=== PATIENT | male | born 1960 | race Caucasian/White ===

== ENCOUNTER → 2019-11-17 | Outpatient (CLI) | payer MEDICARE, OTHER ==
--- NOTE | 2019-11-17 13:32 | US ---
EXAMINATION TYPE: US venous doppler duplex UE RT DATE OF EXAM: 11/17/2019 COMPARISON: NONE CLINICAL HISTORY: R22.31 swelling of R upper limb. SIDE PERFORMED: Right Arm: Negative for DVT IMPRESSION: No evidence for DVT.
== END | disposition home or self-care (01) ==
LOC: RADUSMAIN 12:42
PROVIDERS: ATTEND Internal Medicine Hematology & Oncology
DX: R22.31 Localized swelling, mass and lump, right upper limb (principal)

== ENCOUNTER 2019-11-22 10:08 | Day surgery (SDC) | payer MEDICARE, OTHER ==
[2019-11-22 10:47] VITALS: BP 115/69; PULSE 121; RESP 18; TEMP 97.8
[2019-11-22] MEDS ORDERED: LIDOCAINE 1% INJ 10MG/ML (20 ML MDV) SQ ONE (13:20)
[2019-11-22] MEDS ORDERED: IOPAMIDOL-370 50ML BTL INJ ONE (13:27)
--- NOTE | 2019-11-22 14:11 | IR ---
EXAMINATION TYPE: IR cvc insert >=5 years and right upper extremity venogram DATE OF EXAM: 11/22/2019 COMPARISON: Right upper extremity Doppler duplex CLINICAL HISTORY: Needs long-term intravenous access for chemotherapy. PROCEDURE: Hand hygiene obtained alcohol-based hand rub. After informed consent, the skin overlying the right basilic vein was localized with ultrasound and n oted to be compressible and patent. An ultrasound image was obtained and submitted on the patient's chart. The overlying skin was prepped and draped and Lidocaine was used for local anesthesia. A ski n lori was made with a scalpel. Access was gained to the vein under ultrasound guidance with a 21 ga uge needle and a 0.018 inch wire was advanced. Access site was dilated with Peel-Away sheath and cat heter tailored to the appropriate length and advanced but could not be advanced centrally to the inno minate vein although the wire was advanced centrally. Gentle hand injection of contrast material was performed. Based on the findings, discussion was undertaken with Dr. Morales. It is elected to leave the tip of the catheter in the right axillary vein. Spot image was obtained verifying placement. Cathet er was fixed to the skin and a sterile dressing was placed following hemostasis. Catheter was aspira manisha and flushed with saline. Patient was discharged in stable condition without complication.Maximal barrier technique is utilized. Ultrasound image is documented on the chart. Ultrasound used with st erile technique. FINDINGS: Multiple collaterals are noted over the right axillary and subclavian region. 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 STATUS POST ULTRASOUND AND F LUOROSCOPIC GUIDED PICC LINE PLACEMENT, READY FOR USE. THIS PROCEDURE WAS PERFORMED BY THE [facility]. Catheter tip as described, referring clinician is aware.
== END 2019-11-22 14:06 | disposition home or self-care (01) ==
LOC: CATHCVL 10:08
PROVIDERS: ATTEND Radiology Diagnostic Radiology
DX: I87.1 Compression of vein (principal); I87.2 Venous insufficiency (chronic) (peripheral)
CPT/HCPCS: 36005; 75820; 36573; C1751; C1769; J2001; Q9967

== ENCOUNTER → 2020-01-05 | Outpatient (CLI) | payer MEDICARE, OTHER ==
--- NOTE | 2020-01-05 10:22 | MR ---
EXAMINATION TYPE: MR brain wo/w con DATE OF EXAM: 01/05/2020 COMPARISON: None HISTORY: Lung CA, Dizziness, Increased falls TECHNIQUE: Multiplanar, multisequence images of the brain and brainstem is performed without and with IV contras t, utilizing 7 mL intravenous Gadavist . FINDINGS: Diffusion weighted images demonstrate no evidence of a recent infarct or other diffusion ab normality. There is mild to moderate generalized degenerative change. There are multiple small foci of abnormal signal and mild confluent abnormal signal in the white matter which is nonspecific but most typical r emote microvascular ischemia. Midline structures demonstrate normal morphology. The craniocervical junction appears within normal limits. Post contrast images demonstrate no abnormal enhancement. The dural venous sinuses appear pa tent. Changes of chronic sinusitis noted. Globes are symmetric. Changes of chronic mastoiditis noted. IMPRESSION: 1. No evidence of intracranial metastases. 2. Degenerative and nonspecific white matter changes most typical remote microvascular ischemia. 3. Chronic mastoiditis and sinusitis.
== END | disposition home or self-care (01) ==
LOC: RADMRIMAIN 08:53
PROVIDERS: ATTEND Internal Medicine Hematology & Oncology
DX: I67.9 Cerebrovascular disease, unspecified (principal); H70.10 Chronic mastoiditis, unspecified ear; J32.9 Chronic sinusitis, unspecified; R90.82 White matter disease, unspecified; C34.11 Malignant neoplasm of upper lobe, right bronchus or lung
CPT/HCPCS: 70553; A9585

== ENCOUNTER 2020-01-19 06:24 | Inpatient (IN) | payer MEDICARE, OTHER ==
[2020-01-19] MEDS ORDERED: HYDROmorphone 1 MG/ML 1 ML SYRINGE IVP STA (06:38)
[2020-01-19] MEDS ORDERED: IPRATROPIUM-ALBUTEROL 3 ML NEB INHALATION STA (06:41)
--- NOTE | 2020-01-19 06:44 | ED ---
General Adult HPI - General Chief complaint: Extremity Problem,Nontraumatic Stated complaint: Hip Pain Time Seen by Provider: 01/19/20 06:31 Source: patient, EMS, RN notes reviewed Mode of arrival: EMS Limitations: no limitations - History of Present Illness Initial comments: This a 59-year-old male presents emergency Department chief complaint low back pain, hip pain. Patient states pain started yesterday. Patient states he had no trauma no change in activity. Patient states that he looks morning and the pain was unbearable. He does have a history of sciatica but states it does not feel similar. He states it feels it's more and it pelvis hip and back region. Patient denies any bowel, bladder incontinence or retention. Denies any saddle anesthesias or lower extremity paresthesias. He states he has no radiating pain down his leg. He has no decreased strength of his lower extremities. Patient states he did have a bone graft from his right hip to his neck. Patient does admit that he is on current treatment for lung cancer and he states that his tumor shrinking but it was pressing up against his aorta causing him to pass out occasionally. Patient is ashen dependent, is breathing treatments at home. He states she's been trying to wean himself off his sibley which cause increased shortness of breath and has had increased chest congestion. Denies fevers or chills. - Related Data Home Medications Medication Instructions Recorded Confirmed ARIPiprazole [Abilify] 20 mg PO DAILY 02/06/16 11/22/19 HYDROcodone/APAP 10-325MG [[place] 2 tab PO QID PRN 02/06/16 11/22/19 10-325] Multivitamins, Thera [Multivitamin] 1 tab PO DAILY 02/06/16 11/22/19 Sertraline HCl [Zoloft] 200 mg PO DAILY 02/06/16 11/22/19 Previous Rx's Medication Instructions Recorded Clarithromycin [Biaxin] 500 mg PO Q12HR #20 tablet 02/07/16 Potassium Chloride [Klor-Con 20] 20 meq PO DAILY #7 tab 02/07/16 Allergies Allergy/AdvReac Type Severity Reaction Status Date / Time amitriptyline [From Elavil] Allergy Rash/Hives Verified 01/19/20 06:33 niacin Allergy Rash/Hives Verified 01/19/20 06:34 diazepam [From Valium] AdvReac Unknown Verified 11/22/19 10:22 Review of Systems ROS Statement: Those systems with pertinent positive or pertinent negative responses have been documented in the HPI. ROS Other: All systems not noted in ROS Statement are negative. Past Medical History Past Medical History: Hyperlipidemia, Hypertension Additional Past Medical History / Comment(s): CHRONIC PAIN, Small cell lung CA History of Any Multi-Drug Resistant Organisms: None Reported Additional Past Surgical History / Comment(s): NECK, SPINAL FUSION Past Psychological History: Anxiety, Depression Smoking Status: Current every day smoker Past Alcohol Use History: None Reported Past Drug Use History: Marijuana General Exam Limitations: no limitations General appearance: alert, in no apparent distress Head exam: Present: atraumatic, normocephalic, normal inspection Eye exam: Present: normal appearance, PERRL, EOMI. Absent: scleral icterus, conjunctival injection, periorbital swelling Neck exam: Present: normal inspection, full ROM. Absent: tenderness, meningismus, lymphadenopathy Respiratory exam: Present: respiratory distress (Mild), wheezes, rhonchi. Absent: normal lung sounds bilaterally, rales, stridor Cardiovascular Exam: Present: normal rhythm, tachycardia, normal heart sounds. Absent: systolic murmur, diastolic murmur, rubs, gallop, clicks Back exam: Absent: CVA tenderness (R), CVA tenderness (L) Neurological exam: Present: alert Skin exam: Present: warm, dry, intact, normal color. Absent: rash Course Vital Signs 01/19/20 01/19/20 01/19/20 06:30 07:13 07:31 Temperature 98.2 F Pulse Rate 126 H 111 H 107 H Respiratory 22 Rate Blood Pressure 116/79 O2 Sat by Pulse 100 Oximetry EKG Findings - EKG Comments: EKG Findings:: EKG 0.6:35 sinus tachycardia rate of 117 OK 164 QRS 86 QTC is QTC 320/457 Medical Decision Making - Medical Decision Making Patient's had persistent low back pain on alleviated with pain medication. There is some degenerative changes no osseous lesion though this is concerning given patient has a history of lung cancer. Patient has had some increased shortness of breath which he believed was related to weaning oxygen though he does have some moderate rhonchi improved after DuoNeb treatment. Patient's x- ray shows concerning for infiltrate with mass. Patient has a known mass. Patient be admitted for IV antibiotics, pain management. - Lab Data Result diagrams: 01/19/20 06:44 01/19/20 06:44 Lab Results 01/19/20 01/19/20 01/19/20 Range/Units 06:44 06:44 06:44 WBC 8.2 (3.8-10.6) k/uL RBC 2.70 L (4.30-5.90) m/uL Hgb 9.4 L (13.0-17.5) gm/dL Hct 28.6 L (39.0-53.0) % MCV 105.8 H (80.0-100.0) fL MCH 34.9 (25.0-35.0) pg MCHC 33.0 (31.0-37.0) g/dL RDW 19.3 H (11.5-15.5) % Plt Count 283 (150-450) k/uL Neutrophils % 82 % Lymphocytes % 7 % Monocytes % 8 % Eosinophils % 1 % Basophils % 0 % Neutrophils # 6.7 (1.3-7.7) k/uL Lymphocytes # 0.6 L (1.0-4.8) k/uL Monocytes # 0.7 (0-1.0) k/uL Eosinophils # 0.1 (0-0.7) k/uL Basophils # 0.0 (0-0.2) k/uL Manual Slide Review Performed Hypochromasia Slight Anisocytosis Slight Macrocytosis Marked A Sodium 139 (137-145) mmol/L Potassium 3.8 (3.5-5.1) mmol/L Chloride 105 (98-107) mmol/L Carbon Dioxide 26 (22-30) mmol/L Anion Gap 8 mmol/L BUN 9 (9-20) mg/dL Creatinine 0.60 L (0.66-1.25) mg/dL Est GFR (CKD-EPI)AfAm >90 (>60 ml/min/1.73 sqM) Est GFR (CKD-EPI)NonAf >90 (>60 ml/min/1.73 sqM) Glucose 128 H (74-99) mg/dL Calcium 8.6 (8.4-10.2) mg/dL Total Bilirubin 0.6 (0.2-1.3) mg/dL AST 18 (17-59) U/L ALT 7 (4-49) U/L Alkaline Phosphatase 80 (38-126) U/L Troponin I <0.012 (0.000-0.034) ng/mL NT-Pro-B Natriuret Pep pg/mL Total Protein 7.1 (6.3-8.2) g/dL Albumin 3.7 (3.5-5.0) g/dL 01/19/20 Range/Units 06:44 WBC (3.8-10.6) k/uL RBC (4.30-5.90) m/uL Hgb (13.0-17.5) gm/dL Hct (39.0-53.0) % MCV (80.0-100.0) fL MCH (25.0-35.0) pg MCHC (31.0-37.0) g/dL RDW (11.5-15.5) % Plt Count (150-450) k/uL Neutrophils % % Lymphocytes % % Monocytes % % Eosinophils % % Basophils % % Neutrophils # (1.3-7.7) k/uL Lymphocytes # (1.0-4.8) k/uL Monocytes # (0-1.0) k/uL Eosinophils # (0-0.7) k/uL Basophils # (0-0.2) k/uL Manual Slide Review Hypochromasia Anisocytosis Macrocytosis Sodium (137-145) mmol/L Potassium (3.5-5.1) mmol/L Chloride (98-107) mmol/L Carbon Dioxide (22-30) mmol/L Anion Gap mmol/L BUN (9-20) mg/dL Creatinine (0.66-1.25) mg/dL Est GFR (CKD-EPI)AfAm (>60 ml/min/1.73 sqM) Est GFR (CKD-EPI)NonAf (>60 ml/min/1.73 sqM) Glucose (74-99) mg/dL Calcium (8.4-10.2) mg/dL Total Bilirubin (0.2-1.3) mg/dL AST (17-59) U/L ALT (4-49) U/L Alkaline Phosphatase (38-126) U/L Troponin I (0.000-0.034) ng/mL NT-Pro-B Natriuret Pep 99 pg/mL Total Protein (6.3-8.2) g/dL Albumin (3.5-5.0) g/dL Disposition Clinical Impression: Intractable low back pain, Pneumonia, Lung cancer Disposition: ADMITTED IP TO THIS HOSP Condition: Fair Referrals: [facility],Clinic [Primary Care Provider] - 1-2 days
[2020-01-19 07:02] LABS: Anisocytosis Slight; Basophils % (A) 0 %; Eosinophils # (A) 0.1 k/uL (0-0.7); Eosinophils % (A) 1 %; HCT 28.6 % (39.0-53.0); HGB 9.4 gm/dL (13.0-17.5); Hypochromasia Slight; Lymphocytes # (A) 0.6 k/uL (1.0-4.8); Lymphocytes % (A) 7 %; MCH 34.9 pg (25.0-35.0); MCV 105.8 fL (80.0-100.0); Macrocytosis Marked; Mean Platelet Volume 7.4; Monocytes # (A) 0.7 k/uL (0-1.0); Monocytes % (A) 8 %; Neutrophils # (A) 6.7 k/uL (1.3-7.7); Neutrophils % (A) 82 %; Platelet Count 283 k/uL (150-450); RDW 19.3 % (11.5-15.5); WBC 8.2 k/uL (3.8-10.6)
[2020-01-19 07:06] LABS: ALT 7 U/L (4-49); AST 18 U/L (17-59); African American GFR (CKD) >90 (>60 ml/min/1.73 sqM); Albumin 3.7 g/dL (3.5-5.0); Alkaline Phosphatase 80 U/L (38-126); Anion Gap 8 mmol/L; Blood Urea Nitrogen 9 mg/dL (9-20); Calcium 8.6 mg/dL (8.4-10.2); Carbon Dioxide 26 mmol/L (22-30); Chloride 105 mmol/L (98-107); Glucose 128 mg/dL (74-99); Non-African American GFR(CKD) >90 (>60 ml/min/1.73 sqM); Sodium 139 mmol/L (137-145); Total Bilirubin 0.6 mg/dL (0.2-1.3); Total Protein 7.1 g/dL (6.3-8.2)
[2020-01-19 07:31] LABS: Potassium 3.8 mmol/L (3.5-5.1)
--- NOTE | 2020-01-19 07:40 | XR ---
EXAMINATION TYPE: XR Hip RT and AP Pelvis DATE OF EXAM: 01/19/2020 COMPARISON: NONE HISTORY: Pelvic and right hip pain TECHNIQUE: A single AP view of the pelvis is obtained. Two views of the right hip are obtained. FINDINGS: There is no acute fracture/dislocation evident in the pelvis. The sacroiliac joints appea r symmetric and unremarkable. Mild axial joint space loss in both hips with mild acetabular spurring fairly symmetric in appearance. Artifact from overlying clothing material is present. Two views of right hip show no acute fracture or dislocation. Oval sclerotic focus intertrochanteric level is nonspecific, favor benign bone island. The overlying soft tissue is unremarkable. IMPRESSION: As above.
--- NOTE | 2020-01-19 07:42 | XR ---
EXAMINATION TYPE: XR chest 2V DATE OF EXAM: 01/19/2020 COMPARISON: Chest x-ray February 06, 2016 HISTORY: Shortness of breath. TECHNIQUE: Frontal and lateral views of the chest are obtained. FINDINGS: There is Elevated right hemidiaphragm with right apical triangular shaped opacity and more patchy right upper lung opacity. Left lung remains clear. The cardiac silhouette size remaining within normal limits. Pa rtial visualization of surgical change in the cervical spine redemonstrated. IMPRESSION: New elevated right hemidiaphragm with right apical pleural thickening and/or obstructiv e atelectasis with slightly more inferior right upper lung acute infiltrate and/or atelectasis. Progr ess study advised. Obstructing mass or lesion needs to be excluded.
--- NOTE | 2020-01-19 07:47 | XR ---
EXAMINATION TYPE: XR lumbosacral spine min 4V DATE OF EXAM: 01/19/2020 CLINICAL HISTORY: Back and right sacroiliac joint pain TECHNIQUE: Frontal, lateral, and oblique images of the lumbar spine are obtained. COMPARISON: None FINDINGS: There are 5 lumbar type vertebral bodies identified. The lumbar spine shows satisfactory alignment without evidence of acute fracture or dislocation. Vertebral body heights are within normal limits. Mild to moderate disc space narrowing L4-L5 level. Mild disc space narrowing L5-S1 level. T he oblique images appear within normal limits. Punctate densities likely from ingested food products overlie the abdomen. IMPRESSION: As above.
[2020-01-19] MEDS ORDERED: HYDROmorphone 0.5 MG/0.5 ML SYRINGE IVP STA (08:11)
[2020-01-19] MEDS ORDERED: cefTRIAXone IN SWFI 1,000 MG/10 ML SYRINGE IVP STA (08:40)
[2020-01-19] MEDS ORDERED: AZITHROMYCIN 500 MG in SODIUM CHLORIDE 0.9% 250 ML IVPB STA (08:40)
[2020-01-19] MEDS ORDERED: ONDANSETRON 4 MG/2 ML VIAL IVP PRN (08:44)
[2020-01-19] MEDS ORDERED: HYDROmorphone 0.5 MG/0.5 ML SYRINGE IVP PRN (08:44)
[2020-01-19] MEDS ORDERED: NALOXONE 0.4 MG/ML 1 ML VIAL IV PRN (08:44)
[2020-01-19] MEDS ORDERED: HYDROmorphone 1 MG/ML 1 ML SYRINGE IVP PRN (08:44)
[2020-01-19] MEDS: SODIUM CHLORIDE 0.9% 1,000 ML IV SCH ×2 (09:20→21:30)
[2020-01-19] MEDS ORDERED: METHOCARBAMOL 750 MG TAB PO PRN (10:58)
[2020-01-19] MEDS ORDERED: hydrOXYzine PAMOATE 25 MG CAP PO PRN (10:58)
[2020-01-19] MEDS: HYDROcodone/APAP 10-325MG 1 EACH TAB PO PRN ×2 (16:24→22:23)
[2020-01-19] MEDS: IPRATROPIUM-ALBUTEROL 3 ML NEB INHALATION PRN (19:46)
[2020-01-19] MEDS: BUDESONIDE 1 MG/2 ML NEBU INHALATION SCH (19:46)
--- NOTE | 2020-01-19 19:54 | P.CONS ---
History of Present Illness - Reason for Consult Consult date: 01/19/20 Lung Cancer Requesting physician: Rashi E Sheet - Chief Complaint Intractable Pain - History of Present Illness Mr. Beltran is a patient of our practice in which he is currently undergoing treatment for lung cancer with Carboplatin, Almta concurrent with radiation. Status Post cycle 3. He recently started to have increased right lower back pain, which was not relieved with the norco he utilizes at home. He did have CT scan for restaging Chest abdomen and pelvis on 01/11/20 which did show partial response to treatment, evidenced by decreased size of lung mass. Recent MRI of the brain was also completed and negative. denies any recent trauma. He had xrays of lumbar/sacrum/and Pelvis which essentially negative with the exception of arthritis and area (appears benign) in right hip region. He states the current pain regimen is only moderately helping. A bone scan has been ordered to further evaluate for metastatic disease Review of Systems A 14 point review of systems assessed and completed and all negative except HPI Past Medical History Past Medical History: Cancer, COPD, Fibromyalgia, Hyperlipidemia, Hypertension, Osteoarthritis (OA), Pneumonia, Prostate Disorder, Respiratory Disorder, Thyroid Disorder Additional Past Medical History / Comment(s): 10/2019 R side lung cancer with tumor compression SVC causing syncopal episodes/invasion of mediatinum/bilateral upper extremity lymphedema with numbness and tingling/R arm pain-pt has completed radiation treatments and still needs one more chemo treatment on 01/21/20-plan is then to receive immunotherapy, home oxygen at 3L/NC ATC, vertigo, chronic cervical and back pain, past lower extremity lymphedema, BPH, anemia, bronchitis, hypothyroid History of Any Multi-Drug Resistant Organisms: None Reported Past Surgical History: Orthopedic Surgery Additional Past Surgical History / Comment(s): 10/2019 bronchoscopy with biopsy, cervical surgery x2 with plate and bone graft from R hip, back injections, cystic acne lesions removed, colonoscopy, hemorrhoidectomy, picc lines. Past Anesthesia/Blood Transfusion Reactions: No Reported Reaction, Motion Sickness Smoking Status: Current every day smoker - Past Family History Father Family Medical History: Cancer Additional Family Medical History / Comment(s): Father is from renal cell carcinoma with mets. Mother Additional Family Medical History / Comment(s): Mother went into hospital for knee surgery/ended up from CDiff infection. Medications and Allergies Home Medications Medication Instructions Recorded Confirmed Type ARIPiprazole [Abilify] 20 mg PO DAILY 02/06/16 01/19/20 History HYDROcodone/APAP 10-325MG [[place] 2 tab PO Q4H PRN 02/06/16 01/19/20 History 10-325] Multivitamins, Thera [Multivitamin] 1 tab PO DAILY 02/06/16 01/19/20 History Sertraline HCl [Zoloft] 200 mg PO DAILY 02/06/16 01/19/20 History Atorvastatin [Lipitor] 10 mg PO HS 01/19/20 01/19/20 History Budesonide [Pulmicort] 1 mg INHALATION RT-BID 01/19/20 01/19/20 History Diltiazem HCl [Cardizem CD] 120 mg PO DAILY 01/19/20 01/19/20 History Folic Acid 1 mg PO DAILY 01/19/20 01/19/20 History Ipratropium-Albuterol Nebulize 3 ml INHALATION RT-Q6H PRN 01/19/20 01/19/20 History [Duoneb 0.5 mg-3 mg/3 ml Soln] Levothyroxine Sodium [Synthroid] 50 mcg PO DAILY 01/19/20 01/19/20 History Methocarbamol [Robaxin-750] 750 mg PO QID PRN 01/19/20 01/19/20 History Potassium Chloride [Klor-Con 20] 20 meq PO BID 01/19/20 01/19/20 History hydrOXYzine PAMOATE [Vistaril] 25 mg PO TID PRN 01/19/20 01/19/20 History Allergies Allergy/AdvReac Type Severity Reaction Status Date / Time amitriptyline [From Elavil] Allergy Rash/Hives Verified 01/19/20 09:25 diazepam [From Valium] Allergy Unknown Verified 01/19/20 09:25 niacin Allergy Rash/Hives Verified 01/19/20 09:25 Physical Exam Vitals: Vital Signs Temp Pulse Pulse Resp BP BP Pulse Ox 01/19/20 15:00 98.2 F 96 17 110/72 94 L 01/19/20 07:31 107 H 01/19/20 07:13 111 H 01/19/20 06:30 98.2 F 126 H 22 116/79 100 Intake and Output 01/19/20 01/19/20 01/19/20 06:59 14:59 22:59 Intake Total 600 Balance 600 Intake: Intake, IV Titration 600 Amount Sodium Chloride 0.9% 1, 600 000 ml @ 75 mls/hr IV . [id number] [facility] Rx#:[id number] Other: Weight 70.76 kg 70.76 kg - Constitutional General appearance: cooperative, mild distress, thin - EENT Eyes: EOMI, poor dentition ENT: NA/AT, normal oropharynx - Neck Neck: normal ROM - Respiratory Respiratory: bilateral: rales, wheezing - Cardiovascular Rhythm: regular Heart sounds: normal: S1, S2 - Gastrointestinal General gastrointestinal: normal bowel sounds, soft - Integumentary Integumentary: pale - Neurologic non focal - Musculoskeletal Musculoskeletal: generalized weakness, strength equal bilaterally - Psychiatric Psychiatric: A&O x's 3, appropriate affect, intact judgment & insight Results CBC & Chem 7: 01/19/20 06:44 01/19/20 06:44 Labs: Abnormal Lab Results - Last 24 Hours (Table) 01/19/20 01/19/20 Range/Units 06:44 06:44 RBC 2.70 L (4.30-5.90) m/uL Hgb 9.4 L (13.0-17.5) gm/dL Hct 28.6 L (39.0-53.0) % MCV 105.8 H (80.0-100.0) fL RDW 19.3 H (11.5-15.5) % Lymphocytes # 0.6 L (1.0-4.8) k/uL Macrocytosis Marked A Creatinine 0.60 L (0.66-1.25) mg/dL Glucose 128 H (74-99) mg/dL Comments: Xrays Reviewed Chest x-ray: report reviewed Assessment and Plan (1) Intractable low back pain Current Visit: Yes Status: Acute Code(s): M54.5 - LOW BACK PAIN SNOMED Code(s): 89650272474849791 (2) Lung cancer Current Visit: Yes Status: Acute Code(s): C34.90 - MALIGNANT NEOPLASM OF UNSP PART OF UNSP BRONCHUS OR LUNG SNOMED Code(s): 768407059 (3) Pneumonia Current Visit: Yes Status: Acute Code(s): J18.9 - PNEUMONIA, UNSPECIFIED ORGANISM SNOMED Code(s): 734120768 Plan: Assessment and Recommendations: Adenocarcinoma of the Lung: - Status post 3 cycles of Carboplatin and Almta concurrent with radiation - PLan for immunotherapy maintenance post chemo - COntinue Folic Acid Daily - Monitor CBC for paulino and decrease blood counts - Recent CT scans showed partial response with mild decrease in size of primary lung mass Right lower back pain: - Muscle relaxers and prn medications on board - Can consider long acting if still not controlled - Bowel regimen for narcotic induced constipation - Await NM bone scan Normocytic anemia likely secondary to chemotherapy - Check B12, Iron studies - Monitor CBC Thank you for allowing us to participate in the care of this patient we will follow along with you
[2020-01-19] MEDS: ATORVASTATIN 10 MG TAB PO SCH (20:38)
[2020-01-19] MEDS: HEPARIN SODIUM,PORCINE 5,000 UNIT/ML 1 ML VIAL SQ SCH (20:38)
[2020-01-19] MEDS: FAMOTIDINE 20 MG/2 ML VIAL IV SCH (20:38)
[2020-01-20] MEDS: LEVOTHYROXINE 50 MCG TAB PO SCH (06:07)
[2020-01-20 07:32] LABS: Anisocytosis Slight; Basophils % (A) 1 %; Eosinophils # (A) 0.1 k/uL (0-0.7); Eosinophils % (A) 1 %; HCT 27.3 % (39.0-53.0); HGB 8.6 gm/dL (13.0-17.5); Hypochromasia Marked; Lymphocytes # (A) 0.6 k/uL (1.0-4.8); Lymphocytes % (A) 10 %; MCH 34.9 pg (25.0-35.0); MCHC 31.4 g/dL (31.0-37.0); Macrocytosis Marked; Mean Platelet Volume 7.1; Monocytes # (A) 0.5 k/uL (0-1.0); Monocytes % (A) 9 %; Neutrophils # (A) 4.4 k/uL (1.3-7.7); Neutrophils % (A) 78 %; Platelet Count 223 k/uL (150-450); RBC 2.46 m/uL (4.30-5.90); RDW 18.4 % (11.5-15.5); WBC 5.7 k/uL (3.8-10.6)
[2020-01-20 07:53] LABS: ALT 6 U/L (4-49); AST 10 U/L (17-59); African American GFR (CKD) >90 (>60 ml/min/1.73 sqM); Albumin 3.4 g/dL (3.5-5.0); Alkaline Phosphatase 81 U/L (38-126); Anion Gap 8 mmol/L; Blood Urea Nitrogen 9 mg/dL (9-20); Calcium 8.6 mg/dL (8.4-10.2); Carbon Dioxide 25 mmol/L (22-30); Chloride 106 mmol/L (98-107); Glucose 104 mg/dL (74-99); MCV 111.1 fL (80.0-100.0); Non-African American GFR(CKD) >90 (>60 ml/min/1.73 sqM); Potassium 3.9 mmol/L (3.5-5.1); Sodium 139 mmol/L (137-145); Total Bilirubin 0.3 mg/dL (0.2-1.3); Total Protein 6.4 g/dL (6.3-8.2)
[2020-01-20] MEDS: BUDESONIDE 1 MG/2 ML NEBU INHALATION SCH ×2 (08:06→19:47)
[2020-01-20 08:45] LABS: Poikilocytosis (M) Present; Polychromasia Present
[2020-01-20] MEDS: HYDROcodone/APAP 10-325MG 1 EACH TAB PO PRN ×2 (09:22→22:17)
[2020-01-20] MEDS: SODIUM CHLORIDE 0.9% 1,000 ML IV SCH ×2 (09:23→22:55)
[2020-01-20] MEDS: HEPARIN SODIUM,PORCINE 5,000 UNIT/ML 1 ML VIAL SQ SCH ×2 (09:23→22:02)
[2020-01-20] MEDS: FAMOTIDINE 20 MG/2 ML VIAL IV SCH ×2 (09:23→22:02)
[2020-01-20] MEDS: FOLIC ACID 1 MG TAB PO SCH (09:23)
[2020-01-20] MEDS: DILTIAZEM CD 120 MG CAP.ER.24H PO SCH (09:23)
--- NOTE | 2020-01-20 09:37 | P.HPIM ---
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 Troponin is negative, proBNP is negative at 99.EKG showing sinus tachycardia at 117. No ST-T changes.chest x-ray: newly elevated right hemidiaphragm with right apical pleural thickening, atelectasis, with some more infiltrated, obstructing mass or lesion in to be excluded lumbar spine x-ray showing no fracture or dislocation [id number] facet better with hip x-ray showing no fracture or dislocation. emergency room physician financial services assistant Dilaudid and ceftriaxone and Zithromax. Also was started on normal saline at [address] Morales team has been consulted from ED Review of Systems CONSTITUTIONAL: No fever, no malaise, no fatigue. HEENT: No recent visual problems or hearing problems. Denied any sore throat. CARDIOVASCULAR: No orthopnea, PND, no palpitations, no syncope. PULMONARY: No shortness of breath, no cough, no hemoptysis. GASTROINTESTINAL: No diarrhea, no nausea, no vomiting, no abdominal pain. Normoactive bowel sounds. NEUROLOGICAL: No headaches, no weakness, no numbness. HEMATOLOGICAL: Denies any bleeding or petechiae. GENITOURINARY: Denies any burning micturition, frequency, or urgency. MUSCULOSKELETAL/RHEUMATOLOGICAL: Denies any joint pain, swelling, or any muscle pain. ENDOCRINE: Denies any polyuria or polydipsia. Past Medical History Past Medical History: Cancer, COPD, Fibromyalgia, Hyperlipidemia, Hypertension, Osteoarthritis (OA), Pneumonia, Prostate Disorder, Respiratory Disorder, Thyroid Disorder Additional Past Medical History / Comment(s): 10/2019 R side lung cancer with tumor compression SVC causing syncopal episodes/invasion of mediatinum/bilateral upper extremity lymphedema with numbness and tingling/R arm pain-pt has completed radiation treatments and still needs one more chemo treatment on 01/21/20-plan is then to receive immunotherapy, home oxygen at 3L/NC ATC, vertigo, chronic cervical and back pain, past lower extremity lymphedema, BPH, anemia, bronchitis, hypothyroid History of Any Multi-Drug Resistant Organisms: None Reported Past Surgical History: Orthopedic Surgery Additional Past Surgical History / Comment(s): 10/2019 bronchoscopy with biopsy, cervical surgery x2 with plate and bone graft from R hip, back injections, cystic acne lesions removed, colonoscopy, hemorrhoidectomy, picc lines. Past Anesthesia/Blood Transfusion Reactions: No Reported Reaction, Motion Sickness Smoking Status: Current every day smoker - Past Family History Father Family Medical History: Cancer Additional Family Medical History / Comment(s): Father is from renal cell carcinoma with mets. Mother Additional Family Medical History / Comment(s): Mother went into hospital for knee surgery/ended up from CDiff infection. Medications and Allergies Home Medications Medication Instructions Recorded Confirmed Type ARIPiprazole [Abilify] 20 mg PO DAILY 02/06/16 01/19/20 History HYDROcodone/APAP 10-325MG [[place] 2 tab PO Q4H PRN 02/06/16 01/19/20 History 10-325] Multivitamins, Thera [Multivitamin] 1 tab PO DAILY 02/06/16 01/19/20 History Sertraline HCl [Zoloft] 200 mg PO DAILY 02/06/16 01/19/20 History Atorvastatin [Lipitor] 10 mg PO HS 01/19/20 01/19/20 History Budesonide [Pulmicort] 1 mg INHALATION RT-BID 01/19/20 01/19/20 History Diltiazem HCl [Cardizem CD] 120 mg PO DAILY 01/19/20 01/19/20 History Folic Acid 1 mg PO DAILY 01/19/20 01/19/20 History Ipratropium-Albuterol Nebulize 3 ml INHALATION RT-Q6H PRN 01/19/20 01/19/20 History [Duoneb 0.5 mg-3 mg/3 ml Soln] Levothyroxine Sodium [Synthroid] 50 mcg PO DAILY 01/19/20 01/19/20 History Methocarbamol [Robaxin-750] 750 mg PO QID PRN 01/19/20 01/19/20 History Potassium Chloride [Klor-Con 20] 20 meq PO BID 01/19/20 01/19/20 History hydrOXYzine PAMOATE [Vistaril] 25 mg PO TID PRN 01/19/20 01/19/20 History Allergies Allergy/AdvReac Type Severity Reaction Status Date / Time amitriptyline [From Elavil] Allergy Rash/Hives Verified 01/19/20 09:25 diazepam [From Valium] Allergy Unknown Verified 01/19/20 09:25 niacin Allergy Rash/Hives Verified 01/19/20 09:25 Physical Exam Vitals: Vital Signs Temp Pulse Resp BP Pulse Ox 01/19/20 07:31 107 H 01/19/20 07:13 111 H 01/19/20 06:30 98.2 F 126 H 22 116/79 100 Intake and Output 01/18/20 01/19/20 01/19/20 22:59 06:59 14:59 Other: Weight 70.76 kg 70.76 kg GENERAL: The patient is alert and oriented x3, not in any acute distress. Well developed, well nourished. HEENT: Pupils are round and equally reacting to light. EOMI. No scleral icterus. No conjunctival pallor. Normocephalic, atraumatic. No pharyngeal erythema. No thyromegaly. CARDIOVASCULAR: S1 and S2 present. No murmurs, rubs, or gallops. PULMONARY: Chest is clear to auscultation, no wheezing or crackles. ABDOMEN: Soft, nontender, nondistended, normoactive bowel sounds. No palpable organomegaly. MUSCULOSKELETAL: No joint swelling or deformity. EXTREMITIES: No cyanosis, clubbing, or pedal edema. NEUROLOGICAL: Gross neurological examination did not reveal any focal deficits. SKIN: No rashes. No petechiae Results CBC & Chem 7: 01/20/20 06:48 01/20/20 06:48 Labs: Abnormal Lab Results - Last 24 Hours (Table) 01/19/20 01/19/20 Range/Units 06:44 06:44 RBC 2.70 L (4.30-5.90) m/uL Hgb 9.4 L (13.0-17.5) gm/dL Hct 28.6 L (39.0-53.0) % MCV 105.8 H (80.0-100.0) fL RDW 19.3 H (11.5-15.5) % Lymphocytes # 0.6 L (1.0-4.8) k/uL Macrocytosis Marked A Creatinine 0.60 L (0.66-1.25) mg/dL Glucose 128 H (74-99) mg/dL Thrombosis Risk Factor Assmnt - Choose All That Apply Any of the Below Risk Factors Present?: Yes Each Factor Represents 1 point: Abnormal pulmonary function (COPD), Age 41-60 years Other Risk Factors: Yes Each Risk Factor Represents 2 Points: Malignancy Other congenital or acquired thrombophilia - If yes, enter type in comment: No Thrombosis Risk Factor Assessment Total Risk Factor Score: 4 Thrombosis Risk Factor Assessment Level: Moderate Risk Assessment and Plan Assessment: 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 in the past as well as bilateral upper extremity lymphedema with numbness and tingling in the right arm status post radiotherapy and chemotherapy -elevated right hemidiaphragm with atelectasis, rule out obstructive masses, in view of his dyspnea and chest congestion -chronic hypoxic respiratory failure on 3 L/m oxygen via nasal cannula -hypertension -Hyperlipidemia -Primary osteoarthritis -COPD, not in acute exacerbation -Hypothyroidism -Benign prostatic hypertrophy -Chronic neck and back pain Plan: this is a pleasant 51 years old male who presents because of hip pain and low back pain associated with chest congestion. Continue with pain management. Consult orthopedic team. Follow-up with hematology/oncology service.pain m anagement Labs and medication were reviewed.. Continue same treatment. Continue with symptomatic treatment. Resume home medication. Monitor lytes and vitals. DVT and GI prophylaxis. Further recommendations of the clinical course of the patient DVT prophylaxis: Subcutaneous heparin GI Prophylaxis: Pepcid PT/OT: Pending Prognosis is guarded
--- NOTE | 2020-01-20 09:43 | P.PN ---
Subjective this is a pleasant 59 years old male with past medical history of COPD, hypertension, hyperlipidemia, osteoarthritis, hypothyroidism, 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 causing syncopal episodes in the past as well as bilateral upper extremity lymphedema with numbness and tingling in the right arm status post radiotherapy and chemotherapy., He has also history of chronic hypoxic respiratory failure arthritic oxygen via nasal cannula, chronic cervical and back pain, benign prostatic hypertrophy A presents because of low back pain and hip pain ration vitals are stable, he is tachycardic 107-111.unremarkable CBC and BMP and liver enzymes. Troponin is negative, proBNP is negative at 99.EKG showing sinus tachycardia at 117. No ST-T changes.chest x-ray: newly elevated right hemidiaphragm with right apical pleural thickening, atelectasis, with some more infiltrated, obstructing mass or lesion in to be excluded lumbar spine x-ray showing no fracture or dislocation [id number] facet better with hip x-ray showing no fracture or dislocation. emergency room physician assistant manager bilingual Dilaudid and ceftriaxone and Zithromax. Also was started on normal saline at [address] Morales team has been consulted from ED 01/20/2020 Patient is awake, alert, his nausea vomiting better, no chest pain or dyspnea. His pain in the right lower back/hip area still going on but feels better. Patient has some difficulty walking due to pain, he uses a walker with the help of the physical therapist. No weakness in the lower extremities. Oncology input is appreciated and the recommended bone scan and vitamin B12 no Vitals stable. CBC and BMP is unremarkable. Patient was given antibiotic in the emergency room for possible pneumonia however patient is not really dyspneic. No fever or leukocytosis, we'll keep monitoring for now. Review of Systems CONSTITUTIONAL: No fever, no malaise, no fatigue. HEENT: No recent visual problems or hearing problems. Denied any sore throat. CARDIOVASCULAR: No orthopnea, PND, no palpitations, no syncope. PULMONARY: No shortness of breath, no cough, no hemoptysis. GASTROINTESTINAL: No diarrhea, no nausea, no vomiting, no abdominal pain. Normoactive bowel sounds. NEUROLOGICAL: No headaches, no weakness, no numbness. HEMATOLOGICAL: Denies any bleeding or petechiae. GENITOURINARY: Denies any burning micturition, frequency, or urgency. MUSCULOSKELETAL/RHEUMATOLOGICAL: Denies any joint pain, swelling, or any muscle pain. ENDOCRINE: Denies any polyuria or polydipsia. Active Medications Generic Name Dose Route Start Last Admin Trade Name Freq PRN Reason Stop Dose Admin Hydrocodone Bitart/Acetaminophen 2 each 01/19/20 10:58 01/20/20 09:22 [place] 10 PO 2 each Q4H PRN Administration Pain Albuterol/Ipratropium 3 ml 01/19/20 10:58 01/19/20 19:46 Duoneb 0.5 Mg-3 Mg/3 Ml Soln INHALATION 3 ml RT-Q6H PRN Administration Shortness Of Breath Aripiprazole 20 mg 01/20/20 09:00 01/20/20 09:23 Abilify PO 20 mg DAILY OZZIE Administration Atorvastatin Calcium 10 mg 01/19/20 21:00 01/19/20 20:38 Lipitor PO 10 mg HS OZZIE Administration Budesonide 1 mg 01/19/20 20:00 01/20/20 08:06 Pulmicort INHALATION Not Given RT-BID OZZIE Diltiazem HCl 120 mg 01/20/20 09:00 01/20/20 09:23 Cardizem Cd PO 120 mg DAILY OZZIE Administration Famotidine 20 mg 01/19/20 21:00 01/20/20 09:23 Pepcid IV 20 mg Q12HR OZZIE Administration Folic Acid 1 mg 01/20/20 09:00 01/20/20 09:23 Folic Acid PO 1 mg DAILY OZZIE Administration Heparin Sodium (Porcine) 5,000 unit 01/19/20 21:00 01/20/20 09:23 Heparin SQ 5,000 unit Q12HR OZZIE Administration Hydromorphone HCl 0.5 mg 01/19/20 08:44 Dilaudid IVP Q3HR PRN Moderate Pain Hydromorphone HCl 1 mg 01/19/20 08:44 01/19/20 13:49 Dilaudid IVP 1 mg Q3HR PRN Administration Severe Pain Hydroxyzine Pamoate 25 mg 01/19/20 10:58 Vistaril PO TID PRN Anxiety Sodium Chloride 1,000 mls @ 75 mls/hr 01/19/20 08:45 01/20/20 09:23 Saline 0.9% IV 75 mls/hr .[id number] OZZIE Administration Levothyroxine Sodium 50 mcg 01/20/20 06:30 01/20/20 06:07 Synthroid PO 50 mcg 0630 OZZIE Administration Methocarbamol 750 mg 01/19/20 10:58 Robaxin PO QID PRN Muscle Spasm Naloxone HCl 0.2 mg 01/19/20 08:44 Narcan IV Q2M PRN Opioid Reversal Ondansetron HCl 4 mg 01/19/20 08:44 Zofran IVP Q8HR PRN Nausea And Vomiting Objective - Vital Signs Vital signs: Vital Signs Temp 98.2 F 01/20/20 05:27 Pulse 107 H 01/20/20 05:27 Resp 20 01/20/20 05:27 BP 112/74 01/20/20 05:27 Pulse Ox 97 01/20/20 05:27 Intake & Output 01/19/20 01/20/20 01/20/20 18:59 06:59 18:59 Intake Total 600 590 Balance 600 590 Weight 70.76 kg Intake: Intake, IV Titration 600 Amount Sodium Chloride 0.9% 1, 600 000 ml @ 75 mls/hr IV . [id number] OZZIE Rx#:[id number] Oral 590 Other: Voiding Method Toilet Toilet # Voids 1 - Exam GENERAL: The patient is alert and oriented x3, not in any acute distress. Well developed, well nourished. HEENT: Pupils are round and equally reacting to light. EOMI. No scleral icterus. No conjunctival pallor. Normocephalic, atraumatic. No pharyngeal erythema. No thyromegaly. CARDIOVASCULAR: S1 and S2 present. No murmurs, rubs, or gallops. PULMONARY: Chest is clear to auscultation, no wheezing or crackles. ABDOMEN: Soft, nontender, nondistended, normoactive bowel sounds. No palpable organomegaly. MUSCULOSKELETAL: No joint swelling or deformity. EXTREMITIES: No cyanosis, clubbing, or pedal edema. NEUROLOGICAL: Gross neurological examination did not reveal any focal deficits. SKIN: No rashes. no petechiae. - Labs CBC & Chem 7: 01/20/20 06:48 01/20/20 06:48 Labs: Abnormal Lab Results - Last 24 Hours (Table) 01/20/20 01/20/20 Range/Units 06:48 06:48 RBC 2.46 L (4.30-5.90) m/uL Hgb 8.6 L (13.0-17.5) gm/dL Hct 27.3 L (39.0-53.0) % MCV 111.1 H D (80.0-100.0) fL RDW 18.4 H (11.5-15.5) % Lymphocytes # 0.6 L (1.0-4.8) k/uL Macrocytosis Marked A Creatinine 0.58 L (0.66-1.25) mg/dL Glucose 104 H (74-99) mg/dL AST 10 L (17-59) U/L Albumin 3.4 L (3.5-5.0) g/dL Assessment and Plan Assessment: -Right lower back/hip area pain, rule out metastatic disease. 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 in the past as well as bilateral upper extremity lymphedema with numbness and tingling in the right arm status post radiotherapy and chemotherapy -elevated right hemidiaphragm with atelectasis, rule out obstructive masses, in view of his dyspnea and chest congestion -chronic hypoxic respiratory failure on 3 L/m oxygen via nasal cannula -hypertension -Hyperlipidemia -Primary osteoarthritis -COPD, not in acute exacerbation -Hypothyroidism -Benign prostatic hypertrophy -Chronic neck and back pain Plan: this is a pleasant 51 years old male who presents because of hip pain and low back pain . Continue with pain management. Consult orthopedic team. Follow-up with hematology/oncology service.pain management. Follow-up bone scan. Follow- up vitamin B12 level Labs and medication were reviewed.. Continue same treatment. Continue with symptomatic treatment. Resume home medication. Monitor lytes and vitals. DVT and GI prophylaxis. Further recommendations of the clinical course of the patient DVT prophylaxis: Subcutaneous heparin GI Prophylaxis: Pepcid PT/OT: Pending Prognosis is guarded
--- NOTE | 2020-01-20 11:25 | P.CNOR ---
History of Present Illness - [facility] Consult date: 01/20/20 Consult reason: low back pain History of present illness: Patient is a pleasant 59-year-old male seen at bedside this morning consultation for right low back pain. He states he developed severe right low back pain approximately 2 days ago after playing on the couch. He denies any trauma or injury. His pain has continued. He takes pain medication and Robaxin for chronic neck and back pain. He is seen at the [place] [facility]. He is currently denying any radicular symptoms down his lower extremities including numbness or tingling. He has no loss of bowel or bladder control. He denies calf pain. He states he has a history of lung cancer which is stage III. He has a bone scan scheduled to be performed. He has no other complaints today. Review of Systems All systems: negative Constitutional: Denies chills, Denies fever Eyes: denies blurred vision, denies pain Ears, nose, mouth and throat: Denies headache, Denies sore throat Cardiovascular: Denies chest pain, Denies shortness of breath Respiratory: Denies cough Gastrointestinal: Denies abdominal pain, Denies diarrhea, Denies nausea, Denies vomiting Musculoskeletal: Denies myalgias Integumentary: Denies pruritus, Denies rash Neurological: Denies numbness, Denies weakness Psychiatric: Denies anxiety, Denies depression Endocrine: Denies fatigue, Denies weight change Past Medical History Past Medical History: Cancer, COPD, Fibromyalgia, Hyperlipidemia, Hypertension, Osteoarthritis (OA), Pneumonia, Prostate Disorder, Respiratory Disorder, Thyroid Disorder Additional Past Medical History / Comment(s): 10/2019 R side lung cancer with tumor compression SVC causing syncopal episodes/invasion of mediatinum/bilateral upper extremity lymphedema with numbness and tingling/R arm pain-pt has completed radiation treatments and still needs one more chemo treatment on 01/20-plan is then to receive immunotherapy, home oxygen at 3L/[place] ATC, vertigo, chronic cervical and back pain, past lower extremity lymphedema, BPH, anemia, bronchitis, hypothyroid History of Any Multi-Drug Resistant Organisms: None Reported Past Surgical History: Orthopedic Surgery Additional Past Surgical History / Comment(s): 10/2019 bronchoscopy with biopsy, cervical surgery x2 with plate and bone graft from R hip, back injections, cystic acne lesions removed, colonoscopy, hemorrhoidectomy, picc lines. Past Anesthesia/Blood Transfusion Reactions: No Reported Reaction, Motion Sickness Smoking Status: Current every day smoker - Past Family History Father Family Medical History: Cancer Additional Family Medical History / Comment(s): Father is from renal cell carcinoma with mets. Mother Additional Family Medical History / Comment(s): Mother went into hospital for knee surgery/ended up from CDiff infection. Medications and Allergies Home Medications Medication Instructions Recorded Confirmed Type ARIPiprazole [Abilify] 20 mg PO DAILY 02/06/16 01/19/20 History HYDROcodone/APAP 10-325MG [[place] 2 tab PO Q4H PRN 02/06/16 01/19/20 History 10-325] Multivitamins, Thera [Multivitamin] 1 tab PO DAILY 02/06/16 01/19/20 History Sertraline HCl [Zoloft] 200 mg PO DAILY 02/06/16 01/19/20 History Atorvastatin [Lipitor] 10 mg PO HS 01/19/20 01/19/20 History Budesonide [Pulmicort] 1 mg INHALATION RT-BID 01/19/20 01/19/20 History Diltiazem HCl [Cardizem CD] 120 mg PO DAILY 01/19/20 01/19/20 History Folic Acid 1 mg PO DAILY 01/19/20 01/19/20 History Ipratropium-Albuterol Nebulize 3 ml INHALATION RT-Q6H PRN 01/19/20 01/19/20 History [Duoneb 0.5 mg-3 mg/3 ml Soln] Levothyroxine Sodium [Synthroid] 50 mcg PO DAILY 01/19/20 01/19/20 History Methocarbamol [Robaxin-750] 750 mg PO QID PRN 01/19/20 01/19/20 History Potassium Chloride [Klor-Con 20] 20 meq PO BID 01/19/20 01/19/20 History hydrOXYzine PAMOATE [Vistaril] 25 mg PO TID PRN 01/19/20 01/19/20 History Allergies Allergy/AdvReac Type Severity Reaction Status Date / Time amitriptyline [From Elavil] Allergy Rash/Hives Verified 01/19/20 09:25 diazepam [From Valium] Allergy Unknown Verified 01/19/20 09:25 niacin Allergy Rash/Hives Verified 01/19/20 09:25 Physical Examination Inspection of the spine and lower back are atraumatic. There are no ecchymoses, erythema or wounds. There is no step-off. There is paraspinal spasming but no point tenderness. He has right low back pain with straight leg raising. He has no pain in the right hip or groin with range of motion of the hip joint. Neuro status is intact with motor and sensation full throughout the right lower extremity L2 through S1. 2+ knee jerk and ankle jerk reflexes present. There is no hyperreflexia. Calf is soft nontender. 2+ dorsalis pedis pulse and less than 2 second cap refill present. Results Lumbar XRays show mild degenerative changes. There is no fractures or instability. There are no apparent lesions. - Labs Labs: Abnormal Lab Results - Last 24 Hours (Table) 01/20/20 01/20/20 Range/Units 06:48 06:48 RBC 2.46 L (4.30-5.90) m/uL Hgb 8.6 L (13.0-17.5) gm/dL Hct 27.3 L (39.0-53.0) % MCV 111.1 H D (80.0-100.0) fL RDW 18.4 H (11.5-15.5) % Lymphocytes # 0.6 L (1.0-4.8) k/uL Macrocytosis Marked A Creatinine 0.58 L (0.66-1.25) mg/dL Glucose 104 H (74-99) mg/dL AST 10 L (17-59) U/L Albumin 3.4 L (3.5-5.0) g/dL H & H 01/19/20 01/20/20 Range/Units 06:44 06:48 Hgb 9.4 L 8.6 L (13.0-17.5) gm/dL Hct 28.6 L 27.3 L (39.0-53.0) % Result Diagrams: 01/20/20 06:48 01/20/20 06:48 Assessment and Plan (1) Intractable low back pain Narrative/Plan: We will have him try a round of corticosteroids and extended release pain medication. We'll also order physical therapy for lumbar spine neutral spine stabilization, core strengthening and hamstring flexibility. We will await results of the bone scan. We'll continue to follow make further recommendations as appropriate. Current Visit: Yes Status: Acute Code(s): M54.5 - LOW BACK PAIN SNOMED Code(s): [id number] Time with Patient: Less than 30
[2020-01-20] MEDS: oxyCODONE ER 10 MG TAB.ER.12H PO SCH ×2 (11:39→22:53)
--- NOTE | 2020-01-20 13:56 | NM ---
EXAMINATION TYPE: NM bone scan whole body DATE OF EXAM: 01/20/2020 COMPARISON: Lumbar spine 01/19/2020 HISTORY: Right hip pain for 3 days, lung carcinoma Delayed whole-body scanning was performed following the injection of 21.9 mCi Tc 99m MDP. Images acq uired 4 hours post injection. FINDINGS: Uptake in the lower lumbar spine, lumbosacral junction likely is degenerative. Uptake within the feet , shoulders, sternoclavicular joints is likely degenerative. Soft tissue uptake is normal. No abnorma l uptake to suggest metastatic disease. In specific the hips show symmetric uptake. IMPRESSION: Metastatic disease is not evident.
[2020-01-20 15:46] VITALS: BMI 24.4
[2020-01-20] MEDS: methylPREDNISolone 4 MG TAB TAPER PO SCH (15:55)
--- NOTE | 2020-01-20 16:15 | P.PN ---
Subjective Progress Note Date: 01/20/20 Principal diagnosis: Hip and back pain Patient was evaluated by orthopedics agree with plan. Objective - Vital Signs Vital signs: Vital Signs Temp 97.5 F L 01/20/20 11:33 Pulse 101 H 01/20/20 11:33 Resp 18 01/20/20 11:33 BP 119/69 01/20/20 11:33 Pulse Ox 97 01/20/20 11:33 Intake & Output 01/19/20 01/20/20 01/20/20 18:59 06:59 18:59 Intake Total 600 590 Balance 600 590 Weight 70.76 kg Intake: Intake, IV Titration 600 Amount Sodium Chloride 0.9% 1, 600 000 ml @ 75 mls/hr IV . [id number] OZZIE Rx#:[id number] Oral 590 Other: Voiding Method Toilet Toilet # Voids 1 - Exam - Constitutional General appearance: cooperative, mild distress, thin - EENT Eyes: EOMI, poor dentition ENT: NA/AT, normal oropharynx - Neck Neck: normal ROM - Respiratory Respiratory: bilateral: rales, wheezing - Cardiovascular Rhythm: regular Heart sounds: normal: S1, S2 - Gastrointestinal General gastrointestinal: normal bowel sounds, soft - Integumentary Integumentary: pale - Neurologic non focal - Musculoskeletal Musculoskeletal: generalized weakness, strength equal bilaterally - Psychiatric Psychiatric: A&O x's 3, appropriate affect, intact judgment & insight - Labs CBC & Chem 7: 01/20/20 06:48 01/20/20 06:48 Labs: Abnormal Lab Results - Last 24 Hours (Table) 01/20/20 01/20/20 Range/Units 06:48 06:48 RBC 2.46 L (4.30-5.90) m/uL Hgb 8.6 L (13.0-17.5) gm/dL Hct 27.3 L (39.0-53.0) % MCV 111.1 H D (80.0-100.0) fL RDW 18.4 H (11.5-15.5) % Lymphocytes # 0.6 L (1.0-4.8) k/uL Macrocytosis Marked A Creatinine 0.58 L (0.66-1.25) mg/dL Glucose 104 H (74-99) mg/dL AST 10 L (17-59) U/L Albumin 3.4 L (3.5-5.0) g/dL Microbiology - Last 24 Hours (Table) 01/19/20 09:18 Blood Culture - Preliminary Blood No Growth after 24 hours Assessment and Plan (1) Intractable low back pain Current Visit: Yes Status: Acute Code(s): M54.5 - LOW BACK PAIN SNOMED Code(s): 01000332670088759 (2) Lung cancer Current Visit: Yes Status: Acute Code(s): C34.90 - MALIGNANT NEOPLASM OF UNSP PART OF UNSP BRONCHUS OR LUNG SNOMED Code(s): 931168115 (3) Pneumonia Current Visit: Yes Status: Acute Code(s): J18.9 - PNEUMONIA, UNSPECIFIED ORGANISM SNOMED Code(s): 577740097 Plan: Assessment and Recommendations: Adenocarcinoma of the Lung: - Status post 3 cycles of Carboplatin and [place] concurrent with radiation - PLan for immunotherapy maintenance post chemo - COntinue Folic Acid Daily - Monitor CBC for paulino and decrease blood counts - Recent CT scans showed partial response with mild decrease in size of primary lung mass Right lower back pain: - Muscle relaxers and prn medications on board - Can consider long acting if still not controlled - Bowel regimen for narcotic induced constipation - Await NM bone scan Normocytic anemia likely secondary to chemotherapy - Check B12, Iron studies - Monitor CBC Plan: - Agree with long acting pain management with prn for severe pain - Agree with PT/OT - Await Bone Scan - Will plan for follow-up in office within 2 weeks of discharge
[2020-01-20] MEDS: CYANOCOBALAMIN 500 MCG TAB PO SCH (22:02)
[2020-01-20] MEDS: ATORVASTATIN 10 MG TAB PO SCH (22:02)
[2020-01-21] MEDS: oxyCODONE ER 10 MG TAB.ER.12H PO SCH (07:49)
[2020-01-21] MEDS: LEVOTHYROXINE 50 MCG TAB PO SCH (07:50)
[2020-01-21] MEDS: FOLIC ACID 1 MG TAB PO SCH (07:50)
[2020-01-21] MEDS: CYANOCOBALAMIN 500 MCG TAB PO SCH (07:50)
[2020-01-21] MEDS: methylPREDNISolone 4 MG TAB TAPER PO SCH (07:51)
[2020-01-21] MEDS: DILTIAZEM CD 120 MG CAP.ER.24H PO SCH (07:51)
[2020-01-21] MEDS: HEPARIN SODIUM,PORCINE 5,000 UNIT/ML 1 ML VIAL SQ SCH (07:51)
[2020-01-21] MEDS: FAMOTIDINE 20 MG/2 ML VIAL IV SCH (07:52)
[2020-01-21] MEDS: BUDESONIDE 1 MG/2 ML NEBU INHALATION SCH (08:16)
[2020-01-21] MEDS: IPRATROPIUM-ALBUTEROL 3 ML NEB INHALATION PRN (11:18)
[2020-01-21 13:05] VITALS: BP 113/75; PULSE 93; RESP 17; TEMP 98.1
--- NOTE | 2020-01-21 14:00 | P.PN ---
Subjective Progress Note Date: 01/21/20 Principal diagnosis: Hip and back pain Doing better on long acting medication. Objective - Vital Signs Vital signs: Vital Signs Temp 98.1 F 01/21/20 13:04 Pulse 93 01/21/20 13:04 Resp 17 01/21/20 13:04 BP 113/75 01/21/20 13:04 Pulse Ox 98 01/21/20 13:04 Intake & Output 01/20/20 01/21/20 01/21/20 18:59 06:59 18:59 Intake Total 650 1315 Balance 650 1315 Weight 70.76 kg Intake: Intake, IV Titration 650 725 Amount Sodium Chloride 0.9% 1, 650 725 000 ml @ 75 mls/hr IV . [id number] OZZIE Rx#:[id number] Oral 590 Other: Voiding Method Toilet Toilet Toilet # Voids 3 - Exam - Constitutional General appearance: cooperative, mild distress, thin - EENT Eyes: EOMI, poor dentition ENT: NA/AT, normal oropharynx - Neck Neck: normal ROM - Respiratory Respiratory: bilateral: rales, wheezing - Cardiovascular Rhythm: regular Heart sounds: normal: S1, S2 - Gastrointestinal General gastrointestinal: normal bowel sounds, soft - Integumentary Integumentary: pale - Neurologic non focal - Musculoskeletal Musculoskeletal: generalized weakness, strength equal bilaterally - Psychiatric Psychiatric: A&O x's 3, appropriate affect, intact judgment & insight - Labs CBC & Chem 7: 01/20/20 06:48 01/20/20 06:48 Labs: Microbiology - Last 24 Hours (Table) 01/19/20 09:18 Blood Culture - Preliminary Blood No Growth after 48 hours Assessment and Plan (1) Intractable low back pain Current Visit: Yes Status: Acute Code(s): M54.5 - LOW BACK PAIN SNOMED Code(s): 20726494542450010 (2) Lung cancer Current Visit: Yes Status: Acute Code(s): C34.90 - MALIGNANT NEOPLASM OF UNSP PART OF UNSP BRONCHUS OR LUNG SNOMED Code(s): 599232898 (3) Pneumonia Current Visit: Yes Status: Acute Code(s): J18.9 - PNEUMONIA, UNSPECIFIED ORGANISM SNOMED Code(s): 896767240 Plan: Assessment and Recommendations: Adenocarcinoma of the Lung: - Status post 3 cycles of Carboplatin and [place] concurrent with radiation - PLan for immunotherapy maintenance post chemo - COntinue Folic Acid Daily - Monitor CBC for paulino and decrease blood counts - Recent CT scans showed partial response with mild decrease in size of primary lung mass Right lower back pain: - Muscle relaxers and prn medications on board - Can consider long acting if still not controlled - Bowel regimen for narcotic induced constipation - Bone scan did not reveal any metastatic disease to bone Normocytic anemia likely secondary to chemotherapy -B12 decreased, await MMA. PO B12 agree Plan: - Agree with long acting pain management with prn for severe pain - Agree with PT/OT - Will plan for follow-up in office within 1-2 weeks of discharge to continue treatment plan. He was suppose to have treatment today but will resume next week most likely.
[2020-01-21] MEDS ORDERED: FAMOTIDINE 20 MG TAB PO SCH (21:00)
--- NOTE | 2020-01-22 02:11 | P.DS ---
Providers Date of admission: 01/19/20 08:44 Attending physician: Pino Gonzalez Consults: 01/19/20 08:44 Consult Physician Urgent Consulting Provider: Alcon Morales Consult Reason/Comments: lung cancer on chemo Do you want consulting provider notified?: Yes 01/19/20 16:27 Consult Physician Routine Consulting Provider: Caleb Lamb Consult Reason/Comments: right hip pain Do you want consulting provider notified?: Yes Primary care physician: [facility] Hospital Course: Diagnoses: -Right lower back/hip area pain, rule out metastatic disease. 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 in the past as well as bilateral upper extremity lymphedema with numbness and tingling in the right arm status post radiotherapy and chemotherapy -elevated right hemidiaphragm with atelectasis -chronic hypoxic respiratory failure on 3 L/m oxygen via nasal cannula -hypertension -Hyperlipidemia -Primary osteoarthritis -COPD, not in acute exacerbation -Hypothyroidism -Benign prostatic hypertrophy -Chronic neck and back pain Hospital course: this is a pleasant 59 years old male with past medical history of COPD, hypertension, hyperlipidemia, osteoarthritis, hypothyroidism, 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 Patient has been evaluated by orthopedic and oncology services. Bone scan was ordered which no metastatic spots. Patient was started on Medrol pack and narcotics and he felt significant improvement B12 is low-normal and start replacement On the day of discharge No nausea vomiting, has no bowel movement yet and he is passing gases which says that's is normal for him as usually he has bowel movements every few days. His pain in the right lower back and hip area is significantly improved and pain controlled and patient is satisfied with the situation and to the right now. Patient states that he has not cause at home and he does not need more pain medication Patient also denies chest pain or dyspnea. No fever. He has an appointment today to get chemotherapy however this should be canceled as per oncology team as he is hospital within 24 hours chest x-ray: newly elevated right hemidiaphragm with right apical pleural thickening, atelectasis, with some more infiltrated, obstructing mass or lesion in to be excluded lumbar spine x-ray showing no fracture or dislocation [id number] facet better with hip x-ray showing no fracture or dislocation. Patient was cleared for discharge by orthopedic and oncology team Patient will be discharged on pain medicine and steroid taper Problems and management plan were discussed with the patient and he verbalized understanding and acceptance Patient was found stable and can be discharged home however he needs follow-up as an outpatient . Patient was instructed to follow up with PCP at the [facility] within one week and patient agrees. Also patient was instructed to follow up with his oncologist . Patient agrees with the appointments made for him, see discharge instructions Gen: patient is a AAOx3, no distress CVS: S1-S2, RRR, no murmur Lungs: B/L CTA, no wheezing Abdomen: soft, no distention, no tenderness, positive bowel sounds Extremity: no leg edema or induration Time spent more than 35 minutes Patient Condition at Discharge: Fair Plan - Discharge Summary Discharge Rx Participant: No New Discharge Prescriptions: New methylPREDNISolone Dose Pack [Medrol Dose Pack] 24 mg PO DAILY #1 pack Cyanocobalamin [Vitamin B-12] 500 mcg PO DAILY 30 Days #30 tab Continue Sertraline HCl [Zoloft] 200 mg PO DAILY HYDROcodone/APAP 10-325MG [Caspian 10-325] 2 tab PO Q4H PRN PRN Reason: Pain ARIPiprazole [Abilify] 20 mg PO DAILY Multivitamins, Thera [Multivitamin (formulary)] 1 tab PO DAILY Budesonide [Pulmicort] 1 mg INHALATION RT-BID Potassium Chloride [Klor-Con 20] 20 meq PO BID Levothyroxine Sodium [Synthroid] 50 mcg PO DAILY Folic Acid 1 mg PO DAILY hydrOXYzine PAMOATE [Vistaril] 25 mg PO TID PRN PRN Reason: Anxiety Methocarbamol [Robaxin-750] 750 mg PO QID PRN PRN Reason: Muscle Spasm Atorvastatin [Lipitor] 10 mg PO HS Ipratropium-Albuterol Nebulize [Duoneb 0.5 mg-3 mg/3 ml Soln] 3 ml INHALATION RT-Q6H PRN PRN Reason: Shortness Of Breath Diltiazem HCl [Cardizem CD] 120 mg PO DAILY Discharge Medication List ARIPiprazole [Abilify] 20 mg PO DAILY 02/06/16 [History] HYDROcodone/APAP 10-325MG [Caspian 10-325] 2 tab PO Q4H PRN 02/06/16 [History] Multivitamins, Thera [Multivitamin (formulary)] 1 tab PO DAILY 02/06/16 [History] Sertraline HCl [Zoloft] 200 mg PO DAILY 02/06/16 [History] Atorvastatin [Lipitor] 10 mg PO HS 01/19/20 [History] Budesonide [Pulmicort] 1 mg INHALATION RT-BID 01/19/20 [History] Diltiazem HCl [Cardizem CD] 120 mg PO DAILY 01/19/20 [History] Folic Acid 1 mg PO DAILY 01/19/20 [History] Ipratropium-Albuterol Nebulize [Duoneb 0.5 mg-3 mg/3 ml Soln] 3 ml INHALATION RT-Q6H PRN 01/19/20 [History] Levothyroxine Sodium [Synthroid] 50 mcg PO DAILY 01/19/20 [History] Methocarbamol [Robaxin-750] 750 mg PO QID PRN 01/19/20 [History] Potassium Chloride [Klor-Con 20] 20 meq PO BID 01/19/20 [History] hydrOXYzine PAMOATE [Vistaril] 25 mg PO TID PRN 01/19/20 [History] Cyanocobalamin [Vitamin B-12] 500 mcg PO DAILY 30 Days #30 tab 01/21/20 [Rx] methylPREDNISolone Dose Pack [Medrol Dose Pack] 24 mg PO DAILY #1 pack 01/21/20 [Rx] Follow up Appointment(s)/Referral(s): Yemi Cole PAC [PHYSICIAN VIRTUALIZATION ARCHITECT] - 02/07/20 10:00 am Alcon Morales MD [STAFF PHYSICIAN] - 01/25/20 1:30 pm ([facility] office) [facility], [NON-STAFF] - [facility],Clinic [Primary Care Provider] - 01/26/20 1:00 pm (this is a virtual appt. Please call office to set this up.) Patient Instructions/Handouts: Methylprednisolone (By mouth), Morphine, Slow Release (By mouth), Vitamin B-12 (By mouth) Activity/Diet/Wound Care/Special Instructions: Previous diet Activity is limited till you see your doctor Discharge Disposition: HOME SELF-CARE
[2020-01-22] MEDS ORDERED: CYANOCOBALAMIN 500 MCG TAB PO SCH (09:00)
--- NOTE | 2020-01-24 07:33 | CDI ---
Documentation Clarification Form Date: 01/24/2020 06:36:29 AM From: Veronika Aguilar Phone: To: Veronika Aguilar If you have a question about this query, please contact Callie Reece Headend Technician at [phone] between 8am and 5pm. Admit Date: 01/19/2020 08:44:00 AM Patient Name: Axel Beltran Visit Number: [id number] Discharge Date: 01/21/2020 05:10:00 PM ATTENTION: The Clinical Documentation Specialists (CDI) and [facility] Coding Staff appreciate your assistance in clarifying documentation. Please respond to the clarification below the line at the bottom and electronically sign. The CDI & [facility] Coding staff will review the response and follow-up if needed. Please note: Queries are made part of the Legal Health Record. If you have any questions, please contact the author of this message via ITS. Dr. Markham E Lakshmi Womack documents pneumonia in consult. PN 01/19 and PN 01/20. Please clarify if patient had Pneumonia or was this ruled out. History/Risk Factors: adenocarcinoma of right lung, Clinical Indicators: Vital signs: 98.2 F,126, 22, 116/79, 100 3L WBC/Left shift: 8.2 X-ray: RUL infiltrate or atelectasis Lung/Breathing assess O2 3L In order to capture the severity of condition, please clarify if patient had pneumonia or was this ruled out: Pneumonia Pneumonia ruled out Bacterial Pneumonia, specify causal organism (if known) Gram Negative Pneumonia Due to Strep ?Due to Staph ?Due to E. Coli ?Other bacteria (please specify) Viral Pneumonia, specify casual organism (if known) Healthcare Acquired Pneumonia/Pneumonia, unspecified Other, please specify Unable to determine no pna MTDD
--- NOTE | 2020-01-24 07:43 | CDI ---
Documentation Clarification Form Date: 01/24/2020 06:36:29 AM From: Veronika Aguilar Phone: To: Veronika Aguilar If you have a question about this query, please contact Callie Reece Customer Experience Strategist at [phone] between 8am and 5pm. Admit Date: 01/19/2020 08:44:00 AM Patient Name: Axel Beltran Visit Number: [id number] Discharge Date: 01/21/2020 05:10:00 PM ATTENTION: The Clinical Documentation Specialists (CDI) and [facility] Coding Staff appreciate your assistance in clarifying documentation. Please respond to the clarification below the line at the bottom and electronically sign. The CDI & [facility] Coding staff will review the response and follow-up if needed. Please note: Queries are made part of the Legal Health Record. If you have any questions, please contact the author of this message via ITS. Dr. Markham E Lakshmi Womack documents pneumonia in consult. PN 01/19 and PN 01/20. Please clarify if patient had Pneumonia or was this ruled out. History/Risk Factors: adenocarcinoma of right lung, Clinical Indicators: Vital signs: 98.2 F,126, 22, 116/79, 100 3L WBC/Left shift: 8.2 X-ray: RUL infiltrate or atelectasis Lung/Breathing assess O2 3L In order to capture the severity of condition, please clarify if patient had pneumonia or was this ruled out: Pneumonia Pneumonia ruled out Bacterial Pneumonia, specify causal organism (if known) Gram Negative Pneumonia Due to Strep ?Due to Staph ?Due to E. Coli ?Other bacteria (please specify) Viral Pneumonia, specify casual organism (if known) Healthcare Acquired Pneumonia/Pneumonia, unspecified Other, please specify Unable to determine no pna MTDD
== END 2020-01-21 17:10 | disposition home or self-care (01) | DRG 552 ==
LOC: EC 06:24 → 5NMEDONC 08:44
PROVIDERS: ADMIT Hospitalist; ATTEND Hospitalist
DX: M51.37 Other intervertebral disc degeneration, lumbosacral region (principal); C34.91 Malignant neoplasm of unspecified part of right bronchus or lung; I87.1 Compression of vein; J96.11 Chronic respiratory failure with hypoxia; J98.11 Atelectasis; E03.9 Hypothyroidism, unspecified; E78.5 Hyperlipidemia, unspecified; F17.210 Nicotine dependence, cigarettes, uncomplicated; G89.29 Other chronic pain; I10 Essential (primary) hypertension; I89.0 Lymphedema, not elsewhere classified; Z87.01 Personal history of pneumonia (recurrent); M79.7 Fibromyalgia; M19.91 Primary osteoarthritis, unspecified site; N40.0 Benign prostatic hyperplasia without lower urinary tract symptoms; Z79.890 Hormone replacement therapy; Z79.899 Other long term (current) drug therapy; Z80.51 Family history of malignant neoplasm of kidney; Z92.3 Personal history of irradiation; Z98.1 Arthrodesis status; J98.6 Disorders of diaphragm; D64.81 Anemia due to antineoplastic chemotherapy; T45.1X5A Adverse effect of antineoplastic and immunosuppressive drugs, initial encounter; Z11.59 Encounter for screening for other viral diseases
CPT/HCPCS: 36415; 71046; 72110; 73502; 78306; 80053; 82607; 83880; 84145; 84484; 85025; 87040; 93005; 94640; 94760; 96365; 96366; 96375; 96376; 99285

== ENCOUNTER 2020-08-17 22:30 | Emergency (ER) | payer MEDICARE, OTHER ==
[2020-08-17 22:39] VITALS: TEMP 97.8
[2020-08-17] MEDS ORDERED: DOXYCYCLINE 100 MG CAP PO STA (22:59)
[2020-08-17] MEDS ORDERED: IBUPROFEN 400 MG TAB PO STA (23:00)
--- NOTE | 2020-08-17 23:06 | ED ---
Male Urogenital HPI - General Chief complaint: Urogenital Stated complaint: STD Time Seen by Provider: 08/17/20 22:43 Source: patient Mode of arrival: ambulatory Limitations: no limitations - History of Present Illness Initial comments: This patient is a 51-year-old man who presents with concern that he may be developing sexually-transmitted infection. The patient states that he has developed bilateral testicular pain and swelling, right inguinal pain and swelling, dysuria, and discharge. Symptoms started with some discharge and are GETTING worse since . The patient states that 2 days prior to this he had oral sex with a new sexual contact. Patient not aware of fever or chills. No abdomen or back symptoms. MD Complaint: testicle pain, testicle swelling, penile discharge, dysuria, other Onset/Timin -: week(s) Location: right testicle, left testicle, right inguinal region Radiation: none Severity: severe Quality: aching Consistency: constant Improves with: none Worsens with: palpation, movement new sexual partner - Related Data Home Medications Medication Instructions Recorded Confirmed ARIPiprazole [Abilify] 20 mg PO DAILY 02/06/16 01/19/20 HYDROcodone/APAP 10-325MG [[place] 2 tab PO Q4H PRN 02/06/16 01/19/20 10-325] Multivitamins, Thera [Multivitamin 1 tab PO DAILY 02/06/16 01/19/20 (formulary)] Sertraline HCl [Zoloft] 200 mg PO DAILY 02/06/16 01/19/20 Atorvastatin [Lipitor] 10 mg PO HS 01/19/20 01/19/20 Budesonide [Pulmicort] 1 mg INHALATION RT-BID 01/19/20 01/19/20 Diltiazem HCl [Cardizem CD] 120 mg PO DAILY 01/19/20 01/19/20 Folic Acid 1 mg PO DAILY 01/19/20 01/19/20 Ipratropium-Albuterol Nebulize 3 ml INHALATION RT-Q6H PRN 01/19/20 01/19/20 [Duoneb 0.5 mg-3 mg/3 ml Soln] Levothyroxine Sodium [Synthroid] 50 mcg PO DAILY 01/19/20 01/19/20 Methocarbamol [Robaxin-750] 750 mg PO QID PRN 01/19/20 01/19/20 Potassium Chloride [Klor-Con 20] 20 meq PO BID 01/19/20 01/19/20 hydrOXYzine pamoate [Vistaril] 25 mg PO TID PRN 01/19/20 01/19/20 Previous Rx's Medication Instructions Recorded Cyanocobalamin [Vitamin B-12] 500 mcg PO DAILY 30 Days #30 tab 01/21/20 methylPREDNISolone Dose Pack 24 mg PO DAILY #1 pack 01/21/20 [Medrol Dose Pack] Doxycycline [Vibramycin] 100 mg PO BID 1 Days #28 capsule 08/18/20 Allergies Allergy/AdvReac Type Severity Reaction Status Date / Time amitriptyline [From Elavil] Allergy Rash/Hives Verified 01/19/20 09:25 diazepam [From Valium] Allergy Unknown Verified 01/19/20 09:25 niacin Allergy Rash/Hives Verified 01/19/20 09:25 Review of Systems ROS Statement: Those systems with pertinent positive or pertinent negative responses have been documented in the HPI. ROS Other: All systems not noted in ROS Statement are negative. Constitutional: Denies: fever, chills Respiratory: Denies: cough, dyspnea Cardiovascular: Denies: chest pain, palpitations, edema Gastrointestinal: Denies: abdominal pain, nausea, vomiting, diarrhea, constipation Genitourinary: Reports: dysuria, discharge, testicular pain, testicular mass. Denies: frequency, hematuria Musculoskeletal: Denies: back pain Skin: Denies: rash Neurological: Denies: headache, weakness, numbness Past Medical History Past Medical History: Cancer, COPD, Fibromyalgia, Hyperlipidemia, Hypertension, Osteoarthritis (OA), Pneumonia, Prostate Disorder, Respiratory Disorder, Thyroid Disorder Additional Past Medical History / Comment(s): 10/2019 R side lung cancer with tumor compression SVC causing syncopal episodes/invasion of mediatinum/bilateral upper extremity lymphedema with numbness and tingling/R arm pain-pt has completed radiation treatments and still needs one more chemo treatment on 01/21/20-plan is then to receive immunotherapy, home oxygen at 3L/[place] ATC, vertigo, chronic cervical and back pain, past lower extremity lymphedema, BPH, anemia, bronchitis, hypothyroid History of Any Multi-Drug Resistant Organisms: None Reported Past Surgical History: Orthopedic Surgery Additional Past Surgical History / Comment(s): 10/2019 bronchoscopy with biopsy, cervical surgery x2 with plate and bone graft from R hip, back injections, cystic acne lesions removed, colonoscopy, hemorrhoidectomy, picc lines. Past Anesthesia/Blood Transfusion Reactions: No Reported Reaction, Motion Sickness Past Psychological History: Anxiety, Depression Smoking Status: Current every day smoker Past Alcohol Use History: None Reported Past Drug Use History: Marijuana - Past Family History Father Family Medical History: Cancer Additional Family Medical History / Comment(s): Father is from renal cell carcinoma with mets. Mother Additional Family Medical History / Comment(s): Mother went into hospital for knee surgery/ended up from CDiff infection. General Exam Limitations: no limitations General appearance: alert, in no apparent distress Head exam: Present: atraumatic, normocephalic Eye exam: Present: normal appearance Respiratory exam: Present: wheezes. Absent: respiratory distress, rales, rhonchi, stridor Cardiovascular Exam: Present: normal rhythm, tachycardia, normal heart sounds. Absent: systolic murmur, diastolic murmur, rubs, gallop GI/Abdominal exam: Present: soft. Absent: distended, tenderness, guarding, rebound, rigid, pulsatile mass, hernia exam: Present: vertical testicular lie, circumcision, other (The patient has bilateral testicular tenderness and swelling. There are right inguinal groin swelling and tenderness. No ulcerations.) Extremities exam: Present: normal inspection, normal capillary refill. Absent: pedal edema Back exam: Present: normal inspection. Absent: CVA tenderness (R), CVA tenderness (L) Neurological exam: Present: alert Skin exam: Present: warm, dry, intact, normal color. Absent: rash Course Vital Signs 08/17/20 08/18/20 22:33 02:21 Temperature 97.8 F Pulse Rate 117 H 96 Respiratory 18 19 Rate Blood Pressure 118/80 129/81 O2 Sat by Pulse 97 99 Oximetry Medical Decision Making - Medical Decision Making Patient is a 59-year-old man presenting with bilateral testicular pain and right groin pain. On the exam there is a bilateral orchitis and the ultrasound has findings concerning for abscess. I discussed with patient and starting to process for admission. Case discussed with Dr. Hairston. At that point, the patient was informed that he had we considered pressing matter to take care of in the morning and he stated that he would be going and following in the clinic. I did discuss that this would be AGAINST MEDICAL ADVICE. My concern is that the infection will only worsen. The patient does understand and he will return immediately if not able to follow in the clinic. - Lab Data Result diagrams: 08/17/20 23:27 08/17/20 23:27 Lab Results 08/17/20 08/17/20 08/18/20 Range/Units 23:27 23:27 00:24 WBC 22.5 H (3.8-10.6) k/uL RBC 3.40 L (4.30-5.90) m/uL Hgb 11.0 L (13.0-17.5) gm/dL Hct 32.3 L (39.0-53.0) % MCV 94.9 (80.0-100.0) fL MCH 32.4 (25.0-35.0) pg MCHC 34.2 (31.0-37.0) g/dL RDW 13.0 (11.5-15.5) % Plt Count 394 (150-450) k/uL MPV 6.7 Neutrophils % 93 % Lymphocytes % 2 % Monocytes % 3 % Eosinophils % 1 % Basophils % 0 % Neutrophils # 20.8 H (1.3-7.7) k/uL Lymphocytes # 0.5 L (1.0-4.8) k/uL Monocytes # 0.8 (0-1.0) k/uL Eosinophils # 0.3 (0-0.7) k/uL Basophils # 0.1 (0-0.2) k/uL Sodium 129 L (137-145) mmol/L Potassium 3.4 L (3.5-5.1) mmol/L Chloride 94 L (98-107) mmol/L Carbon Dioxide 23 (22-30) mmol/L Anion Gap 12 mmol/L BUN 14 (9-20) mg/dL Creatinine 1.05 (0.66-1.25) mg/dL Est GFR (CKD-EPI)AfAm >90 (>60 ml/min/1.73 sqM) Est GFR (CKD-EPI)NonAf 78 (>60 ml/min/1.73 sqM) Glucose 125 H (74-99) mg/dL Calcium 8.5 (8.4-10.2) mg/dL Urine Color Yellow Urine Appearance Turbid (Clear) Urine pH 6.0 (5.0-8.0) Ur Specific [place] 1.020 (1.001-1.035) Urine Protein 2+ H (Negative) Urine Glucose (UA) Negative (Negative) Urine Ketones Negative (Negative) Urine Blood Large H (Negative) Urine Nitrite Negative (Negative) Urine Bilirubin Negative (Negative) Urine Urobilinogen 2.0 (<2.0) mg/dL Ur Leukocyte Esterase Large H (Negative) Urine RBC 118 H (0-5) /hpf Urine WBC >182 H (0-5) /hpf Urine WBC Clumps Many H (None) /hpf Hyaline Casts 23 H (0-2) /lpf Urine Yeast (Budding) Few H (None) /hpf Disposition Clinical Impression: Orchitis with abscess Disposition: Left Against Medical Advice Condition: Undetermined Instructions (If sedation given, give patient instructions): Orchitis (ED) Prescriptions: Doxycycline [Vibramycin] 100 mg PO BID 1 Days #28 capsule Is patient prescribed a controlled substance at d/c from ED?: No Referrals: None,Stated [Primary Care Provider] - 1-2 days Jay Jay Hairston MD [STAFF PHYSICIAN] - 1-2 days
[2020-08-17 23:35] LABS: Basophils # (A) 0.1 k/uL (0-0.2); Basophils % (A) 0 %; Eosinophils # (A) 0.3 k/uL (0-0.7); Eosinophils % (A) 1 %; HCT 32.3 % (39.0-53.0); Lymphocytes # (A) 0.5 k/uL (1.0-4.8); Lymphocytes % (A) 2 %; MCH 32.4 pg (25.0-35.0); MCHC 34.2 g/dL (31.0-37.0); MCV 94.9 fL (80.0-100.0); Mean Platelet Volume 6.7; Monocytes # (A) 0.8 k/uL (0-1.0); Monocytes % (A) 3 %; Neutrophils # (A) 20.8 k/uL (1.3-7.7); Neutrophils % (A) 93 %; Platelet Count 394 k/uL (150-450); WBC 22.5 k/uL (3.8-10.6)
[2020-08-17 23:44] LABS: African American GFR (CKD) >90 (>60 ml/min/1.73 sqM); Anion Gap 12 mmol/L; Blood Urea Nitrogen 14 mg/dL (9-20); Calcium 8.5 mg/dL (8.4-10.2); Carbon Dioxide 23 mmol/L (22-30); Chloride 94 mmol/L (98-107); Glucose 125 mg/dL (74-99); Non-African American GFR(CKD) 78 (>60 ml/min/1.73 sqM); Potassium 3.4 mmol/L (3.5-5.1); Sodium 129 mmol/L (137-145)
[2020-08-18 00:56] LABS: Appearance,Urine Turbid (Clear); Bilirubin,Urine Negative (Negative); Blood,Urine Large (Negative); Budding Yeast,Urine Few /hpf; Color,Urine Yellow; Glucose,Urine (UA) Negative (Negative); Hyaline Casts,Urine 23 /lpf (0-2); Ketones,Urine Negative (Negative); Leukocyte Esterase,Urine Large (Negative); Nitrite,Urine Negative (Negative); Protein,Urine 2+ (Negative); RBC,Urine 118 /hpf (0-5); WBC,Urine >182 /hpf (0-5)
--- NOTE | 2020-08-18 01:55 | US ---
EXAM: US Scrotum CLINICAL HISTORY: Bilateral testicular pain. TECHNIQUE: Real-time ultrasound of the scrotum with color Doppler and image documentation. COMPARISON: No relevant prior studies available. FINDINGS: Right testicle: 2.6 x 3.0 x 2.7 cm. Mildly heterogeneous. No mass. No torsion. Left testicle: 3.7 x 2.5 x 3.1 cm. Mildly heterogeneous No mass. No torsion. Epididymides: Unremarkable. Scrotum: Large bilateral hydroceles. The fluid on the right is complex with multiple septations. IMPRESSION: No evidence of torsion or focal testicular mass. Large bilateral hydroceles. The hydrocele on the right is complex with multiple septations.
[2020-08-18 02:23] VITALS: BP 129/81; PULSE 96; RESP 19
== END 2020-08-18 02:30 | disposition left against medical advice (07) ==
LOC: EC 22:30
DX: N45.2 Orchitis (principal); N45.4 Abscess of epididymis or testis; R00.0 Tachycardia, unspecified; F41.9 Anxiety disorder, unspecified; F32.9 Major depressive disorder, single episode, unspecified; F17.200 Nicotine dependence, unspecified, uncomplicated; J44.9 Chronic obstructive pulmonary disease, unspecified; E78.5 Hyperlipidemia, unspecified; I10 Essential (primary) hypertension; M19.90 Unspecified osteoarthritis, unspecified site; E03.9 Hypothyroidism, unspecified; Z85.118 Personal history of other malignant neoplasm of bronchus and lung; Z75.1 Person awaiting admission to adequate facility elsewhere; Z79.890 Hormone replacement therapy; Z79.899 Other long term (current) drug therapy; Z88.8 Allergy status to other drugs, medicaments and biological substances; Z80.51 Family history of malignant neoplasm of kidney; Z53.29 Procedure and treatment not carried out because of patient's decision for other reasons
CPT/HCPCS: 36415; 80048; 85025; 81001; 87491; 87591; 87086; 93975; 76870; 99284; 96365; 96366; J0696

== ENCOUNTER 2021-05-08 12:48 | Inpatient (IN) | payer MEDICARE, OTHER ==
[2021-05-08] MEDS ORDERED: ALBUTEROL NEBULIZED 2.5 MG/3 ML INHALATION STA (13:19)
[2021-05-08] MEDS ORDERED: IPRATROPIUM 0.5 MG/2.5 ML NEBU INHALATION STA (13:19)
[2021-05-08] MEDS ORDERED: SODIUM CHLORIDE 0.9% 500 ML 500 ML IV STA (13:19)
[2021-05-08] MEDS ORDERED: methylPREDNISolone SOD SUCCI 125 MG/2 ML VIAL IV STA (13:19)
--- NOTE | 2021-05-08 13:26 | ED ---
General Adult HPI - General Chief complaint: Shortness of Breath Stated complaint: RAHUL Time Seen by Provider: 05/08/21 12:50 Source: patient, EMS, RN notes reviewed, old records reviewed Mode of arrival: EMS Limitations: no limitations - History of Present Illness Initial comments: This is a 60-year-old male who presents emergency department with past medical history significant for COPD as well as lung cancer. Patient states she's had chemotherapy radiation immunotherapy at this point. Patient states he's been having difficulty breathing for a week and happened about an hour and half ago got conservative worse. According to EMS when they got there he isn't quite a bit of distress to give him a breathing treatment significantly improved his b reathing. Patient states she does feel much better at this time he still having hard time breathing. Patient denies any chest pain or palpitations. Patient denies any recent fever chills or cough. Patient states he did not get the COVID vaccine. Patient denies any abdominal pain patient denies nausea vomiting diarrhea. Patient denies any leg swelling or calf tenderness. Patient denies lightheadedness or dizziness. - Related Data Home Medications Medication Instructions Recorded Confirmed ARIPiprazole [Abilify] 20 mg PO DAILY 02/06/16 01/19/20 HYDROcodone/APAP 10-325MG [[place] 2 tab PO Q4H PRN 02/06/16 01/19/20 10-325] Multivitamins, Thera [Multivitamin 1 tab PO DAILY 02/06/16 01/19/20 (formulary)] Sertraline HCl [Zoloft] 200 mg PO DAILY 02/06/16 01/19/20 Atorvastatin [Lipitor] 10 mg PO HS 01/19/20 01/19/20 Budesonide [Pulmicort] 1 mg INHALATION RT-BID 01/19/20 01/19/20 Diltiazem HCl [Cardizem CD] 120 mg PO DAILY 01/19/20 01/19/20 Folic Acid 1 mg PO DAILY 01/19/20 01/19/20 Ipratropium-Albuterol Nebulize 3 ml INHALATION RT-Q6H PRN 01/19/20 01/19/20 [Duoneb 0.5 mg-3 mg/3 ml Soln] Levothyroxine Sodium [Synthroid] 50 mcg PO DAILY 01/19/20 01/19/20 Methocarbamol [Robaxin-750] 750 mg PO QID PRN 01/19/20 01/19/20 Potassium Chloride [Klor-Con 20] 20 meq PO BID 01/19/20 01/19/20 hydrOXYzine pamoate [Vistaril] 25 mg PO TID PRN 01/19/20 01/19/20 Previous Rx's Medication Instructions Recorded Cyanocobalamin [Vitamin B-12] 500 mcg PO DAILY 30 Days #30 tab 01/21/20 methylPREDNISolone Dose Pack 24 mg PO DAILY #1 pack 01/21/20 [Medrol Dose Pack] Doxycycline [Vibramycin] 100 mg PO BID 1 Days #28 capsule 08/18/20 Allergies Allergy/AdvReac Type Severity Reaction Status Date / Time amitriptyline [From Elavil] Allergy Rash/Hives Verified 01/19/20 09:25 diazepam [From Valium] Allergy Unknown Verified 01/19/20 09:25 niacin Allergy Rash/Hives Verified 01/19/20 09:25 Review of Systems ROS Statement: Those systems with pertinent positive or pertinent negative responses have been documented in the HPI. ROS Other: All systems not noted in ROS Statement are negative. Past Medical History Past Medical History: Cancer, COPD, Fibromyalgia, Hyperlipidemia, Hypertension, Osteoarthritis (OA), Pneumonia, Prostate Disorder, Respiratory Disorder, Thyroid Disorder Additional Past Medical History / Comment(s): 10/2019 R side lung cancer with tumor compression SVC causing syncopal episodes/invasion of mediatinum/bilateral upper extremity lymphedema with numbness and tingling/R arm pain-pt has complete d radiation treatments and still needs one more chemo treatment on 01/21/20-plan is then to receive immunotherapy, home oxygen at 3L/[place] ATC, vertigo, chronic cervical and back pain, past lower extremity lymphedema, BPH, anemia, bronchitis, hypothyroid History of Any Multi-Drug Resistant Organisms: None Reported Past Surgical History: Orthopedic Surgery Additional Past Surgical History / Comment(s): 10/2019 bronchoscopy with biopsy, cervical surgery x2 with plate and bone graft from R hip, back injections, cystic acne lesions removed, colonoscopy, hemorrhoidectomy, picc lines. Past Anesthesia/Blood Transfusion Reactions: No Reported Reaction, Motion Sickness Past Psychological History: Anxiety, Depression Smoking Status: Current every day smoker Past Alcohol Use History: None Reported Past Drug Use History: Marijuana - Past Family History Father Family Medical History: Cancer Additional Family Medical History / Comment(s): Father is from renal cell carcinoma with mets. Mother Additional Family Medical History / Comment(s): Mother went into hospital for knee surgery/ended up from CDiff infection. General Exam - General Exam Comments Initial Comments: GENERAL: Patient is well-developed and well-nourished. Patient is nontoxic and well- hydrated and is in mild distress. ENT: Neck is soft and supple. No significant lymphadenopathy is noted. Oropharynx is clear. Moist mucous membranes. Neck has full range of motion without eliciting any pain. EYES: The sclera were anicteric and conjunctiva were pink and moist. Extraocular movements were intact and pupils were equal round and reactive to light. Eyelids were unremarkable. PULMONARY: Patient has diffuse after wheezing. CARDIOVASCULAR: Patient is tachycardic at about 120 beats a minute. Pulse ox is 100% on arrival. ABDOMEN: Soft and nontender with normal bowel sounds. SKIN: Skin is clear with no lesions or rashes and otherwise unremarkable. NEUROLOGIC: Patient is alert and oriented x3. Cranial nerves II through XII are grossly intact. Motor and sensory are also intact. Normal speech, volume and content. Symmetrical smile. MUSCULOSKELETAL: Normal extremities with adequate strength and full range of motion. No lower extremity swelling or edema. No calf tenderness. LYMPHATICS: No significant lymphadenopathy is noted PSYCHIATRIC: Normal psychiatric evaluation. Limitations: no limitations Course Vital Signs 05/08/21 05/08/21 05/08/21 13:14 14:04 14:08 Temperature 98.6 F Pulse Rate 124 H 112 H Respiratory 24 24 Rate Blood Pressure 123/97 O2 Sat by Pulse 99 Oximetry 05/08/21 14:25 Temperature Pulse Rate 120 H Respiratory Rate Blood Pressure O2 Sat by Pulse Oximetry Medical Decision Making - Medical Decision Making EKG shows sinus tachycardia at 124 bpm IL interval 240 dresses 82 QT interval 04 QTC is 436 per patient's EKG shows no ST segment elevation or depression. X-ray shows worsening right apical pleural thickening worsening right suprahilar spiculated opacity in the right sided volume loss possible obstructing central mass causing postobstructive atelectasis. Spoke with Dr. Toribio he agreed to admit the patient admitted the patient I consult the pulmonary and consulted oncology. - Lab Data Result diagrams: 05/08/21 13:35 05/08/21 13:35 Lab Results 05/08/21 05/08/21 05/08/21 Range/Units 13:35 13:35 13:35 WBC 11.2 H (3.8-10.6) k/uL RBC 4.52 (4.30-5.90) m/uL Hgb 14.4 (13.0-17.5) gm/dL Hct 44.6 (39.0-53.0) % MCV 98.6 (80.0-100.0) fL MCH 31.9 (25.0-35.0) pg MCHC 32.4 (31.0-37.0) g/dL RDW 12.5 (11.5-15.5) % Plt Count 368 (150-450) k/uL MPV 7.0 Neutrophils % 85 % Lymphocytes % 10 % Monocytes % 4 % Eosinophils % 1 % Basophils % 0 % Neutrophils # 9.5 H (1.3-7.7) k/uL Lymphocytes # 1.1 (1.0-4.8) k/uL Monocytes # 0.5 (0-1.0) k/uL Eosinophils # 0.1 (0-0.7) k/uL Basophils # 0.0 (0-0.2) k/uL PT 11.6 (9.0-12.0) sec INR 1.1 (<1.2) APTT 25.6 (22.0-30.0) sec Sodium 139 (137-145) mmol/L Potassium 4.4 (3.5-5.1) mmol/L Chloride 103 (98-107) mmol/L Carbon Dioxide 24 (22-30) mmol/L Anion Gap 12 mmol/L BUN 11 (9-20) mg/dL Creatinine 0.93 (0.66-1.25) mg/dL Est GFR (CKD-EPI)AfAm >90 (>60 ml/min/1.73 sqM) Est GFR (CKD-EPI)NonAf 90 (>60 ml/min/1.73 sqM) Glucose 108 H (74-99) mg/dL Plasma Lactic Acid Jet (0.7-2.0) mmol/L Calcium 9.3 (8.4-10.2) mg/dL Magnesium 1.8 (1.6-2.3) mg/dL Total Bilirubin 0.6 (0.2-1.3) mg/dL AST 20 (17-59) U/L ALT 16 (4-49) U/L Alkaline Phosphatase 113 (38-126) U/L Troponin I (0.000-0.034) ng/mL Total Protein 7.8 (6.3-8.2) g/dL Albumin 4.1 (3.5-5.0) g/dL 05/08/21 05/08/21 Range/Units 13:35 13:35 WBC (3.8-10.6) k/uL RBC (4.30-5.90) m/uL Hgb (13.0-17.5) gm/dL Hct (39.0-53.0) % MCV (80.0-100.0) fL MCH (25.0-35.0) pg MCHC (31.0-37.0) g/dL RDW (11.5-15.5) % Plt Count (150-450) k/uL MPV Neutrophils % % Lymphocytes % % Monocytes % % Eosinophils % % Basophils % % Neutrophils # (1.3-7.7) k/uL Lymphocytes # (1.0-4.8) k/uL Monocytes # (0-1.0) k/uL Eosinophils # (0-0.7) k/uL Basophils # (0-0.2) k/uL PT (9.0-12.0) sec INR (<1.2) APTT (22.0-30.0) sec Sodium (137-145) mmol/L Potassium (3.5-5.1) mmol/L Chloride (98-107) mmol/L Carbon Dioxide (22-30) mmol/L Anion Gap mmol/L BUN (9-20) mg/dL Creatinine (0.66-1.25) mg/dL Est GFR (CKD-EPI)AfAm (>60 ml/min/1.73 sqM) Est GFR (CKD-EPI)NonAf (>60 ml/min/1.73 sqM) Glucose (74-99) mg/dL Plasma Lactic Acid Jet 1.2 (0.7-2.0) mmol/L Calcium (8.4-10.2) mg/dL Magnesium (1.6-2.3) mg/dL Total Bilirubin (0.2-1.3) mg/dL AST (17-59) U/L ALT (4-49) U/L Alkaline Phosphatase (38-126) U/L Troponin I <0.012 (0.000-0.034) ng/mL Total Protein (6.3-8.2) g/dL Albumin (3.5-5.0) g/dL Disposition Clinical Impression: Bronchial obstruction, COPD exacerbation Disposition: ADMITTED IP TO THIS HOSP Referrals: Angie Toribio MD [Primary Care Provider] - 1-2 days Time of Disposition: 14:43
[2021-05-08 13:46] LABS: Basophils % (A) 0 %; Eosinophils # (A) 0.1 k/uL (0-0.7); Eosinophils % (A) 1 %; HCT 44.6 % (39.0-53.0); HGB 14.4 gm/dL (13.0-17.5); Lymphocytes # (A) 1.1 k/uL (1.0-4.8); Lymphocytes % (A) 10 %; MCH 31.9 pg (25.0-35.0); MCHC 32.4 g/dL (31.0-37.0); MCV 98.6 fL (80.0-100.0); Monocytes # (A) 0.5 k/uL (0-1.0); Monocytes % (A) 4 %; Neutrophils # (A) 9.5 k/uL (1.3-7.7); Neutrophils % (A) 85 %; Platelet Count 368 k/uL (150-450); RBC 4.52 m/uL (4.30-5.90); RDW 12.5 % (11.5-15.5); WBC 11.2 k/uL (3.8-10.6)
[2021-05-08 14:00] LABS: ALT 16 U/L (4-49); AST 20 U/L (17-59); African American GFR (CKD) >90 (>60 ml/min/1.73 sqM); Albumin 4.1 g/dL (3.5-5.0); Alkaline Phosphatase 113 U/L (38-126); Anion Gap 12 mmol/L; Blood Urea Nitrogen 11 mg/dL (9-20); Calcium 9.3 mg/dL (8.4-10.2); Carbon Dioxide 24 mmol/L (22-30); Chloride 103 mmol/L (98-107); Glucose 108 mg/dL (74-99); Magnesium 1.8 mg/dL (1.6-2.3); Non-African American GFR(CKD) 90 (>60 ml/min/1.73 sqM); Potassium 4.4 mmol/L (3.5-5.1); Sodium 139 mmol/L (137-145); Total Bilirubin 0.6 mg/dL (0.2-1.3); Total Protein 7.8 g/dL (6.3-8.2)
--- NOTE | 2021-05-08 14:04 | XR ---
EXAMINATION TYPE: XR chest 2V DATE OF EXAM: 05/08/2021 COMPARISON: Chest x-ray January 19, 2020 HISTORY: History of lung cancer shortness of breath. TECHNIQUE: Frontal and lateral views of the chest are obtained. FINDINGS: Postsurgical changes of the cervical spine is partially imaged. Cardiac silhouette size is stable and within normal limits. Left lung remains clear. Elevated right hemidiaphragm redemonstrate d. Worsening right apical pleural thickening and suprahilar opacity with new mediastinal shift. IMPRESSION: Worsening right apical pleural thickening. Worsening right suprahilar spiculated opacity with new right-sided volume loss. Cannot exclude obstructing central mass or neoplasm progression ca using postobstructive atelectasis. Consider CT and/or PET/CT follow-up based on clinical correlation.
[2021-05-08 14:16] LABS: INR 1.1 (<1.2); Partial Thromboplastin Time 25.6 sec (22.0-30.0); Prothrombin Time 11.6 sec (9.0-12.0)
[2021-05-08] MEDS: IPRATROPIUM-ALBUTEROL 3 ML NEB INHALATION SCH ×2 (16:26→20:31)
[2021-05-08] MEDS ORDERED: RX INFO: IV CONTRAST WAS GIVEN 1 EACH MISC MISCELLANE PRN (17:02)
--- NOTE | 2021-05-08 17:08 | P.CNPUL ---
History of Present Illness Consult date: 05/08/21 Requesting physician: Kyle Bennett Reason for consult: dyspnea, cough, lung mass, abnormal CXR/CT Chief complaint: Shortness of breath, cough History of present illness: This is a 60-year-old male patient with past medical history of COPD on home oxygen, adenocarcinoma of the lung diagnosed in October 2019, and patient has received chemotherapy concurrent with palliative radiation. Patient was supposed to receive immunotherapy maintenance after initial chemotherapy with carboplatinum and Alimta, he completed his radiation treatments at [facility] with Dr. Bonilla. He states that when his lung cancer was diagnosed he was stage IIIB. In October 2019 she was hospitalized at the [facility]. He initially presented with a 6 month history of chest congestion, cough with phlegm expectoration, and shortness of breath which had been progressive. Patient was treated for pneumonia, and the relief was transient. Patient subsequently developed right-sided chest pain, imaging revealed evidence of a mass in the right upper lung with initial concern for SVC compression as he was having right upper extremity swelling. CT of the chest was negative for PE, but showed a large mass in the right upper lung greater than 9 cm, would likely invasion into the mediastinum and partial compression of the SVC. There was a near-total compression of the right upper lobe bronchus as well as compromise of the right mainstem. He underwent bronchoscopy with biopsy on 10/21/2019 revealing non-small cell carcinoma consistent with adenocarcinoma. MRI of the brain was negative for evidence of metastatic disease. He had a PET scan on 10/19/2019 showing uptake in the right upper lobe mass, there was also posterior nodule in the right lobe with additional workup recommended, there were some nonspecific findings in the left lower lobe with SUV of 3.7 and some groundglass opacity with no discrete nodule. Patient usually follows with Dr. Haris Mejia from pulmonology. He continues to smoke, he states that he was given about 6 months to 1 year life expectancy. Patient presented to the emergency department on 05/08/2021 for evaluation of worsening shortness of breath, cough, production of whitish colored phlegm. Denied any hemoptysis, denied any chest pain or palpitations, no recent fever chills or cough. Patient states that he did not get the COVID 19 vaccine. Patient states that he has had chemotherapy, palliative radiation, and immunotherapy at this point. His chest x-ray shows a worsening right apical pleural thickening, worsening of right suprahilar s piculated opacity with new right-sided volume loss, and obstructive central mass or neoplasm progression causing postobstructive atelectasis could not be excluded, computed tomography scan of the chest or a PET scan were recommended for follow-up. Patient has not had any fevers while in the emergency department, he is currently on 4 L of oxygen pulse ox is 99%, he is tachycardic with a rate of 124 in sinus mechanism. He is short of breath with conversation, he does have a congested cough. EKG showed sinus tachycardia with septal infarct of undetermined age. COVID-19 PCR was negative, white blood cell count is 11.2, hemoglobin of 14.4, INR is 1.1, electrolytes and renal profile are within normal limits, lactic acid 1.2 . Patient was given 500 mL fluid bolus, he was started on nebulized bronchodilators, Levaquin, and IV steroids. Review of Systems All systems: negative Constitutional: Denies chills, Denies fever Eyes: denies blurred vision, denies pain Ears, nose, mouth and throat: Denies headache, Denies sore throat Cardiovascular: Denies chest pain, Denies shortness of breath Respiratory: Reports congestion, Reports cough with sputum, Reports dyspnea, Reports home oxygen, Reports respiratory infections, Reports wheezing, Denies cough Gastrointestinal: Denies abdominal pain, Denies diarrhea, Denies nausea, Denies vomiting Musculoskeletal: Denies myalgias Integumentary: Denies pruritus, Denies rash Neurological: Denies numbness, Denies weakness Psychiatric: Denies anxiety, Denies depression Endocrine: Denies fatigue, Denies weight change Past Medical History Past Medical History: Cancer, COPD, Fibromyalgia, Hyperlipidemia, Hypertension, Osteoarthritis (OA), Pneumonia, Prostate Disorder, Respiratory Disorder, Thyroid Disorder Additional Past Medical History / Comment(s): 10/2019 R side lung cancer with tumor compression SVC causing syncopal episodes/invasion of mediatinum/bilateral upper extremity lymphedema with numbness and tingling/R arm pain-pt has completed radiation treatments and still needs one more chemo treatment on 01/21/20-plan is then to receive immunotherapy, home oxygen at 3L/[place] ATC, vertigo, chronic cervical and back pain, past lower extremity lymphedema, BPH, anemia, bronchitis, hypothyroid History of Any Multi-Drug Resistant Organisms: None Reported Past Surgical History: Orthopedic Surgery Additional Past Surgical History / Comment(s): 10/2019 bronchoscopy with biopsy, cervical surgery x2 with plate and bone graft from R hip, back injections, cystic acne lesions removed, colonoscopy, hemorrhoidectomy, picc lines. Past Anesthesia/Blood Transfusion Reactions: No Reported Reaction, Motion Sickness Past Psychological History: Anxiety, Depression Smoking Status: Current every day smoker Past Alcohol Use History: None Reported Past Drug Use History: Marijuana - Past Family History Father Family Medical History: Cancer Additional Family Medical History / Comment(s): Father is from renal cell carcinoma with mets. Mother Additional Family Medical History / Comment(s): Mother went into hospital for knee surgery/ended up from CDiff infection. Medications and Allergies Home Medications Medication Instructions Recorded Confirmed Type HYDROcodone/APAP 10-325MG [[place] 2 tab PO Q4H PRN 02/06/16 05/08/21 History 10-325] Multivitamins, Thera [Multivitamin 1 tab PO DAILY 02/06/16 05/08/21 History (formulary)] Budesonide [Pulmicort] 0.5 mg INHALATION RT-BID PRN 01/19/20 05/08/21 History Methocarbamol [Robaxin-750] 750 mg PO QID PRN 01/19/20 05/08/21 History Aspirin EC [Ecotrin Low Dose] 81 mg PO DAILY 05/08/21 05/08/21 History Naproxen 500 mg PO BID PRN 05/08/21 05/08/21 History Sildenafil Citrate [Viagra] 100 mg PO DAILY PRN 05/08/21 05/08/21 History Allergies Allergy/AdvReac Type Severity Reaction Status Date / Time amitriptyline [From Elavil] Allergy Rash/Hives Verified 05/08/21 15:51 diazepam [From Valium] Allergy Unknown Verified 05/08/21 15:51 niacin Allergy Rash/Hives Verified 05/08/21 15:51 Physical Exam Vitals: Vital Signs Temp Pulse Resp BP Pulse Ox 05/08/21 16:33 66 05/08/21 16:26 62 05/08/21 14:25 120 H 05/08/21 14:08 24 05/08/21 14:04 112 H 05/08/21 13:14 98.6 F 124 H 24 123/97 99 Intake and Output 05/08/21 05/08/21 05/08/21 06:59 14:59 22:59 Other: Weight 67.585 kg GENERAL EXAM: Alert, pleasant, 60-year-old white male, on 3 L of oxygen, pulse ox is 99%, resting on the gurney in the emergency department, mild short of breath with conversation, does have a congested cough but appears to be comfortable in no apparent distress. Patient appears to be thin built. HEAD: Normocephalic/atraumatic. EYES: Normal reaction of pupils, equal size. Conjunctiva pink, sclera white. NOSE: Clear with pink turbinates. THROAT: No erythema or exudates. NECK: No masses, no JVD, no thyroid enlargement, no adenopathy. CHEST: No chest wall deformity. Symmetrical expansion. LUNGS: Equal air entry with diffuse wheezes, and scattered rhonchi CVS: Regular rate and rhythm, normal S1 and S2, no gallops, no murmurs, no rubs ABDOMEN: Soft, nontender. No hepatosplenomegaly, normal bowel sounds, no guarding or rigidity. EXTREMITIES: No clubbing, no edema, no cyanosis, 2+ pulses and upper and lower extremities. MUSCULOSKELETAL: Muscle strength and tone normal. SPINE: No scoliosis or deformity SKIN: No rashes CENTRAL NERVOUS SYSTEM: Alert and oriented -3. No focal deficits, tone is normal in all 4 extremities. PSYCHIATRIC: Alert and oriented -3. Appropriate affect. Intact judgment and insight. Results - Laboratory Findings CBC and BMP: 05/08/21 13:35 05/08/21 13:35 PT/INR, D-dimer PT 11.6 sec (9.0-12.0) 05/08/21 13:35 INR 1.1 (<1.2) 05/08/21 13:35 Abnormal lab findings: Abnormal Labs 05/08/21 05/08/21 13:35 13:35 WBC 11.2 H Neutrophils # 9.5 H Glucose 108 H - Diagnostic Findings Chest x-ray: report reviewed, image reviewed Assessment and Plan Plan: Assessment: #1. Acute exacerbation of COPD #2. Adenocarcinoma of the lung, stage IIIB a diagnosis, diagnosed in October 2019 at [facility] via CT of the chest showing a large right upper lobe lung mass measuring greater than 9 cm, with likely inpatient into the mediastinum and partial compression of the SVC and bronchoscopy with biopsy was done on 10/21/2019 revealing non-small cell carcinoma consistent with ad enocarcinoma, status post chemotherapy, palliative radiation, and immunotherapy. Chest x-ray shows a worsening right suprahilar spiculated opacity with a new right-sided volume loss. Neoplasm progression causing postobstructive atelectasis is being considered, follow-up computed tomography scan with contrast is pending for tomorrow #4. Chronic and ongoing history of smoking #5. Advanced COPD, on home oxygen at 3 L #6. Chronic neck and back pain #7. BPH #8. Hypothyroidism #9. Hypertension #10. Hyperlipidemia #11. Primary osteoarthritis #12. Elevated right hemidiaphragm with atelectasis Plan: Continue IV steroids and bronchodilators Continue antibiotics The patient was tested for COVID-19 and was found to be negative Chest x-ray has been reviewed showing possible neoplasm progression in the right upper lobe, causing postobstructive atelectasis Computed tomography scan of the chest with contrast will be obtained We'll continue to follow Medical oncology consultation Prognosis is guarded 10/2019 R side lung cancer with tumor compression SVC causing syncopal episode s/invasion of mediatinum/bilateral upper extremity lymphedema with numbness and tingling/R arm pain-pt has completed radiation treatments and still needs one more chemo treatment on 01/21/20-plan is then to receive immunotherapy, home oxygen at 3L/[place] ATC, vertigo, chronic cervical and back pain, past lower extremity lymphedema, BPH, anemia, bronchitis, hypothyroid Time with Patient: Greater than 30
[2021-05-08] MEDS: methylPREDNISolone SOD SUCCI 125 MG/2 ML VIAL IV SCH (19:35)
[2021-05-08] MEDS: LORazepam 2 MG/ML INJ IV PRN (20:25)
[2021-05-08] MEDS: SYMBICORT 160-4.5 MCG INHALER INHALATION SCH (20:31)
[2021-05-09] MEDS: methylPREDNISolone SOD SUCCI 125 MG/2 ML VIAL IV SCH ×5 (00:22→23:49)
[2021-05-09] MEDS: SYMBICORT 160-4.5 MCG INHALER INHALATION SCH ×2 (08:32→20:35)
[2021-05-09] MEDS: IPRATROPIUM-ALBUTEROL 3 ML NEB INHALATION SCH ×4 (08:32→20:35)
[2021-05-09] MEDS ORDERED: methocarbamoL 750 MG TAB PO PRN (08:36)
[2021-05-09 09:21] LABS: Basophils % (A) 0 %; Eosinophils # (A) 0.1 k/uL (0-0.7); Eosinophils % (A) 1 %; HCT 42.1 % (39.0-53.0); HGB 13.6 gm/dL (13.0-17.5); Lymphocytes # (A) 0.6 k/uL (1.0-4.8); Lymphocytes % (A) 4 %; MCH 32.2 pg (25.0-35.0); MCHC 32.4 g/dL (31.0-37.0); MCV 99.6 fL (80.0-100.0); Mean Platelet Volume 7.3; Monocytes # (A) 0.1 k/uL (0-1.0); Monocytes % (A) 1 %; Neutrophils # (A) 14.9 k/uL (1.3-7.7); Neutrophils % (A) 95 %; Platelet Count 353 k/uL (150-450); RBC 4.23 m/uL (4.30-5.90); RDW 12.5 % (11.5-15.5); WBC 15.8 k/uL (3.8-10.6)
--- NOTE | 2021-05-09 09:35 | P.HPIM ---
History of Present Illness H&P Date: 05/08/21 Axel Beltran, he is a 60-year-old male who presented to [facility] emergency room with a chief complaint of worsening shortness of breath she has a known past medical history of adenocarcinoma of the lung diagnosed in October 2019 which patient has received chemotherapy concurrent with palliative radiation. Chest x-ray was completed showing worsening right apical pleural thickening worsening of the right subhilar spicular dual-pacing with new right- sided volume loss and obstructive central mass or neoplasm progression causing post obstructive atelectasis. COVID testing was negative. Patient was admitted to medical floor for further evaluation and treatment. Pulmonary and oncology service is consulted. Patient started on IV steroids, Levaquin and DuoNeb breathing treatments. Past medical history is significant for adenocarcinoma of the lung diagnosed in October of 2019 COPD, fibromyalgia, hyperlipidemia, hypertension, anxiety, depression and ongoing nicotine dependence On review of systems patient is currently resting comfortably bed does complain of ongoing cough does report some improvement shortness of breath. Patient denies chest pain. Patient denies nausea vomiting or diarrhea. Patient denies any urinary burning or frequency Review of Systems please refer to HPI otherwise unremarkable Past Medical History Past Medical History: Cancer, COPD, Fibromyalgia, Hyperlipidemia, Hypertension, Osteoarthritis (OA), Pneumonia, Prostate Disorder, Respiratory Disorder, Thyroid Disorder Additional Past Medical History / Comment(s): 10/2019 R side lung cancer with tumor compression SVC causing syncopal episodes/invasion of mediatinum/bilateral upper extremity lymphedema with numbness and tingling/R arm pain-pt has completed radiation treatments and still needs one more chemo treatment on 01/21/20-plan is then to receive immunotherapy, home oxygen at 3L/[place] ATC, verti go, chronic cervical and back pain, past lower extremity lymphedema, BPH, anemia, bronchitis, hypothyroid History of Any Multi-Drug Resistant Organisms: None Reported Past Surgical History: Orthopedic Surgery Additional Past Surgical History / Comment(s): 10/2019 bronchoscopy with biopsy, cervical surgery x2 with plate and bone graft from R hip, back injections, cystic acne lesions removed, colonoscopy, hemorrhoidectomy, picc lines. Past Anesthesia/Blood Transfusion Reactions: No Reported Reaction, Motion Sickness Past Psychological History: Anxiety, Depression Smoking Status: Current every day smoker Past Alcohol Use History: None Reported Past Drug Use History: Marijuana - Past Family History Father Family Medical History: Cancer Additional Family Medical History / Comment(s): Father is from renal cell carcinoma with mets. Mother Additional Family Medical History / Comment(s): Mother went into hospital for knee surgery/ended up from CDiff infection. Medications and Allergies Home Medications Medication Instructions Recorded Confirmed Type HYDROcodone/APAP 10-325MG [[place] 2 tab PO Q4H PRN 02/06/16 05/08/21 History 10-325] Multivitamins, Thera [Multivitamin 1 tab PO DAILY 02/06/16 05/08/21 History (formulary)] Budesonide [Pulmicort] 0.5 mg INHALATION RT-BID PRN 01/19/20 05/08/21 History Methocarbamol [Robaxin-750] 750 mg PO QID PRN 01/19/20 05/08/21 History Aspirin EC [Ecotrin Low Dose] 81 mg PO DAILY 05/08/21 05/08/21 History Naproxen 500 mg PO BID PRN 05/08/21 05/08/21 History Sildenafil Citrate [Viagra] 100 mg PO DAILY PRN 05/08/21 05/08/21 History Allergies Allergy/AdvReac Type Severity Reaction Status Date / Time amitriptyline [From Elavil] Allergy Rash/Hives Verified 05/08/21 15:51 diazepam [From Valium] Allergy Unknown Verified 05/08/21 15:51 niacin Allergy Rash/Hives Verified 05/08/21 15:51 Physical Exam Vitals: Vital Signs Temp Pulse Resp BP Pulse Ox 05/08/21 16:33 66 05/08/21 16:26 62 05/08/21 14:25 120 H 05/08/21 14:08 24 05/08/21 14:04 112 H 05/08/21 13:14 98.6 F 124 H 24 123/97 99 Intake and Output 05/08/21 05/08/21 05/08/21 06:59 14:59 22:59 Other: Weight 67.585 kg In general patient is alert and oriented x 3 in no distress HEENT head normocephalic and atraumatic Neck is supple no JVD no goiter no lymphadenopathy no carotid bruit Chest examination is clear to auscultation no crackles no wheezing Cardiac exam reveals regular heart sounds S1 and S2 no gallops no murmurs Abdomen is soft nontender no organomegaly with normal bowel sounds Extremity exam reveals no edema no cyanosis or clubbing Neurological examination reveals no gross focal deficits Results CBC & Chem 7: 05/09/21 08:59 05/08/21 13:35 Labs: Abnormal Lab Results - Last 24 Hours (Table) 05/08/21 05/08/21 Range/Units 13:35 13:35 WBC 11.2 H (3.8-10.6) k/uL Neutrophils # 9.5 H (1.3-7.7) k/uL Glucose 108 H (74-99) mg/dL Assessment and Plan Plan: Acute exacerbation of chronic obstructive pulmonary disease Underlying history of lung cancer. Adenocarcinoma diagnosed in October 2019 patient did receive chemotherapy and palliative radiation. Oncology service is consulted History of ongoing nicotine dependence History of essential hypertension History of hyperlipidemia History of anxiety and depression Patient is being admitted to medical floor He was started on IV Solu-Medrol and inhaled bronchodilators Pulmonary and oncology service is following Repeat computed tomography scan ordered per pulmonary Time with Patient: Greater than 30 (Greater than 60% of the total time spent in counseling and coordination of care)
--- NOTE | 2021-05-09 09:37 | P.PN ---
Subjective Progress Note Date: 05/09/21 Axel Beltran, he is a 60-year-old male who presented to [facility] emergency room with a chief complaint of worsening shortness of breath she has a known past medical history of adenocarcinoma of the lung diagnosed in October 2019 which patient has received chemotherapy concurrent with palliative radiation. Chest x-ray was completed showing worsening right apical pleural thickening worsening of the right subhilar spicular dual-pacing with new right- sided volume loss and obstructive central mass or neoplasm progression causing post obstructive atelectasis. COVID testing was negative. Patient was admitted to medical floor for further evaluation and treatment. Pulmonary and oncology service is consulted. Patient started on IV steroids, Levaquin and DuoNeb breathing treatments. Past medical history is significant for adenocarcinoma of the lung diagnosed in October of 2019 COPD, fibromyalgia, hyperlipidemia, hypertension, anxiety, depression and ongoing nicotine dependence On review of systems patient is currently resting comfortably bed does complain of ongoing cough does report some improvement shortness of breath. Patient denies chest pain. Patient denies nausea vomiting or diarrhea. Patient denies any urinary burning or frequency On 05/09/2021 patient alert and oriented 3. Patient is currently resting in bed. Computed tomography scan completed this a.m. for pulmonary. Patient maintained on IV steroids and breathing treatments. Patient reports some improv ement with shortness of breath and congestion. Patient denies chest pain. Patient denies nausea vomiting or diarrhea. Patient denies any urinary burning or frequency Objective - Vital Signs Vital signs: Vital Signs Temp 97.6 F 05/09/21 04:47 Pulse 90 05/09/21 08:43 Resp 22 05/09/21 08:43 BP 118/74 05/09/21 04:47 Pulse Ox 97 05/09/21 08:32 Intake & Output 05/08/21 05/09/21 05/09/21 18:59 06:59 18:59 Intake Total 240 Output Total 400 Balance -160 Weight 67.585 kg 67.585 kg Intake: Oral 240 Output: Urine 400 - Exam In general patient is alert and oriented x 3 in no distress HEENT head normocephalic and atraumatic Neck is supple no JVD no goiter no lymphadenopathy no carotid bruit Chest examination is clear to auscultation no crackles no wheezing Cardiac exam reveals regular heart sounds S1 and S2 no gallops no murmurs Abdomen is soft nontender no organomegaly with normal bowel sounds Extremity exam reveals no edema no cyanosis or clubbing Neurological examination reveals no gross focal deficits - Labs CBC & Chem 7: 05/09/21 08:59 05/08/21 13:35 Labs: Abnormal Lab Results - Last 24 Hours (Table) 05/08/21 05/08/21 05/09/21 Range/Units 13:35 13:35 08:59 WBC 11.2 H 15.8 H (3.8-10.6) k/uL RBC 4.23 L (4.30-5.90) m/uL Neutrophils # 9.5 H 14.9 H (1.3-7.7) k/uL Lymphocytes # 0.6 L (1.0-4.8) k/uL Glucose 108 H (74-99) mg/dL Assessment and Plan Plan: Acute exacerbation of chronic obstructive pulmonary disease Underlying history of lung cancer. Adenocarcinoma diagnosed in October 2019 patient did receive chemotherapy and palliative radiation. Oncology service is consulted History of ongoing nicotine dependence History of essential hypertension History of hyperlipidemia History of anxiety and depression Patient is being admitted to medical floor He was started on IV Solu-Medrol and inhaled bronchodilators Pulmonary and oncology service is following Repeat computed tomography scan ordered per pulmonary for 05/09/2021
[2021-05-09 09:40] LABS: ALT 16 U/L (4-49); AST 18 U/L (17-59); African American GFR (CKD) >90 (>60 ml/min/1.73 sqM); Albumin 3.7 g/dL (3.5-5.0); Alkaline Phosphatase 89 U/L (38-126); Anion Gap 14 mmol/L; Blood Urea Nitrogen 20 mg/dL (9-20); Calcium 9.6 mg/dL (8.4-10.2); Carbon Dioxide 21 mmol/L (22-30); Chloride 103 mmol/L (98-107); Glucose 248 mg/dL (74-99); Non-African American GFR(CKD) >90 (>60 ml/min/1.73 sqM); Potassium 4.2 mmol/L (3.5-5.1); Sodium 138 mmol/L (137-145); Total Bilirubin 0.5 mg/dL (0.2-1.3); Total Protein 7.1 g/dL (6.3-8.2)
[2021-05-09] MEDS: NICOTINE 14MG/24HR PATCH TRANSDERM SCH (10:39)
[2021-05-09] MEDS: HYDROcodone/APAP 10-325MG 1 EACH TAB PO PRN ×2 (10:39→17:36)
[2021-05-09] MEDS: ASPIRIN 81 MG PO SCH (10:39)
[2021-05-09] MEDS: LEVOFLOXACIN 500 MG TAB PO SCH (10:39)
--- NOTE | 2021-05-09 10:44 | CT ---
EXAMINATION TYPE: CT angio chest DATE OF EXAM: 05/09/2021 9:37 AM COMPARISON: Chest x-ray from yesterday HISTORY: History lung cancer, SOB, Check PE CT DLP: 324.4 mGycm Automated exposure control for dose reduction was used. CONTRAST: CTA scan of the thorax is performed with IV Contrast, patient injected with 100 mL of Isovue 300, pul monary embolism protocol. MIP images are created and reviewed. FINDINGS: LUNGS: Persistent elevated right hemidiaphragm. Severe right apical pleural thickening with pleural/p arenchymal scarring and soft tissue surrounding upper lung bronchi extending to the right hilum. Supe rior right hilar retraction is present consistent with apical volume loss. Seen better on CT versus x -ray there are some scattered groundglass opacities and organizing nodular consolidations in the righ t lower lobe. Left lung is slightly degraded by motion artifact compromises without suspicious focal consolidation. No concerning masses. No pleural effusion or pneumothorax is noted bilaterally. MEDIASTINUM: There is satisfactory enhancement of the pulmonary artery and its branches, there is no CT evidence for pulmonary embolism. Satisfactory enhancement of the thoracic aorta without aneurysm o r dissection. Mild/moderate noncalcified plaque along the descending thoracic aorta Prominent lymph n ode in the pericarinal region axial image 52 was noted. No cardiomegaly or pericardial effusion is seen. OTHER: Prominent draining veins in the subcutaneous tissue of the right upper extremity along with a long the right hemidiaphragm and intercostal region on the right likely related to prior right lung n eoplastic treatment. There is some generalized narrowing of the SVC right suprahilar level. Extensive surgical change of cervical spine is only partially imaged. IMPRESSION: 1. No CT evidence for acute pulmonary embolism. 2. Right-sided findings as detailed above. Findings favor posttreatment change of active neoplasm can not be entirely excluded without old outside CT and/or PET/CT correlation. Current PET CT would be be st to evaluate for possible recurrent active neoplasm. Collateral vessels related to SVC stenosis are noted, latter position product of treatment change. 3. Active infiltrates in the right mid to lower lung are present. Correlate for acute infectious proc ess.
--- NOTE | 2021-05-09 11:09 | P.PN ---
Subjective Progress Note Date: 05/09/21 Principal diagnosis: Shortness of breath This is a 60-year-old male patient with past medical history of COPD on home oxygen, adenocarcinoma of the lung diagnosed in October 2019, and patient has received chemotherapy concurrent with palliative radiation. Patient was supposed to receive immunotherapy maintenance after initial chemotherapy with carboplatinum and Alimta, he completed his radiation treatments at [facility] with Dr. Bonilla. He states that when his lung cancer was diagnosed he was stage IIIB. In October 2019 she was hospitalized at the [facility]. He initially presented with a 6 month history of chest congestion, cough with phlegm expectoration, and shortness of breath which had been progressive. Patient was treated for pneumonia, and the relief was transient. Patient subsequently developed right-sided chest pain, imaging re vealed evidence of a mass in the right upper lung with initial concern for SVC compression as he was having right upper extremity swelling. CT of the chest was negative for PE, but showed a large mass in the right upper lung greater than 9 cm, would likely invasion into the mediastinum and partial compression of the SVC. There was a near-total compression of the right upper lobe bronchus as well as compromise of the right mainstem. He underwent bronchoscopy with biopsy on 10/21/2019 revealing non-small cell carcinoma consistent with adenocarcinoma. MRI of the brain was negative for evidence of metastatic disease. He had a PET scan on 10/19/2019 showing uptake in the right upper lobe mass, there was also posterior nodule in the right lobe with additional workup recommended, there were some nonspecific findings in the left lower lobe with SUV of 3.7 and some groundglass opacity with no discrete nodule. Patient usually follows with Dr. Haris Mejia from pulmonology. He continues to smoke, he states that he was given about 6 months to 1 year life expectancy. Patient presented to the emergency department on 05/08/2021 for evaluation of worsening shortness of breath, cough, production of whitish colored phlegm. Denied any hemoptysis, denied any chest pain or palpitations, no recent fever chills or cough. Patient states that he did not get the COVID 19 vaccine. Patient states that he has had chemotherapy, palliative radiation, and immunotherapy at this point. His chest x-ray shows a worsening right apical pleural thickening, worsening of right suprahilar spiculated opacity with new right-sided volume loss, and obstructive central mass or neoplasm progression causing postobstructive atelectasis could not be excluded, computed tomography scan of the chest or a PET scan were recommended for follow-up. Patient has not had any fevers while in the emergency department, he is currently on 4 L of oxygen pulse ox is 99%, he is tachycardic with a rate of 124 in sinus mechanism. He is short of breath with conversation, he does have a congested cough. EKG showed sinus tachycardia with septal infarct of undetermined age. COVID-19 PCR was negative, white blood cell count is 11.2, hemoglobin of 14.4, INR is 1.1, electrolytes and renal profile are within normal limits, lactic acid 1.2 . Patient was given 500 mL fluid bolus, he was started on nebulized bronchodilators, Levaquin, and IV steroids. On 05/09/2021 patient seen in follow-up on observation unit. He is awoken much more comfortable today, breathing comfortably, less congested and wheezy, he is on 3 L of oxygen pulse ox is 97%, his been afebrile vital signs have been stable, still has a occasional congested cough, no hemoptysis, sodium is 138, potassium 4.2, chloride is 13, CO2 is 21, B1 is 20 creatinine 0.91. Patient tested negative for COVID-19 per PCR test, troponin was negative at less than 0 .012, and his LFTs were within normal limits, he remains on IV steroids, bronchodilators and Levaquin, CT chest with contrast has been completed showing no CT evidence for acute pulmonary embolism, right-sided lung findings favor posttreatment changes, and active neoplasm could not be entirely excluded without old CT or PET/CT correlation. There were acceptable infiltrates in the right mid to lower lung as well, with the possibility of acute infectious process Objective - Vital Signs Vital signs: Vital Signs Temp 97.6 F 05/09/21 04:47 Pulse 90 05/09/21 08:43 Resp 22 05/09/21 08:43 BP 118/74 05/09/21 04:47 Pulse Ox 97 05/09/21 08:32 Intake & Output 05/08/21 05/09/21 05/09/21 18:59 06:59 18:59 Intake Total 240 Output Total 400 Balance -160 Weight 67.585 kg 67.585 kg Intake: Oral 240 Output: Urine 400 - Exam GENERAL EXAM: Alert, pleasant, 60-year-old white male, on 3 L of oxygen, pulse ox is 99%, resting on the gurney in the emergency department, mild short of breath with conversation, does have a congested cough but appears to be comfortable in no apparent distress. Patient appears to be thin built. HEAD: Normocephalic/atraumatic. EYES: Normal reaction of pupils, equal size. Conjunctiva pink, sclera white. NOSE: Clear with pink turbinates. THROAT: No erythema or exudates. NECK: No masses, no JVD, no thyroid enlargement, no adenopathy. CHEST: No chest wall deformity. Symmetrical expansion. LUNGS: Equal air entry with diffuse wheezes, and scattered rhonchi CVS: Regular rate and rhythm, normal S1 and S2, no gallops, no murmurs, no rubs ABDOMEN: Soft, nontender. No hepatosplenomegaly, normal bowel sounds, no guarding or rigidity. EXTREMITIES: No clubbing, no edema, no cyanosis, 2+ pulses and upper and lower extremities. MUSCULOSKELETAL: Muscle strength and tone normal. SPINE: No scoliosis or deformity SKIN: No rashes CENTRAL NERVOUS SYSTEM: Alert and oriented -3. No focal deficits, tone is norm al in all 4 extremities. PSYCHIATRIC: Alert and oriented -3. Appropriate affect. Intact judgment and insight. - Labs CBC & Chem 7: 05/09/21 08:59 05/09/21 08:59 Labs: Abnormal Lab Results - Last 24 Hours (Table) 05/08/21 05/08/21 05/09/21 Range/Units 13:35 13:35 08:59 WBC 11.2 H 15.8 H (3.8-10.6) k/uL RBC 4.23 L (4.30-5.90) m/uL Neutrophils # 9.5 H 14.9 H (1.3-7.7) k/uL Lymphocytes # 0.6 L (1.0-4.8) k/uL Carbon Dioxide (22-30) mmol/L Glucose 108 H (74-99) mg/dL 05/09/21 Range/Units 08:59 WBC (3.8-10.6) k/uL RBC (4.30-5.90) m/uL Neutrophils # (1.3-7.7) k/uL Lymphocytes # (1.0-4.8) k/uL Carbon Dioxide 21 L (22-30) mmol/L Glucose 248 H (74-99) mg/dL Assessment and Plan Plan: Assessment: #1. Acute exacerbation of COPD #2. Possibly progressing right lung mass, with postobstructive atelectasis, pneumonia could not be completely excluded. CT chest with contrast showed right lung findings consistent with posttreatment changes, active neoplasm could not be entirely excluded without correlation with old computed tomography scan of the chest or previous PET/CT, collateral vessels related to SVC stenosis were noted, and there were active infiltrates in the right mid to lower lung, with the possibility of acute infectious process #3. Adenocarcinoma of the lung, stage IIIB a diagnosis, diagnosed in October 2019 at [facility] via CT of the chest showing a large right upper lobe lung mass measuring greater than 9 cm, with likely inpatient into the mediastinum and partial compression of the SVC and bronchoscopy with biopsy was done on 10/21/2019 revealing non-small cell carcinoma consistent with adenocarcinoma, status post chemotherapy, palliative radiation, and immunotherapy. Chest x-ray shows a worsening right suprahilar spiculated opacity with a new right-sided volume loss. Neoplasm progression causing postobstructive atelectasis is being considered, follow-up computed tomography scan with contrast is pending for tomorrow #4. Chronic and ongoing history of smoking #5. Advanced COPD, on home oxygen at 3 L #6. Chronic neck and back pain #7. BPH #8. Hypothyroidism #9. Hypertension #10. Hyperlipidemia #11. Primary osteoarthritis #12. Elevated right hemidiaphragm with atelectasis Plan: CT chest has been completed, and reviewed with Dr. Goyal Continue IV steroids and bronchodilators Continue antibiotics Medical oncology has been consulted, will await their further recommendations There is a possibility patient may need a bronchoscopy with bronchoalveolar lavage, and possible biopsies We'll await medical oncology's recommendations We'll continue to follow Prognosis is guarded Time with Patient: Less than 30
--- NOTE | 2021-05-09 12:43 | P.CONS ---
History of Present Illness - Reason for Consult Consult date: 05/09/21 Lung Cancer History Requesting physician: Kyle Bennett Review of Systems All systems: negative Constitutional: Reports as per HPI Past Medical History Past Medical History: Cancer, COPD, Fibromyalgia, Hyperlipidemia, Hypertension, Osteoarthritis (OA), Pneumonia, Prostate Disorder, Respiratory Disorder, Thyroid Disorder Additional Past Medical History / Comment(s): 10/2019 R side lung cancer with tumor compression SVC causing syncopal episodes/invasion of mediatinum/bilateral upper extremity lymphedema with numbness and tingling/R arm pain-pt has completed radiation treatments and still needs one more chemo treatment on 01/21/20-plan is then to receive immunotherapy, home oxygen at 3L/NC ATC, vertigo, chronic cervical and back pain, past lower extremity lymphedema, BPH, anemia, bronchitis, hypothyroid History of Any Multi-Drug Resistant Organisms: None Reported Past Surgical History: Orthopedic Surgery Additional Past Surgical History / Comment(s): 10/2019 bronchoscopy with biopsy, cervical surgery x2 with plate and bone graft from R hip, back injections, cystic acne lesions removed, colonoscopy, hemorrhoidectomy, picc lines. Past Anesthesia/Blood Transfusion Reactions: No Reported Reaction, Motion Sickness Past Psychological History: Anxiety, Depression Smoking Status: Current every day smoker Past Alcohol Use History: None Reported Past Drug Use History: Marijuana - Past Family History Father Family Medical History: Cancer Additional Family Medical History / Comment(s): Father is from renal cell carcinoma with mets. Mother Additional Family Medical History / Comment(s): Mother went into hospital for knee surgery/ended up from CDiff infection. Medications and Allergies Home Medications Medication Instructions Recorded Confirmed Type HYDROcodone/APAP 10-325MG [Chicken 2 tab PO Q4H PRN 02/06/16 05/08/21 History 10-325] Multivitamins, Thera [Multivitamin 1 tab PO DAILY 02/06/16 05/08/21 History (formulary)] Budesonide [Pulmicort] 0.5 mg INHALATION RT-BID PRN 01/19/20 05/08/21 History Methocarbamol [Robaxin-750] 750 mg PO QID PRN 01/19/20 05/08/21 History Aspirin EC [Ecotrin Low Dose] 81 mg PO DAILY 05/08/21 05/08/21 History Naproxen 500 mg PO BID PRN 05/08/21 05/08/21 History Sildenafil Citrate [Viagra] 100 mg PO DAILY PRN 05/08/21 05/08/21 History Allergies Allergy/AdvReac Type Severity Reaction Status Date / Time amitriptyline [From Elavil] Allergy Rash/Hives Verified 05/08/21 15:51 diazepam [From Valium] Allergy Unknown Verified 05/08/21 15:51 niacin Allergy Rash/Hives Verified 05/08/21 15:51 Physical Exam Vitals: Vital Signs Temp Pulse Pulse Resp BP BP Pulse Ox 05/09/21 11:37 90 20 05/09/21 11:27 88 18 05/09/21 08:43 90 22 05/09/21 08:32 88 22 97 05/09/21 04:47 97.6 F 115 H 18 118/74 97 05/08/21 20:49 115 H 05/08/21 20:33 115 H 98 05/08/21 20:00 98.3 F 118 H 18 127/98 99 05/08/21 18:44 98.6 F 115 H 22 136/91 99 05/08/21 18:00 115 H 22 136/91 99 05/08/21 17:00 110 H 22 99 05/08/21 16:33 66 05/08/21 16:26 62 05/08/21 16:22 117 H 22 134/93 99 05/08/21 15:22 111 H 22 99 05/08/21 14:25 120 H 05/08/21 14:22 109 H 22 99 05/08/21 14:08 24 05/08/21 14:04 112 H 05/08/21 13:22 116 H 22 99 05/08/21 13:14 98.6 F 124 H 24 123/97 99 Intake and Output 05/08/21 05/09/21 05/09/21 22:59 06:59 14:59 Intake Total 240 Output Total 400 Balance -160 Intake: Oral 240 Output: Urine 400 Other: Voiding Method Urinal Weight 67.585 kg Alert and Oriented Neck: Supple Heart: Tachy Lungs: Diminished, no increased respiratory effort Abdomen: Soft, non distended Extremities: No edema Calm and Cooperative Results CBC & Chem 7: 05/09/21 08:59 05/09/21 08:59 Labs: Abnormal Lab Results - Last 24 Hours (Table) 05/08/21 05/08/21 05/09/21 Range/Units 13:35 13:35 08:59 WBC 11.2 H 15.8 H (3.8-10.6) k/uL RBC 4.23 L (4.30-5.90) m/uL Neutrophils # 9.5 H 14.9 H (1.3-7.7) k/uL Lymphocytes # 0.6 L (1.0-4.8) k/uL Carbon Dioxide (22-30) mmol/L Glucose 108 H (74-99) mg/dL 05/09/21 Range/Units 08:59 WBC (3.8-10.6) k/uL RBC (4.30-5.90) m/uL Neutrophils # (1.3-7.7) k/uL Lymphocytes # (1.0-4.8) k/uL Carbon Dioxide 21 L (22-30) mmol/L Glucose 248 H (74-99) mg/dL Chest x-ray: report reviewed CT scan - chest: report reviewed Assessment and Plan (1) COPD exacerbation Current Visit: Yes Status: Acute Code(s): J44.1 - CHRONIC OBSTRUCTIVE PULMONARY DISEASE W (ACUTE) EXACERBATION SNOMED Code(s): 352016272 (2) Lung cancer Narrative/Plan: - Due for restaging scans in June, at last follow-up with Dr. Morales there was no signs of recurrence. CTA was reviewed and no definitive recurrence mentioned, will see if the first week of June if we can further evaluate for progression with PET rather than CT to differentiate between new/active cancer versus post treatment effects as CT is not definitive. Current Visit: No Status: Acute Code(s): C34.90 - MALIGNANT NEOPLASM OF UNSP PART OF UNSP BRONCHUS OR LUNG SNOMED Code(s): 181625252 Plan: Physician Attest: I have completed the full history and physical and agree with above dictation, dictated as a ascribe.
[2021-05-09 15:39] VITALS: BMI 22.6
[2021-05-09] MEDS: LORazepam 2 MG/ML INJ IV PRN (20:14)
[2021-05-09 20:46] LABS: Glucose,Whole Blood 161 mg/dL (75-99)
[2021-05-10] MEDS: methylPREDNISolone SOD SUCCI 125 MG/2 ML VIAL IV SCH ×3 (05:42→17:23)
[2021-05-10 06:30] LABS: Basophils % (A) 0 %; Eosinophils # (A) 0.2 k/uL (0-0.7); Eosinophils % (A) 1 %; HCT 42.4 % (39.0-53.0); HGB 13.4 gm/dL (13.0-17.5); Lymphocytes # (A) 0.4 k/uL (1.0-4.8); Lymphocytes % (A) 2 %; MCH 32.1 pg (25.0-35.0); MCHC 31.5 g/dL (31.0-37.0); MCV 101.9 fL (80.0-100.0); Macrocytosis Slight; Mean Platelet Volume 7.3; Monocytes # (A) 0.4 k/uL (0-1.0); Monocytes % (A) 2 %; Neutrophils # (A) 22.9 k/uL (1.3-7.7); Neutrophils % (A) 96 %; Platelet Count 314 k/uL (150-450); RBC 4.16 m/uL (4.30-5.90); RDW 12.6 % (11.5-15.5); WBC 23.9 k/uL (3.8-10.6)
[2021-05-10 06:54] LABS: ALT 16 U/L (4-49); AST 20 U/L (17-59); African American GFR (CKD) >90 (>60 ml/min/1.73 sqM); Albumin 3.8 g/dL (3.5-5.0); Alkaline Phosphatase 86 U/L (38-126); Anion Gap 11 mmol/L; Blood Urea Nitrogen 25 mg/dL (9-20); Calcium 9.5 mg/dL (8.4-10.2); Carbon Dioxide 22 mmol/L (22-30); Chloride 101 mmol/L (98-107); Glucose 151 mg/dL (74-99); Non-African American GFR(CKD) >90 (>60 ml/min/1.73 sqM); Potassium 4.9 mmol/L (3.5-5.1); Sodium 134 mmol/L (137-145); Total Bilirubin 0.5 mg/dL (0.2-1.3); Total Protein 7.1 g/dL (6.3-8.2)
[2021-05-10 07:02] LABS: Glucose,Whole Blood 156 mg/dL (75-99)
[2021-05-10] MEDS: LEVOFLOXACIN 500 MG TAB PO SCH (07:27)
[2021-05-10] MEDS: ASPIRIN 81 MG PO SCH (07:28)
[2021-05-10] MEDS: NICOTINE 14MG/24HR PATCH TRANSDERM SCH (07:28)
[2021-05-10] MEDS: SYMBICORT 160-4.5 MCG INHALER INHALATION SCH (07:44)
[2021-05-10] MEDS: IPRATROPIUM-ALBUTEROL 3 ML NEB INHALATION SCH ×3 (07:44→15:19)
[2021-05-10 11:16] LABS: Glucose,Whole Blood 127 mg/dL (75-99)
--- NOTE | 2021-05-10 11:36 | P.PN ---
Subjective Progress Note Date: 05/10/21 Principal diagnosis: Shortness of breath This is a 60-year-old male patient with past medical history of COPD on home oxygen, adenocarcinoma of the lung diagnosed in October 2019, and patient has received chemotherapy concurrent with palliative radiation. Patient was supposed to receive immunotherapy maintenance after initial chemotherapy with carboplatinum and Alimta, he completed his radiation treatments at [facility] with Dr. Bonilla. He states that when his lung cancer was diagnosed he was stage IIIB. In October 2019 she was hospitalized at the [facility]. He initially presented with a 6 month history of chest congestion, cough with phlegm expectoration, and shortness of breath which had been progressive. Patient was treated for pneumonia, and the relief was transient. Patient subsequently developed right-sided chest pain, imaging re vealed evidence of a mass in the right upper lung with initial concern for SVC compression as he was having right upper extremity swelling. CT of the chest was negative for PE, but showed a large mass in the right upper lung greater than 9 cm, would likely invasion into the mediastinum and partial compression of the SVC. There was a near-total compression of the right upper lobe bronchus as well as compromise of the right mainstem. He underwent bronchoscopy with biopsy on 10/21/2019 revealing non-small cell carcinoma consistent with adenocarcinoma. MRI of the brain was negative for evidence of metastatic disease. He had a PET scan on 10/19/2019 showing uptake in the right upper lobe mass, there was also posterior nodule in the right lobe with additional workup recommended, there were some nonspecific findings in the left lower lobe with SUV of 3.7 and some groundglass opacity with no discrete nodule. Patient usually follows with Dr. Haris Mejia from pulmonology. He continues to smoke, he states that he was given about 6 months to 1 year life expectancy. Patient presented to the emergency department on 05/08/2021 for evaluation of worsening shortness of breath, cough, production of whitish colored phlegm. Denied any hemoptysis, denied any chest pain or palpitations, no recent fever chills or cough. Patient states that he did not get the COVID 19 vaccine. Patient states that he has had chemotherapy, palliative radiation, and immunotherapy at this point. His chest x-ray shows a worsening right apical pleural thickening, worsening of right suprahilar spiculated opacity with new right-sided volume loss, and obstructive central mass or neoplasm progression causing postobstructive atelectasis could not be excluded, computed tomography scan of the chest or a PET scan were recommended for follow-up. Patient has not had any fevers while in the emergency department, he is currently on 4 L of oxygen pulse ox is 99%, he is tachycardic with a rate of 124 in sinus mechanism. He is short of breath with conversation, he does have a congested cough. EKG showed sinus tachycardia with septal infarct of undetermined age. COVID-19 PCR was negative, white blood cell count is 11.2, hemoglobin of 14.4, INR is 1.1, electrolytes and renal profile are within normal limits, lactic acid 1.2 . Patient was given 500 mL fluid bolus, he was started on nebulized bronchodilators, Levaquin, and IV steroids. On 05/09/2021 patient seen in follow-up on observation unit. He is awoken much more comfortable today, breathing comfortably, less congested and wheezy, he is on 3 L of oxygen pulse ox is 97%, his been afebrile vital signs have been stable, still has a occasional congested cough, no hemoptysis, sodium is 138, potassium 4.2, chloride is 13, CO2 is 21, B1 is 20 creatinine 0.91. Patient tested negative for COVID-19 per PCR test, troponin was negative at less than 0 .012, and his LFTs were within normal limits, he remains on IV steroids, bronchodilators and Levaquin, CT chest with contrast has been completed showing no CT evidence for acute pulmonary embolism, right-sided lung findings favor posttreatment changes, and active neoplasm could not be entirely excluded without old CT or PET/CT correlation. There were acceptable infiltrates in the right mid to lower lung as well, with the possibility of acute infectious process On 05/10/2021 patient is seen in follow-up on observation unit, he states he is improving, breathing much easier, much less pink with spastic and congested on today's exam. Afebrile, hemodynamically stable, breathing quite comfortably. His CTA chest showed posttreatment changes in the right sided lung findings, active neoplasm could not be entirely excluded without comparison to the old CT scans or PET scan for correlation. Patient was seen by medical oncology in consultation, and the recommendation was to follow-up With Dr. Morales in the early part of June for restaging PET scan. Pulse ox is 95% on 4 L, he is afebrile. Today's labs have been reviewed, his white blood cell count is 23.9, hemoglobin is 13.4, sodium is 134, and the rest of electrolytes are within normal limits, BUN is 25, creatinine 0.75 LFTs are within normal limits. Patient remains on nebulized bronchodilators, antibiotics and IV steroids. Denies any hemoptysis or chest pain. Objective - Vital Signs Vital signs: Vital Signs Temp 97.7 F 05/10/21 08:00 Pulse 116 H 05/10/21 11:19 Resp 20 05/10/21 08:00 BP 130/77 05/10/21 08:00 Pulse Ox 95 05/10/21 08:00 Intake & Output 05/09/21 05/10/21 05/10/21 18:59 06:59 18:59 Output Total 625 Balance -625 Weight 67.585 kg Output: Urine 625 Other: Voiding Method Urinal Urinal - Exam GENERAL EXAM: Alert, pleasant, 60-year-old white male, on 4 L of oxygen, pulse ox is 95%, does have a congested cough but appears to be comfortable in no ap parent distress. Patient appears to be thin built. HEAD: Normocephalic/atraumatic. EYES: Normal reaction of pupils, equal size. Conjunctiva pink, sclera white. NOSE: Clear with pink turbinates. THROAT: No erythema or exudates. NECK: No masses, no JVD, no thyroid enlargement, no adenopathy. CHEST: No chest wall deformity. Symmetrical expansion. LUNGS: Equal air entry with diffuse wheezes, and scattered rhonchi CVS: Regular rate and rhythm, normal S1 and S2, no gallops, no murmurs, no rubs ABDOMEN: Soft, nontender. No hepatosplenomegaly, normal bowel sounds, no guarding or rigidity. EXTREMITIES: No clubbing, no edema, no cyanosis, 2+ pulses and upper and lower extremities. MUSCULOSKELETAL: Muscle strength and tone normal. SPINE: No scoliosis or deformity SKIN: No rashes CENTRAL NERVOUS SYSTEM: Alert and oriented -3. No focal deficits, tone is normal in all 4 extremities. PSYCHIATRIC: Alert and oriented -3. Appropriate affect. Intact judgment and insight. - Labs CBC & Chem 7: 05/10/21 05:56 05/10/21 05:56 Labs: Abnormal Lab Results - Last 24 Hours (Table) 05/09/21 05/10/21 05/10/21 Range/Units 20:41 05:56 05:56 WBC 23.9 H (3.8-10.6) k/uL RBC 4.16 L (4.30-5.90) m/uL MCV 101.9 H (80.0-100.0) fL Neutrophils # 22.9 H (1.3-7.7) k/uL Lymphocytes # 0.4 L (1.0-4.8) k/uL Sodium 134 L (137-145) mmol/L BUN 25 H (9-20) mg/dL Glucose 151 H (74-99) mg/dL POC Glucose (mg/dL) 161 H (75-99) mg/dL 05/10/21 05/10/21 Range/Units 07:00 11:14 WBC (3.8-10.6) k/uL RBC (4.30-5.90) m/uL MCV (80.0-100.0) fL Neutrophils # (1.3-7.7) k/uL Lymphocytes # (1.0-4.8) k/uL Sodium (137-145) mmol/L BUN (9-20) mg/dL Glucose (74-99) mg/dL POC Glucose (mg/dL) 156 H 127 H (75-99) mg/dL Microbiology - Last 24 Hours (Table) 05/08/21 13:35 Blood Culture - Preliminary Blood No Growth after 24 hours 05/08/21 13:35 Blood Culture - Preliminary Blood No Growth after 24 hours Assessment and Plan Plan: Assessment: #1. Acute exacerbation of COPD #2. Possibly progressing right lung mass, with postobstructive atelectasis, pneumonia could not be completely excluded. CT chest with contrast showed right lung findings consistent with posttreatment changes, active neoplasm could not be entirely excluded without correlation with old computed tomography scan of the chest or previous PET/CT, collateral vessels related to SVC stenosis were noted, and there were active infiltrates in the right mid to lower lung, with the possibility of acute infectious process #3. Adenocarcinoma of the lung, stage IIIB a diagnosis, diagnosed in October 2019 at [facility] via CT of the chest showing a large right upper lobe lung mass measuring greater than 9 cm, with likely inpatient into the mediastinum and partial compression of the SVC and bronchoscopy with biopsy was done on 10/21/2019 revealing non-small cell carcinoma consistent with adenocarcinoma, status post chemotherapy, palliative radiation, and immunotherapy. Chest x-ray shows a worsening right suprahilar spiculated opacity with a new right-sided volume loss. Neoplasm progression causing postobstructive atelectasis is being considered, follow-up computed tomography scan with contrast is pending for tomorrow #4. Chronic and ongoing history of smoking #5. Advanced COPD, on home oxygen at 3 L #6. Chronic neck and back pain #7. BPH #8. Hypothyroidism #9. Hypertension #10. Hyperlipidemia #11. Primary osteoarthritis #12. Elevated right hemidiaphragm with atelectasis Plan: Clinically patient is improving Breathing easier, less wheezy and congested No fever or chills Medical oncology recommendations were noted, and the plan is for the patient to follow-up in early June for restaging scan From pulmonary perspective patient is stable for discharge home today Patient does not want to follow-up with Dr. Ingram/Jillian Mejia, wants to start following with Dr. Arellano I performed a history & physical examination of the patient and discussed their management with my nurse practitioner, Caron Caballero. I reviewed the nurse practitioner's note and agree with the documented findings and plan of care. Lung sounds are positive for few wheezes throughout the lung reeder. The findings and the impression was discussed with the patient. I attest to the documentation by the nurse practitioner. L Time with Patient: Less than 30
[2021-05-10] MEDS: HYDROcodone/APAP 10-325MG 1 EACH TAB PO PRN (11:45)
--- NOTE | 2021-05-10 14:01 | P.PN ---
Subjective Progress Note Date: 05/10/21 Principal diagnosis: dyspnea reviewed CT with patient today and no definitive recurrence noted. Plan is to repeat CT Cap after he has recovered from hospitalization next month. Objective - Vital Signs Vital signs: Vital Signs Temp 97.7 F 05/10/21 08:00 Pulse 116 H 05/10/21 11:19 Resp 20 05/10/21 08:00 BP 130/77 05/10/21 08:00 Pulse Ox 95 05/10/21 08:00 Intake & Output 05/09/21 05/10/21 05/10/21 18:59 06:59 18:59 Output Total 625 Balance -625 Weight 67.585 kg Output: Urine 625 Other: Voiding Method Urinal Urinal - Exam Alert and oriented NAD Anxious Neck: Supple Lungs: Exp Wheeze, Mild increased effort HR: Tachy Abdomen: Obese Ext: No edema - Labs CBC & Chem 7: 05/10/21 05:56 05/10/21 05:56 Labs: Abnormal Lab Results - Last 24 Hours (Table) 05/09/21 05/10/21 05/10/21 Range/Units 20:41 05:56 05:56 WBC 23.9 H (3.8-10.6) k/uL RBC 4.16 L (4.30-5.90) m/uL MCV 101.9 H (80.0-100.0) fL Neutrophils # 22.9 H (1.3-7.7) k/uL Lymphocytes # 0.4 L (1.0-4.8) k/uL Sodium 134 L (137-145) mmol/L BUN 25 H (9-20) mg/dL Glucose 151 H (74-99) mg/dL POC Glucose (mg/dL) 161 H (75-99) mg/dL 05/10/21 05/10/21 Range/Units 07:00 11:14 WBC (3.8-10.6) k/uL RBC (4.30-5.90) m/uL MCV (80.0-100.0) fL Neutrophils # (1.3-7.7) k/uL Lymphocytes # (1.0-4.8) k/uL Sodium (137-145) mmol/L BUN (9-20) mg/dL Glucose (74-99) mg/dL POC Glucose (mg/dL) 156 H 127 H (75-99) mg/dL Microbiology - Last 24 Hours (Table) 05/08/21 13:35 Blood Culture - Preliminary Blood No Growth after 24 hours 05/08/21 13:35 Blood Culture - Preliminary Blood No Growth after 24 hours Assessment and Plan (1) COPD exacerbation Current Visit: Yes Status: Acute Code(s): J44.1 - CHRONIC OBSTRUCTIVE PULM ONARY DISEASE W (ACUTE) EXACERBATION SNOMED Code(s): 543824828 (2) Lung cancer Current Visit: No Status: Acute Code(s): C34.90 - MALIGNANT NEOPLASM OF UNSP PART OF UNSP BRONCHUS OR LUNG SNOMED Code(s): 507759030 Plan: Continue care per pulm and primary team Repeat CT CAP restaging after resolution of acute hospital problems Discussed in detail with patient Physician Attest: I have completed the full history and physical and agree with above dictation, dictated as a ascribe.
[2021-05-10 14:32] VITALS: BP 127/74; RESP 21; TEMP 97.9
[2021-05-10] MEDS: LORazepam 2 MG/ML INJ IV PRN ×2 (15:28→17:57)
[2021-05-10 15:33] VITALS: PULSE 104
--- NOTE | 2021-05-10 18:04 | P.DS ---
Providers Date of admission: 05/08/21 14:44 Expected date of discharge: 05/10/21 Attending physician: Angie Toribio Consults: 05/08/21 14:43 Consult Physician Routine Consulting Provider: Indra Arellano Consult Reason/Comments: COPD exacerbation, bronchial obstruction, history of lung cancer Do you want consulting provider notified?: Yes Consult Physician Routine Consulting Provider: Sanjuanita Galdamez Consult Reason/Comments: Lung cancer Do you want consulting provider notified?: Yes Primary care physician: Angie Toribio [facility] Hospital Course: Diagnosis on discharge: Acute exacerbation of chronic obstructive pulmonary disease Underlying history of lung cancer. Adenocarcinoma diagnosed in October 2019 patient did receive chemotherapy and palliative radiation. Oncology service is consulted History of ongoing nicotine dependence History of essential hypertension History of hyperlipidemia History of anxiety and depression Hospital course: Axel Beltran, he is a 60-year-old male who presented to [facility] emergency room with a chief complaint of worsening shortness of breath she has a known past medical history of adenocarcinoma of the lung diagnosed in October 2019 which patient has received chemotherapy concurrent with palliative radiation. Chest x-ray was completed showing worsening right apical pleural thickening worsening of the right subhilar spicular dual-pacing with new right- sided volume loss and obstructive central mass or neoplasm progression causing post obstructive atelectasis. COVID testing was negative. Patient was admitted to medical floor for further evaluation and treatment. Pulmonary and oncology service is consulted. Patient started on IV steroids, Levaquin and DuoNeb breathing treatments. Past medical history is significant for adenocarcinoma of the lung diagnosed in October of 2019 COPD, fibromyalgia, hyperlipidemia, hypertension, anxiety, depression and ongoing nicotine dependenc On review of systems patient is currently resting comfortably bed does complain of ongoing cough does report some improvement shortness of breath. Patient denies chest pain. Patient denies nausea vomiting or diarrhea. Patient denies any urinary burning or frequency On 05/09/2021 patient alert and oriented 3. Patient is currently resting in bed. Computed tomography scan completed this a.m. for pulmonary. Patient maintained on IV steroids and breathing treatments. Patient reports some improvement with shortness of breath and congestion. Patient denies chest pain. Patient denies nausea vomiting or diarrhea. Patient denies any urinary burning or frequency On 05/10/2021atient was seen and examined on the medical floor, he is alert and oriented x 3 in no distress, shortness of breath improved significantly otherwise he denies any complaints there is no fever or chills no headache or dizziness no chest pain, no palpitation no cough no nausea or vomiting no abdominal pain no diarrhea no blood in the stools no burning with urination no frequency or urgency and no hematuria, there is no weakness or numbness in any of the extremities no change in vision speech or gait. He was cleared by pulmonary and oncology for discharge, he was discharged home today he will follow-up in our office also he will follow-up with pulmonary and oncology as outpatient Plan - Discharge Summary Discharge Rx Participant: No New Discharge Prescriptions: New Ipratropium-Albuterol Nebulize [Duoneb 0.5 mg-3 mg/3 ml Soln] 3 ml INHALATION RT-QID ml predniSONE 10 mg PO DIRECTED 12 Days #30 tab Nicotine 14Mg/24Hr Patch [Habitrol] 1 patch TRANSDERM DAILY patch Levofloxacin [Levaquin] 500 mg PO DAILY tab Continue HYDROcodone/APAP 10-325MG [[place] 10-325] 2 tab PO Q4H PRN PRN Reason: Pain Multivitamins, Thera [Multivitamin (formulary)] 1 tab PO DAILY Budesonide [Pulmicort] 0.5 mg INHALATION RT-BID PRN PRN Reason: Shortness Of Breath Methocarbamol [Robaxin-750] 750 mg PO QID PRN PRN Reason: Muscle Spasm Sildenafil Citrate [Viagra] 100 mg PO DAILY PRN PRN Reason: E.D. Aspirin EC [Ecotrin Low Dose] 81 mg PO DAILY Naproxen 500 mg PO BID PRN PRN Reason: Pain Discharge Medication List HYDROcodone/APAP 10-325MG [[place] 10-325] 2 tab PO Q4H PRN 02/06/16 [History] Multivitamins, Thera [Multivitamin (formulary)] 1 tab PO DAILY 02/06/16 [History] Budesonide [Pulmicort] 0.5 mg INHALATION RT-BID PRN 01/19/20 [History] Methocarbamol [Robaxin-750] 750 mg PO QID PRN 01/19/20 [History] Aspirin EC [Ecotrin Low Dose] 81 mg PO DAILY 05/08/21 [History] Naproxen 500 mg PO BID PRN 05/08/21 [History] Sildenafil Citrate [Viagra] 100 mg PO DAILY PRN 05/08/21 [History] Ipratropium-Albuterol Nebulize [Duoneb 0.5 mg-3 mg/3 ml Soln] 3 ml INHALATION RT-QID ml 05/10/21 [Rx] Levofloxacin [Levaquin] 500 mg PO DAILY tab 05/10/21 [Rx] Nicotine 14Mg/24Hr Patch [Habitrol] 1 patch TRANSDERM DAILY patch 05/10/21 [Rx] predniSONE 10 mg PO DIRECTED 12 Days #30 tab 05/10/21 [Rx] Follow up Appointment(s)/Referral(s): Indra Arellano MD [STAFF PHYSICIAN] - 1 Week [facility], [NON-STAFF] - 1-2 Days Angie Toribio MD [Primary Care Provider] - 1-2 days
--- NOTE | 2021-05-16 07:33 | CDI ---
Documentation Clarification Form Date: 05/16/2021 07:16:55 AM From: Keren NortonSaucedoCHARISSE stephen, CCDS Admit Date: 05/08/2021 02:44:00 PM Patient Name: Axel Beltran Visit Number: [id number] Discharge Date: 05/10/2021 06:27:00 PM ATTENTION: The Clinical Documentation Specialists (CDI) and [facility] Coding Staff appreciate your assistance in clarifying documentation. Please respond to the clarification below the line at the bottom and electronically sign. The CDI & [facility] Coding staff will review the response and follow-up if needed. Please note: Queries are made part of the Legal Health Record. If you have any questions, please contact the author of this message via ITS. Dr. Angie Toribio: Pneumonia is documented in the 05/10 Pulmonary Progress Note: Possibly progressing right lung mass with postobstructive atelectasis and pneumonia could not be completely excluded. Additional clarification regarding pneumonia is requested. History/Risk Factors per the 05/08 H/P: Adenocarcinoma of the lung diagnosed October 2019 status post chemotherapy, concurrent with palliative radiation, COPD, Pneumonia, Fibromyalgia, Hyperlipidemia, Hypertension, Anxiety, Depression and Ongoing Nicotine Dependence. Clinical Indicators: Presented to the ED on 05/08 via EMS with SOB. ED Clinical Impression: Bronchial obstruction, COPD Exacerbation 05/08 VS: T 98.6, P 124, R 24 )cough, SOB), BP 123/97, PO 99 4Lnc, BMI: 22.7 05/08 LAB: WBC 11.2 (10.6: 15.8, 05/10: 23.9); Neut 9.5, Gluc 108, COVID NEG 05/08 Blood Cultures negative x2 (final) 05/08 CXR: Worsening right apical pleural thickening. Worsening right suprahilar spiculated opacity with new right-sided volume loss. Cannot exclude obstructing central mass or neoplasm progression causing postobstructive atelectasis. 05/09 CT Chest: No PE. Findings favor posttreatment change of active neoplasm cannot be entirely excluded without old outside CT and/or PET/CT correlation. Active infiltrates in the right mid to lower lung are present. Correlate for acute infectious process. Treatment: O2 4Lnc, INH Ventolin, INH Atrovent, IV Solumedrol, IV Na Cl 500 mls @ 999 mls/hr q31M, INH Duoneb QID, INH Symbicort BID. PO Levaquin 500 mg daily. Please clarify the diagnosis of pneumonia: [ ] Pneumonia Ruled In [ ] Please specify the type if known: [ ] Pneumonia Ruled Out [ ] Other, please specify [ ] Unable to determine (Template Last Revised: October 2020) Pneumonia ruled in MTDD
== END 2021-05-10 18:27 | disposition home health service (06) | DRG 190 ==
LOC: EC 12:48 → 4SSUR 14:44 → 1SOBS 18:21 → 4SSUR 05-10 16:23
PROVIDERS: ADMIT Internal Medicine; ATTEND Internal Medicine
DX: J44.1 Chronic obstructive pulmonary disease with (acute) exacerbation (principal); J18.9 Pneumonia, unspecified organism; J98.11 Atelectasis; C34.11 Malignant neoplasm of upper lobe, right bronchus or lung; I87.1 Compression of vein; Z20.822 Contact with and (suspected) exposure to COVID-19; E03.9 Hypothyroidism, unspecified; E78.5 Hyperlipidemia, unspecified; F17.210 Nicotine dependence, cigarettes, uncomplicated; F32.9 Major depressive disorder, single episode, unspecified; F41.9 Anxiety disorder, unspecified; G89.29 Other chronic pain; M54.2 Cervicalgia; M54.9 Dorsalgia, unspecified; I10 Essential (primary) hypertension; J44.0 Chronic obstructive pulmonary disease with (acute) lower respiratory infection; J98.09 Other diseases of bronchus, not elsewhere classified; R00.0 Tachycardia, unspecified; D64.9 Anemia, unspecified; N40.0 Benign prostatic hyperplasia without lower urinary tract symptoms; R42 Dizziness and giddiness; M79.7 Fibromyalgia; R20.0 Anesthesia of skin; M19.91 Primary osteoarthritis, unspecified site; I25.2 Old myocardial infarction; Z99.81 Dependence on supplemental oxygen; Z88.5 Allergy status to narcotic agent; Z98.890 Other specified postprocedural states; Z88.6 Allergy status to analgesic agent; Z79.899 Other long term (current) drug therapy; Z79.890 Hormone replacement therapy; Z79.82 Long term (current) use of aspirin; Z85.118 Personal history of other malignant neoplasm of bronchus and lung; Z92.3 Personal history of irradiation; Z87.01 Personal history of pneumonia (recurrent); Z80.51 Family history of malignant neoplasm of kidney; Z92.21 Personal history of antineoplastic chemotherapy; Z87.19 Personal history of other diseases of the digestive system
CPT/HCPCS: 36415; 71046; 71275; 80053; 83605; 83735; 84484; 85025; 85610; 85730; 87040; 87635; 93005; 94640; 94760; 96361; 96374; 99285

== ENCOUNTER 2022-02-22 07:38 | Emergency (ER) | payer MEDICARE, OTHER ==
[2022-02-22 07:46] VITALS: TEMP 99.4
[2022-02-22] MEDS ORDERED: SODIUM CHLORIDE 0.9% 500 ML 500 ML IV STA (07:59)
[2022-02-22] MEDS ORDERED: IBUPROFEN 800 MG TAB PO STA (08:02)
[2022-02-22] MEDS ORDERED: ACETAMINOPHEN TAB 500 MG TAB PO STA (08:02)
--- NOTE | 2022-02-22 08:17 | ED ---
General Adult HPI - General Chief complaint: Shortness of Breath Stated complaint: SOB Time Seen by Provider: 02/22/22 07:50 Source: patient, RN notes reviewed, old records reviewed Mode of arrival: ambulatory Limitations: no limitations - History of Present Illness Initial comments: Patient is a 61-year-old male with past medical history remarkable for COPD, lung cancer currently in remission, chronically on 4 L nasal cannula presents emergency Department with multi week history of worsening shortness breath. Patient states that his heart is also "weak." Endorses fever, chronic cough productive of clear mucus which is not any worse than typical for him. Denies any wheezing. Denies any nausea, vomiting, abdominal pain. Denies any headache. He is uncertain what is causing his current symptoms. Denies any known sick contacts. Was not vaccinated for Covid or flu. Denies any lower extremity edema. His no recent long distance travel or history of blood clots. Is not on blood thinners.Endorses acute exertional dyspnea. Denies any known worsening orthopnea. Denies any PND. Does endorse intermittent leg swelling, however states that it is improvement today. States that his shortness of breath has been ongoing since approximately 02/09/22, and is been relatively consistent without worsening but not getting better. - Related Data Home Medications Medication Instructions Recorded Confirmed HYDROcodone/APAP 10-325MG [[place] 2 tab PO Q4H PRN 02/06/16 02/22/22 10-325] Multivitamins, Thera [Multivitamin 1 tab PO DAILY 02/06/16 02/22/22 (formulary)] Aspirin EC [Ecotrin Low Dose] 81 mg PO DAILY 05/08/21 02/22/22 Naproxen 500 mg PO BID PRN 05/08/21 02/22/22 Sildenafil Citrate [Viagra] 100 mg PO DAILY PRN 05/08/21 02/22/22 Atorvastatin [Lipitor] 10 mg PO DAILY 02/22/22 02/22/22 Metoprolol Succinate (ER) [Toprol 25 mg PO DAILY 02/22/22 02/22/22 Xl] lisinopriL [Zestril] 2.5 mg PO DAILY 02/22/22 02/22/22 Previous Rx's Medication Instructions Recorded Doxycycline [Vibramycin] 100 mg PO BID 7 Days #14 capsule 02/22/22 predniSONE [Deltasone] 40 mg PO DAILY 5 Days #10 tab 02/22/22 Allergies Allergy/AdvReac Type Severity Reaction Status Date / Time amitriptyline [From Elavil] Allergy Rash/Hives Verified 02/22/22 10:09 diazepam [From Valium] Allergy Unknown Verified 02/22/22 10:09 niacin Allergy Rash/Hives Verified 02/22/22 10:09 Review of Systems ROS Statement: Those systems with pertinent positive or pertinent negative responses have been documented in the HPI. Review of Systems: CONST: Denies fever EYES: Denies blurry vision ENT: Denies nasal congestion C/V: Denies Chest pain RESP: Endorses shortness of breath GI: Denies abdominal pain : Denies dysuria SKIN: Denies rash. MSK: Denies joint pain. NEURO: Denies headache ROS Other: All systems not noted in ROS Statement are negative. Past Medical History Past Medical History: Cancer, COPD, Fibromyalgia, Hyperlipidemia, Hypertension, Osteoarthritis (OA), Pneumonia, Prostate Disorder, Respiratory Disorder, Thyroid Disorder Additional Past Medical History / Comment(s): 10/2019 R side lung cancer with tumor compression SVC causing syncopal episodes/invasion of mediatinum/bilateral upper extremity lymphedema with numbness and tingling/R arm pain-pt has completed radiation treatments and still needs one more chemo treatment on 01/21/20-plan is then to receive immunotherapy, home oxygen at 3L/NC ATC, vertigo, chronic cervical and back pain, past lower extremity lymphedema, BPH, anemia, bronchitis, hypothyroid History of Any Multi-Drug Resistant Organisms: None Reported Past Surgical History: Orthopedic Surgery Additional Past Surgical History / Comment(s): 10/2019 bronchoscopy with biopsy, cervical surgery x2 with plate and bone graft from R hip, back injections, cystic acne lesions removed, colonoscopy, hemorrhoidectomy, picc lines. Past Anesthesia/Blood Transfusion Reactions: No Reported Reaction, Motion Sickness Past Psychological History: Anxiety, Depression Smoking Status: Current every day smoker Past Alcohol Use History: None Reported Past Drug Use History: Marijuana - Past Family History Father Family Medical History: Cancer Additional Family Medical History / Comment(s): Father is from renal cell carcinoma with mets. Mother Additional Family Medical History / Comment(s): Mother went into hospital for knee surgery/ended up from CDiff infection. General Exam - General Exam Comments Initial Comments: General: Appears in no acute distress. Mildly increased work of breathing. HEAD: Normal with no signs of head trauma. EYES: PERRLA, EOMI, conjunctiva normal, no discharge. ENT: Hearing grossly intact, normal oropharynx. RESPIRATORY: Clear breath sounds bilaterally. No wheezes, rales, or rhonchi. Increased work of breathing. Normoxic on normal nasal cannula. C/V: Regular rate and rhythm. S1 and S2 auscultated, minimal symmetrical pitting edema, peripheral pulses 2+ and intact throughout ABD: Abd is soft, nontender, nondistended EXT: Normal range of motion, no obvious deformity SKIN: No rashes or lesions observed on exposed skin. NEURO: Alert and oriented x 4. Cranial nerves II-XII intact. No focal sensory or strength deficits. Limitations: no limitations Course Vital Signs 02/22/22 02/22/22 02/22/22 07:43 09:26 11:00 Temperature 99.4 F Pulse Rate 85 99 88 Respiratory 26 H 20 20 Rate Blood Pressure 128/78 92/61 96/68 O2 Sat by Pulse 96 99 97 Oximetry Medical Decision Making - Medical Decision Making Based on the patient's presentation and physical exam, I'm concerned for possible cardiopulmonary etiology for his symptoms at this time. Patient sinus for PE concerning his cancer history, as well as presenting in the room tachycardic with increased work of breathing. We'll obtain a CT pulmonary embolism at this time. Also obtain EKG, cardiac labs. Patient was in agreement this plan. He will be given a small fluid bolus to evaluate for improvement in tachycardia. Also be given Tylenol and Motrin. EKG shows no signs of acute ischemia.Chest x-ray reveals progression of cancer. Laboratory studies are remarkable for a normocytic anemia which is chronic for the patient with a hemoglobin of 10.9. Troponin is undetectable. BNP is within normal limits for his age. Covid and flu negative. CT angiogram revealed chronic changes from his known lung cancer in the right upper lobe. No acute findings. No PE. Reevaluation come patient remains stable. Tachycardia is resolved. Is feeling improved. Vital signs within normal limits otherwise. I discussed admission for further evaluation versus discharge home, and he would like to be discharged home. Has a follow-up with his oncologist in the coming weeks, and we will be repeating new imaging to better evaluate the cancer. He does not want to be admitted at this time. Due to his somewhat increasing productive cough, we will treat him for bronchitis on antibiotics as well as steroids. Has breathing treatments at home. He was in agreement this plan. Strict return precautions were discussed. I will provide the patient with a prescription for prednisone, doxycycline. I instructed the patient to follow up with their PCP in the next 1-3 days. I explained that the patient should return to the emergency department if they experience any worsening symptoms. Strict return precautions were discussed with the patient. The patient expressed understanding of these instructions. I answered all questions that the patient had. The patient was discharged home in fair condition with their prescriptions and follow up information. - Lab Data Result diagrams: 02/22/22 08:04 02/22/22 08:04 Lab Results 02/22/22 02/22/22 02/22/22 Range/Units 08:04 08:04 08:04 WBC 8.6 (3.8-10.6) k/uL RBC 3.52 L (4.30-5.90) m/uL Hgb 10.9 L (13.0-17.5) gm/dL Hct 34.6 L (39.0-53.0) % MCV 98.2 (80.0-100.0) fL MCH 31.1 (25.0-35.0) pg MCHC 31.7 (31.0-37.0) g/dL RDW 13.3 (11.5-15.5) % Plt Count 333 (150-450) k/uL MPV 7.1 Neutrophils % 82 % Lymphocytes % 9 % Monocytes % 7 % Eosinophils % 0 % Basophils % 0 % Neutrophils # 7.1 (1.3-7.7) k/uL Lymphocytes # 0.8 L (1.0-4.8) k/uL Monocytes # 0.6 (0-1.0) k/uL Eosinophils # 0.0 (0-0.7) k/uL Basophils # 0.0 (0-0.2) k/uL PT 11.5 (9.0-12.0) sec INR 1.1 (<1.2) APTT 26.0 (22.0-30.0) sec Sodium 135 L (137-145) mmol/L Potassium 4.0 (3.5-5.1) mmol/L Chloride 98 (98-107) mmol/L Carbon Dioxide 26 (22-30) mmol/L Anion Gap 11 mmol/L BUN 11 (9-20) mg/dL Creatinine 0.92 (0.66-1.25) mg/dL Est GFR (CKD-EPI)AfAm >90 (>60 ml/min/1.73 sqM) Est GFR (CKD-EPI)NonAf >90 (>60 ml/min/1.73 sqM) Glucose 122 H (74-99) mg/dL Calcium 8.4 (8.4-10.2) mg/dL Magnesium 1.3 L (1.6-2.3) mg/dL Total Bilirubin 0.6 (0.2-1.3) mg/dL AST 39 (17-59) U/L ALT 35 (4-49) U/L Alkaline Phosphatase 121 (38-126) U/L Troponin I (0.000-0.034) ng/mL NT-Pro-B Natriuret Pep pg/mL Total Protein 7.5 (6.3-8.2) g/dL Albumin 3.7 (3.5-5.0) g/dL Coronavirus (PCR) (Not Detectd) Influenza Type A RNA (Not Detectd) Influenza Type B (PCR) (Not Detectd) 02/22/22 02/22/22 02/22/22 Range/Units 08:04 08:04 08:04 WBC (3.8-10.6) k/uL RBC (4.30-5.90) m/uL Hgb (13.0-17.5) gm/dL Hct (39.0-53.0) % MCV (80.0-100.0) fL MCH (25.0-35.0) pg MCHC (31.0-37.0) g/dL RDW (11.5-15.5) % Plt Count (150-450) k/uL MPV Neutrophils % % Lymphocytes % % Monocytes % % Eosinophils % % Basophils % % Neutrophils # (1.3-7.7) k/uL Lymphocytes # (1.0-4.8) k/uL Monocytes # (0-1.0) k/uL Eosinophils # (0-0.7) k/uL Basophils # (0-0.2) k/uL PT (9.0-12.0) sec INR (<1.2) APTT (22.0-30.0) sec Sodium (137-145) mmol/L Potassium (3.5-5.1) mmol/L Chloride (98-107) mmol/L Carbon Dioxide (22-30) mmol/L Anion Gap mmol/L BUN (9-20) mg/dL Creatinine (0.66-1.25) mg/dL Est GFR (CKD-EPI)AfAm (>60 ml/min/1.73 sqM) Est GFR (CKD-EPI)NonAf (>60 ml/min/1.73 sqM) Glucose (74-99) mg/dL Calcium (8.4-10.2) mg/dL Magnesium (1.6-2.3) mg/dL Total Bilirubin (0.2-1.3) mg/dL AST (17-59) U/L ALT (4-49) U/L Alkaline Phosphatase (38-126) U/L Troponin I <0.012 (0.000-0.034) ng/mL NT-Pro-B Natriuret Pep 375 pg/mL Total Protein (6.3-8.2) g/dL Albumin (3.5-5.0) g/dL Coronavirus (PCR) (Not Detectd) Influenza Type A RNA Not Detected (Not Detectd) Influenza Type B (PCR) Not Detected (Not Detectd) 02/22/22 Range/Units 08:04 WBC (3.8-10.6) k/uL RBC (4.30-5.90) m/uL Hgb (13.0-17.5) gm/dL Hct (39.0-53.0) % MCV (80.0-100.0) fL MCH (25.0-35.0) pg MCHC (31.0-37.0) g/dL RDW (11.5-15.5) % Plt Count (150-450) k/uL MPV Neutrophils % % Lymphocytes % % Monocytes % % Eosinophils % % Basophils % % Neutrophils # (1.3-7.7) k/uL Lymphocytes # (1.0-4.8) k/uL Monocytes # (0-1.0) k/uL Eosinophils # (0-0.7) k/uL Basophils # (0-0.2) k/uL PT (9.0-12.0) sec INR (<1.2) APTT (22.0-30.0) sec Sodium (137-145) mmol/L Potassium (3.5-5.1) mmol/L Chloride (98-107) mmol/L Carbon Dioxide (22-30) mmol/L Anion Gap mmol/L BUN (9-20) mg/dL Creatinine (0.66-1.25) mg/dL Est GFR (CKD-EPI)AfAm (>60 ml/min/1.73 sqM) Est GFR (CKD-EPI)NonAf (>60 ml/min/1.73 sqM) Glucose (74-99) mg/dL Calcium (8.4-10.2) mg/dL Magnesium (1.6-2.3) mg/dL Total Bilirubin (0.2-1.3) mg/dL AST (17-59) U/L ALT (4-49) U/L Alkaline Phosphatase (38-126) U/L Troponin I (0.000-0.034) ng/mL NT-Pro-B Natriuret Pep pg/mL Total Protein (6.3-8.2) g/dL Albumin (3.5-5.0) g/dL Coronavirus (PCR) Not Detected (Not Detectd) Influenza Type A RNA (Not Detectd) Influenza Type B (PCR) (Not Detectd) - EKG Data -: EKG Interpreted by Me EKG Comments: 12-lead Electrocardiogram Interpretation Note EKG was reviewed and interpreted by myself. 12-lead ECG performed at 0752 is interpreted by me as revealing sinus tachycardia at a rate of 118 beats per minute. [place] is normal. [place] interval is 163 ms, QRS durations conjunctival milliseconds, QTc is 412 ms. There were no ST or T wave abnormalities to suggest myocardial ischemia or injury. Appears to have incomplete right bundle- branch block. R wave progression across the precordium was satisfactory. By my interpretation this EKG is non-diagnostic for acute ischemia. Disposition Clinical Impression: Chronic dyspnea, Lung cancer, Bronchitis Disposition: HOME SELF-CARE Condition: Fair Instructions (If sedation given, give patient instructions): Acute Bronchitis (ED) Prescriptions: predniSONE [Deltasone] 40 mg PO DAILY 5 Days #10 tab Doxycycline [Vibramycin] 100 mg PO BID 7 Days #14 capsule Is patient prescribed a controlled substance at d/c from ED?: No Referrals: Angie Toribio MD [Primary Care Provider] - 1-2 days Time of Disposition: 10:35
[2022-02-22 08:25] LABS: Basophils % (A) 0 %; Eosinophils % (A) 0 %; HCT 34.6 % (39.0-53.0); HGB 10.9 gm/dL (13.0-17.5); Lymphocytes # (A) 0.8 k/uL (1.0-4.8); Lymphocytes % (A) 9 %; MCH 31.1 pg (25.0-35.0); MCHC 31.7 g/dL (31.0-37.0); MCV 98.2 fL (80.0-100.0); Mean Platelet Volume 7.1; Monocytes # (A) 0.6 k/uL (0-1.0); Monocytes % (A) 7 %; Neutrophils # (A) 7.1 k/uL (1.3-7.7); Neutrophils % (A) 82 %; Platelet Count 333 k/uL (150-450); RBC 3.52 m/uL (4.30-5.90); RDW 13.3 % (11.5-15.5); WBC 8.6 k/uL (3.8-10.6)
[2022-02-22 08:38] LABS: ALT 35 U/L (4-49); AST 39 U/L (17-59); African American GFR (CKD) >90 (>60 ml/min/1.73 sqM); Albumin 3.7 g/dL (3.5-5.0); Alkaline Phosphatase 121 U/L (38-126); Anion Gap 11 mmol/L; Blood Urea Nitrogen 11 mg/dL (9-20); Calcium 8.4 mg/dL (8.4-10.2); Carbon Dioxide 26 mmol/L (22-30); Chloride 98 mmol/L (98-107); Glucose 122 mg/dL (74-99); INR 1.1 (<1.2); Magnesium 1.3 mg/dL (1.6-2.3); Non-African American GFR(CKD) >90 (>60 ml/min/1.73 sqM); Prothrombin Time 11.5 sec (9.0-12.0); Sodium 135 mmol/L (137-145); Total Bilirubin 0.6 mg/dL (0.2-1.3); Total Protein 7.5 g/dL (6.3-8.2)
--- NOTE | 2022-02-22 08:42 | XR ---
EXAMINATION TYPE: XR chest 2V DATE OF EXAM: 02/22/2022 COMPARISON: Chest x-ray 05/08/2021, CT chest 05/09/2021 HISTORY: Difficulty breathing TECHNIQUE: Frontal and lateral views of the chest are obtained. FINDINGS: Volume loss is present in the right hemithorax with elevation right hemidiaphragm, there i s been progression of the abnormal density in the right hilar and upper hemithorax consistent with bev escoto's history of lung carcinoma. No evident pneumothorax. Patient is rotated. Postop changes are no manisha the cervical spine. Cardiac mediastinal silhouette felt to be stable accounting for differences i n technique. IMPRESSION: Progression of patient's known lung carcinoma
[2022-02-22 09:31] VITALS: RESP 20
--- NOTE | 2022-02-22 10:21 | CT ---
EXAMINATION TYPE: CT chest angio for PE CT DLP: 315.6 mGycm, Automated exposure control for dose reduction was used. DATE OF EXAM: 02/22/2022 9:34 AM COMPARISON: CTA chest 05/09/2021. CLINICAL INDICATION:Male, 61 years old with history of dyspnea, tachycardia, history of cancer. TECHNIQUE/CONTRAST: CTA scan of the thorax is performed with IV Contrast, patient injected with 80ml mL of Isovue 370, pu lmonary embolism protocol. MIP images are created and reviewed. FINDINGS: Pulmonary Artery: There is no evidence for a filling defect within the pulmonary vasculature to sugge st acute pulmonary embolism. The pulmonary artery is of normal size. Lungs/Pleura: Increased right apical consolidation/soft tissue surrounding the upper lung bronchi ext ending into the right hilum. No pleural effusions or pneumothorax. Decrease in right lower lobe retic ular nodular opacities from prior examination Centrilobular emphysematous changes identified. Persist ent elevated right hemidiaphragm. Airway: Large airways are patent. Heart: Heart is within normal limits for size. No pericardial effusion. Vasculature: No evidence of aortic aneurysm. Redemonstration of prominent draining veins in the subcu taneous tissue of the right upper extremity along with along the right hemidiaphragm intercostals reg ion of the right likely related to prior right lung neoplastic treatment. Generalized narrowing of th e SVC at the right suprahilar level. Atherosclerotic calcification of the aorta and its branches. Mediastinum: No gross evidence of adenopathy. Shifted to the right due to right lung volume loss. Musculoskeletal: No acute osseous abnormalities. No suspicious osseous lesions. Partial visualization of cervical fusion hardware. Soft Tissues: Unremarkable. Lower neck: No significant findings. Upper Abdomen: No significant findings. IMPRESSION: 1. No evidence of pulmonary embolism. 2. Increased right apical/upper lobe consolidation/soft tissue which may represent posttreatment tobin ge postobstructive atelectasis and/or worsening active neoplasm. Consider PET/CT for further evaluati on. 3. Decrease in infiltrates within the right mid to lower lung likely representing resolving infectiou s process. Attention on follow-up. 4. Redemonstration of collateral vessels related to SVC stenosis likely related to posttreatment tobin ge.
[2022-02-22] MEDS ORDERED: predniSONE 20 MG TAB PO STA (10:42)
[2022-02-22] MEDS ORDERED: DOXYCYCLINE 100 MG CAP PO STA (10:42)
[2022-02-22 11:01] VITALS: BP 96/68; PULSE 88
== END 2022-02-22 11:15 | disposition home or self-care (01) ==
LOC: EC 07:38
DX: C34.90 Malignant neoplasm of unspecified part of unspecified bronchus or lung (principal); R06.00 Dyspnea, unspecified; J44.9 Chronic obstructive pulmonary disease, unspecified; I10 Essential (primary) hypertension; E78.5 Hyperlipidemia, unspecified; F17.200 Nicotine dependence, unspecified, uncomplicated; Z88.3 Allergy status to other anti-infective agents; Z88.8 Allergy status to other drugs, medicaments and biological substances
CPT/HCPCS: 36415; 93005; 83880; 80053; 83735; 84484; 85025; 85610; 85730; 87502; 87635; 71046; 71275; 99285; 96360; J7512; Q9967

== ENCOUNTER → 2022-09-07 | Emergency (ER) | payer MEDICARE, OTHER ==
[~2022-09-07] MED LIST: diphenhydrAMINE 50 MG CAP PO STA
[2022-09-07 21:58] VITALS: RESP 18
--- NOTE | 2022-09-08 04:24 | ED ---
Psych HPI - General Source: patient, police Mode of arrival: ambulatory - History of Present Illness MD Complaint: other -: unknown Associated Psychiatric Symptoms: none Improves With: none Worsens With: none Context: not taking psychiatric medications Associated Symptoms: denies other symptoms <Larry Saldana - Last Filed: 09/08/22 04:22> <Rufus Sifuentes - Last Filed: 09/08/22 11:47> - General Chief Complaint: Psychiatric Symptoms Stated Complaint: Petition Time Seen by Provider: 09/07/22 22:12 - History of Present Illness Initial Comments: Patient is 61-year-old man who is brought in to have Court ordered psychiatric evaluation. Patient reported to be noncompliant with treatment. When I review the patient, he states that his physician had discontinued care for him. He states he was was referred to another physician but that hasn't happened. He states he is out of his medications. He denies having suicidal or homicidal ideation. Denies hallucinations. He states his main problem was PTSD and that [facility]. (Larry Saldana) - Related Data Home Medications Medication Instructions Recorded Confirmed HYDROcodone/APAP 10-325MG [[place] 2 tab PO Q4H PRN 02/06/16 02/22/22 10-325] Multivitamins, Thera [Multivitamin 1 tab PO DAILY 02/06/16 02/22/22 (formulary)] Aspirin EC [Ecotrin Low Dose] 81 mg PO DAILY 05/08/21 02/22/22 Naproxen 500 mg PO BID PRN 05/08/21 02/22/22 Sildenafil Citrate [Viagra] 100 mg PO DAILY PRN 05/08/21 02/22/22 Atorvastatin [Lipitor] 10 mg PO DAILY 02/22/22 02/22/22 Metoprolol Succinate (ER) [Toprol 25 mg PO DAILY 02/22/22 02/22/22 Xl] lisinopriL [Zestril] 2.5 mg PO DAILY 02/22/22 02/22/22 Previous Rx's Medication Instructions Recorded Doxycycline [Vibramycin] 100 mg PO BID 7 Days #14 capsule 02/22/22 predniSONE [Deltasone] 40 mg PO DAILY 5 Days #10 tab 02/22/22 Allergies Allergy/AdvReac Type Severity Reaction Status Date / Time amitriptyline [From Elavil] Allergy Rash/Hives Verified 09/07/22 21:54 diazepam [From Valium] Allergy Unknown Verified 09/07/22 21:54 niacin Allergy Rash/Hives Verified 09/07/22 21:54 Review of Systems ROS Other: All systems not noted in ROS Statement are negative. Constitutional: Denies: fever Respiratory: Denies: cough, dyspnea Cardiovascular: Denies: chest pain, palpitations Gastrointestinal: Denies: abdominal pain, nausea, vomiting Genitourinary: Denies: dysuria, hematuria Musculoskeletal: Denies: back pain Skin: Denies: rash Neurological: Denies: headache, weakness Psychiatric: Reports: anxiety. Denies: auditory hallucinations, visual hallucinations, homicidal thoughts, suicidal thoughts <Larry Saldana - Last Filed: 09/08/22 04:22> ROS Other: All systems not noted in ROS Statement are negative. <Rufus Sifuentes - Last Filed: 09/08/22 11:47> ROS Statement: Those systems with pertinent positive or pertinent negative responses have been documented in the HPI. Past Medical History Past Medical History: Cancer, COPD, Fibromyalgia, Hyperlipidemia, Hypertension, Osteoarthritis (OA), Pneumonia, Prostate Disorder, Respiratory Disorder, Thyroid Disorder Additional Past Medical History / Comment(s): 10/2019 R side lung cancer with tumor compression SVC causing syncopal episodes/invasion of mediatinum/bilateral upper extremity lymphedema with numbness and tingling/R arm pain-pt has completed radiation treatments and still needs one more chemo treatment on 01/21/20-plan is then to receive immunotherapy, home oxygen at 3L/NC ATC, vertigo, chronic cervical and back pain, past lower extremity lymphedema, BPH, anemia, bronchitis, hypothyroid History of Any Multi-Drug Resistant Organisms: None Reported Past Surgical History: Orthopedic Surgery Additional Past Surgical History / Comment(s): 10/2019 bronchoscopy with biopsy, cervical surgery x2 with plate and bone graft from R hip, back injections, cystic acne lesions removed, colonoscopy, hemorrhoidectomy, picc lines. Past Anesthesia/Blood Transfusion Reactions: No Reported Reaction, Motion Sickness Past Psychological History: Anxiety, Depression Smoking Status: Current some day smoker Past Alcohol Use History: None Reported Past Drug Use History: Marijuana - Past Family History Father Family Medical History: Cancer Additional Family Medical History / Comment(s): Father is from renal cell carcinoma with mets. Mother Additional Family Medical History / Comment(s): Mother went into hospital for knee surgery/ended up from CDiff infection. <Larry Saldana - Last Filed: 09/08/22 04:22> General Exam Limitations: no limitations General appearance: alert, in no apparent distress, anxious Head exam: Present: atraumatic, normocephalic Eye exam: Present: normal appearance. Absent: scleral icterus, conjunctival injection Neck exam: Present: normal inspection Respiratory exam: Present: normal lung sounds bilaterally. Absent: respiratory distress, wheezes, rales, rhonchi, stridor Cardiovascular Exam: Present: regular rate, normal rhythm, normal heart sounds. Absent: systolic murmur, diastolic murmur, rubs, gallop GI/Abdominal exam: Present: soft. Absent: distended, tenderness, guarding, rebound, rigid, mass Extremities exam: Present: normal inspection, normal capillary refill. Absent: pedal edema, calf tenderness Back exam: Present: normal inspection. Absent: CVA tenderness (R), CVA tenderness (L) Neurological exam: Present: alert Skin exam: Present: warm, dry, intact, normal color. Absent: rash <Larry Saldana - Last Filed: 09/08/22 04:22> Course Vital Signs 09/07/22 21:55 Temperature 98.0 F Pulse Rate 67 Respiratory 18 Rate Blood Pressure 160/92 O2 Sat by Pulse 87 L Oximetry Medical Decision Making <Rufus Sifuentes - Last Filed: 09/08/22 11:47> - Medical Decision Making Was pt. sent in by a medical professional or institution (, PA, LEAD WORKER OF HOUSEKEEPING AND LAUNDRY, urgent care, hospital, or senior care...) When possible be specific @ -No Did you speak to anyone other than the patient for history (EMS, parent, family, police, friend...)? What history was obtained from this source @ -No Did you review nursing and triage notes (agree or disagree)? Why? @ -I reviewed and agree with nursing and triage notes Were old charts reviewed (outside hosp., previous admission, EMS record, old EKG, old radiological studies, urgent care reports/EKG's, senior care records)? Report findings @ -I did review the petition Differential Diagnosis (chest pain, altered mental status, abdominal pain women, abdominal pain men, vaginal bleeding, weakness, fever, dyspnea, syncope, headache, dizziness, GI bleed, back pain, seizure, CVA, palpatations, mental health)? @ -Differential Altered Mental Status: Hypoglycemia, DKA, hypercapnia, ETOH, overdose, CO poisoning, trauma, myxedema coma, HTN encephalopathy, infection, encephalitis, psychosis, intercranial he morrhage, hepatic encephalopathy, meningitis, CVA, this is not meant to be an all-inclusive list EKG interpreted by me (3pts min.). @ -As above X-rays interpreted by me (1pt min.). @ -None done CT interpreted by me (1pt min.). @ -None done U/S interpreted by me (1pt. min.). @ -None done What testing was considered but not performed or refused? (CT, X-rays, U/S, labs)? Why? @ -None What meds were considered but not given or refused? Why? @ -None Did you discuss the management of the patient with other professionals (professionals i.e. , PA, LEAD WORKER OF HOU[employer]KEEP[employer], lab, RT, psych nurse, clinical social work therapist, stab setter and driller, teacher, child support officer, case manager specialist)? Give summary @ -Case was discussed with psychiatric nurse who would like patient admitted or transferred. Positive clinical certificate completed Was smoking cessation discussed for >3mins.? @ -No Was critical care preformed (if so, how long)? @ -No Were there social determinants of health that impacted care today? How? (Homelessness, low income, unemployed, alcoholism, drug addiction, transportati on, low edu. Level, literacy, decrease access to med. care, alf, rehab)? @ -No Was there de-escalation of care discussed even if they declined (Discuss DNR or withdrawal of care, Hospice)? DNR status @ -No What co-morbidities impacted this encounter? (DM, HTN, Smoking, COPD, CAD, Cancer, CVA, ARF, Chemo, Hep., AIDS, mental health diagnosis, sleep apnea, morbid obesity)? @ -None Was patient admitted / discharged? Hospital course, mention meds given and route, prescriptions, significant lab abnormalities, going to OR and other pertinent info. @ -Patient reevaluated by myself. Positive clinical certificate completed Undiagnosed new problem with uncertain prognosis? @ -No Drug Therapy requiring intensive monitoring for toxicity (Heparin, Nitro, Insulin, Cardizem)? @ -No Were any procedures done? @ -No Diagnosis/symptom? @ -Acute psychosis Acute, or Chronic, or Acute on Chronic? @ -Acute Uncomplicated (without systemic symptoms) or Complicated (systemic symptoms)? @ -default Side effects of treatment? @ -No Exacerbation, Progression, or Severe Exacerbation? @ -No Poses a threat to life or bodily function? How? (Chest pain, [place], HI, pneumonia, PE, COPD, DKA, ARF, appy, cholecystitis, CVA, Diverticulitis, Homicidal, Suicidal, threat to staff... and all critical care pts) @ -No (Rufus Sifuentes) Disposition <Larry Saldana - Last Filed: 09/08/22 04:22> Is patient prescribed a controlled substance at d/c from ED?: No Time of Disposition: 11:47 <Rufus Sifuentes - Last Filed: 09/08/22 11:47> Clinical Impression: Psychosis Disposition: TRANSFER TO PSYCH HOSP/UNIT Referrals: Angie Toribio MD [Primary Care Provider] - 1-2 days
[2022-09-08 16:37] LABS: Basophils % (A) 1 %; Eosinophils # (A) 0.1 k/uL (0-0.7); Eosinophils % (A) 1 %; HCT 44.4 % (39.0-53.0); HGB 14.6 gm/dL (13.0-17.5); Lymphocytes # (A) 1.3 k/uL (1.0-4.8); Lymphocytes % (A) 19 %; MCH 31.4 pg (25.0-35.0); MCHC 32.9 g/dL (31.0-37.0); MCV 95.4 fL (80.0-100.0); Mean Platelet Volume 7.7; Monocytes # (A) 0.4 k/uL (0-1.0); Monocytes % (A) 7 %; Neutrophils # (A) 4.7 k/uL (1.3-7.7); Neutrophils % (A) 71 %; Platelet Count 223 k/uL (150-450); RBC 4.65 m/uL (4.30-5.90); RDW 13.5 % (11.5-15.5); WBC 6.6 k/uL (3.8-10.6)
[2022-09-08 16:50] LABS: Calcium 9.3 mg/dL (8.4-10.2); Potassium 4.3 mmol/L (3.5-5.1)
[2022-09-09 03:03] LABS: Appearance,Urine Clear (Clear); Bilirubin,Urine Negative (Negative); Blood,Urine Negative (Negative); Color,Urine Light Yellow; Glucose,Urine (UA) Negative (Negative); Ketones,Urine Negative (Negative); Leukocyte Esterase,Urine Negative (Negative); Nitrite,Urine Negative (Negative); PH, Urine 5.5 (5.0-8.0); Protein,Urine Negative (Negative); Specific Gravity,Urine 1.011 (1.001-1.035); Urobilinogen,Urine <2.0 mg/dL (<2.0)
[2022-09-09 08:11] VITALS: BP 115/82; PULSE 118; TEMP 97.7
== END ==
LOC: EC 21:52
DX: F29 Unspecified psychosis not due to a substance or known physiological condition (principal); J44.9 Chronic obstructive pulmonary disease, unspecified; E78.5 Hyperlipidemia, unspecified; I10 Essential (primary) hypertension; M19.90 Unspecified osteoarthritis, unspecified site; F41.9 Anxiety disorder, unspecified; F32.A Depression, unspecified; F17.200 Nicotine dependence, unspecified, uncomplicated; F12.90 Cannabis use, unspecified, uncomplicated; Z88.8 Allergy status to other drugs, medicaments and biological substances; Z79.82 Long term (current) use of aspirin; Z79.899 Other long term (current) drug therapy; Z20.822 Contact with and (suspected) exposure to COVID-19
CPT/HCPCS: 80048; 82075; 85025; 87635; 99285

== ENCOUNTER 2023-04-04 08:42 | Day surgery (SDC) | payer OTHER ==
[~2023-04-04 08:42] MED LIST changes: +ALPRAZolam 0.25 MG TAB PO PRN; +ALPRAZolam 0.5 MG TAB PO PRN; +ASPIRIN 325 MG TAB PO ONE; +ATORVASTATIN 80 MG TAB PO ONE; +HEPARIN SODIUM,PORCINE (1 ML) 2,500 UNIT in SODIUM CHLORIDE 0.9% 250 ML IRRIGATION PRN; +HEPARIN SODIUM,PORCINE 10,000 UNIT in SODIUM CHLORIDE 0.9% 1,000 ML IRRIGATION PRN; +NITROGLYCERIN SL TABS 0.4 MG TAB SUBLINGUAL PRN; -diphenhydrAMINE 50 MG CAP PO STA
[2023-04-04] MEDS: SODIUM CHLORIDE 0.9% 1,000 ML in EMPTY BAG 1 BAG IV SCH ×2 (09:18→14:34)
[2023-04-04 09:31] LABS: Basophils % (A) 0 %; Eosinophils # (A) 0.1 k/uL (0-0.7); Eosinophils % (A) 1 %; HCT 40.4 % (39.0-53.0); HGB 13.3 gm/dL (13.0-17.5); Lymphocytes % (A) 19 %; MCH 32.4 pg (25.0-35.0); MCHC 32.9 g/dL (31.0-37.0); MCV 98.6 fL (80.0-100.0); Mean Platelet Volume 8.2; Monocytes # (A) 0.4 k/uL (0-1.0); Monocytes % (A) 7 %; Neutrophils # (A) 3.8 k/uL (1.3-7.7); Neutrophils % (A) 71 %; Platelet Count 223 k/uL (150-450); RDW 12.9 % (11.5-15.5); WBC 5.4 k/uL (3.8-10.6)
[2023-04-04 09:50] LABS: African American GFR (CKD) 65 (>60 ml/min/1.73 sqM); Anion Gap 9 mmol/L; Blood Urea Nitrogen 23 mg/dL (9-20); Calcium 9.2 mg/dL (8.4-10.2); Carbon Dioxide 28 mmol/L (22-30); Chloride 101 mmol/L (98-107); Glucose 96 mg/dL (74-99); Non-African American GFR(CKD) 56 (>60 ml/min/1.73 sqM); Potassium 4.3 mmol/L (3.5-5.1); Sodium 138 mmol/L (137-145)
[2023-04-04] MEDS: LIDOCAINE 1% INJ 10MG/ML (20 ML MDV) SQ ONE ×2 (10:35→11:05)
[2023-04-04] MEDS ORDERED: MIDAZOLAM 2 MG/2 ML VIAL IVP ONE ×2 (10:35→10:40)
[2023-04-04] MEDS ORDERED: VERAPAMIL SYRINGE (5 MG/10 ML) INTRAARTER ONE (10:36)
[2023-04-04] MEDS ORDERED: HEPARIN SODIUM 1,000 UN/ML (10ML VL) IV ONE (10:44)
[2023-04-04] MEDS: FLUMAZENIL 0.1 MG/ML 5 ML VIAL IVP ONE ×2 (10:44→10:48)
[2023-04-04] MEDS ORDERED: NITROGLYCERIN SL TABS 0.4 MG TAB SUBLINGUAL ONE (10:58)
[2023-04-04] MEDS ORDERED: MORPHINE SULFATE 4 MG/ML SYRINGE IVP ONE (10:58)
[2023-04-04] MEDS ORDERED: HYDROmorphone 0.5 MG/0.5 ML SYRINGE IVP ONE (11:05)
[2023-04-04] MEDS ORDERED: CLOPIDOGREL 75 MG TAB PO ONE (11:20)
[2023-04-04] MEDS ORDERED: IOPAMIDOL-370 100ML BTL INJ ONE ×2 (11:28→11:43)
[2023-04-04] MEDS ORDERED: methocarbamoL 750 MG TAB PO PRN (12:20)
[2023-04-04] MEDS ORDERED: MELATONIN 3 MG TABLET PO PRN (12:20)
[2023-04-04] MEDS ORDERED: HYDROcodone/APAP 10-325MG 1 EACH TAB PO PRN (12:20)
[2023-04-04] MEDS ORDERED: RX INFO: IV CONTRAST WAS GIVEN 1 EACH MISC MISCELLANE PRN (12:24)
[2023-04-04] MEDS ORDERED: ZOLPIDEM 5 MG TAB PO PRN (12:24)
[2023-04-04] MEDS ORDERED: ATROPINE SULFATE 0.1 MG/ML 10ML SYRINGE IV PRN (12:24)
[2023-04-04] MEDS ORDERED: MAG HYDROX/AL HYDROX/SIMETH 30 ML CUP PO PRN (12:24)
[2023-04-04 14:41] VITALS: BMI 21.7
--- NOTE | 2023-04-04 18:43 | P.PCN ---
Date of Procedure: 04/04/23 Operative Findings: CARDIAC CATHETERIZATION AND PERCUTANEOUS CORONARY INTERVENTION PERFORMING PHYSICIAN: Kyle Babin MD, RPVI PROCEDURE PERFORMED: 1. Selective right and left coronary angiogram 2. Left heart catheterization 3. Successful stenting of mid LAD using 4.0 x 18 mm Xience MATTY with an excellent angiographic results 4. Adjunctive use of intravascular ultrasound 5. Right common femoral artery angiogram INDICATION: This is a 62-year-old gentleman with a past medical history significant for history of smoking and history of lung cancer as well as hypertension and dyslipidemia. He was seen in the office recently for symptoms of shortness of breath with exertion and chest discomfort mostly exertionally related. He also was diagnosed recently with cardiomyopathy. In the light of all of that a heart catheterization was advised. COMPLICATION: None APPROACH: Right radial artery and right common femoral artery LEVEL OF SEDATION: Moderate with the sedation time off 60 minutes PROCEDURE DESCRIPTION: After obtaining an informed consent the patient was brought to the cardiac metallurgical laboratory assistant. The right radial artery was cannulated using micropuncture technique and the micropuncture wire passed easily then I placed a 6-[place] sheath. I gave the patient 2 mg of verapamil intra-arterial and 5000 as of heparin intravenous. Subsequently I did selective right coronary angiogram using JR4 catheter with extreme difficulties getting the extremely tortuous right subclavian artery. Attempting engaging the left coronary system using a JL 3.5 catheter and using even 4-Argentine JL 3.5 catheter and using multipurpose catheter was unsuccessful because of the extreme tortuous right subclavian artery and severe pain every time we attempting to advance any equipment across the right subclavian artery. I was unable to engage the coronary system in spite of using stiff wire. At that point the right radial approach was aborted and we decided to go from the groin. The right common femoral artery was cannulated using micropuncture technique and the micropuncture wire passed easily then I placed a 6-[place]gent[place] sheath at the right common femoral artery. At that point I did selective left coronary angiogram using JL 3.5 catheter and that revealed severe disease involving the mid LAD and also severe disease involving the obtuse marginal branch of the left circumflex. After that I did intervene on the left anterior descending artery. Left heart catheterization was performed using the JR4 catheter. The procedure was completed was no complication. SELECTIVE CORONARY ANGIOGRAM: The right coronary artery: Moderate caliber vessel nondominant vessel was mild disease only Left main: Calcified was mild disease only. Bifurcates into an LCx and LAD The left circumflex: Large caliber vessel and a dominant vessel. The LCx proximally gives rise into an OM1 which is a large caliber vessel with severe disease. The disease was identified mostly on the cranial views The left anterior descending artery: The proximal LAD appeared to have mild disease only. The mid LAD has a tight lesion appears to be in the range of 90%. The LAD distally appears to be angiographically normal HEMODYNAMICS: And the LVEDP was about 8-10 mmHg was no significant gradient across aortic valve PCI OF THE LAD: Anticoagulation was initiated using heparin with continuous ACT monitoring. As a matter of fact the patient was given a total of 5000 use of heparin. The left main was engaged using JL 4 guiding catheter. I wire the LAD using a run- through wire. Intravascular ultrasound was performed and showed a diameter of the LAD just proximal to the lesion around 4 mm was calcified LAD. Using 3 mm noncompliant balloon and I did PTCA ballooning of the LAD. Subsequently I deployed 40 by 18 mm stent where the stent was positioned under fluoroscopy guidance and subsequently deployed under 12 radha for 15 seconds bit final a ngiogram was performed and showed excellent angiographic results and the procedure was completed was no complication CONCLUSION: 1. Critical disease involving the mid LAD. I did perform successful stenting of the LAD as described above 2. Severe disease involving OM1. 3. Normal left-sided filling pressure POSTPROCEDURE MANAGEMENT: 1. Dual antiplatelet therapy using aspirin and Plavix for 6 month 2. Aggressive cholesterol control 3. Follow-up with the patient
[2023-04-05 03:27] VITALS: RESP 21
[2023-04-05] MEDS ORDERED: LEVOTHYROXINE 50 MCG TAB PO SCH (06:30)
[2023-04-05 06:48] LABS: Basophils % (A) 0 %; Eosinophils # (A) 0.1 k/uL (0-0.7); Eosinophils % (A) 1 %; HCT 40.5 % (39.0-53.0); HGB 13.2 gm/dL (13.0-17.5); Lymphocytes # (A) 0.8 k/uL (1.0-4.8); Lymphocytes % (A) 19 %; MCH 32.4 pg (25.0-35.0); MCHC 32.5 g/dL (31.0-37.0); MCV 99.7 fL (80.0-100.0); Mean Platelet Volume 7.8; Monocytes # (A) 0.3 k/uL (0-1.0); Monocytes % (A) 7 %; Neutrophils # (A) 3.2 k/uL (1.3-7.7); Neutrophils % (A) 72 %; Platelet Count 188 k/uL (150-450); RBC 4.06 m/uL (4.30-5.90); RDW 12.7 % (11.5-15.5); WBC 4.5 k/uL (3.8-10.6)
[2023-04-05 07:00] LABS: African American GFR (CKD) >90 (>60 ml/min/1.73 sqM); Anion Gap 6 mmol/L; Blood Urea Nitrogen 18 mg/dL (9-20); Calcium 8.5 mg/dL (8.4-10.2); Carbon Dioxide 25 mmol/L (22-30); Chloride 104 mmol/L (98-107); Glucose 105 mg/dL (74-99); Non-African American GFR(CKD) 86 (>60 ml/min/1.73 sqM); Sodium 135 mmol/L (137-145)
[2023-04-05 08:23] VITALS: BP 124/73; PULSE 103; TEMP 98.3
[2023-04-05] MEDS ORDERED: ATORVASTATIN 40 MG TAB PO SCH (09:00)
[2023-04-05] MEDS ORDERED: METOPROLOL SUCCINATE (ER) 25 MG TAB.ER.24H PO SCH (09:00)
[2023-04-05] MEDS ORDERED: ATORVASTATIN 10 MG PO SCH (09:00)
[2023-04-05] MEDS ORDERED: ASPIRIN 81 MG PO SCH (09:00)
[2023-04-05] MEDS ORDERED: CLOPIDOGREL 75 MG TAB PO SCH (09:00)
[2023-04-05] MEDS ORDERED: SERTRALINE 100 MG TAB PO SCH (09:00)
[2023-04-05] MEDS ORDERED: FOLIC ACID 1 MG TAB PO SCH (09:00)
[2023-04-05] MEDS ORDERED: MULTIVITAMINS, THERA 1 EACH TAB PO SCH (09:00)
[2023-04-05] MEDS ORDERED: ATROVASTATIN PO SCH (09:00)
--- NOTE | 2023-04-05 09:36 | P.DS ---
Providers Attending physician: Kyle Babin Consults: 04/04/23 12:24 Consult Physician Routine Consulting Provider: [facility] Consult Reason/Comments: Post Interventional patient Do you want consulting provider notified?: Already Contacted Primary care physician: [facility] Course: The patient is a pleasant 62-year-old gentleman who underwent yesterday a heart catheterization and stenting of the left anterior descending artery. The procedure initially was performed from right radial approach but because of extremely tortuous right subclavian artery and extreme pain every time we engage the right subclavian artery the right radial approach was aborted and the procedure was performed from the right common femoral artery. We ended stenting the left anterior descending artery with a good angiographic results and with no complication The patient was seen this morning. He is asymptomatic and he is hemodynamically stable. He is experiencing mild numbness in the right hand but he does have a great the right radial pulse. He does have small swollen above the right radial artery with am going to leave the TR band on for the next 24 hours but the patient is going to be discharged home. The TR band just to remind the patient not to use the right arm excessively. Beside that the right groin is soft and nontender with no bruises with good right femoral pulse. The patient is going to be discharged on dual antiplatelet therapy along with anti-ischemic medications was beta tavon and also statin. I had a long discussion with him with the nurse in the room about the importance of taking hi s medication and sticking to his medication especially dual antiplatelet therapy and the patient is in full understanding and agreement. The patient will be follow-up in the office in a week Plan - Discharge Summary New Discharge Prescriptions: New Atorvastatin Calcium [Lipitor] 40 mg PO DAILY #90 tab Clopidogrel [Plavix] 75 mg PO DAILY #90 tablet Continue HYDROcodone/APAP 10-325MG [[place] 10-325] 1 tab PO QID PRN PRN Reason: Pain Metoprolol Succinate (ER) [Toprol XL] 25 mg PO DAILY ARIPiprazole [Abilify] 20 mg PO DAILY methocarbamoL [Robaxin-750] 750 mg PO TID PRN PRN Reason: Muscle Spasm traZODone HCL [Desyrel] 50 mg PO HS PRN PRN Reason: Insomnia Multivitamins, Thera [Multivitamin (formulary)] 1 tab PO DAILY Melatonin 3 mg PO HS PRN PRN Reason: Insomnia Aspirin [Adult Low Dose Aspirin EC] 81 mg PO DAILY lisinopriL [Zestril] 2.5 mg PO DAILY Sertraline [Zoloft] 200 mg PO DAILY Folic Acid 1 mg PO DAILY Levothyroxine(Unk) 0.05 mg PO DAILY Atorvastatin(Unk) 10 mg PO DAILY Discharge Medication List HYDROcodone/APAP 10-325MG [[place] 10-325] 1 tab PO QID PRN 02/06/16 [History] Metoprolol Succinate (ER) [Toprol XL] 25 mg PO DAILY 02/22/22 [History] lisinopriL [Zestril] 2.5 mg PO DAILY 02/22/22 [History] ARIPiprazole [Abilify] 20 mg PO DAILY 09/08/22 [History] Sertraline [Zoloft] 200 mg PO DAILY 09/08/22 [History] methocarbamoL [Robaxin-750] 750 mg PO TID PRN 09/08/22 [History] Aspirin [Adult Low Dose Aspirin EC] 81 mg PO DAILY 03/07/23 [History] Atorvastatin(Unk) 10 mg PO DAILY 03/07/23 [History] Folic Acid 1 mg PO DAILY 03/07/23 [History] Levothyroxine(Unk) 0.05 mg PO DAILY 03/07/23 [History] Melatonin 3 mg PO HS PRN 03/07/23 [History] Multivitamins, Thera [Multivitamin (formulary)] 1 tab PO DAILY 03/07/23 [History] traZODone HCL [Desyrel] 50 mg PO HS PRN 03/07/23 [History] Atorvastatin Calcium [Lipitor] 40 mg PO DAILY #90 tab 04/05/23 [Rx] Clopidogrel [Plavix] 75 mg PO DAILY #90 tablet 04/05/23 [Rx] Follow up Appointment(s)/Referral(s): Kyle Babin MD [STAFF PHYSICIAN] - 1 Week (THE OFFICE WILL CALL YOU WITH AN APPOINTMENT DATE AND TIME) Patient Instructions/Handouts: Moderate Sedation (DC), After Radial Heart Catheterization (GEN) Activity/Diet/Wound Care/Special Instructions: *NO LIFTING, PUSHING, OR PULLING ANYTHING OVER 5 POUNDS FOR 5 DAYS *NO DRIVING FOR 3 DAYS *YOU CAN REMOVE YOUR DRESSING AND SHOWER TOMORROW BUT DO NOT SUBMERSE YOUR PUNCTURE SITE IN WATER FOR A FEW DAYS TO PREVENT INFECTION - SO NO TUB BATHS, POOLS, HOT TUBS, DISHES....ETC *ANY SIGNS OF BLEEDING (HARDNESS, SWELLING, OR EXCESSIVE BRUISING) HOLD DIRECT PRESSURE ON YOUR PUNCTURE SITE AND COME TO THE NEAREST EMERGENCY ROOM TO GET YOUR PUNCTURE SITE LOOKED AT - DO NOT DRIVE YOURSELF! EITHER CALL EMS OR HAVE SOMEONE DRIVE YOU!
== END 2023-04-05 10:37 | disposition home or self-care (01) ==
LOC: CATHCVL 08:42 → 6NMEDSUR 11:32 → CATHCVL 04-05 10:37
PROVIDERS: ATTEND Internal Medicine Interventional Cardiology
DX: I42.8 Other cardiomyopathies (principal); I10 Essential (primary) hypertension; E78.5 Hyperlipidemia, unspecified; F17.210 Nicotine dependence, cigarettes, uncomplicated; Z79.899 Other long term (current) drug therapy
CPT/HCPCS: 80048 ×2; 85025 ×2; 93458; J2250; J2270; J2001; J1644; J1170; Q9967; 92978

== ENCOUNTER 2023-05-15 06:09 | Day surgery (SDC) | payer OTHER ==
[~2023-05-15 06:09] MED LIST changes: -ASPIRIN 325 MG TAB PO ONE; -ATORVASTATIN 80 MG TAB PO ONE
[2023-05-15] MEDS ORDERED: SODIUM CHLORIDE 0.9% 1,000 ML IV ONE (06:30)
[2023-05-15] MEDS ORDERED: ASPIRIN 325 MG TAB PO ONE (07:00)
[2023-05-15] MEDS ORDERED: ATORVASTATIN 80 MG TAB PO ONE (07:00)
[2023-05-15] MEDS ORDERED: MIDAZOLAM 2 MG/2 ML VIAL IVP ONE (07:42)
[2023-05-15] MEDS ORDERED: FUROSEMIDE 10 MG/ML 4 ML VIAL ONE (07:45)
[2023-05-15] MEDS ORDERED: FLUMAZENIL 0.1 MG/ML 5 ML VIAL IVP ONE ×2 (07:45→07:52)
[2023-05-15] MEDS ORDERED: HEPARIN SODIUM 1,000 UN/ML (10ML VL) IV ONE (07:53)
[2023-05-15] MEDS ORDERED: LIDOCAINE 1% INJ 10MG/ML (30 ML VIAL-PF) SQ ONE (07:53)
[2023-05-15] MEDS ORDERED: HYDROmorphone 0.5 MG/0.5 ML SYRINGE IVP ONE (08:00)
[2023-05-15] MEDS ORDERED: IOPAMIDOL-370 200ML BTL INJ ONE (08:09)
[2023-05-15] MEDS ORDERED: ATROPINE SULFATE 0.1 MG/ML 10ML SYRINGE IV PRN (08:12)
[2023-05-15] MEDS ORDERED: MAG HYDROX/AL HYDROX/SIMETH 30 ML CUP PO PRN (08:12)
[2023-05-15] MEDS ORDERED: NITROGLYCERIN SL TABS 0.4 MG TAB SUBLINGUAL PRN (08:12)
[2023-05-15] MEDS ORDERED: methocarbamoL 750 MG TAB PO PRN (08:12)
[2023-05-15] MEDS ORDERED: RX INFO: IV CONTRAST WAS GIVEN 1 EACH MISC MISCELLANE PRN (08:12)
[2023-05-15] MEDS ORDERED: ZOLPIDEM 5 MG TAB PO PRN (08:12)
[2023-05-15] MEDS ORDERED: SODIUM CHLORIDE 0.9% 1,000 ML in EMPTY BAG 1 BAG IV SCH (08:15)
--- NOTE | 2023-05-15 08:19 | P.PCN ---
Date of Procedure: 05/15/23 Operative Findings: CARDIAC CATHETERIZATION AND PERCUTANEOUS CORONARY INTERVENTION PERFORMING PHYSICIAN: Kyle Babin MD, [facility] PROCEDURE PERFORMED: 1. Selective left coronary angiogram 2. Successful stenting of OM1 using 3.0 x 15 mm Xience MATTY with an excellent angiographic results 3. Adjunctive use of intravascular imaging 4. Selective right common femoral artery angiogram and ultrasound guided access of the right common femoral artery INDICATION: This is a 62-year-old gentleman who was diagnosed recently was cardiomyopathy. He underwent a heart catheterization and was found to have severe disease involving the LAD which was revascularized and also he was found to have severe disease involving the LCx. Because he continues to be symptomatic and because of the severe disease in the LCx he was brought today to undergo PCI. COMPLICATION: None APPROACH: Right common femoral are LEVEL OF SEDATION: Moderate with the sedation time off 24 minutes PROCEDURE DESCRIPTION: After obtaining an informed consent the patient was brought to the cardiac laboratory animal caretaker. The right common femoral artery was cannulated using puncture technique under ultrasound guidance and the micropuncture wire passed easily then I placed a 6-Icelandic sheath in the right common femoral artery. I did selective left coronary angiogram because I wasn't quite sure of the lesion in the OM1 was significant/severe enough. On multiple views including the cranial view was the lesion was appearing to be significant/without any significant. Because of that I did pursue with an intervention. After PCI of OM1 was performed I did selective right common femoral artery angiogram and the procedure was completed was no complication was manual compression when the sheath will be removed. SELECTIVE CORONARY ANGIOGRAM: The right coronary artery: Was not opacified and I did not pursue an angiogram of the RCA Left main: Is angiographically normal. Bifurcates into an LCx and LAD The left circumflex: Large caliber vessel. The LCx appeared to have mild disease only proximally. Gives rises into an OM1 which has a tight lesion appears to be most concerning on the cranial view. The left anterior descending artery: The LAD is a stented in the proximal to midportion and the stent appeared to be patent PCI OF THE LCx/OM: Anticoagulation was initiated using heparin with continuous ACT monitoring. At the beginning the patient was given 4000 use of heparin IV. Subsequently I did engage the left main using JL 3.5 guiding catheter. I did wire OM1 using a run- through wire. Intravascular ultrasound was performed and showed not heavily calcified lesion with an artery diameter around 3 mm. Predilatation was performed using 2.75 mm balloon before I deployed 3.0 x 15 mm stent where the stent was positioned under fluoroscopy guidance and deployed under fluoroscopy guidance. Final angiogram was performed and showed an excellent angiographic results and the procedure was completed was no complication CONCLUSION: #1 Patent stent in the left anterior descending artery #2 Severe disease involving OM1 of the LCx. I did perform successful stenting of OM1 POSTPROCEDURE MANAGEMENT: 1. Dual antiplatelet therapy using aspirin and Plavix for 6 month 2. Aggressive cholesterol control 3. Follow-up with the patient
[2023-05-15] MEDS ORDERED: SODIUM CHLORIDE 0.9% 1,000 ML IV SCH (08:25)
[2023-05-15] MEDS ORDERED: ATORVASTATIN 10 MG TAB PO SCH (09:00)
[2023-05-15] MEDS ORDERED: ALBUTEROL NEBULIZED 2.5 MG/3 ML INHALATION PRN (12:13)
[2023-05-15] MEDS ORDERED: ALBUTEROL NEBULIZED 2.5 MG/3 ML INHALATION STA (12:16)
[2023-05-15 13:28] VITALS: BMI 22.3
[2023-05-15] MEDS: SODIUM CHLORIDE 0.9% 1,000 ML in EMPTY BAG 1 BAG IV SCH ×2 (14:23→21:09)
[2023-05-16] MEDS ORDERED: LEVOTHYROXINE 50 MCG TAB PO SCH (06:30)
--- NOTE | 2023-05-16 08:18 | P.DS ---
Providers Attending physician: Kyle Babin Consults: 05/15/23 08:13 Consult Physician Routine Consulting Provider: [facility] Consult Reason/Comments: Post Interventional patient Do you want consulting provider notified?: Already Contacted Primary care physician: [facility] Hospital Course: The patient is a 62-year-old gentleman who underwent yesterday successful angioplasty of the left circumflex He was seen and evaluated this morning. He is asymptomatic and he is hemodynamically stable The patient is going to be discharged home later on dual antiplatelet therapy and statin. We are waiting for the result of the blood work including CBC and BMP Plan - Discharge Summary Discharge Rx Participant: No New Discharge Prescriptions: Continue Metoprolol Succinate (ER) [Toprol XL] 25 mg PO DAILY ARIPiprazole [Abilify] 20 mg PO DAILY methocarbamoL [Robaxin-750] 750 mg PO TID PRN PRN Reason: Muscle Spasm Multivitamins, Thera [Multivitamin (formulary)] 1 tab PO DAILY Aspirin [Adult Low Dose Aspirin EC] 81 mg PO DAILY Sertraline [Zoloft] 200 mg PO DAILY Levothyroxine(Unk) 0.05 mg PO DAILY Atorvastatin(Unk) 10 mg PO DAILY Clopidogrel [Plavix] 75 mg PO DAILY #90 tablet Discharge Medication List Metoprolol Succinate (ER) [Toprol XL] 25 mg PO DAILY 02/22/22 [History] ARIPiprazole [Abilify] 20 mg PO DAILY 09/08/22 [History] Sertraline [Zoloft] 200 mg PO DAILY 09/08/22 [History] methocarbamoL [Robaxin-750] 750 mg PO TID PRN 09/08/22 [History] Aspirin [Adult Low Dose Aspirin EC] 81 mg PO DAILY 03/07/23 [History] Atorvastatin(Unk) 10 mg PO DAILY 03/07/23 [History] Levothyroxine(Unk) 0.05 mg PO DAILY 03/07/23 [History] Multivitamins, Thera [Multivitamin (formulary)] 1 tab PO DAILY 03/07/23 [History] Clopidogrel [Plavix] 75 mg PO DAILY #90 tablet 04/05/23 [Rx] Follow up Appointment(s)/Referral(s): Kyle Babin MD [STAFF PHYSICIAN] - 05/28/23 3:00 pm Patient Instructions/Handouts: Moderate Sedation (DC), Cardiac Rehabilitation (DC), Coronary Angioplasty (DC), Left Heart Catheterization (DC)
[2023-05-16 08:54] LABS: HCT 39.1 % (39.0-53.0); HGB 12.7 gm/dL (13.0-17.5); MCH 32.8 pg (25.0-35.0); MCHC 32.4 g/dL (31.0-37.0); MCV 101.3 fL (80.0-100.0); Mean Platelet Volume 7.6; Platelet Count 177 k/uL (150-450); RBC 3.86 m/uL (4.30-5.90); RDW 12.7 % (11.5-15.5); WBC 4.6 k/uL (3.8-10.6)
[2023-05-16 09:00] LABS: African American GFR (CKD) >90 (>60 ml/min/1.73 sqM); Anion Gap 8 mmol/L; Blood Urea Nitrogen 15 mg/dL (9-20); Calcium 8.6 mg/dL (8.4-10.2); Carbon Dioxide 26 mmol/L (22-30); Chloride 103 mmol/L (98-107); Glucose 139 mg/dL (74-99); Non-African American GFR(CKD) >90 (>60 ml/min/1.73 sqM); Potassium 4.2 mmol/L (3.5-5.1); Sodium 137 mmol/L (137-145)
[2023-05-16] MEDS ORDERED: SERTRALINE 100 MG TAB PO SCH (09:00)
[2023-05-16] MEDS ORDERED: ATORVASTATIN 40 MG TAB PO SCH (09:00)
[2023-05-16] MEDS ORDERED: METOPROLOL SUCCINATE (ER) 25 MG TAB.ER.24H PO SCH (09:00)
[2023-05-16] MEDS ORDERED: MULTIVITAMINS, THERA 1 EACH TAB PO SCH (09:00)
[2023-05-16] MEDS ORDERED: ASPIRIN 81 MG PO SCH (09:00)
[2023-05-16] MEDS ORDERED: CLOPIDOGREL 75 MG TAB PO SCH (09:00)
[2023-05-16 09:30] VITALS: RESP 16
[2023-05-16 15:45] VITALS: BP 122/74; PULSE 82; TEMP 97.5
== END 2023-05-16 16:01 | disposition home or self-care (01) ==
LOC: CATHCVL 06:09 → 6NMEDSUR 12:37 → CATHCVL 05-16 16:01
PROVIDERS: ATTEND Internal Medicine Interventional Cardiology
DX: I25.10 Atherosclerotic heart disease of native coronary artery without angina pectoris (principal); I42.9 Cardiomyopathy, unspecified; Z95.5 Presence of coronary angioplasty implant and graft; Z79.899 Other long term (current) drug therapy; Z79.82 Long term (current) use of aspirin; Z79.890 Hormone replacement therapy; Z79.02 Long term (current) use of antithrombotics/antiplatelets
CPT/HCPCS: 94640; 92978; 80048; 85027; C9600; C1887; C1769 ×3; C1894 ×2; C1725; C1753; C1874; J2250; J2001; J1644; J1170; Q9967

== ENCOUNTER 2023-08-16 22:40 | Emergency (ER) | payer OTHER ==
[2023-08-16 23:20] VITALS: RESP 18; TEMP 98.1
[2023-08-17] MEDS ORDERED: PROPARACAINE 0.5% OPHTH DROPS 15 ML BTL RIGHT EYE STA (00:06)
[2023-08-17] MEDS ORDERED: FLUORESCEIN STRIPS 1 MG STRIP RIGHT EYE ONE (00:06)
[2023-08-17] MEDS ORDERED: VANCOMYCIN IV PER PHARMACY 1 EACH MISC MISCELLANE PRN (00:30)
[2023-08-17] MEDS ORDERED: AMPICILLIN-SULBACTAM 3 GM in SODIUM CHLORIDE 0.9% 100 ML IVPB STA (00:30)
[2023-08-17] MEDS ORDERED: HYDROmorphone 1 MG/ML 1 ML SYRINGE IVP STA ×2 (00:33→04:13)
[2023-08-17] MEDS ORDERED: DEXAMETHASONE SOD PHOSPHATE 10 MG/ML 1 ML VIAL IVP STA (00:35)
[2023-08-17] MEDS ORDERED: VANCOMYCIN 1,250 MG in SODIUM CHLORIDE 0.9% 250 ML IVPB STA (00:35)
--- NOTE | 2023-08-17 00:43 | ED ---
Eye Problem HPI - General Chief complaint: Eye Problems Stated complaint: eye issues Time Seen by Provider: 08/16/23 23:46 Source: patient Mode of arrival: ambulatory Limitations: no limitations - History of Present Illness Initial comments: 62-year-old male presented to the ED with a chief complaint of eye problems. Patient states actually 3 or 4 days ago a can of brake ease lock fluid "exploded" in front of him. She states he started to immediately experience pain and blurred vision since then. He is unsure if any fluid got into his eye or if any shrapnel entered his eye. Since then, patient reports progressively worsening pain and swelling. States pain especially with eye movements. Upon initial presentation today patient states that he is unable to see from the eye however now patient reports some blurred vision. Denies fever or chills. No other complaints. - Related Data Home Medications Medication Instructions Recorded Confirmed Metoprolol Succinate (ER) [Toprol 25 mg PO DAILY 02/22/22 05/15/23 XL] ARIPiprazole [Abilify] 20 mg PO DAILY 09/08/22 05/15/23 Sertraline [Zoloft] 200 mg PO DAILY 09/08/22 05/15/23 methocarbamoL [Robaxin-750] 750 mg PO TID PRN 09/08/22 05/15/23 Aspirin [Adult Low Dose Aspirin EC] 81 mg PO DAILY 03/07/23 05/15/23 Atorvastatin(Unk) 10 mg PO DAILY 03/07/23 05/15/23 Levothyroxine(Unk) 0.05 mg PO DAILY 03/07/23 05/15/23 Multivitamins, Thera [Multivitamin 1 tab PO DAILY 03/07/23 05/15/23 (formulary)] Previous Rx's Medication Instructions Recorded Clopidogrel [Plavix] 75 mg PO DAILY #90 tablet 04/05/23 Allergies Allergy/AdvReac Type Severity Reaction Status Date / Time amitriptyline [From Elavil] Allergy Rash/Hives Verified 08/16/23 23:18 diazepam [From Valium] Allergy Unknown Verified 08/16/23 23:18 niacin Allergy Rash/Hives Verified 08/16/23 23:18 alprazolam [From Xanax] AdvReac Hallucinati Verified 08/16/23 23:18 ons Review of Systems ROS Statement: Those systems with pertinent positive or pertinent negative responses have been documented in the HPI. ROS Other: All systems not noted in ROS Statement are negative. Past Medical History Past Medical History: Cancer, COPD, Fibromyalgia, Hyperlipidemia, Hypertension, Osteoarthritis (OA), Pneumonia, Prostate Disorder, Respiratory Disorder, Thyroid Disorder Additional Past Medical History / Comment(s): 10/2019 R side lung cancer with tumor compression SVC causing syncopal episodes/invasion of mediatinum/bilateral upper extremity lymphedema with numbness and tingling/R arm pain-pt has completed radiation treatments and still needs one more chemo treatment on 01/21/20-plan is then to receive immunotherapy, home oxygen at 3L/NC prn, vertigo, chronic cervical and back pain, past lower extremity lymphedema, BPH, anemia, bronchitis, hypothyroid History of Any Multi-Drug Resistant Organisms: None Reported Past Surgical History: Heart Catheterization With Stent, Orthopedic Surgery Additional Past Surgical History / Comment(s): 10/2019 bronchoscopy with biopsy, cervical surgery x2 with plate and bone graft from R hip, back injections, cystic acne lesions removed, colonoscopy, hemorrhoidectomy, picc lines. Past Anesthesia/Blood Transfusion Reactions: No Reported Reaction, Motion Sickness Past Psychological History: Anxiety, Depression, PTSD Smoking Status: Current every day smoker Past Alcohol Use History: None Reported Past Drug Use History: Marijuana - Past Family History Father Family Medical History: Cancer Additional Family Medical History / Comment(s): Father is from renal cell carcinoma with mets. Mother Additional Family Medical History / Comment(s): Mother went into hospital for knee surgery/ended up from CDiff infection. General Exam Limitations: no limitations General appearance: alert Eye exam: Present: conjunctival injection, periorbital swelling, periorbital tenderness, other (Proptosis. Able to look to the left and right however significant pain upon looking up and down. Fluorescein exam showed no areas of uptake. Purulent drainage coming out of the left eye. Pressure 31 OD 29 OS however exam difficult secondary to pt compliance) Respiratory exam: Present: normal lung sounds bilaterally Cardiovascular Exam: Present: regular rate, normal rhythm GI/Abdominal exam: Present: soft Neurological exam: Present: alert, oriented X3 Skin exam: Present: warm, dry Course Vital Signs 08/16/23 23:16 Temperature 98.1 F Pulse Rate 79 Respiratory 18 Rate Blood Pressure 138/73 O2 Sat by Pulse 94 L Oximetry - Reevaluation(s) Reevaluation #1: Reevaluated. Received analgesia and reports significant improvement of pain. Ocular pressures were attempted to be obtained and this showed a ocular pressure of 31 on the right and 29 left however exam difficult secondary to patient com pliance. 08/17/23 01:32 Medical Decision Making - Medical Decision Making Was pt. sent in by a medical professional or institution (, ADAM, PLANT UTILITIES ENGINEER, urgent care, hospital, or fpc...) When possible be specific @ -No Did you speak to anyone other than the patient for history (EMS, parent, family, police, friend...)? What history was obtained from this source @ -No Did you review nursing and triage notes (agree or disagree)? Why? @ -I reviewed and agree with nursing and triage notes Were old charts reviewed (outside hosp., previous admission, EMS record, old EKG, old radiological studies, urgent care reports/EKG's, fpc records)? Report findings @ -No old charts were reviewed Differential Diagnosis (chest pain, altered mental status, abdominal pain women, abdominal pain men, vaginal bleeding, weakness, fever, dyspnea, syncope, headache, dizziness, GI bleed, back pain, seizure, CVA, palpatations, mental health, musculoskeletal)? @ -Orbital cellulitis, preseptal cellulitis. This is not meant to be an all inclusive list. EKG interpreted by me (3pts min.). @ -None X-rays interpreted by me (1pt min.). @ -None CT interpreted by me (1pt min.). @ -CT interpreted by me showing evidence of preseptal inflammation however no post-septal findings. U/S interpreted by me (1pt. min.). @ -None done What testing was considered but not performed or refused? (CT, X-rays, U/S, lab s)? Why? @ -None What meds were considered but not given or refused? Why? @ -None Did you discuss the management of the patient with other professionals (professionals i.e. ADAM Beebe, PLANT UTILITIES ENGINEER, lab, RT, psych nurse, psychotherapist social worker, consumer lender, teacher, environmental conservation officer, case preparer and liner)? Give summary @ -Case with Dr. Ramirez of ophthalmology who is in agreement with seeing the patient if transfer is accepted. Discussed with Dr. Sanders, ED attending at [facility], who accepts transfer Was smoking cessation discussed for >3mins.? @ -No Was critical care preformed (if so, how long)? @ -No Were there social determinants of health that impacted care today? How? (Homelessness, low income, unemployed, alcoholism, drug addiction, transportation, low edu. Level, literacy, decrease access to med. care, penitentiary, rehab)? @ -No Was there de-escalation of care discussed even if they declined (Discuss DNR or withdrawal of care, Hospice)? DNR status @ -No What co-morbidities impacted this encounter? (DM, HTN, Smoking, COPD, CAD, Cancer, CVA, ARF, Chemo, Hep., AIDS, mental health diagnosis, sleep apnea, morbid obesity)? @ -None Was patient admitted / discharged? Hospital course, mention meds given and route, prescriptions, significant lab abnormalities, going to OR and other pertinent info. @ -Transfer 62-year-old male presenting to the ED 3 days after possible exposure to chemical irritant or shrapnel to the left eye. Since then has developed increasing pain and swelling of the eye and progressive vision loss as well. Labs and imaging at this time are largely unremarkable. Vital signs stable as well this time however no ophthalmology available at this time and with patient's findings on physical exam felt ophthalmology evaluation necessary. Patient will be transferred to [facility] for further evaluation and treatment. Undiagnosed new problem with uncertain prognosis? @ -No Drug Therapy requiring intensive monitoring for toxicity (Heparin, Nitro, Insulin, Cardizem)? @ -No Were any procedures done? @ -No Diagnosis/symptom? @ -Eye pain/swelling Acute, or Chronic, or Acute on Chronic? @ -Acute Uncomplicated (without systemic symptoms) or Complicated (systemic symptoms)? @ -Complicated Side effects of treatment? @ -No Exacerbation, Progression, or Severe Exacerbation? @ -No Poses a threat to life or bodily function? How? (Chest pain, USA, CA, pneumonia, PE, COPD, DKA, ARF, appy, cholecystitis, CVA, Diverticulitis, Homicidal, Suicidal, threat to staff... and all critical care pts) @ -Possibly - Lab Data Result diagrams: 08/17/23 00:30 01/14/24 00:30 Lab Results 08/17/23 08/17/23 08/17/23 Range/Units 00:30 00:30 00:30 WBC 7.2 (3.8-10.6) k/uL RBC 3.81 L (4.30-5.90) m/uL Hgb 12.4 L (13.0-17.5) gm/dL Hct 37.3 L (39.0-53.0) % MCV 97.9 (80.0-100.0) fL MCH 32.5 (25.0-35.0) pg MCHC 33.2 (31.0-37.0) g/dL RDW 13.4 (11.5-15.5) % Plt Count 188 (150-450) k/uL MPV 7.6 Neutrophils % 75 % Lymphocytes % 15 % Monocytes % 7 % Eosinophils % 1 % Basophils % 0 % Neutrophils # 5.4 (1.3-7.7) k/uL Lymphocytes # 1.1 (1.0-4.8) k/uL Monocytes # 0.5 (0-1.0) k/uL Eosinophils # 0.0 (0-0.7) k/uL Basophils # 0.0 (0-0.2) k/uL Sodium 136 L (137-145) mmol/L Potassium 4.2 (3.5-5.1) mmol/L Chloride 102 (98-107) mmol/L Carbon Dioxide 23 (22-30) mmol/L Anion Gap 11 mmol/L BUN 14 (9-20) mg/dL Creatinine 0.92 (0.66-1.25) mg/dL Est GFR (CKD-EPI)AfAm >90 (>60 ml/min/1.73 sqM) Est GFR (CKD-EPI)NonAf 90 (>60 ml/min/1.73 sqM) Glucose 97 (74-99) mg/dL Plasma Lactic Acid Jet 0.9 (0.7-2.0) mmol/L Calcium 9.1 (8.4-10.2) mg/dL Total Bilirubin 0.8 (0.2-1.3) mg/dL AST 22 (17-59) U/L ALT 26 (4-49) U/L Alkaline Phosphatase 104 (38-126) U/L Total Protein 7.6 (6.3-8.2) g/dL Albumin 4.1 (3.5-5.0) g/dL Disposition Clinical Impression: Eye pain Disposition: OTHER INSTITUTION NOT DEFINED Condition: Good Referrals: Angie Toribio MD [Primary Care Provider] - 1-2 days Time of Disposition: 03:38 - Out of Hospital Transfer - Req. Specs Out of Hospital Transfer - Requested Specifics: Other Emergency Center ([facility]
[2023-08-17 01:10] LABS: Basophils % (A) 0 %; Eosinophils % (A) 1 %; HCT 37.3 % (39.0-53.0); HGB 12.4 gm/dL (13.0-17.5); Lymphocytes # (A) 1.1 k/uL (1.0-4.8); Lymphocytes % (A) 15 %; MCH 32.5 pg (25.0-35.0); MCHC 33.2 g/dL (31.0-37.0); MCV 97.9 fL (80.0-100.0); Mean Platelet Volume 7.6; Monocytes # (A) 0.5 k/uL (0-1.0); Monocytes % (A) 7 %; Neutrophils # (A) 5.4 k/uL (1.3-7.7); Neutrophils % (A) 75 %; Platelet Count 188 k/uL (150-450); RBC 3.81 m/uL (4.30-5.90); RDW 13.4 % (11.5-15.5); WBC 7.2 k/uL (3.8-10.6)
[2023-08-17 01:26] LABS: ALT 26 U/L (4-49); AST 22 U/L (17-59); African American GFR (CKD) >90 (>60 ml/min/1.73 sqM); Albumin 4.1 g/dL (3.5-5.0); Alkaline Phosphatase 104 U/L (38-126); Anion Gap 11 mmol/L; Blood Urea Nitrogen 14 mg/dL (9-20); Calcium 9.1 mg/dL (8.4-10.2); Carbon Dioxide 23 mmol/L (22-30); Chloride 102 mmol/L (98-107); Glucose 97 mg/dL (74-99); Non-African American GFR(CKD) 90 (>60 ml/min/1.73 sqM); Potassium 4.2 mmol/L (3.5-5.1); Sodium 136 mmol/L (137-145); Total Bilirubin 0.8 mg/dL (0.2-1.3); Total Protein 7.6 g/dL (6.3-8.2)
--- NOTE | 2023-08-17 01:54 | CT ---
EXAMINATION TYPE: CT orbits w con DATE OF EXAM: 08/17/2023 COMPARISON: None. HISTORY: Patient states he got something in his left eye. Swollen & discharge. Rule out orbital cellu litis left side. CT DLP: 303.4 mGycm Automated exposure control for dose reduction was used. CONTRAST: Performed with IV Contrast, patient injected with 100 mL of Isovue 300. FINDINGS: Orbital floors and taylor are intact. Globes are intact bilaterally. There is asymmetric mild to moder ate soft tissue swelling anterior to the left orbit. Intraconal fat is preserved bilaterally. No susp icious enhancing masses. No well-formed fluid collection or abscess seen. The paranasal sinuses are g rossly clear. Visualized brain parenchyma is unremarkable. IMPRESSION: Preseptal inflammation on the left. No postseptal inflammatory process identified.
[2023-08-17 04:04] VITALS: BP 123/67; PULSE 82
[2023-08-17] MEDS ORDERED: DIPH,PERTUS(ACELL)TETVAC-LF 0.5 ML VIAL IM ONE (04:13)
[2023-08-17] MEDS ORDERED: VANCOMYCIN 1,250 MG in SODIUM CHLORIDE 0.9% 250 ML IVPB SCH (13:00)
== END 2023-08-17 06:40 | disposition other institution (70) ==
LOC: EC 22:40
DX: H57.12 Ocular pain, left eye (principal); I10 Essential (primary) hypertension; J44.9 Chronic obstructive pulmonary disease, unspecified; E03.9 Hypothyroidism, unspecified; E78.5 Hyperlipidemia, unspecified; F32.A Depression, unspecified; F41.9 Anxiety disorder, unspecified; F17.200 Nicotine dependence, unspecified, uncomplicated; F12.90 Cannabis use, unspecified, uncomplicated; Z79.890 Hormone replacement therapy; Z79.82 Long term (current) use of aspirin; Z79.899 Other long term (current) drug therapy; Z88.8 Allergy status to other drugs, medicaments and biological substances; Z23 Encounter for immunization; Z99.81 Dependence on supplemental oxygen
CPT/HCPCS: 36415; 80053; 83605; 85025; 87040; 70481; 90715; 99285; 96365; 96368; 96375 ×2; 96376; 90471; J3370; J1100; J1170; J0295; Q9967

== ENCOUNTER 2023-09-02 22:12 | Inpatient (IN) | payer MEDICARE, MEDICAID, OTHER ==
[2023-09-03 00:10] LABS: Basophils % (A) 0 %; Eosinophils % (A) 0 %; HGB 12.2 gm/dL (13.0-17.5); Lymphocytes # (A) 0.5 k/uL (1.0-4.8); Lymphocytes % (A) 6 %; MCH 33.6 pg (25.0-35.0); MCHC 33.7 g/dL (31.0-37.0); MCV 99.6 fL (80.0-100.0); Mean Platelet Volume 7.2; Monocytes # (A) 0.3 k/uL (0-1.0); Monocytes % (A) 3 %; Neutrophils # (A) 6.9 k/uL (1.3-7.7); Neutrophils % (A) 90 %; Platelet Count 237 k/uL (150-450); RBC 3.62 m/uL (4.30-5.90); RDW 13.4 % (11.5-15.5); WBC 7.8 k/uL (3.8-10.6)
[2023-09-03 00:13] LABS: Acetaminophen <10.0 ug/mL; Alcohol <10 mg/dL; Salicylate <1.0 mg/dL
--- NOTE | 2023-09-03 00:45 | CT ---
EXAMINATION TYPE: CT brain wo con DATE OF EXAM: 09/03/2023 HISTORY: Pt presents with hallucinations. PT hears and sees things. Pt denies suicidal ideations. PT has cancer and wears O2 but didnt being it today, pt also had recent left eye trauma 08/20/23 and was transferred currently still on eye drops. CT DLP: 1226.4 mGycm. Automated Exposure Control for Dose Reduction was Utilized. TECHNIQUE: CT scan of the head is performed without contrast. COMPARISON: CT brain September 20, 2010. FINDINGS: There is no acute intracranial hemorrhage or midline shift identified. There is mild to m oderate diffuse ventricular and sulcal prominence redemonstrated. There is mild low-attenuation in t he periventricular white matter redemonstrated. Soft tissue density or cerumen is redemonstrated in the bilateral external auditory canals. The globes are intact and the visualized sinuses are clear. IMPRESSION: No acute intracranial hemorrhage or midline shift. There is mild to moderate diffuse ag e-related cerebral atrophy and mild chronic small vessel ischemic change redemonstrated. No signific ant change from prior CT.
[2023-09-03 04:26] LABS: ALT 31 U/L (4-49); AST 28 U/L (17-59); African American GFR (CKD) 48 (>60 ml/min/1.73 sqM); Alkaline Phosphatase 91 U/L (38-126); Anion Gap 11 mmol/L; Blood Urea Nitrogen 33 mg/dL (9-20); Calcium 8.9 mg/dL (8.4-10.2); Carbon Dioxide 17 mmol/L (22-30); Chloride 113 mmol/L (98-107); Glucose 97 mg/dL (74-99); Non-African American GFR(CKD) 42 (>60 ml/min/1.73 sqM); Potassium 4.4 mmol/L (3.5-5.1); Sodium 141 mmol/L (137-145); Total Bilirubin 1.2 mg/dL (0.2-1.3); Total Protein 7.4 g/dL (6.3-8.2)
[2023-09-03] MEDS: HYDROcodone/APAP 5-325MG 1 EACH TAB PO PRN (06:16)
--- NOTE | 2023-09-03 06:22 | ED ---
Psych HPI - General Source: patient, police Mode of arrival: ambulatory <Lily Malone - Last Filed: 09/03/23 06:26> <Rufus Sifuentes - Last Filed: 09/05/23 14:58> - General Chief Complaint: Psychiatric Symptoms Stated Complaint: mental health Time Seen by Provider: 09/02/23 23:15 - History of Present Illness Initial Comments: Axel is a 62-year-old male is brought to the ER today for psychiatric workup. Patient is having auditory and visual hallucinations. She was recently seen in our ER there is concern for an eye infection he was transferred to [facility] where he was cared for and discharged with antibiotic eyedrops however he did not bring them with him his brother will bring him in. (Lily Malone) - Related Data Home Medications Medication Instructions Recorded Confirmed ARIPiprazole [Abilify] 20 mg PO DAILY 09/08/22 09/03/23 methocarbamoL [Robaxin-750] 750 mg PO TID PRN 09/08/22 09/03/23 Atorvastatin Calcium [Lipitor] 40 mg PO DAILY 09/03/23 09/03/23 HYDROcodone/APAP 10-325MG [[place] 1 tab PO Q6HR PRN 09/03/23 09/03/23 10-325] Melatonin 3 mg PO HS PRN 09/03/23 09/03/23 Metoprolol Succinate (ER) [Toprol 50 mg PO DAILY 09/03/23 09/03/23 Xl] traZODone HCL [Desyrel] 50 mg PO HS 09/03/23 09/03/23 Previous Rx's Medication Instructions Recorded Clopidogrel [Plavix] 75 mg PO DAILY #90 tablet 04/05/23 Allergies Allergy/AdvReac Type Severity Reaction Status Date / Time amitriptyline [From Elavil] Allergy Rash/Hives Verified 09/02/23 22:51 diazepam [From Valium] Allergy Unknown Verified 09/02/23 22:51 niacin Allergy Rash/Hives Verified 09/02/23 22:51 alprazolam [From Xanax] AdvReac Hallucinati Verified 09/02/23 22:51 ons Review of Systems ROS Other: All systems not noted in ROS Statement are negative. <Lily Malone - Last Filed: 09/03/23 06:26> ROS Other: All systems not noted in ROS Statement are negative. <Rufus Sifuentes - Last Filed: 09/05/23 14:58> ROS Statement: Those systems with pertinent positive or pertinent negative responses have been documented in the HPI. Past Medical History Past Medical History: Cancer, COPD, Fibromyalgia, Hyperlipidemia, Hypertension, Osteoarthritis (OA), Pneumonia, Prostate Disorder, Respiratory Disorder, Thyroid Disorder Additional Past Medical History / Comment(s): 10/2019 R side lung cancer with tumor compression SVC causing syncopal episodes/invasion of mediatinum/bilateral upper extremity lymphedema with numbness and tingling/R arm pain-pt has completed radiation treatments and still needs one more chemo treatment on 01/21/20-plan is then to receive immunotherapy, home oxygen at 3L/NC prn, vertigo, chronic cervical and back pain, past lower extremity lymphedema, BPH, anemia, bronchitis, hypothyroid History of Any Multi-Drug Resistant Organisms: None Reported Past Surgical History: Heart Catheterization With Stent, Orthopedic Surgery Additional Past Surgical History / Comment(s): 10/2019 bronchoscopy with biopsy, cervical surgery x2 with plate and bone graft from R hip, back injections, cystic acne lesions removed, colonoscopy, hemorrhoidectomy, picc lines. Past Anesthesia/Blood Transfusion Reactions: No Reported Reaction, Motion Sickness Past Psychological History: Anxiety, Depression, PTSD Smoking Status: Current every day smoker Past Alcohol Use History: None Reported Past Drug Use History: Marijuana - Past Family History Father Family Medical History: Cancer Additional Family Medical History / Comment(s): Father is from renal cell carcinoma with mets. Mother Additional Family Medical History / Comment(s): Mother went into hospital for knee surgery/ended up from CDiff infection. <Lily Malone - Last Filed: 09/03/23 06:26> General Exam Limitations: no limitations General appearance: alert Head exam: Present: atraumatic Eye exam: Present: EOMI, other (Left eye conjunctival injection) Respiratory exam: Present: other (On 2L NC). Absent: respiratory distress Cardiovascular Exam: Present: regular rate, normal rhythm GI/Abdominal exam: Present: soft. Absent: distended Rectal exam: Present: deferred Psychiatric exam: Present: other (Patient actively hallucinating, asking about the people in the room, the shadows in the curtains) Skin exam: Present: warm, dry <Lily Malone P - Last Filed: 09/03/23 06:26> Course Vital Signs 09/02/23 09/03/23 09/03/23 22:51 00:06 02:09 Temperature 98.1 F Pulse Rate 97 84 Respiratory 24 16 Rate Blood Pressure 92/55 102/74 O2 Sat by Pulse 89 L 96 96 Oximetry 09/03/23 09/04/23 09/04/23 06:16 05:00 05:55 Temperature 98.1 F 97.6 F Pulse Rate 84 84 Respiratory 16 19 Rate Blood Pressure 135/74 140/72 O2 Sat by Pulse 95 94 L 98 Oximetry 09/04/23 09/05/23 15:33 10:30 Temperature 97.3 F L 98.1 F Pulse Rate 73 77 Respiratory 16 20 Rate Blood Pressure 117/74 144/80 O2 Sat by Pulse 96 98 Oximetry Medical Decision Making - Lab Data Result diagrams: 09/02/23 23:47 09/03/23 03:59 <Lily Malone - Last Filed: 09/03/23 06:26> - Lab Data Result diagrams: 09/02/23 23:47 09/05/23 09:38 <Rufus Sifuentes - Last Filed: 09/05/23 14:58> - Medical Decision Making Was pt. sent in by a medical professional or institution (ADAM Beebe, ENROLLMENT MANAGEMENT MANAGER, urgent care, hospital, or skilled nursing...) When possible be specific @ -[No] Did you speak to anyone other than the patient for history (EMS, parent, family, police, friend...)? What history was obtained from this source @ -[No] Did you review nursing and triage notes (agree or disagree)? Why? @ -[I reviewed and agree with nursing and triage notes] Were old charts reviewed (outside hosp., previous admission, EMS record, old EKG, old radiological studies, urgent care reports/EKG's, skilled nursing records)? Report findings @ -Previous visits reviewed Differential Diagnosis (chest pain, altered mental status, abdominal pain women, abdominal pain men, vaginal bleeding, weakness, fever, dyspnea, syncope, headache, dizziness, GI bleed, back pain, seizure, CVA, palpatations, mental health)? @ -Differential Mental Health Depression, anxiety, bipolar, psychosis, schizophrenia, borderline personality, situational depression, adjustment disorder, behavioral disorder, brain tumor, malingering, substance abuse, encephalopathy, medication reaction, dementia, hypothyroidism, degenerative neurologic disorder, lupus.... This is not meant to be all-inclusive list EKG interpreted by me (3pts min.). @ -[As above] X-rays interpreted by me (1pt min.). @ -[None done] CT interpreted by me (1pt min.). @ -No obvious mass or bleed U/S interpreted by me (1pt. min.). @ -[None done] What testing was considered but not performed or refused? (CT, X-rays, U/S, labs)? Why? @ -[None] What meds were considered but not given or refused? Why? @ -Antibiotic drops for the INR to be brought from home as patient reports that they are compounded antibiotics and does not know what they are Did you discuss the management of the patient with other professionals (professionals i.e. , PA, ENROLLMENT MANAGEMENT MANAGER, lab, RT, psych nurse, social services technician, financial services consultant, teacher, seismology technical officer, case maker)? Give summary @ -[No] Was smoking cessation discussed for >3mins.? @ -[No] Was critical care preformed (if so, how long)? @ -[No] Were there social determinants of health that impacted care today? How? (Ho melessness, low income, unemployed, alcoholism, drug addiction, transportation, low edu. Level, literacy, decrease access to med. care, alf, rehab)? @ -[No] Was there de-escalation of care discussed even if they declined (Discuss DNR or withdrawal of care, Hospice)? DNR status @ -[No] What co-morbidities impacted this encounter? (DM, HTN, Smoking, COPD, CAD, Cancer, CVA, ARF, Chemo, Hep., AIDS, mental health diagnosis, sleep apnea, morbid obesity)? @ -CAD, COPD, oxygen dependence, mental health (Lily Malone) Case was discussed with mental health nurse with plans for transfer. Case also discussed with practitioner Barbie Wilcox who will accept transfer. They did request new clinical certificate. Patient reevaluated by myself. Patient resting in bed. Patient admits to having racing thoughts and difficulty concentrating. Chart reviewed. New cli nical certificate is completed. Diagnosis: Acute psychosis, acute depression Plan transfer for psychiatric care. (Rufus Sifuentes) - Lab Data Lab Results 09/02/23 09/02/23 09/03/23 Range/Units 23:47 23:47 03:59 WBC 7.8 (3.8-10.6) k/uL RBC 3.62 L (4.30-5.90) m/uL Hgb 12.2 L (13.0-17.5) gm/dL Hct 36.0 L (39.0-53.0) % MCV 99.6 (80.0-100.0) fL MCH 33.6 (25.0-35.0) pg MCHC 33.7 (31.0-37.0) g/dL RDW 13.4 (11.5-15.5) % Plt Count 237 (150-450) k/uL MPV 7.2 Neutrophils % 90 % Lymphocytes % 6 % Monocytes % 3 % Eosinophils % 0 % Basophils % 0 % Neutrophils # 6.9 (1.3-7.7) k/uL Lymphocytes # 0.5 L (1.0-4.8) k/uL Monocytes # 0.3 (0-1.0) k/uL Eosinophils # 0.0 (0-0.7) k/uL Basophils # 0.0 (0-0.2) k/uL Sodium 141 (137-145) mmol/L Potassium 4.4 (3.5-5.1) mmol/L Chloride 113 H (98-107) mmol/L Carbon Dioxide 17 L (22-30) mmol/L Anion Gap 11 mmol/L BUN 33 H (9-20) mg/dL Creatinine 1.73 H (0.66-1.25) mg/dL Est GFR (CKD-EPI)AfAm 48 (>60 ml/min/1.73 sqM) Est GFR (CKD-EPI)NonAf 42 (>60 ml/min/1.73 sqM) Glucose 97 (74-99) mg/dL Calcium 8.9 (8.4-10.2) mg/dL Total Bilirubin 1.2 (0.2-1.3) mg/dL AST 28 (17-59) U/L ALT 31 (4-49) U/L Alkaline Phosphatase 91 (38-126) U/L Total Protein 7.4 (6.3-8.2) g/dL Albumin 4.0 (3.5-5.0) g/dL TSH 1.270 (0.465-4.680) mIU/L Urine Color Urine Appearance (Clear) Urine pH (5.0-8.0) Ur Specific [place] (1.001-1.035) Urine Protein (Negative) Urine Glucose (UA) (Negative) Urine Ketones (Negative) Urine Blood (Negative) Urine Nitrite (Negative) Urine Bilirubin (Negative) Urine Urobilinogen (<2.0) mg/dL Ur Leukocyte Esterase (Negative) Salicylates <1.0 mg/dL Urine Opiates Screen (NotDetected) Ur Oxycodone Screen (NotDetected) Urine Methadone Screen (NotDetected) Acetaminophen <10.0 ug/mL Ur Barbiturates Screen (NotDetected) U Tricyclic Antidepress (NotDetected) Ur Phencyclidine Scrn (NotDetected) Ur Amphetamines Screen (NotDetected) U Methamphetamines Scrn (NotDetected) U Benzodiazepines Scrn (NotDetected) Urine Cocaine Screen (NotDetected) U Marijuana (THC) Screen (NotDetected) Serum Alcohol <10 mg/dL SARS-CoV-2 (PCR) (Not Detectd) 09/03/23 09/04/23 09/04/23 Range/Units 21:18 09:30 13:00 WBC (3.8-10.6) k/uL RBC (4.30-5.90) m/uL Hgb (13.0-17.5) gm/dL Hct (39.0-53.0) % MCV (80.0-100.0) fL MCH (25.0-35.0) pg MCHC (31.0-37.0) g/dL RDW (11.5-15.5) % Plt Count (150-450) k/uL MPV Neutrophils % % Lymphocytes % % Monocytes % % Eosinophils % % Basophils % % Neutrophils # (1.3-7.7) k/uL Lymphocytes # (1.0-4.8) k/uL Monocytes # (0-1.0) k/uL Eosinophils # (0-0.7) k/uL Basophils # (0-0.2) k/uL Sodium 140 (137-145) mmol/L Potassium 4.3 (3.5-5.1) mmol/L Chloride 110 H (98-107) mmol/L Carbon Dioxide 21 L (22-30) mmol/L Anion Gap 9 mmol/L BUN 30 H (9-20) mg/dL Creatinine 1.03 (0.66-1.25) mg/dL Est GFR (CKD-EPI)AfAm >90 (>60 ml/min/1.73 sqM) Est GFR (CKD-EPI)NonAf 78 (>60 ml/min/1.73 sqM) Glucose 118 H (74-99) mg/dL Calcium 8.7 (8.4-10.2) mg/dL Total Bilirubin 0.8 (0.2-1.3) mg/dL AST 26 (17-59) U/L ALT 27 (4-49) U/L Alkaline Phosphatase 87 (38-126) U/L Total Protein 7.2 (6.3-8.2) g/dL Albumin 3.8 (3.5-5.0) g/dL TSH (0.465-4.680) mIU/L Urine Color Yellow Urine Appearance Clear (Clear) Urine pH 5.5 (5.0-8.0) Ur Specific [place] 1.026 (1.001-1.035) Urine Protein Trace H (Negative) Urine Glucose (UA) Negative (Negative) Urine Ketones 1+ H (Negative) Urine Blood Negative (Negative) Urine Nitrite Negative (Negative) Urine Bilirubin Negative (Negative) Urine Urobilinogen <2.0 (<2.0) mg/dL Ur Leukocyte Esterase Negative (Negative) Salicylates mg/dL Urine Opiates Screen Detected H (NotDetected) Ur Oxycodone Screen Not Detected (NotDetected) Urine Methadone Screen Not Detected (NotDetected) Acetaminophen ug/mL Ur Barbiturates Screen Not Detected (NotDetected) U Tricyclic Antidepress Not Detected (NotDetected) Ur Phencyclidine Scrn Not Detected (NotDetected) Ur Amphetamines Screen Detected H (NotDetected) U Methamphetamines Scrn Detected H (NotDetected) U Benzodiazepines Scrn Not Detected (NotDetected) Urine Cocaine Screen Not Detected (NotDetected) U Marijuana (THC) Screen Not Detected (NotDetected) Serum Alcohol mg/dL SARS-CoV-2 (PCR) Not Detected (Not Detectd) 09/05/23 Range/Units 09:38 WBC (3.8-10.6) k/uL RBC (4.30-5.90) m/uL Hgb (13.0-17.5) gm/dL Hct (39.0-53.0) % MCV (80.0-100.0) fL MCH (25.0-35.0) pg MCHC (31.0-37.0) g/dL RDW (11.5-15.5) % Plt Count (150-450) k/uL MPV Neutrophils % % Lymphocytes % % Monocytes % % Eosinophils % % Basophils % % Neutrophils # (1.3-7.7) k/uL Lymphocytes # (1.0-4.8) k/uL Monocytes # (0-1.0) k/uL Eosinophils # (0-0.7) k/uL Basophils # (0-0.2) k/uL Sodium 140 (137-145) mmol/L Potassium 5.1 (3.5-5.1) mmol/L Chloride 107 (98-107) mmol/L Carbon Dioxide 27 (22-30) mmol/L Anion Gap 6 mmol/L BUN 23 H (9-20) mg/dL Creatinine 0.95 (0.66-1.25) mg/dL Est GFR (CKD-EPI)AfAm >90 (>60 ml/min/1.73 sqM) Est GFR (CKD-EPI)NonAf 87 (>60 ml/min/1.73 sqM) Glucose 135 H (74-99) mg/dL Calcium 9.1 (8.4-10.2) mg/dL Total Bilirubin 0.7 (0.2-1.3) mg/dL AST 22 (17-59) U/L ALT 24 (4-49) U/L Alkaline Phosphatase 86 (38-126) U/L Total Protein 7.6 (6.3-8.2) g/dL Albumin 4.0 (3.5-5.0) g/dL TSH (0.465-4.680) mIU/L Urine Color Urine Appearance (Clear) Urine pH (5.0-8.0) Ur Specific [place] (1.001-1.035) Urine Protein (Negative) Urine Glucose (UA) (Negative) Urine Ketones (Negative) Urine Blood (Negative) Urine Nitrite (Negative) Urine Bilirubin (Negative) Urine Urobilinogen (<2.0) mg/dL Ur Leukocyte Esterase (Negative) Salicylates mg/dL Urine Opiates Screen (NotDetected) Ur Oxycodone Screen (NotDetected) Urine Methadone Screen (NotDetected) Acetaminophen ug/mL Ur Barbiturates Screen (NotDetected) U Tricyclic Antidepress (NotDetected) Ur Phencyclidine Scrn (NotDetected) Ur Amphetamines Screen (NotDetected) U Methamphetamines Scrn (NotDetected) U Benzodiazepines Scrn (NotDetected) Urine Cocaine Screen (NotDetected) U Marijuana (THC) Screen (NotDetected) Serum Alcohol mg/dL SARS-CoV-2 (PCR) (Not Detectd) Disposition <Lily Malone - Last Filed: 09/03/23 06:26> Is patient prescribed a controlled substance at d/c from ED?: No Time of Disposition: 14:58 <Rufus Sifuentes - Last Filed: 09/05/23 14:58> Clinical Impression: Hallucinations, Depression Disposition: TRANSFER TO PSYCH HOSP/UNIT Referrals: Angie Toribio MD [Primary Care Provider] - 1-2 days
[2023-09-03] MEDS: SERTRALINE 100 MG TAB PO SCH (08:20)
[2023-09-03] MEDS: CLOPIDOGREL 75 MG TAB PO SCH (08:20)
[2023-09-03] MEDS: METOPROLOL SUCCINATE (ER) 25 MG TAB.ER.24H PO SCH (08:20)
[2023-09-03] MEDS: ASPIRIN 81 MG PO SCH (08:20)
[2023-09-03] MEDS: ATORVASTATIN 10 MG TAB PO SCH (08:20)
[2023-09-03 22:07] LABS: Appearance,Urine Clear (Clear); Bilirubin,Urine Negative (Negative); Blood,Urine Negative (Negative); Color,Urine Yellow; Glucose,Urine (UA) Negative (Negative); Ketones,Urine 1+ (Negative); Leukocyte Esterase,Urine Negative (Negative); Nitrite,Urine Negative (Negative); PH, Urine 5.5 (5.0-8.0); Protein,Urine Trace (Negative); Specific Gravity,Urine 1.026 (1.001-1.035); Urobilinogen,Urine <2.0 mg/dL (<2.0)
[2023-09-03 23:20] LABS: Amphetamine Screen,Urine Detected (NotDetected); Barbiturate Screen,Urine Not Detected (NotDetected); Benzodiazepines Screen,Urine Not Detected (NotDetected); Cocaine Screen,Urine Not Detected (NotDetected); Methadone Screen, Urine Not Detected (NotDetected); Opiate Screen,Urine Detected (NotDetected); Oxycodone Screen, Urine Not Detected (NotDetected); Phencyclidine Screen,Urine Not Detected (NotDetected); Tricyclic Antidepressant,Urine Not Detected (NotDetected); Urn Cannabinoid Scrn Not Detected (NotDetected)
[2023-09-04 13:59] LABS: ALT 27 U/L (4-49); AST 26 U/L (17-59); African American GFR (CKD) >90 (>60 ml/min/1.73 sqM); Albumin 3.8 g/dL (3.5-5.0); Alkaline Phosphatase 87 U/L (38-126); Anion Gap 9 mmol/L; Blood Urea Nitrogen 30 mg/dL (9-20); Calcium 8.7 mg/dL (8.4-10.2); Carbon Dioxide 21 mmol/L (22-30); Chloride 110 mmol/L (98-107); Glucose 118 mg/dL (74-99); Non-African American GFR(CKD) 78 (>60 ml/min/1.73 sqM); Potassium 4.3 mmol/L (3.5-5.1); Sodium 140 mmol/L (137-145); Total Bilirubin 0.8 mg/dL (0.2-1.3); Total Protein 7.2 g/dL (6.3-8.2)
[2023-09-05 10:55] LABS: ALT 24 U/L (4-49); AST 22 U/L (17-59); African American GFR (CKD) >90 (>60 ml/min/1.73 sqM); Alkaline Phosphatase 86 U/L (38-126); Anion Gap 6 mmol/L; Blood Urea Nitrogen 23 mg/dL (9-20); Calcium 9.1 mg/dL (8.4-10.2); Carbon Dioxide 27 mmol/L (22-30); Chloride 107 mmol/L (98-107); Glucose 135 mg/dL (74-99); Non-African American GFR(CKD) 87 (>60 ml/min/1.73 sqM); Potassium 5.1 mmol/L (3.5-5.1); Sodium 140 mmol/L (137-145); Total Bilirubin 0.7 mg/dL (0.2-1.3); Total Protein 7.6 g/dL (6.3-8.2)
[2023-09-10 06:14] LABS: Appearance,Urine Clear (Clear); Bilirubin,Urine Negative (Negative); Blood,Urine Negative (Negative); Color,Urine Yellow; Glucose,Urine (UA) Negative (Negative); Ketones,Urine Negative (Negative); Leukocyte Esterase,Urine Negative (Negative); Nitrite,Urine Negative (Negative); PH, Urine 5.5 (5.0-8.0); Protein,Urine Negative (Negative); Specific Gravity,Urine 1.024 (1.001-1.035); Urobilinogen,Urine <2.0 mg/dL (<2.0)
[2023-09-10 06:57] LABS: Amphetamine Screen,Urine Not Detected (NotDetected); Barbiturate Screen,Urine Not Detected (NotDetected); Benzodiazepines Screen,Urine Not Detected (NotDetected); Cocaine Screen,Urine Not Detected (NotDetected); Methadone Screen, Urine Not Detected (NotDetected); Opiate Screen,Urine Detected (NotDetected); Oxycodone Screen, Urine Not Detected (NotDetected); Phencyclidine Screen,Urine Not Detected (NotDetected); Tricyclic Antidepressant,Urine Not Detected (NotDetected); Urn Cannabinoid Scrn Detected (NotDetected)
[2023-09-10 15:36] LABS: HCT 43.6 % (39.0-53.0); HGB 14.2 gm/dL (13.0-17.5); MCH 32.7 pg (25.0-35.0); MCHC 32.5 g/dL (31.0-37.0); MCV 100.6 fL (80.0-100.0); Mean Platelet Volume 7.8; Platelet Count 215 k/uL (150-450); RBC 4.33 m/uL (4.30-5.90); RDW 13.1 % (11.5-15.5); WBC 4.7 k/uL (3.8-10.6)
[2023-09-10 15:44] LABS: ALT 28 U/L (4-49); AST 37 U/L (17-59); African American GFR (CKD) >90 (>60 ml/min/1.73 sqM); Albumin 3.9 g/dL (3.5-5.0); Alcohol <10 mg/dL; Alkaline Phosphatase 79 U/L (38-126); Anion Gap 8 mmol/L; Blood Urea Nitrogen 26 mg/dL (9-20); Calcium 9.2 mg/dL (8.4-10.2); Carbon Dioxide 29 mmol/L (22-30); Chloride 102 mmol/L (98-107); Glucose 98 mg/dL (74-99); Non-African American GFR(CKD) 84 (>60 ml/min/1.73 sqM); Potassium 4.4 mmol/L (3.5-5.1); Sodium 139 mmol/L (137-145); Total Bilirubin 0.5 mg/dL (0.2-1.3); Total Protein 7.6 g/dL (6.3-8.2)
--- NOTE | 2023-09-11 11:05 | ED ---
Medical Decision Making - Medical Decision Making I was asked to evaluate the patient and document the need for oxygen supplementation. Patient allegedly wears home O2 however he has had normal oxygen levels on room air at rest - Lab Data Result diagrams: 09/10/23 15:17 09/10/23 15:17 Lab Results 09/02/23 09/02/23 09/03/23 Range/Units 23:47 23:47 03:59 WBC 7.8 (3.8-10.6) k/uL RBC 3.62 L (4.30-5.90) m/uL Hgb 12.2 L (13.0-17.5) gm/dL Hct 36.0 L (39.0-53.0) % MCV 99.6 (80.0-100.0) fL MCH 33.6 (25.0-35.0) pg MCHC 33.7 (31.0-37.0) g/dL RDW 13.4 (11.5-15.5) % Plt Count 237 (150-450) k/uL MPV 7.2 Neutrophils % 90 % Lymphocytes % 6 % Monocytes % 3 % Eosinophils % 0 % Basophils % 0 % Neutrophils # 6.9 (1.3-7.7) k/uL Lymphocytes # 0.5 L (1.0-4.8) k/uL Monocytes # 0.3 (0-1.0) k/uL Eosinophils # 0.0 (0-0.7) k/uL Basophils # 0.0 (0-0.2) k/uL Sodium 141 (137-145) mmol/L Potassium 4.4 (3.5-5.1) mmol/L Chloride 113 H (98-107) mmol/L Carbon Dioxide 17 L (22-30) mmol/L Anion Gap 11 mmol/L BUN 33 H (9-20) mg/dL Creatinine 1.73 H (0.66-1.25) mg/dL Est GFR (CKD-EPI)AfAm 48 (>60 ml/min/1.73 sqM) Est GFR (CKD-EPI)NonAf 42 (>60 ml/min/1.73 sqM) Glucose 97 (74-99) mg/dL Calcium 8.9 (8.4-10.2) mg/dL Total Bilirubin 1.2 (0.2-1.3) mg/dL AST 28 (17-59) U/L ALT 31 (4-49) U/L Alkaline Phosphatase 91 (38-126) U/L Total Protein 7.4 (6.3-8.2) g/dL Albumin 4.0 (3.5-5.0) g/dL TSH 1.270 (0.465-4.680) mIU/L Urine Color Urine Appearance (Clear) Urine pH (5.0-8.0) Ur Specific [place] (1.001-1.035) Urine Protein (Negative) Urine Glucose (UA) (Negative) Urine Ketones (Negative) Urine Blood (Negative) Urine Nitrite (Negative) Urine Bilirubin (Negative) Urine Urobilinogen (<2.0) mg/dL Ur Leukocyte Esterase (Negative) Salicylates <1.0 mg/dL Urine Opiates Screen (NotDetected) Ur Oxycodone Screen (NotDetected) Urine Methadone Screen (NotDetected) Acetaminophen <10.0 ug/mL Ur Barbiturates Screen (NotDetected) U Tricyclic Antidepress (NotDetected) Ur Phencyclidine Scrn (NotDetected) Ur Amphetamines Screen (NotDetected) U Methamphetamines Scrn (NotDetected) U Benzodiazepines Scrn (NotDetected) Urine Cocaine Screen (NotDetected) U Marijuana (THC) Screen (NotDetected) Serum Alcohol <10 mg/dL SARS-CoV-2 (PCR) (Not Detectd) 09/03/23 09/04/23 09/04/23 Range/Units 21:18 09:30 13:00 WBC (3.8-10.6) k/uL RBC (4.30-5.90) m/uL Hgb (13.0-17.5) gm/dL Hct (39.0-53.0) % MCV (80.0-100.0) fL MCH (25.0-35.0) pg MCHC (31.0-37.0) g/dL RDW (11.5-15.5) % Plt Count (150-450) k/uL MPV Neutrophils % % Lymphocytes % % Monocytes % % Eosinophils % % Basophils % % Neutrophils # (1.3-7.7) k/uL Lymphocytes # (1.0-4.8) k/uL Monocytes # (0-1.0) k/uL Eosinophils # (0-0.7) k/uL Basophils # (0-0.2) k/uL Sodium 140 (137-145) mmol/L Potassium 4.3 (3.5-5.1) mmol/L Chloride 110 H (98-107) mmol/L Carbon Dioxide 21 L (22-30) mmol/L Anion Gap 9 mmol/L BUN 30 H (9-20) mg/dL Creatinine 1.03 (0.66-1.25) mg/dL Est GFR (CKD-EPI)AfAm >90 (>60 ml/min/1.73 sqM) Est GFR (CKD-EPI)NonAf 78 (>60 ml/min/1.73 sqM) Glucose 118 H (74-99) mg/dL Calcium 8.7 (8.4-10.2) mg/dL Total Bilirubin 0.8 (0.2-1.3) mg/dL AST 26 (17-59) U/L ALT 27 (4-49) U/L Alkaline Phosphatase 87 (38-126) U/L Total Protein 7.2 (6.3-8.2) g/dL Albumin 3.8 (3.5-5.0) g/dL TSH (0.465-4.680) mIU/L Urine Color Yellow Urine Appearance Clear (Clear) Urine pH 5.5 (5.0-8.0) Ur Specific [place] 1.026 (1.001-1.035) Urine Protein Trace H (Negative) Urine Glucose (UA) Negative (Negative) Urine Ketones 1+ H (Negative) Urine Blood Negative (Negative) Urine Nitrite Negative (Negative) Urine Bilirubin Negative (Negative) Urine Urobilinogen <2.0 (<2.0) mg/dL Ur Leukocyte Esterase Negative (Negative) Salicylates mg/dL Urine Opiates Screen Detected H (NotDetected) Ur Oxycodone Screen Not Detected (NotDetected) Urine Methadone Screen Not Detected (NotDetected) Acetaminophen ug/mL Ur Barbiturates Screen Not Detected (NotDetected) U Tricyclic Antidepress Not Detected (NotDetected) Ur Phencyclidine Scrn Not Detected (NotDetected) Ur Amphetamines Screen Detected H (NotDetected) U Methamphetamines Scrn Detected H (NotDetected) U Benzodiazepines Scrn Not Detected (NotDetected) Urine Cocaine Screen Not Detected (NotDetected) U Marijuana (THC) Screen Not Detected (NotDetected) Serum Alcohol mg/dL SARS-CoV-2 (PCR) Not Detected (Not Detectd) 09/05/23 09/10/23 09/10/23 Range/Units 09:38 05:21 05:24 WBC (3.8-10.6) k/uL RBC (4.30-5.90) m/uL Hgb (13.0-17.5) gm/dL Hct (39.0-53.0) % MCV (80.0-100.0) fL MCH (25.0-35.0) pg MCHC (31.0-37.0) g/dL RDW (11.5-15.5) % Plt Count (150-450) k/uL MPV Neutrophils % % Lymphocytes % % Monocytes % % Eosinophils % % Basophils % % Neutrophils # (1.3-7.7) k/uL Lymphocytes # (1.0-4.8) k/uL Monocytes # (0-1.0) k/uL Eosinophils # (0-0.7) k/uL Basophils # (0-0.2) k/uL Sodium 140 (137-145) mmol/L Potassium 5.1 (3.5-5.1) mmol/L Chloride 107 (98-107) mmol/L Carbon Dioxide 27 (22-30) mmol/L Anion Gap 6 mmol/L BUN 23 H (9-20) mg/dL Creatinine 0.95 (0.66-1.25) mg/dL Est GFR (CKD-EPI)AfAm >90 (>60 ml/min/1.73 sqM) Est GFR (CKD-EPI)NonAf 87 (>60 ml/min/1.73 sqM) Glucose 135 H (74-99) mg/dL Calcium 9.1 (8.4-10.2) mg/dL Total Bilirubin 0.7 (0.2-1.3) mg/dL AST 22 (17-59) U/L ALT 24 (4-49) U/L Alkaline Phosphatase 86 (38-126) U/L Total Protein 7.6 (6.3-8.2) g/dL Albumin 4.0 (3.5-5.0) g/dL TSH (0.465-4.680) mIU/L Urine Color Yellow Urine Appearance Clear (Clear) Urine pH 5.5 (5.0-8.0) Ur Specific [place] 1.024 (1.001-1.035) Urine Protein Negative (Negative) Urine Glucose (UA) Negative (Negative) Urine Ketones Negative (Negative) Urine Blood Negative (Negative) Urine Nitrite Negative (Negative) Urine Bilirubin Negative (Negative) Urine Urobilinogen <2.0 (<2.0) mg/dL Ur Leukocyte Esterase Negative (Negative) Salicylates mg/dL Urine Opiates Screen Detected H (NotDetected) Ur Oxycodone Screen Not Detected (NotDetected) Urine Methadone Screen Not Detected (NotDetected) Acetaminophen ug/mL Ur Barbiturates Screen Not Detected (NotDetected) U Tricyclic Antidepress Not Detected (NotDetected) Ur Phencyclidine Scrn Not Detected (NotDetected) Ur Amphetamines Screen Not Detected (NotDetected) U Methamphetamines Scrn Not Detected (NotDetected) U Benzodiazepines Scrn Not Detected (NotDetected) Urine Cocaine Screen Not Detected (NotDetected) U Marijuana (THC) Screen Detected H (NotDetected) Serum Alcohol mg/dL SARS-CoV-2 (PCR) Not Detected (Not Detectd) 09/10/23 09/10/23 Range/Units 15:17 15:17 WBC 4.7 (3.8-10.6) k/uL RBC 4.33 (4.30-5.90) m/uL Hgb 14.2 (13.0-17.5) gm/dL Hct 43.6 (39.0-53.0) % MCV 100.6 H (80.0-100.0) fL MCH 32.7 (25.0-35.0) pg MCHC 32.5 (31.0-37.0) g/dL RDW 13.1 (11.5-15.5) % Plt Count 215 (150-450) k/uL MPV 7.8 Neutrophils % % Lymphocytes % % Monocytes % % Eosinophils % % Basophils % % Neutrophils # (1.3-7.7) k/uL Lymphocytes # (1.0-4.8) k/uL Monocytes # (0-1.0) k/uL Eosinophils # (0-0.7) k/uL Basophils # (0-0.2) k/uL Sodium 139 (137-145) mmol/L Potassium 4.4 (3.5-5.1) mmol/L Chloride 102 (98-107) mmol/L Carbon Dioxide 29 (22-30) mmol/L Anion Gap 8 mmol/L BUN 26 H (9-20) mg/dL Creatinine 0.98 (0.66-1.25) mg/dL Est GFR (CKD-EPI)AfAm >90 (>60 ml/min/1.73 sqM) Est GFR (CKD-EPI)NonAf 84 (>60 ml/min/1.73 sqM) Glucose 98 (74-99) mg/dL Calcium 9.2 (8.4-10.2) mg/dL Total Bilirubin 0.5 (0.2-1.3) mg/dL AST 37 (17-59) U/L ALT 28 (4-49) U/L Alkaline Phosphatase 79 (38-126) U/L Total Protein 7.6 (6.3-8.2) g/dL Albumin 3.9 (3.5-5.0) g/dL TSH 2.250 (0.465-4.680) mIU/L Urine Color Urine Appearance (Clear) Urine pH (5.0-8.0) Ur Specific [place] (1.001-1.035) Urine Protein (Negative) Urine Glucose (UA) (Negative) Urine Ketones (Negative) Urine Blood (Negative) Urine Nitrite (Negative) Urine Bilirubin (Negative) Urine Urobilinogen (<2.0) mg/dL Ur Leukocyte Esterase (Negative) Salicylates mg/dL Urine Opiates Screen (NotDetected) Ur Oxycodone Screen (NotDetected) Urine Methadone Screen (NotDetected) Acetaminophen ug/mL Ur Barbiturates Screen (NotDetected) U Tricyclic Antidepress (NotDetected) Ur Phencyclidine Scrn (NotDetected) Ur Amphetamines Screen (NotDetected) U Methamphetamines Scrn (NotDetected) U Benzodiazepines Scrn (NotDetected) Urine Cocaine Screen (NotDetected) U Marijuana (THC) Screen (NotDetected) Serum Alcohol <10 mg/dL SARS-CoV-2 (PCR) (Not Detectd) Disposition Clinical Impression: Hallucinations, Depression Disposition: TRANSFER TO PSYCH HOSP/UNIT Referrals: Angie Toribio MD [Primary Care Provider] - 1-2 days
[2023-09-12] MEDS ORDERED: MAG HYDROX/AL HYDROX/SIMETH 30 ML CUP PO PRN (14:31)
[2023-09-12] MEDS ORDERED: OLANZapine 5 MG TAB PO PRN (14:31)
[2023-09-12] MEDS ORDERED: OLANZapine 10 MG VIAL IM PRN (14:31)
[2023-09-12] MEDS: CLOPIDOGREL 75 MG TAB PO SCH (15:26)
[2023-09-12] MEDS: TOBRAMYCIN 0.3% OPHTH DROPS 5 ML BTL LEFT EYE SCH (18:22)
[2023-09-12] MEDS ORDERED: VANCOMYCIN 1,000 MG VIAL MISCELLANE SCH (18:30)
[2023-09-12] MEDS: HYDROcodone/APAP 5-325MG 1 EACH TAB PO PRN (21:32)
[2023-09-12] MEDS: MELATONIN 5 MG TABLET PO PRN (21:35)
[2023-09-13] MEDS: SERTRALINE 100 MG TAB PO SCH (08:27)
[2023-09-13] MEDS: ASPIRIN 81 MG PO SCH (08:27)
[2023-09-13] MEDS: METOPROLOL SUCCINATE (ER) 25 MG TAB.ER.24H PO SCH (08:29)
[2023-09-13] MEDS: ATORVASTATIN 40 MG TAB PO SCH (08:29)
[2023-09-13] MEDS ORDERED: NICOTINE 14MG/24HR PATCH TRANSDERM SCH (09:00)
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
[2023-09-13] MEDS: ACETAMINOPHEN TAB 500 MG TAB PO PRN (11:30)
--- NOTE | 2023-09-13 12:44 | XR ---
EXAMINATION TYPE: XR chest 1V portable DATE OF EXAM: 09/13/2023 COMPARISON: 02/22/2022 HISTORY: Right lung cancer TECHNIQUE: Single frontal view of the chest is obtained. FINDINGS: There is marked elevation of the right hemidiaphragm consistent with lobectomy. There is marked consolidative opacity in the right lung apex with retraction of the right ksenia superi leo. This is unchanged compared to previous. Could represent persistent lung cancer, obstructive pne umonitis or atelectasis of the right upper lobe. The left lung remains clear. Heart and pulmonary vasculature are normal. The osseous structures are intact IMPRESSION: . IMPRESSION: 1. No change in the elevated right hemidiaphragm secondary to marked right lung volume loss postsurge ry. 2. No change in the right apical opacity as described above. 3. No abnormality within the left lung. 4. No evidence of CHF.
[2023-09-13 12:47] LABS: Chol/HDL Ratio 2.37 Ratio; LDL Cholesterol,Calculated 51.8 mg/dL (0.0-131.0); VLDL Calculation 11.32 mg/dL (5.00-40.00)
--- NOTE | 2023-09-13 12:47 | XR ---
EXAMINATION TYPE: XR Hip LT and AP Pelvis DATE OF EXAM: 09/13/2023 COMPARISON: 01/19/2020 HISTORY: Left hip pain TECHNIQUE: A single AP view of the pelvis is obtained. Two views of the left hip are obtained. FINDINGS: There is a focal lytic lesion of the lesser trochanter of the left hip which was not seen on the prio r study. This is consistent with metastatic disease. There is a sclerotic lesion in the base of the r ight femoral neck which was seen previously. The hip joint spaces are well-maintained. There is no degenerative hip arthritis. The pelvic ring is intact. The sacrum and SI joints are normal. IMPRESSION: 1. Metastatic lytic lesion involving the lesser trochanter of the left hip. 2. Persistent sclerotic lesion in the right femoral neck.
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
[2023-09-13] MEDS: NICOTINE 7MG/24HR PATCH TRANSDERM SCH (15:27)
[2023-09-13] MEDS: QUEtiapine 50 MG TAB PO SCH (21:49)
[2023-09-14] MEDS: ARIPiprazole 10 MG TAB PO SCH (08:37)
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
[2023-09-14] MEDS: traMADol 50 MG TAB PO PRN (12:40)
[2023-09-14 12:49] LABS: Basophils % (A) 1 %; Eosinophils # (A) 0.1 k/uL (0-0.7); Eosinophils % (A) 1 %; HCT 38.1 % (39.0-53.0); HGB 12.4 gm/dL (13.0-17.5); Lymphocytes % (A) 20 %; MCH 32.7 pg (25.0-35.0); MCHC 32.5 g/dL (31.0-37.0); MCV 100.8 fL (80.0-100.0); Macrocytosis Slight; Monocytes # (A) 0.3 k/uL (0-1.0); Monocytes % (A) 6 %; Neutrophils # (A) 3.5 k/uL (1.3-7.7); Neutrophils % (A) 70 %; Platelet Count 214 k/uL (150-450); RBC 3.78 m/uL (4.30-5.90); RDW 13.3 % (11.5-15.5)
[2023-09-14] MEDS ORDERED: traMADol 50 MG TAB PO SCH (13:00)
[2023-09-14 13:02] LABS: ALT 36 U/L (4-49); AST 28 U/L (17-59); African American GFR (CKD) >90 (>60 ml/min/1.73 sqM); Albumin 3.4 g/dL (3.5-5.0); Alkaline Phosphatase 85 U/L (38-126); Anion Gap 4 mmol/L; Blood Urea Nitrogen 22 mg/dL (9-20); Carbon Dioxide 31 mmol/L (22-30); Chloride 104 mmol/L (98-107); Glucose 119 mg/dL (74-99); Non-African American GFR(CKD) 84 (>60 ml/min/1.73 sqM); Potassium 4.1 mmol/L (3.5-5.1); Sodium 139 mmol/L (137-145); Total Bilirubin 0.4 mg/dL (0.2-1.3); Total Protein 6.7 g/dL (6.3-8.2)
--- NOTE | 2023-09-14 15:46 | P.PN ---
Progress Note - Text Progress Note Date: 09/14/23 Interval History: Patient was seen bedside this afternoon. He states that his mood is "good ". He reports enjoying his lunch today and denies all concerns. He reports having good appetite and fair energy. He endorses tolerating the medications well and appears to be less paranoid since the increase in Abilify. However, he states that he is a little bit more tired than he was yesterday. He states he slept well with the Seroquel. IM added tramadol for pain and this provider informed patient to request medication or speak with nursing staff if experiencing pain. At this time patient denies any suicidal or homicidal ideations, intent or plan. Patient denies any auditory, visual hallucinations and denies any paranoia or delusions. Patient denies any side effects from the medications and has been compliant with meds. Vital Signs Temp 97.0 F L 09/14/23 08:35 Pulse 87 09/14/23 08:35 Resp 20 09/14/23 08:35 BP 108/64 09/14/23 08:35 Pulse Ox 99 09/14/23 08:35 FiO2 Intake & Output 09/13/23 09/14/23 09/14/23 18:59 06:59 18:59 Weight 56.6 kg Mental Status Exam: General Appearance: Patient appears to be older than stated age, is alert, directable, and attempts to cooperate. Patient appears to have fair hygiene and grooming. Wearing an eye patch Behavior: Patient is seated without any agitated behavior in a wheelchair Speech: Patient's speech is fluent and nonpressured. Quiet tone Mood/Affect: Patient reports their mood is "good", affect is congruent. Suicidality/Homicidality: Patient denies having any homicidal ideation intent or plan. Denies any suicidal ideations intent or plan Perceptions: Patient denies any visual hallucinations and denies any current auditory hallucinations Though content/process: Paranoia is improving, more linear clear thought process Memory and concentration: AOX3, grossly intact for the purposes of this session. 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 Patient signed adult voluntary form and medication consent and is placed in patient's chart. -Medications : Abilify 25 mg daily for psychosis Seroquel 50 mg qHS for sleep and augmentation Continue Zoloft 200 mg daily - NRT- patch -Patient was counselled on substance abuse. Motivational interviewing. -Patient was informed of the risks, benefits and side effects of the medication and patient verbally consented to taking the medications. Patient signed med consent form and was placed in chart. -Internal Medicine, Ophthalmology, Heme/Onc on board -SW on board for discharge planning. Encourage patient to participate in groups to work on coping skills.
--- NOTE | 2023-09-15 14:31 | P.PN ---
Progress Note - Text Progress Note Date: 09/15/23 Interval History: Patient was seen today laying in his bed. Patient had a patch covering his eye. He appeared to be fairly pleasant with literary writer. States that his mood and anxiety been mildly improving. He did state that he had difficulty sleeping for the past couple of nights. He was agreeable to have his Seroquel increased for tonight. He states that he was "seeing shadows and seeing people" before coming into the hospital, states that this has been improving. He has mainly been in his room resting. Has been up for meals. Was encouraged to go to groups today. At this time patient denies any suicidal or homical ideations, intent or plan. Patient denies any auditory, visual hallucinations and denies any paranoia or delusions. Patient denies any side effects from the medications and has been compliant with meds. Mental Status Exam: General Appearance: Patient appears to be thin, unshaven, older than stated age, is alert, directable, and attempts to cooperate. Patient appears to have fair hygiene and grooming. Wearing an eye patch Behavior: Patient is seated without any agitated behavior in a wheelchair Speech: Patient's speech is fluent and nonpressured. Quiet tone, improving Mood/Affect: Patient reports their mood is "all right", affect is congruent. Suicidality/Homicidality: Patient denies having any homicidal ideation intent or plan. Denies any suicidal ideations intent or plan Perceptions: Patient denies any visual hallucinations and denies any current auditory hallucinations Though content/process: Paranoia is improving, more linear clear thought process Memory and concentration: AOX3, grossly intact for the purposes of this session. 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 Patient signed adult voluntary form and medication consent and is placed in patient's chart. -Medications : Decrease Abilify 20 mg daily for psychosis, increase Seroquel 100 mg qHS for sleep and psychosis augmentation. Continue Zoloft 200 mg daily for mood and anxiety. - NRT- patch -will speak with patient about polysubtance abuse and offer rehab vs other [facility] options for outpatient treatment. -SW on board for discharge planning. Encourage patient to participate in groups to work on coping skills. transit survey worker to communicate with patient's brother to help coordinate patient's safe discharge. Ensure no guns or weapons in the house. At this time likely planning for discharge Friday versus back home with [place] outpatient f/u
[2023-09-15] MEDS: HYDROcodone/APAP 10-325MG 1 EACH TAB PO SCH (14:55)
[2023-09-15] MEDS: MAGNESIUM HYDROXIDE 2,400 MG/30 ML CUP PO PRN (15:04)
[2023-09-15] MEDS: LACTULOSE 20 GM/30 ML CUP PO ONE (16:11)
[2023-09-15] MEDS: QUEtiapine 100 MG TAB PO SCH (20:21)
[2023-09-15] MEDS: DOCUSATE 100 MG CAP PO SCH (20:21)
--- NOTE | 2023-09-16 11:35 | P.PN ---
Progress Note - Text Progress Note Date: 09/16/23 Interval History: Patient was seen today laying in his bed. Patient had a patch covering his eye. He was fairly pleasant with television writer. States that his mood and anxiety are improving. He has mainly been in his room resting. Has been up for meals. Was encouraged to go to groups today. Patient has home health care set up, and will be discharged tomorrow. states that his appetite is well. At this time patient denies any suicidal or homical ideations, intent or plan. Patient denies any auditory, visual hallucinations and denies any paranoia or delusions. Patient denies any side effects from the medications and has been compliant with meds. We also spoke about home setting him up with home health services and he will have a follow up oncology appointment in November. Mental Status Exam: General Appearance: Patient appears to be thin, unshaven, older than stated age, is alert, directable, and attempts to cooperate. Patient appears to have fair hygiene and grooming. Wearing an eye patch Behavior: Patient is seated without any agitated behavior in a wheelchair Speech: Patient's speech is fluent and nonpressured. Quiet tone, improving Mood/Affect: Patient reports their mood is "good", affect is congruent, improving Suicidality/Homicidality: Patient denies having any homicidal ideation intent or plan. Denies any suicidal ideations intent or plan Perceptions: Patient denies any visual hallucinations and denies any current auditory hallucinations Though content/process: Paranoia is improving, more linear clear thought process Memory and concentration: AOX3, grossly intact for the purposes of this session. 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 Patient signed adult voluntary form and medication consent and is placed in patient's chart. -Medications : Continue with Abilify 20 mg daily for psychosis, Seroquel 100 mg qHS for sleep and psychosis augmentation. Zoloft 200 mg daily for mood and anxiety. - NRT- patch -SW on board for discharge planning. Encourage patient to participate in groups to work on coping skills. horticultural worker to communicate with patient's brother to help coordinate patient's safe discharge and coordinate home care. Ensure no guns or weapons in the house. At this time likely planning for discharge tomorrow [facility] patient has f/u appt for brain imaging with oncologist in november.
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
[2023-09-16] MEDS: VANCOMYCIN LEFT EYE SCH (20:00)
[2023-09-16] MEDS: TOBRAMYCIN LEFT EYE SCH (20:27)
[2023-09-17 07:01] VITALS: RESP 16; TEMP 97.1
[2023-09-17 09:06] VITALS: BP 98/57; PULSE 66
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
--- NOTE | 2023-09-17 13:03 | P.PN ---
Subjective Progress Note Date: 09/17/23 Principal diagnosis: Hallucinations. Hx NSCLC In f/u today pt is preparing to be discharged. His pain is well controlled on current analgesics. Objective - Vital Signs Vital signs: Vital Signs Temp 97.1 F L 09/17/23 06:38 Pulse 66 09/17/23 08:40 Resp 16 09/17/23 06:38 BP 98/57 09/17/23 08:40 Pulse Ox 96 09/17/23 06:38 FiO2 - Constitutional General appearance: Present: average body habitus, cooperative, no acute distress - EENT Eyes: Present: anicteric sclerae, EOMI, poor dentition ENT: Present: hearing grossly normal - Respiratory Details: resp even and unlabored at rest - Cardiovascular Details: Skin warm and dry to the touch - Peripheral edema leg Peripheral Edema: bilateral: None - Neurologic Neurologic: Present: CNII-XII intact (Grossly) - Musculoskeletal Musculoskeletal Comment(s): Patient is using a wheelchair Musculoskeletal: Present: generalized weakness - Psychiatric Psychiatric: Present: A&O x's 3, appropriate affect, intact judgment & insight - Labs CBC & Chem 7: 09/14/23 12:31 09/14/23 12:31 Assessment and Plan (1) Lung cancer Current Visit: Yes Status: Chronic Priority: Medium Code(s): C34.90 - MALIGNANT NEOPLASM OF UNSP PART OF UNSP BRONCHUS OR LUNG SNOMED Code(s): 566142932 Plan: Hallucinations -These have resolved -Patient is under the care of of mental health professionals. Defer management of the same History of non-small cell lung cancer -Stage IIIb adenocarcinoma right lung, status post chemo and radiation, consolidative immunotherapy. He has been on surveillance since. Surveillance scans due in November. -Presented with auditory and visual hallucinations. CT of the head without contrast showed no acute abnormality. MRI with contrast is the gold standard for assessing for intracranial metastases. This was ordered was canceled. Currently patient's auditory and visual hallucinations have subsided. -X-ray of the hips and pelvis done 09/13/2023. The impression is read as metastatic lytic lesion involving the lesser trochanter of the left hip and a persistent sclerotic lesion in the right femoral neck. MRI to better evaluate this single lesion is recommended. Also, nuclear medicine bone scan to rule out other osseous lesions. Case was discussed, plan for these additional images outpatient. Patient agreeable with plan.
== END 2023-09-17 13:18 | disposition home or self-care (01) | DRG 885 ==
LOC: EC 22:12 → 3MHU 09-12 14:19
PROVIDERS: ADMIT Psychiatry & Neurology Psychiatry; ATTEND Psychiatry & Neurology Psychiatry
DX: F29 Unspecified psychosis not due to a substance or known physiological condition (principal); N17.9 Acute kidney failure, unspecified; C79.51 Secondary malignant neoplasm of bone; F15.20 Other stimulant dependence, uncomplicated; Z99.81 Dependence on supplemental oxygen; J44.9 Chronic obstructive pulmonary disease, unspecified; G31.9 Degenerative disease of nervous system, unspecified; I10 Essential (primary) hypertension; E03.9 Hypothyroidism, unspecified; Z11.52 Encounter for screening for COVID-19; Z28.310 Unvaccinated for COVID-19; Z91.148 Patient's other noncompliance with medication regimen for other reason; F43.21 Adjustment disorder with depressed mood; F43.10 Post-traumatic stress disorder, unspecified; E78.5 Hyperlipidemia, unspecified; M79.7 Fibromyalgia; M19.90 Unspecified osteoarthritis, unspecified site; I25.10 Atherosclerotic heart disease of native coronary artery without angina pectoris; I89.0 Lymphedema, not elsewhere classified; N40.0 Benign prostatic hyperplasia without lower urinary tract symptoms; S05.02XD Injury of conjunctiva and corneal abrasion without foreign body, left eye, subsequent encounter; F17.210 Nicotine dependence, cigarettes, uncomplicated; Z71.6 Tobacco abuse counseling; Z79.02 Long term (current) use of antithrombotics/antiplatelets; Z79.899 Other long term (current) drug therapy; Z85.118 Personal history of other malignant neoplasm of bronchus and lung; Z92.3 Personal history of irradiation; Z95.5 Presence of coronary angioplasty implant and graft; Z88.8 Allergy status to other drugs, medicaments and biological substances; Z98.1 Arthrodesis status; Z92.21 Personal history of antineoplastic chemotherapy; Z71.41 Alcohol abuse counseling and surveillance of alcoholic; Z71.51 Drug abuse counseling and surveillance of drug abuser
CPT/HCPCS: 36415; 51798; 70450; 71045; 73502; 80053; 80061; 80143; 80179; 80306; 80320; 81003; 82075; 83036; 84443; 85025; 99285

== ENCOUNTER → 2023-09-22 | Outpatient (CLI) | payer MEDICARE, OTHER ==
--- NOTE | 2023-09-29 04:44 | MR ---
EXAMINATION TYPE: MR hip LT wo/w con DATE OF EXAM: 09/22/2023 COMPARISON: Pelvic and left hip x-ray September 13, 2023. Whole body bone scan performed September 23, 2023 HISTORY: Left hip pain, lung cancer CONTRAST: Standard multiplanar, multisequence MRI departmental protocol images were obtained without contrast a nd with 6.5 mL intravenous Gadavist gadolinium contrast. Imaging of the pelvis focusing on the left hip. FINDINGS: Corresponding to MRI and x-ray, there is enhancing mass near level of the left circumflex t rochanter extending inferiorly involving the medullary and cortex with medial cortical breakthrough m easuring 3.0 cm transversely by 3.3 cm craniocaudal dimension by 1.8 cm AP diameter axial image 11 an d coronal image 12 consistent with metastatic lesion given history of lung cancer. Some adjacent T2 s ignal or osseous edema is present. Small symmetric hip joint effusions are presumed physiologic. No additional suspicious enhancing mass es to suggest other metastatic lesions in the pelvis or the right hip. Mild axial joint space loss in both hips. No groin hernia or adenopathy is seen. Muscle bulk is symmetric and maintained bilaterall y. IMPRESSION: Confirmation of 3.3 cm osseous lesion lesser trochanter level left hip extending inferior ly with cortical breakthrough medially consistent with metastatic lesion given history of lung cancer .
== END | disposition home or self-care (01) ==
LOC: RADMRIMAIN 16:37
PROVIDERS: ATTEND Internal Medicine Hematology & Oncology
DX: M25.852 Other specified joint disorders, left hip (principal); C34.11 Malignant neoplasm of upper lobe, right bronchus or lung
CPT/HCPCS: 73723; A9585

== ENCOUNTER → 2023-09-23 | Outpatient (CLI) | payer MEDICARE, OTHER ==
--- NOTE | 2023-09-23 15:28 | NM ---
EXAMINATION TYPE: NM bone scan whole body DATE OF EXAM: 09/23/2023 COMPARISON: 01/20/2020 CLINICAL INDICATION: Male, 63 years old with history of C34.11 LUNG CANCER; Delayed whole-body scanning was performed following the injection of 23.6 mCi Tc 99m MDP. Images acq uired 5.75 hours post injection. FINDINGS: There is abnormal uptake corresponding to the x-ray and MRI abnormality involving the proximal left f emur. Moderate intensity abnormal uptake involving the lumbosacral junction likely represents combination o f degenerative disc disease and appears concordant with abnormality noted by MRI of the L4 segment najera spicious for metastatic disease. Abnormal uptake involving the feet is most arthritic. IMPRESSION: 1. Abnormal intense uptake involving the proximal left femur concordant with x-ray and MRI abnormalit y and suggestive of malignancy. 2. Moderate intensity uptake L4 appears to represent a lesion by recent MRI and suspicious for metast atic disease. Would consider dedicated MRI of the lumbar spine.
== END | disposition home or self-care (01) ==
LOC: RADNMMAIN 06:55
PROVIDERS: ATTEND Internal Medicine Hematology & Oncology
DX: C34.11 Malignant neoplasm of upper lobe, right bronchus or lung (principal)
CPT/HCPCS: 78306; A9503

== ENCOUNTER 2023-10-15 08:35 | Emergency (ER) | payer MEDICARE ==
[2023-10-15 08:48] VITALS: RESP 18; TEMP 97.9
--- NOTE | 2023-10-15 09:23 | ED ---
General Adult HPI - General Chief complaint: Fall Stated complaint: Hip Pain Time Seen by Provider: 10/15/23 08:50 Source: patient, RN notes reviewed Mode of arrival: EMS Limitations: no limitations - History of Present Illness Initial comments: 63-year-old male with history of small cell lung cancer presents emergency department with chief complaint of bilateral hip pain. States that he fell at home 3 days ago while he was going to change the to return as a result. Patient states that he had a feeling of lightheadedness, dizziness before the sensation, and states that he has had this many times in the past due to his cancer. patient has noted increasing right hip pain that is worse with movement and ambulation. Denies chest pain, palpitations, headache, dizziness. he is scheduled this morning for a follow-up PET scan to determine if he needs to undergo further chemo and/or radiation. he has been scribed pain medication outpatient, [facility], but states he has not had this prescription filled over the past few months. - Related Data Home Medications Medication Instructions Recorded Confirmed methocarbamoL [Robaxin-750] 750 mg PO TID PRN 09/08/22 09/03/23 Atorvastatin Calcium [Lipitor] 40 mg PO DAILY 09/03/23 09/03/23 HYDROcodone/APAP 10-325MG [[place] 1 tab PO Q6HR PRN 09/03/23 09/03/23 10-325] Metoprolol Succinate (ER) [Toprol 50 mg PO DAILY 09/03/23 09/03/23 XL] Previous Rx's Medication Instructions Recorded Clopidogrel [Plavix] 75 mg PO DAILY #90 tablet 04/05/23 ARIPiprazole [Abilify] 20 mg PO DAILY 30 Days #30 tab 09/17/23 Acetaminophen Tab [Tylenol] 500 mg PO Q4HR PRN tab 09/17/23 Aspirin 81 mg PO DAILY 30 Days #30 tab 09/17/23 Docusate [Colace] 100 mg PO BID 30 Days #60 cap 09/17/23 Melatonin 5 mg PO HS PRN 30 Days #30 tab 09/17/23 QUEtiapine [SEROquel] 100 mg PO HS 30 Days #30 tab 09/17/23 Sertraline [Zoloft] 200 mg PO DAILY 30 Days #60 tab 09/17/23 Tobramycin 14mg/Ml Ophth Soln 1 drop LEFT EYE DIRECTED 09/17/23 Vancomycin Ophth Soln 31mg/Ml 1 drop LEFT EYE DIRECTED 09/17/23 Allergies Allergy/AdvReac Type Severity Reaction Status Date / Time amitriptyline [From Elavil] Allergy Rash/Hives Verified 09/02/23 22:51 diazepam [From Valium] Allergy Unknown Verified 09/02/23 22:51 niacin Allergy Rash/Hives Verified 09/02/23 22:51 alprazolam [From Xanax] AdvReac Hallucinati Verified 09/02/23 22:51 ons Review of Systems ROS Statement: Those systems with pertinent positive or pertinent negative responses have been documented in the HPI. ROS Other: All systems not noted in ROS Statement are negative. Past Medical History Past Medical History: Cancer, COPD, Fibromyalgia, Hyperlipidemia, Hypertension, Osteoarthritis (OA), Pneumonia, Prostate Disorder, Respiratory Disorder, Thyroid Disorder Additional Past Medical History / Comment(s): 10/2019 R side lung cancer with tumor compression SVC causing syncopal episodes/invasion of mediatinum/bilateral upper extremity lymphedema with numbness and tingling/R arm pain-pt has completed radiation treatments and still needs one more chemo treatment on 01/21/20-plan is then to receive immunotherapy, home oxygen at 3L/[place] prn, vertigo, chronic cervical and back pain, past lower extremity lymphedema, BPH, anemia, bronchitis, hypothyroid History of Any Multi-Drug Resistant Organisms: None Reported Past Surgical History: Heart Catheterization With Stent, Orthopedic Surgery Additional Past Surgical History / Comment(s): 10/2019 bronchoscopy with biopsy, cervical surgery x2 with plate and bone graft from R hip, back injections, cystic acne lesions removed, colonoscopy, hemorrhoidectomy, picc lines. Past Anesthesia/Blood Transfusion Reactions: No Reported Reaction, Motion Si ckness Date of Last Stent Placement:: UNK Past Psychological History: Anxiety, Depression, PTSD Smoking Status: Current every day smoker Past Alcohol Use History: None Reported, Occasional Past Drug Use History: Marijuana - Past Family History Father Family Medical History: Cancer Additional Family Medical History / Comment(s): Father is from renal cell carcinoma with mets. Mother Additional Family Medical History / Comment(s): Mother went into hospital for knee surgery/ended up from CDiff infection. General Exam Limitations: no limitations Course Vital Signs 10/15/23 10/15/23 08:38 09:45 Temperature 97.9 F Pulse Rate 95 85 Respiratory 18 18 Rate Blood Pressure 120/81 95/77 O2 Sat by Pulse 98 96 Oximetry Medical Decision Making - Medical Decision Making Was pt. sent in by a medical professional or institution (ADAM Beebe, TAILOR APPRENTICE, urgent care, hospital, or senior living...) When possible be specific @ -No Did you speak to anyone other than the patient for history (EMS, parent, family, police, friend...)? What history was obtained from this source @ -No Did you review nursing and triage notes (agree or disagree)? Why? @ -I reviewed and agree with nursing and triage notes Were old charts reviewed (outside hosp., previous admission, EMS record, old EKG, old radiological studies, urgent care reports/EKG's, senior living records)? Report findings @ - imaging of hip MRI revealed 3.3 cm Lesion lesser trochanter level left hip with metastatic lesion given history of lung cancer Differential Diagnosis (chest pain, altered mental status, abdominal pain women, abdominal pain men, vaginal bleeding, weakness, fever, dyspnea, syncope, headache, dizziness, GI bleed, back pain, seizure, CVA, palpatations, mental health, musculoskeletal)? @ -Differential Musculoskeletal Muscular strain, contusion, ligament sprain, fracture, arthritis, septic arthritis, bursitis, cellulitis, muscle spasm, nerve compression, DVT, arterial occlusion, herpes zoster, electrolyte abnormality, tumor.... This is not meant to be in all inclusive list EKG interpreted by me (3pts min.). @ -none X-rays interpreted by me (1pt min.). @ -xray right hip and pelvis reveals no acute process, mild hip osteoarthrosis. CT interpreted by me (1pt min.). @ -None done U/S interpreted by me (1pt. min.). @ -None done What testing was considered but not performed or refused? (CT, X-rays, U/S, labs)? Why? @ -None What meds were considered but not given or refused? Why? @ -None Did you discuss the management of the patient with other professionals (professionals i.e. ADAM Beebe, TAILOR APPRENTICE, lab, RT, psych nurse, forensic social worker, personal injury paralegal, teacher, targeting acquisition officer, case checker)? Give summary @ -No Was smoking cessation discussed for >3mins.? @ -No Was critical care preformed (if so, how long)? @ -No Were there social determinants of health that impacted care today? How? ( Homelessness, low income, unemployed, alcoholism, drug addiction, transportation, low edu. Level, literacy, decrease access to med. care, retirement, rehab)? @ -No Was there de-escalation of care discussed even if they declined (Discuss DNR or withdrawal of care, Hospice)? DNR status @ -No What co-morbidities impacted this encounter? (DM, HTN, Smoking, COPD, CAD, Cancer, CVA, ARF, Chemo, Hep., AIDS, mental health diagnosis, sleep apnea, morbid obesity)? @ -None Was patient admitted / discharged? Hospital course, mention meds given and route, prescriptions, significant lab abnormalities, going to OR and other pertinent info. @ -Discharged. 63-year-old male presents emergency department with bilateral hip pain. xray right hip and pelvis reveals no acute process, mild hip osteoarthrosis. CBC and CMP labs unremarkable. Will be discharged with 5-day course of pain medication, until he is able to follow-up with his oncologist for further intervention. Undiagnosed new problem with uncertain prognosis? @ -No Drug Therapy requiring intensive monitoring for toxicity (Heparin, Nitro, Insulin, Cardizem)? @ -No Were any procedures done? @ -No Diagnosis/symptom? @ -hip Pain, metastatic cancer Acute, or Chronic, or Acute on Chronic? @ -Acute Uncomplicated (without systemic symptoms) or Complicated (systemic symptoms) -Uncomplicated Side effects of treatment? @ -No Exacerbation, Progression, or Severe Exacerbation? @ -No Poses a threat to life or bodily function? How? (Chest pain, [place], [place], pneumonia, PE, COPD, DKA, ARF, appy, cholecystitis, CVA, Diverticulitis, Homicidal, Suicidal, threat to staff... and all critical care pts) @ -No - Lab Data Result diagrams: 10/15/23 09:19 10/15/23 09:19 Lab Results 10/15/23 10/15/23 Range/Units 09:19 09:19 WBC 5.4 (3.8-10.6) k/uL RBC 3.50 L (4.30-5.90) m/uL Hgb 11.8 L (13.0-17.5) gm/dL Hct 35.9 L (39.0-53.0) % MCV 102.6 H (80.0-100.0) fL MCH 33.8 (25.0-35.0) pg MCHC 32.9 (31.0-37.0) g/dL RDW 14.5 (11.5-15.5) % Plt Count 175 (150-450) k/uL MPV 7.2 Neutrophils % 69 % Lymphocytes % 19 % Monocytes % 7 % Eosinophils % 3 % Basophils % 0 % Neutrophils # 3.7 (1.3-7.7) k/uL Lymphocytes # 1.0 (1.0-4.8) k/uL Monocytes # 0.4 (0-1.0) k/uL Eosinophils # 0.2 (0-0.7) k/uL Basophils # 0.0 (0-0.2) k/uL Macrocytosis Slight Sodium 138 (137-145) mmol/L Potassium 3.8 (3.5-5.1) mmol/L Chloride 108 H (98-107) mmol/L Carbon Dioxide 21 L (22-30) mmol/L Anion Gap 9 mmol/L BUN 21 H (9-20) mg/dL Creatinine 1.03 (0.66-1.25) mg/dL Est GFR (CKD-EPI)AfAm 90 (>60 ml/min/1.73 sqM) Est GFR (CKD-EPI)NonAf 78 (>60 ml/min/1.73 sqM) Glucose 102 H (74-99) mg/dL Calcium 8.9 (8.4-10.2) mg/dL Total Bilirubin 0.6 (0.2-1.3) mg/dL AST 20 (17-59) U/L ALT 15 (4-49) U/L Alkaline Phosphatase 76 (38-126) U/L Total Protein 6.4 (6.3-8.2) g/dL Albumin 3.5 (3.5-5.0) g/dL Disposition Clinical Impression: Hip pain, bilateral Narrative: Please return to the Emergency Department if symptoms worsen or any other concerns. Disposition: HOME SELF-CARE Condition: Good Instructions (If sedation given, give patient instructions): Hip Pain (ED) Is patient prescribed a controlled substance at d/c from ED?: Yes When asked, does pt state using other controlled substances?: No If prescribed controlled substance>3 days was MAPS reviewed?: Yes If opioid is for acute pain is fill amount 7 days or less?: Yes If Rx opioid, was Start Talking consent form obtained?: Yes Referrals: None,Stated [Primary Care Provider] - 1-2 days Time of Disposition: 10:00
[2023-10-15 09:32] LABS: Basophils % (A) 0 %; Eosinophils # (A) 0.2 k/uL (0-0.7); Eosinophils % (A) 3 %; HCT 35.9 % (39.0-53.0); HGB 11.8 gm/dL (13.0-17.5); Lymphocytes % (A) 19 %; MCH 33.8 pg (25.0-35.0); MCHC 32.9 g/dL (31.0-37.0); MCV 102.6 fL (80.0-100.0); Macrocytosis Slight; Mean Platelet Volume 7.2; Monocytes # (A) 0.4 k/uL (0-1.0); Monocytes % (A) 7 %; Neutrophils # (A) 3.7 k/uL (1.3-7.7); Neutrophils % (A) 69 %; Platelet Count 175 k/uL (150-450); RDW 14.5 % (11.5-15.5); WBC 5.4 k/uL (3.8-10.6)
[2023-10-15 09:41] LABS: ALT 15 U/L (4-49); AST 20 U/L (17-59); African American GFR (CKD) 90 (>60 ml/min/1.73 sqM); Albumin 3.5 g/dL (3.5-5.0); Alkaline Phosphatase 76 U/L (38-126); Anion Gap 9 mmol/L; Blood Urea Nitrogen 21 mg/dL (9-20); Calcium 8.9 mg/dL (8.4-10.2); Carbon Dioxide 21 mmol/L (22-30); Chloride 108 mmol/L (98-107); Glucose 102 mg/dL (74-99); Non-African American GFR(CKD) 78 (>60 ml/min/1.73 sqM); Potassium 3.8 mmol/L (3.5-5.1); Sodium 138 mmol/L (137-145); Total Bilirubin 0.6 mg/dL (0.2-1.3); Total Protein 6.4 g/dL (6.3-8.2)
[2023-10-15] MEDS: HYDROmorphone 0.5 MG/0.5 ML SYRINGE IVP STA (09:43)
--- NOTE | 2023-10-15 09:45 | XR ---
EXAMINATION TYPE: XR Hip RT and AP Pelvis DATE OF EXAM: 10/15/2023 9:38 AM CLINICAL INDICATION:Male, 63 years old with history of fall; [facility] COMPARISON: None. TECHNIQUE: XR Hip RT and AP Pelvis; hip was examined in the frontal and lateral projections and a AP pelvis. FINDINGS: No evidence for acute process, joint dislocation or significant soft tissue swelling. Osteo phyte formation of the superior acetabulum of the hip. IMPRESSION: 1. No evidence for acute process. 2. Mild hip osteoarthrosis.
[2023-10-15 10:00] VITALS: PULSE 85
[2023-10-15 16:23] VITALS: BP 118/26
== END 2023-10-15 10:50 | disposition home or self-care (01) ==
LOC: EC 08:35
DX: M25.552 Pain in left hip (principal); M25.551 Pain in right hip; F17.200 Nicotine dependence, unspecified, uncomplicated; F12.90 Cannabis use, unspecified, uncomplicated; Z88.8 Allergy status to other drugs, medicaments and biological substances
CPT/HCPCS: 36415; 80053; 85025; 73502; 99285; 96374; J1170

== ENCOUNTER 2023-10-24 21:08 | Inpatient (IN) | payer MEDICARE ==
--- NOTE | 2023-10-24 21:34 | ED ---
General Adult HPI - General Chief complaint: Fall Stated complaint: Fall Time Seen by Provider: 10/24/23 21:13 Source: patient, EMS, RN notes reviewed Mode of arrival: EMS Limitations: no limitations - History of Present Illness Initial comments: This is a 63-year-old male with history of lung cancer with probable metastases. Follows with Dr. Lal. Fernandez undergoing no treatment for cancer. Patient currently being evaluated for further cancer treatment. Patient states that he is having generalized weakness and increased pain. Patient was on [place] after his previous ER visit. Went to stand up out of his recliner today and fell onto his left side. He exacerbated left hip pain. Patient has had a recent PET scan which showed normal metastases to the proximal left femur and L4. Patient states he has increased pain in this area since the fall. No problems with bowel movements or urination. No chest pain or shortness of breath. Patient d enies any head or neck injury. This was a ground level fall. No headache, no fever or chills, no changes in vision or hearing, no sore throat or difficulty with speech, no neck pain, no chest pain or shortness of breath, no abdominal pain, no nausea or vomiting, no changes in urination or bowel movements, no numbness or tingling, no extremity pain, no skin rashes or lesions. Past medical, surgical, social, and family history reviewed. - Related Data Home Medications Medication Instructions Recorded Confirmed methocarbamoL [Robaxin-750] 750 mg PO TID PRN 09/08/22 09/03/23 Atorvastatin Calcium [Lipitor] 40 mg PO DAILY 09/03/23 09/03/23 HYDROcodone/APAP 10-325MG [[place] 1 tab PO Q6HR PRN 09/03/23 09/03/23 10-325] Metoprolol Succinate (ER) [Toprol 50 mg PO DAILY 09/03/23 09/03/23 XL] Previous Rx's Medication Instructions Recorded Clopidogrel [Plavix] 75 mg PO DAILY #90 tablet 04/05/23 ARIPiprazole [Abilify] 20 mg PO DAILY 30 Days #30 tab 09/17/23 Acetaminophen Tab [Tylenol] 500 mg PO Q4HR PRN tab 09/17/23 Aspirin 81 mg PO DAILY 30 Days #30 tab 09/17/23 Docusate [Colace] 100 mg PO BID 30 Days #60 cap 09/17/23 Melatonin 5 mg PO HS PRN 30 Days #30 tab 09/17/23 QUEtiapine [SEROquel] 100 mg PO HS 30 Days #30 tab 09/17/23 Sertraline [Zoloft] 200 mg PO DAILY 30 Days #60 tab 09/17/23 Tobramycin 14mg/Ml Ophth Soln 1 drop LEFT EYE DIRECTED 09/17/23 Vancomycin Ophth Soln 31mg/Ml 1 drop LEFT EYE DIRECTED 09/17/23 HYDROcodone/APAP 10-325MG [[place] 1 tab PO Q6HR PRN 5 Days #15 tab 10/15/23 10-325] HYDROcodone/APAP 10-325MG [[place] 1 tab PO Q6HR PRN 3 Days #12 tab 10/24/23 10-325] Allergies Allergy/AdvReac Type Severity Reaction Status Date / Time amitriptyline [From Elavil] Allergy Rash/Hives Verified 10/24/23 21:17 diazepam [From Valium] Allergy Unknown Verified 10/24/23 21:17 niacin Allergy Rash/Hives Verified 10/24/23 21:17 alprazolam [From Xanax] AdvReac Hallucinati Verified 10/24/23 21:17 ons Review of Systems ROS Statement: Those systems with pertinent positive or pertinent negative responses have been documented in the HPI. ROS Other: All systems not noted in ROS Statement are negative. Past Medical History Past Medical History: Cancer, COPD, Fibromyalgia, Hyperlipidemia, Hypertension, Osteoarthritis (OA), Pneumonia, Prostate Disorder, Respiratory Disorder, Thyroid Disorder Additional Past Medical History / Comment(s): 10/2019 R side lung cancer with tumor compression SVC causing syncopal episodes/invasion of mediatinum/bilateral upper extremity lymphedema with numbness and tingling/R arm pain-pt has completed radiation treatments and still needs one more chemo treatment on 01/21/20-plan is then to receive immunotherapy, home oxygen at 3L/[place] prn, vertigo, chronic cervical and back pain, past lower extremity lymphedema, BPH, anemia, bronchitis, hypothyroid History of Any Multi-Drug Resistant Organisms: None Reported Past Surgical History: Heart Catheterization With Stent, Orthopedic Surgery Additional Past Surgical History / Comment(s): 10/2019 bronchoscopy with biopsy, cervical surgery x2 with plate and bone graft from R hip, back injections, cystic acne lesions removed, colonoscopy, hemorrhoidectomy, picc lines. Past Anesthesia/Blood Transfusion Reactions: No Reported Reaction, Motion Sickness Date of Last Stent Placement:: UNK Past Psychological History: Anxiety, Bipolar, Depression, PTSD Smoking Status: Current every day smoker Past Alcohol Use History: None Reported, Occasional Past Drug Use History: Marijuana - Past Family History Father Family Medical History: Cancer Additional Family Medical History / Comment(s): Father is from renal cell carcinoma with mets. Mother Additional Family Medical History / Comment(s): Mother went into hospital for knee surgery/ended up from CDiff infection. General Exam - General Exam Comments Initial Comments: Mild tachycardia, other vital signs are stable. Alert and oriented 4. Cranial nerves II through XII grossly intact Limitations: no limitations General appearance: alert, in no apparent distress, in distress Head exam: Present: atraumatic, normocephalic, normal inspection Eye exam: Present: normal appearance, PERRL, EOMI. Absent: scleral icterus, conjunctival injection, periorbital swelling ENT exam: Present: normal exam, normal oropharynx, mucous membranes moist, normal external ear exam. Absent: mucous membranes dry Neck exam: Present: normal inspection, full ROM. Absent: tenderness, meningismus, lymphadenopathy Respiratory exam: Present: normal lung sounds bilaterally. Absent: respiratory distress, wheezes, rales, rhonchi, stridor Cardiovascular Exam: Present: regular rate, normal rhythm, normal heart sounds. Absent: systolic murmur, diastolic murmur, rubs, gallop, clicks GI/Abdominal exam: Present: soft, normal bowel sounds. Absent: distended, tenderness, guarding, rebound, rigid Extremities exam: Present: normal inspection, full ROM, normal capillary refill, other (Patient has tenderness to the anterior aspect of the right hip. Full range of motion both actively and passively with increased pain.). Absent: tenderness, pedal edema, joint swelling, calf tenderness Back exam: Present: normal inspection, paraspinal tenderness, vertebral tenderness (Mild midline tenderness in area L4-L5. No break in skin integrity. No crepitus. No rashes or lesions.). Absent: rash noted Neurological exam: Present: alert, oriented X3, CN II-XII intact. Absent: motor sensory deficit Psychiatric exam: Present: normal affect, normal mood Skin exam: Present: warm, dry, intact, normal color. Absent: rash Course Vital Signs 10/24/23 10/24/23 21:12 22:55 Temperature 98.3 F Pulse Rate 102 H 110 H Respiratory 20 20 Rate Blood Pressure 124/94 122/85 O2 Sat by Pulse 100 100 Oximetry EKG Findings - EKG Comments: EKG Findings:: EKG independently interpreted by me at 2123 reveals sinus tachycardia with a rate of 101. Indeterminate axis. Normal intervals. No acute ST or T-wave changes. Compared to previous study there is no significant change. Medical Decision Making - Medical Decision Making Was pt. sent in by a medical professional or institution? @ -no Did you speak to anyone other than the patient for history? @ -EMS Did you review nursing and triage notes? @ -agree Were old charts reviewed? @ -Charts from previous admissions and previous diagnostics to include PET scan and MRI reviewed. Differential Diagnosis? @ -Differential diagnosis includes but not limited to: Electrolyte disturbance, fracture, contusion, chronic pain exacerbation, does not appear to be consistent with infectious process or cardiopulmonary disease. EKG interpreted by me (3pts min.)? @ -Documented in the ED course X-rays interpreted by me (1pt min.)? @ -Plain film x-rays of the chest, pelvis showed no evidence of acute pathology. Patient has a chronically elevated right hemidiaphragm. Lucency noted to proximal left femur consistent with other diagnostics. No acute fracture or dislocation. Radiology interpretation delayed CT interpreted by me (1pt min.)? @ -Computed tomography scan was considered. However the patient was in no specific distress. No concerning symptoms consistent with cauda equina disease U/S interpreted by me (1pt. min.)? @ -[none] What testing was considered but not performed? (CT, X-rays, U/S, labs)? Why? @ [Computed tomography scan was considered. However the patient was in no specific distress. No concerning symptoms consistent with cauda equina disease What meds were considered but not given? Why? @ -[none] Did you discuss the management of the patient with other professionals? @ -Yes, case discussed in detail with the patient's primary care physician, Dr. Srinivasan Did you reconcile home meds? @ -[none] Was smoking cessation discussed for >3mins.? @ -[none] Was critical care preformed (if so, how long)? @ -[none] Were there social determinants of health that impacted care today? How? (Homelessness, low income, unemployed, alcoholism, drug addiction, transportation, low edu. Level, literacy, decrease access to med. care, fdc, rehab)? @ -History of lung cancer with metastatic disease Was there de-escalation of care discussed even if they declined? (Discuss DNR or withdrawal of care, Hospice)? @ -[Discuss DNR or withdrawal of care, Hospice?] What co-morbidities impacted this encounter? (DM, HTN, Smoking, COPD, CAD, Cancer, CVA, Hep., AIDS, mental health diagnosis, sleep apnea, morbid obesity)? @ -Lung cancer Was patient admitted / discharged? @ -Discharge, stable Undiagnosed new problem with uncertain prognosis? @ -[none] Drug Therapy requiring intensive monitoring for toxicity (Heparin, Nitro, Insulin, Cardizem)? @ -[none] Were any procedures done? @ -[none] Diagnosis/symptom? @ -Bilateral hip pain, low back pain Acute, or Chronic, or Acute on Chronic? @ -Acute on chronic Uncomplicated (without systemic symptoms) or Complicated (systemic symptoms)? @ -Uncomplicated Side effects of treatment? @ -[none] Exacerbation, Progression, or Severe Exacerbation] @ -[no] Poses a threat to life or bodily function? @ -Not likely to cause threat currently to life or bodily function. Patient will need to follow-up with his oncologist for further treatment plans Patient presentation consistent with cauda equina disease. No saddle anesthesia. No bowel or bladder problems. Patient able to ambulate. No distal paresthesias. Sensation intact. Patient had a recent PET scan done which did show abnormal uptake in the proximal femur as well as L4. Concerning for metastases. Patient also had an MRI of the left hip confirming this. Patient has been under the care of Dr. Morales as well as Dr. Lazcano The case was discussed in detail with ED attending physician. Presentation, findings, treatment plan discussed in detail. No evidence of acute pathology and plain film x-rays as read by me. Case disc ussed in detail with Dr. Mcfadden Attempt was made to discharge patient however patient cannot walk safely. Patient will be admitted for observation. Patient states his primary care physician is Dr. Srinivasan - Lab Data Result diagrams: 10/24/23 21:49 10/24/23 21:49 Lab Results 10/24/23 10/24/23 10/24/23 Range/Units 21:49 21:49 21:49 WBC 9.0 (3.8-10.6) k/uL RBC 4.40 (4.30-5.90) m/uL Hgb 14.4 (13.0-17.5) gm/dL Hct 44.8 (39.0-53.0) % MCV 101.7 H (80.0-100.0) fL MCH 32.7 (25.0-35.0) pg MCHC 32.1 (31.0-37.0) g/dL RDW 14.3 (11.5-15.5) % Plt Count 280 (150-450) k/uL MPV 7.6 Neutrophils % 83 % Lymphocytes % 8 % Monocytes % 7 % Eosinophils % 1 % Basophils % 0 % Neutrophils # 7.4 (1.3-7.7) k/uL Lymphocytes # 0.7 L (1.0-4.8) k/uL Monocytes # 0.6 (0-1.0) k/uL Eosinophils # 0.1 (0-0.7) k/uL Basophils # 0.0 (0-0.2) k/uL Macrocytosis Slight Sodium 138 (137-145) mmol/L Potassium 4.1 (3.5-5.1) mmol/L Chloride 100 (98-107) mmol/L Carbon Dioxide 24 (22-30) mmol/L Anion Gap 14 mmol/L BUN 8 L (9-20) mg/dL Creatinine 0.77 (0.66-1.25) mg/dL Est GFR (CKD-EPI)AfAm >90 (>60 ml/min/1.73 sqM) Est GFR (CKD-EPI)NonAf >90 (>60 ml/min/1.73 sqM) Glucose 108 H (74-99) mg/dL Calcium 9.9 (8.4-10.2) mg/dL Magnesium 1.6 (1.6-2.3) mg/dL Total Bilirubin 0.8 (0.2-1.3) mg/dL AST 22 (17-59) U/L ALT 15 (4-49) U/L Alkaline Phosphatase 95 (38-126) U/L Troponin I <0.012 (0.000-0.034) ng/mL Total Protein 8.4 H (6.3-8.2) g/dL Albumin 4.7 (3.5-5.0) g/dL Lipase 53 (23-300) U/L Serum Alcohol <10 mg/dL Disposition Clinical Impression: Chronic hip pain, Chronic back pain, Fall, Chronic pain Disposition: ADMITTED IP TO THIS [facility] Condition: Stable Instructions (If sedation given, give patient instructions): Fall Prevention for Older Adults (ED) Prescriptions: HYDROcodone/APAP 10-325MG [[place] 10-325] 1 tab PO Q6HR PRN 3 Days #12 tab PRN Reason: Pain Is patient prescribed a controlled substance at d/c from ED?: No Time of Disposition: 22:56
[2023-10-24 22:17] LABS: Basophils % (A) 0 %; Eosinophils # (A) 0.1 k/uL (0-0.7); Eosinophils % (A) 1 %; HCT 44.8 % (39.0-53.0); HGB 14.4 gm/dL (13.0-17.5); Lymphocytes # (A) 0.7 k/uL (1.0-4.8); Lymphocytes % (A) 8 %; MCH 32.7 pg (25.0-35.0); MCHC 32.1 g/dL (31.0-37.0); MCV 101.7 fL (80.0-100.0); Macrocytosis Slight; Mean Platelet Volume 7.6; Monocytes # (A) 0.6 k/uL (0-1.0); Monocytes % (A) 7 %; Neutrophils # (A) 7.4 k/uL (1.3-7.7); Neutrophils % (A) 83 %; Platelet Count 280 k/uL (150-450); RDW 14.3 % (11.5-15.5)
[2023-10-24 22:18] LABS: ALT 15 U/L (4-49); AST 22 U/L (17-59); African American GFR (CKD) >90 (>60 ml/min/1.73 sqM); Albumin 4.7 g/dL (3.5-5.0); Alcohol <10 mg/dL; Alkaline Phosphatase 95 U/L (38-126); Anion Gap 14 mmol/L; Blood Urea Nitrogen 8 mg/dL (9-20); Calcium 9.9 mg/dL (8.4-10.2); Carbon Dioxide 24 mmol/L (22-30); Chloride 100 mmol/L (98-107); Glucose 108 mg/dL (74-99); Lipase 53 U/L (23-300); Magnesium 1.6 mg/dL (1.6-2.3); Non-African American GFR(CKD) >90 (>60 ml/min/1.73 sqM); Potassium 4.1 mmol/L (3.5-5.1); Sodium 138 mmol/L (137-145); Total Bilirubin 0.8 mg/dL (0.2-1.3); Total Protein 8.4 g/dL (6.3-8.2)
--- NOTE | 2023-10-24 22:48 | XR ---
EXAMINATION TYPE: XR chest 1V DATE OF EXAM: 10/24/2023 COMPARISON: Chest x-ray September 13, 2023 HISTORY: Generalized weakness and fall. TECHNIQUE: Single frontal view of the chest is obtained. FINDINGS: Right upper lung opacity with right-sided volume loss is redemonstrated. Left lung remains clear. The cardiac silhouette size is stable and within normal limits. Surgical changes cervical sp ine is partially imaged similar to prior. IMPRESSION: Chronic changes without new acute process.
--- NOTE | 2023-10-24 22:49 | XR ---
EXAMINATION TYPE: XR pelvis AP view DATE OF EXAM: 10/24/2023 CLINICAL HISTORY: Generalized weakness after fall. TECHNIQUE: A single AP view of the pelvis is obtained. COMPARISON: Prior pelvic x-ray March 24, 2023 FINDINGS: There is no acute displaced fracture evident in the pelvis. Pubic symphysis remains intact . The hip and sacroiliac joints appear symmetric and within normal limits. Surgical clip overlies the central pelvis on current study. IMPRESSION: There is no acute displaced fracture in the pelvis.
--- NOTE | 2023-10-24 22:51 | XR ---
EXAMINATION TYPE: XR lumbar spine 2 or 3V DATE OF EXAM: 10/24/2023 CLINICAL HISTORY: Low back pain after fall. TECHNIQUE: Frontal and lateral images of the lumbar spine are obtained. COMPARISON: Lumbar spine x-rays January 19, 2020 FINDINGS: There are 5 lumbar type vertebral bodies 4 demonstrated. The lumbar spine shows slight sc oliotic curvature without evidence of acute fracture or dislocation. There is grade 1 anterolisthesis L4 and L5 now identified. Vertebral body heights remain within normal limits. [id number] disc space narrowing at L4-5 level is redemonstrated. The oblique images appear within normal limits. Yannick gical clip overlies the pelvis. IMPRESSION: No acute fracture or dislocation is seen in the lumbar spine.
[2023-10-24] MEDS: ONDANSETRON 4 MG/2 ML VIAL IVP STA (22:55)
[2023-10-24] MEDS: HYDROmorphone 1 MG/ML 1 ML SYRINGE IVP STA (22:56)
[2023-10-24] MEDS ORDERED: NALOXONE 0.4 MG/ML 1 ML VIAL IV PRN (23:07)
[2023-10-24] MEDS: SODIUM CHLORIDE 0.9% 1,000 ML IV SCH (23:57)
[2023-10-25] MEDS: HEPARIN SODIUM,PORCINE 5,000 UNIT/ML 1 ML VIAL SQ SCH (01:30)
[2023-10-25] MEDS: HYDROmorphone 1 MG/ML 1 ML SYRINGE IVP PRN (01:52)
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
[2023-10-25] MEDS: ASPIRIN 81 MG PO SCH (12:58)
[2023-10-25] MEDS: CLOPIDOGREL 75 MG TAB PO SCH (12:58)
[2023-10-25] MEDS: METOPROLOL SUCCINATE (ER) 50 MG TAB.ER.24H PO SCH (12:58)
[2023-10-25] MEDS: SERTRALINE 100 MG TAB PO SCH (12:58)
[2023-10-25] MEDS: HYDROcodone/APAP 10-325MG 1 EACH TAB PO PRN (13:04)
[2023-10-25] MEDS ORDERED: NAPROXEN 250 MG TAB PO PRN (14:28)
[2023-10-25] MEDS: IPRATROPIUM-ALBUTEROL 3 ML NEB INHALATION SCH (15:06)
[2023-10-25 16:22] LABS: Appearance,Urine Clear (Clear); Bilirubin,Urine Negative (Negative); Blood,Urine Negative (Negative); Color,Urine Yellow; Glucose,Urine (UA) Negative (Negative); Ketones,Urine Negative (Negative); Leukocyte Esterase,Urine Negative (Negative); Nitrite,Urine Negative (Negative); PH, Urine 5.5 (5.0-8.0); Protein,Urine Trace (Negative); Specific Gravity,Urine 1.023 (1.001-1.035); Urobilinogen,Urine <2.0 mg/dL (<2.0)
[2023-10-25 16:29] LABS: Amphetamine Screen,Urine Detected (NotDetected); Cocaine Screen,Urine Not Detected (NotDetected); Opiate Screen,Urine Detected (NotDetected); Phencyclidine Screen,Urine Not Detected (NotDetected); Urn Cannabinoid Scrn Detected (NotDetected)
[2023-10-25 16:30] LABS: Barbiturate Screen,Urine Not Detected (NotDetected); Benzodiazepines Screen,Urine Not Detected (NotDetected); Methadone Screen, Urine Detected (NotDetected); Oxycodone Screen, Urine Not Detected (NotDetected); Tricyclic Antidepressant,Urine Not Detected (NotDetected)
[2023-10-25] MEDS: prednisoLONE ACETATE 1% OPHTH DROPS 5 ML BTL LEFT EYE SCH (16:47)
[2023-10-25] MEDS: MOXIFLOXACIN HCL 0.5% DROPS 3 ML BTL LEFT EYE SCH (16:47)
[2023-10-25] MEDS: methylPREDNISolone SOD SUCCI 40 MG/ML 1 ML VIAL IV SCH (16:50)
[2023-10-25] MEDS: BUDESONIDE 1 MG/2 ML NEBU INHALATION SCH (20:21)
[2023-10-25] MEDS: DOCUSATE 100 MG CAP PO SCH (20:38)
[2023-10-25] MEDS: ATROPINE OPHTH SOLN 1% 5ML BTL LEFT EYE SCH (20:41)
--- NOTE | 2023-10-25 20:46 | P.CONS ---
History of Present Illness - Reason for Consult Consult date: 10/25/23 hx lung cancer Requesting physician: Prem Ace - Chief Complaint pain, weakness, fall - History of Present Illness Mr. 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 He is a patient of Dr. Morales. CT CAP on 04/30/23 was stable and negative for recurrence of disease. Patient was seen last month on consult, when he was admitted for auditory/ visual hallucinations, and urine drug screen was positive for THC and opiates. Urine drug screen from 09/03/2023 was also positive for amphetamines and methamphetamines, which was also positive for this in September 2022. CT of the brain without contrast during that admission revealed no evidence of intracranial metastases. Right hip MRI in 09/22/2023 revealed confirmation of 3.3 cm osseous lesion lesser trochanter level left hip extending inferiorly with cortical breakthrough medially consistent with metastatic lesion. Bone scan on 09/23/2023 revealed abnormal intense uptake involving the proximal left femur. Moderate intensity uptake L4 appears to represent a lesion. Patient is scheduled for PET CT on 10/29/23 with f/u appt with Dr. Morales on 11/16. Patient represented to the emergency room for progressing weakness, intractable pain and fall. Patient reports last night when trying to stand up he fell landing on his left side. Denies head injury, neck pain, and LOC. He states pain is in bilateral hips and upper legs and right lower back. Patient reports during his last ER visit he was prescribed [place] 10 mg and was taking medication without improvement in pain, and ran out of medication. Upon admission chest x-ray revealed chronic changes without new acute processes. X-rays of pelvis and lumbar spine were negative for acute fractures. CBC reviewed, WBC 9.0, hemoglobin 14.4, platelets 280,000. Creatinine 0.77. Patient has been started on prn oral and IV pain medications, reporting IV medications are working only for short period of time. MRI lumbar spine ordered. Review of Systems 10 point ROS is negative except as stated in the HPI Past Medical History Past Medical History: Cancer, COPD, Fibromyalgia, Hyperlipidemia, Hypertension, Osteoarthritis (OA), Pneumonia, Prostate Disorder, Respiratory Disorder, Thyroid Disorder Additional Past Medical History / Comment(s): 10/2019 R side lung cancer with tumor compression SVC causing syncopal episodes/invasion of mediastinum/bilateral upper extremity lymphedema with numbness and tingling/ 29 radiation treatments, 10 chemo tx in past immunotherapy for a year, home oxygen at 3L/NC prn, vertigo, chronic cervical and back pain, past lower extremity lymphedema, BPH, anemia, bronchitis, hypothyroid History of Any Multi-Drug Resistant Organisms: None Reported Past Surgical History: Heart Catheterization With Stent, Orthopedic Surgery Additional Past Surgical History / Comment(s): 10/2019 bronchoscopy with biopsy, cervical surgery x2 with plate and bone graft from R hip, back injections, cystic acne lesions removed, colonoscopy, hemorrhoidectomy, picc lines. Past Anesthesia/Blood Transfusion Reactions: Motion Sickness Additional Past Anesthesia/Blood Transfusion Reaction / Comm: Stated Dr. Retana said the "had to bag me" Date of Last Stent Placement:: UNK Past Psychological History: Anxiety, Bipolar, Depression, PTSD Additional Psychological History / Comment(s): Pt resides alone. He has a home care worker that assists with house work. He is disabled. He served in the [employer]. He has home oxygen and nebulizer. Smoking Status: Current every day smoker Past Alcohol Use History: None Reported, Occasional Additional Past Alcohol Use History / Comment(s): Pt states he started smoking at the age of 11 and smokes approx 1/2 ppd Past Drug Use History: Marijuana Additional Drug Use History / Comment(s): Admits to marijuana. Initial UDS positive for opiates (rx'd), meth and amphetamines on 09/03/23. On 09/10/23 positive for opiates and marijuana. - Past Family History Father Family Medical History: Cancer Additional Family Medical History / Comment(s): Father is from renal cell carcinoma with mets. Mother Additional Family Medical History / Comment(s): Mother went into hospital for knee surgery/ended up from CDiff infection. Medications and Allergies Home Medications Medication Instructions Recorded Confirmed Type methocarbamoL [Robaxin-750] 750 mg PO TID PRN 09/08/22 10/25/23 History Clopidogrel [Plavix] 75 mg PO DAILY #90 tablet 04/05/23 10/25/23 Rx Atorvastatin Calcium [Lipitor] 40 mg PO DAILY 09/03/23 10/25/23 History Metoprolol Succinate (ER) [Toprol 50 mg PO DAILY 09/03/23 10/25/23 History XL] ARIPiprazole [Abilify] 20 mg PO DAILY 30 Days #30 tab 09/17/23 10/25/23 Rx Acetaminophen Tab [Tylenol] 500 mg PO Q4HR PRN tab 09/17/23 10/25/23 Rx Aspirin 81 mg PO DAILY 30 Days #30 tab 09/17/23 10/25/23 Rx QUEtiapine [SEROquel] 100 mg PO HS 30 Days #30 tab 09/17/23 10/25/23 Rx Sertraline [Zoloft] 200 mg PO DAILY 30 Days #60 tab 09/17/23 10/25/23 Rx HYDROcodone/APAP 10-325MG [[place] 1 tab PO Q6HR PRN 5 Days #15 tab 10/15/23 10/25/23 Rx 10-325] HYDROcodone/APAP 10-325MG [[place] 1 tab PO Q6HR PRN 3 Days #12 tab 10/24/23 Rx 10-325] Atropine Sulfate/Pf [Atropine 1% 1 drop LEFT EYE BID 10/25/23 10/25/23 History Eye Drops] Levothyroxine Sodium [Synthroid] 50 mcg PO DAILY 10/25/23 10/25/23 History Moxifloxacin HCl [Moxifloxacin 1 drop LEFT EYE TID 10/25/23 10/25/23 History 0.5%] Multivitamins, Thera [Multivitamin 1 tab PO DAILY 10/25/23 10/25/23 History (formulary)] Naproxen Sodium [Aleve] 440 mg PO BID PRN 10/25/23 10/25/23 History prednisoLONE ACETATE 1% OPHTH 1 drop LEFT EYE TID 10/25/23 10/25/23 History [Pred Forte 1%] Allergies Allergy/AdvReac Type Severity Reaction Status Date / Time amitriptyline [From Elavil] Allergy Rash/Hives Verified 10/25/23 12:01 diazepam [From Valium] Allergy Unknown Verified 10/25/23 12:01 niacin Allergy Rash/Hives Verified 10/25/23 12:01 alprazolam [From Xanax] AdvReac Hallucinati Verified 10/25/23 12:01 ons Physical Exam Vitals: Vital Signs Temp Pulse Pulse Resp BP BP Pulse Ox 10/25/23 07:40 98.3 F 97 18 100/71 96 10/25/23 00:44 98.1 F 114 H 20 116/75 96 10/25/23 00:14 112 H 18 110/79 99 10/24/23 22:55 110 H 20 122/85 100 10/24/23 21:12 98.3 F 102 H 20 124/94 100 Intake and Output 10/24/23 10/25/23 10/25/23 22:59 06:59 14:59 Intake Total 390 Balance 390 Intake: Intake, IV Titration 140 Amount Sodium Chloride 0.9% 1, 140 000 ml @ 20 mls/hr IV . Q24H [facility] Rx#:[id number] Oral 250 Other: Weight 61.235 kg 61.235 kg - Constitutional General appearance: no acute distress - EENT Eyes: anicteric sclerae, EOMI ENT: hearing grossly normal - Respiratory breathing is even and unlabored - Cardiovascular skin warm and dry - Gastrointestinal General gastrointestinal: soft, no tenderness - Integumentary Integumentary: no cyanotic, no jaundiced - Musculoskeletal decreased ROM of lower spine and bilateral hips Musculoskeletal: generalized weakness - Psychiatric Psychiatric: A&O x's 3 Results CBC & Chem 7: 10/24/23 21:49 10/24/23 21:49 Labs: Abnormal Lab Results - Last 24 Hours (Table) 10/24/23 10/24/23 Range/Units 21:49 21:49 MCV 101.7 H (80.0-100.0) fL Lymphocytes # 0.7 L (1.0-4.8) k/uL BUN 8 L (9-20) mg/dL Glucose 108 H (74-99) mg/dL Total Protein 8.4 H (6.3-8.2) g/dL Comments: pelvis and hip xray, bone scan, CT CAP, and chest xray reviewed Assessment and Plan (1) Chronic back pain Current Visit: Yes Status: Acute Priority: Medium Code(s): M54.9 - D ORSALGIA, UNSPECIFIED; G89.29 - OTHER CHRONIC PAIN SNOMED Code(s): 373682137 (2) Chronic hip pain Current Visit: Yes Status: Acute Priority: Medium Code(s): M25.559 - PAIN IN UNSPECIFIED HIP; G89.29 - OTHER CHRONIC PAIN SNOMED Code(s): 99536672 (3) Chronic pain Current Visit: Yes Status: Acute Priority: Medium Code(s): G89.29 - OTHER CHRONIC PAIN SNOMED Code(s): 53968189 (4) Fall Current Visit: Yes Status: Acute Priority: Medium Code(s): W19.XXXA - UNSPECIFIED FALL, INITIAL ENCOUNTER SNOMED Code(s): 5661614 (5) Lung cancer Current Visit: No Status: Chronic Priority: Medium Code(s): C34.90 - MALIGNANT NEOPLASM OF UNSP PART OF UNSP BRONCHUS OR LUNG SNOMED Code(s): 737341992 Plan: Intractable pain: Presented with complaints of progressing weakness, intractable pain and fall. Patient reports last night when trying to stand up he fell landing on his left side. He states pain is in bilateral hips and upper legs and right lower back. Patient states during his last ER visit he was prescribed [place] 10 mg and was taking medication without improvement in pain, and ran out of medication. Upon admission X-rays of pelvis and lumbar spine were negative for acute fractures. -Prn oral and IV pain medications have been ordered, reporting only minimal short term relief with IV Dilaudid. Colace started for prevention of narcotic induced constipation. 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 CT CAP on 04/30/23 was stable and negative for recurrence of disease. Patient was seen last month on consult, when he was admitted for auditory/ visual hallucinations, and urine drug screen was positive for THC and opiates. Urine drug screen from 09/03/2023 was also positive for amphetamines and methamphetamines, which was also positive for this in September 2022. CT of the brain without contrast du ring that admission revealed no evidence of intracranial metastases. Right hip MRI in 09/22/2023 revealed confirmation of 3.3 cm osseous lesion lesser trochanter level left hip extending inferiorly with cortical breakthrough medially consistent with metastatic lesion. Bone scan on 09/23/2023 revealed abnormal intense uptake involving the proximal left femur. Moderate intensity uptake L4 appears to represent a lesion. Patient is scheduled for PET CT on 10/29/23 with f/u appt with Dr. Morales on 11/16. -Patient is reporting difficulties with ambulation and transport issues. Requesting assistance with medical transportation to and from appts. Consult placed to case management for assistance/resources with outpt medical transport. Have also placed referral to home health services. PT has also been consulted, will await their recommendations. Patient may need rehabilitation upon discharge. Discussed with pt and family that treatment and further workup would be on hold while in rehab, if this was recommendation upon d/c
[2023-10-26 00:27] LABS: Glucose,Whole Blood 126 mg/dL (70-110)
[2023-10-26] MEDS: LEVOTHYROXINE 50 MCG TAB PO SCH (06:31)
[2023-10-26 08:03] LABS: HCT 43.1 % (39.0-53.0); HGB 13.6 gm/dL (13.0-17.5); Hypochromasia Slight; MCH 33.5 pg (25.0-35.0); MCHC 31.6 g/dL (31.0-37.0); MCV 105.9 fL (80.0-100.0); Macrocytosis Moderate; Mean Platelet Volume 8.1; Platelet Count 285 k/uL (150-450); RBC 4.07 m/uL (4.30-5.90); WBC 17.7 k/uL (3.8-10.6)
[2023-10-26 08:21] LABS: ALT 23 U/L (4-49); AST 37 U/L (17-59); African American GFR (CKD) 68 (>60 ml/min/1.73 sqM); Albumin/Globulin Ratio 1.1; Alkaline Phosphatase 83 U/L (38-126); Anion Gap 15 mmol/L; Blood Urea Nitrogen 23 mg/dL (9-20); Calcium 9.5 mg/dL (8.4-10.2); Carbon Dioxide 22 mmol/L (22-30); Chloride 101 mmol/L (98-107); Globulin 3.6 g/dL; Glucose 171 mg/dL (74-99); Non-African American GFR(CKD) 59 (>60 ml/min/1.73 sqM); Potassium 4.5 mmol/L (3.5-5.1); Sodium 138 mmol/L (137-145); Total Bilirubin 0.6 mg/dL (0.2-1.3); Total Protein 7.6 g/dL (6.3-8.2)
[2023-10-26] MEDS: ONDANSETRON 4 MG/2 ML VIAL IVP PRN (08:51)
[2023-10-26] MEDS: PANTOPRAZOLE 40 MG TABLET PO SCH (08:55)
[2023-10-26] MEDS: MULTIVITAMINS, THERA 1 EACH TAB PO SCH (08:55)
[2023-10-26] MEDS: ATORVASTATIN 40 MG TAB PO SCH (08:56)
[2023-10-26 11:01] LABS: Band Neutrophils % 6 %; Nucleated Red Blood Cells 0 /100 WBC (0-0)
[2023-10-26 11:03] LABS: Lymphocytes # (M) 1.06 k/uL (1.0-4.8); Metamyelocytes # (M) 0.18 k/uL (0); Metamyelocytes % 1 %; Monocytes # (M) 1.06 k/uL (0-1.0); Neutrophils % (M) 83 %; Total Cells Counted 200
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
[2023-10-26] MEDS: methylPREDNISolone SOD SUCCI 40 MG/ML 1 ML VIAL IV SCH (12:57)
[2023-10-27 11:24] LABS: HCT 36.1 % (39.6-50.0); HGB 11.4 g/dL (13.0-17.0); MCH 32.7 pg (27.0-32.0); MCHC 31.6 g/dL (32.0-37.0); MCV 103.4 FL (80.0-97.0); Mean Platelet Volume 9.7 FL (9.5-12.2); NRBC Per 100 WBC 0 X 10*3/uL (0.00-0.01); Platelet Count 230 X 10*3/uL (140-440); RBC 3.49 X 10*6/uL (4.40-5.60); RDW 13.8 % (11.5-14.5); WBC 19.48 X 10*3/uL (4.50-10.00)
[2023-10-27 11:55] LABS: BUN/Creat Ratio 27.33 Ratio (12.00-20.00); Blood Urea Nitrogen 24.6 mg/dL (9.0-27.0); Carbon Dioxide 26.5 mmol/L (21.6-31.8); Chloride 101 mmol/L (96-109); Glucose 126 mg/dL (70-110); Potassium 4.5 mmol/L (3.5-5.5); Sodium 139 mmol/L (135-145)
[2023-10-27 11:56] LABS: ALT 15 U/L (10-49); AST 14 U/L (14-35); Albumin 3.7 g/dL (3.8-4.9); Albumin/Globulin Ratio 1.32 Ratio (1.60-3.17); Alkaline Phosphatase 80 U/L (41-126); Calcium 9.5 mg/dL (8.7-10.3); Globulin 2.8 g/dL (1.6-3.3); Total Bilirubin 0.3 mg/dL (0.3-1.2); Total Protein 6.5 g/dL (6.2-8.2)
[2023-10-27 12:03] LABS: Basophils # (A) 0.04 X 10*3/uL (0.00-0.10); Basophils % (A) 0.2 %; Eosinophils # (A) 0 X 10*3/uL (0.04-0.35); Eosinophils % (A) 0 %; Lymphocytes # (A) 0.41 X 10*3/uL (0.90-5.00); Lymphocytes % (A) 2.1 %; Monocytes % (A) 5.6 %; Neutrophils # (A) 17.82 X 10*3/uL (1.80-7.70); Neutrophils % (A) 91.5 %; RBC Morphology Normal (Normal)
--- NOTE | 2023-10-27 18:09 | P.PN ---
Subjective Progress Note Date: 10/27/23 Principal diagnosis: Intractable pain In f/u today pt is reporting low back pain, bilateral hip pain. Pain meds help, most of the time. He ambulates with a wheeled walker. Objective - Vital Signs Vital signs: Vital Signs Temp 98.2 F 10/27/23 11:43 Pulse 94 10/27/23 15:50 Resp 18 10/27/23 11:43 BP 113/68 10/27/23 11:43 Pulse Ox 91 L 10/27/23 11:43 FiO2 Intake & Output 10/26/23 10/27/23 10/27/23 18:59 06:59 18:59 Intake Total 1000 Output Total 300 400 Balance 1000 -300 -400 Intake: Intake, IV Titration 1000 Amount Sodium Chloride 0.9% 1, 1000 000 ml @ 100 mls/hr IV . Q10H [facility] Rx#:[id number] Output: Urine 300 400 Other: Voiding Method Toilet - Constitutional Constitutional Comment(s): looks much older then chronological age General appearance: Present: cooperative, no acute distress - EENT EENT Comment(s): rt pupil 4mm, lt pupil 2mm Eyes: Present: anicteric sclerae ENT: Present: hearing grossly normal - Respiratory Details: resp unlabored at rest, congested cough - Cardiovascular Details: Skin warm and dry to the touch - Peripheral edema leg Peripheral Edema: bilateral: None - Gastrointestinal General gastrointestinal: Present: soft - Musculoskeletal Musculoskeletal Comment(s): Bilateral lower extremity weakness, secondary to pain, right > left. Musculoskeletal: Present: generalized weakness - Psychiatric Psychiatric: Present: A&O x's 3, appropriate affect, intact judgment & insight - Labs CBC & Chem 7: 10/27/23 06:19 10/27/23 06:19 Labs: Abnormal Lab Results - Last 24 Hours (Table) 10/27/23 10/27/23 Range/Units 06:19 06:19 WBC 19.48 H (4.50-10.00) X 10*3/uL RBC 3.49 L (4.40-5.60) X 10*6/uL Hgb 11.4 L (13.0-17.0) g/dL Hct 36.1 L (39.6-50.0) % MCV 103.4 H (80.0-97.0) FL MCH 32.7 H (27.0-32.0) pg MCHC 31.6 L (32.0-37.0) g/dL Immature Gran # 0.11 H (0.00-0.04) X 10*3/uL Neutrophils # 17.82 H (1.80-7.70) X 10*3/uL Lymphocytes # 0.41 L (0.90-5.00) X 10*3/uL Monocytes # 1.10 H (0.20-1.00) X 10*3/uL Eosinophils # 0 L (0.04-0.35) X 10*3/uL BUN/Creatinine Ratio 27.33 H (12.00-20.00) Ratio Glucose 126 H (70-110) mg/dL Albumin 3.7 L (3.8-4.9) g/dL Albumin/Globulin Ratio 1.32 L (1.60-3.17) Ratio Assessment and Plan (1) Hip pain, bilateral Current Visit: Yes Status: Acute Priority: High Code(s): M25.551 - PAIN IN RIGHT HIP; M25.552 - PAIN IN LEFT HIP SNOMED Code(s): 27994712 (2) Intractable low back pain Current Visit: Yes Status: Acute Priority: High Code(s): M54.5 - LOW BACK PAIN * DO NOT USE * SNOMED Code(s): 39434748578688655 (3) Non-small cell lung cancer (NSCLC) Current Visit: Yes Status: Acute Priority: High Code(s): C34.90 - MALIGNANT NEOPLASM OF UNSP PART OF UNSP BRONCHUS OR LUNG SNOMED Code(s): 737095411 Plan: Bilateral hip and low back pain, intractable -Patient has a history of chronic low back pain. He is complaining of hip pain worse on the left than on the right. MRI of the left hip, 09/22/2023 showing a 3.3 cm osseous lesion. -Nuclear medicine bone scan 09/23/2023 report reads abnormal intense uptake involving proximal left femur concordant with the x-ray and MRI abnormality. Moderate intensity uptake at L4, represents lesion by recent MRI and suspicious for metastatic disease. -Orthopedic spine surgeon has seen the patient. MRI of the L-spine has been ordered. Pending their review and recommendations. -Pain management has been consulted for complicated case-component of chronic pain and malignancy pain. 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 No evidence of disease until Sep 2023. Fortunately, patient had increased musculoskeletal complaints, low back, bilateral hips. On further workup found to have metastatic bone lesions. -Restaging PET/CT is scheduled 10/29/2023-patient rescheduled this appointment, he was previously scheduled for 10/15/2023. Follow-up with Dr. Morales was moved. Patient now has a follow-up scheduled for 11/17/2023 to review PET scan results, treatment options as well as prognosis. Patient verbalized understanding. -Case management assisting pt with resources for medical transportation, home health services. PT consulted, will await their recommendations regarding rehabilitation
--- NOTE | 2023-10-27 22:58 | MR ---
EXAMINATION TYPE: MR lumbar spine wo/w con DATE OF EXAM: 10/27/2023 COMPARISON: Plain films 10/24/2023 HISTORY: Left leg weakness, severe pain, hx of ca CONTRAST: 6 mL intravenous Gadavist. TECHNIQUE: Multiplanar, multisequence images of the lumbar spine were acquired. FINDINGS: Signal abnormality is noted throughout the L4 vertebral body. There is anterior inferior L 5 abnormal signal and smaller ill-defined areas of abnormal signal within the L3 and superior L2 vert ebral bodies. Some abnormal signal within the inferior T12 vertebral body. These areas have enhanceme nt. Findings are compatible with metastatic disease. No vertebral body height loss is evident. No posterior wall displacement is evident. L5-S1: Broad-based disc bulge is present in the central right paracentral region with mild anterior t hecal sac contact. No AP spinal canal stenosis is present. Left facet hypertrophy is present. Severe right and moderate left foraminal stenosis is present. L4-L5: Mild disc bulge is present with anterior thecal sac contact. Ligamentum flavum laxity has post erior lateral thecal sac compression. Bilateral foraminal stenosis is present. L3-L4: No significant disc bulge or disc herniation. No spinal canal stenosis. Neural foramen are p atent.. L2-L3: Broad-based disc bulge is mild anterior thecal sac compression. No AP spinal canal stenosis is present. There is moderate bilateral foraminal narrowing. No spinal canal stenosis. Neural forame n are patent.. L1-L2: Small central protrusion is present may have mild subligamentous disc extension beyond the end plate of L2. No spinal canal stenosis is present. T12-L1: No significant disc bulge or disc herniation. No spinal canal stenosis. Neural foramen are patent.. No enhancement within the spinal canal is evident. Cord terminates at the L1 level. Disc desiccation is present T12-L1. Remaining discs have normal hydration. IMPRESSION: 1. Multiple areas of suspected metastatic disease within the lumbar spine, largest is through the L4 level. No vertebral body height loss is evident. 2. Multilevel disc bulges and a be greatest at L5-S1. 3. Small subligamentous disc herniation and central protrusion present L1-2 without spinal canal sten osis. 4. Severe right foraminal stenosis L5-S1 with milder foraminal narrowing discussed above. Correlate f or right S1 radicular symptoms.
[2023-10-28] MEDS: HYDROmorphone 0.5 MG/0.5 ML SYRINGE IVP PRN (04:03)
[2023-10-28] MEDS: predniSONE 20 MG TAB PO SCH (08:40)
--- NOTE | 2023-10-28 09:55 | XR ---
EXAMINATION TYPE: XR chest 2V DATE OF EXAM: 10/28/2023 COMPARISON: 10/24/2023 TECHNIQUE: PA and lateral views submitted. HISTORY: Cough FINDINGS: A large area of consolidation or mass right upper lobe stable. Post cervical spine surgery. Elevated right hemidiaphragm. New left lower lobe infiltrate. No overt failure. Osseous structures stable. IMPRESSION: 1. New patchy left lower lobe infiltrate. 2. Right upper lobe mass or consolidation with volume loss stable..
[2023-10-28 11:52] LABS: ALT 26 U/L (10-49); AST 35 U/L (14-35); Albumin 3.5 g/dL (3.8-4.9); Albumin/Globulin Ratio 1.25 Ratio (1.60-3.17); Alkaline Phosphatase 77 U/L (41-126); BUN/Creat Ratio 23.38 Ratio (12.00-20.00); Blood Urea Nitrogen 18.7 mg/dL (9.0-27.0); Calcium 8.9 mg/dL (8.7-10.3); Carbon Dioxide 26.2 mmol/L (21.6-31.8); Chloride 99 mmol/L (96-109); Globulin 2.8 g/dL (1.6-3.3); Glucose 95 mg/dL (70-110); Potassium 4.6 mmol/L (3.5-5.5); Sodium 138 mmol/L (135-145); Total Bilirubin 0.2 mg/dL (0.3-1.2); Total Protein 6.3 g/dL (6.2-8.2)
[2023-10-28 12:17] LABS: HCT 32.8 % (39.6-50.0); HGB 10.5 g/dL (13.0-17.0); MCH 32.7 pg (27.0-32.0); MCV 102.2 FL (80.0-97.0); NRBC Per 100 WBC 0 X 10*3/uL (0.00-0.01); Platelet Count 202 X 10*3/uL (140-440); RBC 3.21 X 10*6/uL (4.40-5.60); WBC 17.93 X 10*3/uL (4.50-10.00)
[2023-10-28] MEDS: IOPAMIDOL CONTRAST (ORAL USE) VIAL PO PRN (12:55)
[2023-10-28 14:02] LABS: Basophils # (A) 0.05 X 10*3/uL (0.00-0.10); Basophils % (A) 0.3 %; Eosinophils % (A) 0.6 %; Lymphocytes # (A) 0.52 X 10*3/uL (0.90-5.00); Lymphocytes % (A) 2.9 %; Monocytes # (A) 1.37 X 10*3/uL (0.20-1.00); Monocytes % (A) 7.6 %; Neutrophils # (A) 15.82 X 10*3/uL (1.80-7.70); Neutrophils % (A) 88.2 %
--- NOTE | 2023-10-28 15:32 | CT ---
EXAMINATION TYPE: CT ChestAbdPelvis w con CT DLP: 690.10 mGycm, Automated exposure control for dose reduction was used. DATE OF EXAM: 10/28/2023 2:48 PM COMPARISON: Lumbar spine 10/27/2023, 05/09/2021. CLINICAL INDICATION:Male, 63 years old with history of hx lung cancer, new osseous mets; PHH, hx lung cancer, new osseous mets Technique: CT ChestAbdPelvis w con; Multiple axial images were obtained. Two-dimensional coronal and sagittal reconstructions were obtained. Contrast used:100ml mL of Isovue 300 with IV Contrast, Oral contrast used: with Oral Contrast Findings: CHEST: LUNGS/ PLEURA: Consolidation changes in the right lung apex which extend down towards the pulmonary h ilum. Left lower lung airspace consolidation present. Patchy airspace opacities in the posterior aspe ct of the right lower lung. AIRWAY: Patent and unremarkable. HEART: Size within normal limits. MEDIASTINUM: No gross evidence of adenopathy. VASCULATURE: No aortic aneurysm. 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 Partially visualized fixatio n hardware MUSCULOSKELETAL: No acute osseous abnormalities. SOFT TISSUES/LYMPH NODES: Unremarkable. LOWER NECK: No significant findings. ABDOMEN: ABDOMEN LIVER: Unremarkable GALLBLADDER AND BILE DUCTS: Unremarkable. PANCREAS: Unremarkable. SPLEEN: Unremarkable. ADRENAL GLANDS: Unremarkable. KIDNEYS AND URETERS: No right renal calculi. Nonobstructing left renal calculi. Areas of cortical thi nning bilateral kidneys suggestive of prior injuries. PELVIS BLADDER: Unremarkable REPRODUCTIVE: Unremarkable. ABDOMEN & PELVIS STOMACH AND BOWEL: No evidence of bowel obstruction. PERITONEUM: No evidence of pneumoperitoneum or free fluid. VASCULATURE: No evidence of aortic aneurysm. MUSCULOSKELETAL: No evidence of acute process. There is lucent areas in the L4 and L5 vertebrae. Area on MRI lumbar spine L2 vertebral body is more subtle. There is a lytic lesion in the left proximal f emur with soft tissue extending out of the cortex measuring 50 x 26 mm. LYMPH NODES: No gross evidence for lymphadenopathy. SOFT TISSUE/ABDOMINAL WALL: Unremarkable IMPRESSION: 1. 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 Further evaluation the right brachiocephalic vein recommen ded. It is not recommended to inject into the right upper extremity for future CT examinations. Findi ngs of injection collateral pathways in the right upper extremity were seen on 05/09/2021. 2. Left lower lung airspace consolidation correlate for pneumonia. 3. Lytic lesion of the left proximal femur with cortical breakthrough and soft tissue. This makes th e left lower extremity vulnerable to pathologic fracture. Orthopedic oncology evaluation recommended. 4. Right upper lung consolidation changes which extends down towards the pulmonary hilum. It limits evaluation. 5. Suspected metastatic disease which is seen on prior MRI lumbar spine in L4, L5 and L2 is more sub tle on CT imaging. Other areas throughout the osseous structures is not definitively visualized possi whitney due to CT technique. Consider evaluation with PET/CT.
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
--- NOTE | 2023-10-28 18:35 | P.PN ---
Subjective Progress Note Date: 10/28/23 Principal diagnosis: osseous lesions, intractable pain No acute events. Patient resting comfortably in bed sleeping upon entering the room. Patient reports persisting bilateral upper leg pain and right lower back pain. Patient reports pain is greater on the right side than left. Reports mild improvement with [place] but states he does not feel like Dilaudid is helping with pain control. Objective - Vital Signs Vital signs: Vital Signs Temp 98.1 F 10/28/23 08:00 Pulse 89 10/28/23 08:00 Resp 18 10/28/23 08:00 BP 104/62 10/28/23 08:00 Pulse Ox 96 10/28/23 01:02 FiO2 Intake & Output 10/27/23 10/28/23 10/28/23 18:59 06:59 18:59 Output Total 650 250 Balance -650 -250 Output: Urine 650 250 Other: Voiding Method Toilet Urinal Toilet # Voids 2 1 - Constitutional General appearance: Present: no acute distress - EENT Eyes: Present: anicteric sclerae, EOMI ENT: Present: hearing grossly normal - Respiratory Details: breathing is even and unlabored - Cardiovascular Details: skin warm and dry - Gastrointestinal General gastrointestinal: Present: soft. Absent: tenderness - Musculoskeletal Musculoskeletal Comment(s): decreased ROM of BLE - Psychiatric Psychiatric: Present: A&O x's 3 - Labs CBC & Chem 7: 10/28/23 05:46 10/28/23 05:46 Labs: Abnormal Lab Results - Last 24 Hours (Table) 10/28/23 10/28/23 Range/Units 05:46 05:46 WBC 17.93 H (4.50-10.00) X 10*3/uL RBC 3.21 L (4.40-5.60) X 10*6/uL Hgb 10.5 L (13.0-17.0) g/dL Hct 32.8 L (39.6-50.0) % MCV 102.2 H (80.0-97.0) FL MCH 32.7 H (27.0-32.0) pg Anion Gap 12.80 H (4.00-12.00) mmol/L BUN/Creatinine Ratio 23.38 H (12.00-20.00) Ratio Total Bilirubin 0.2 L (0.3-1.2) mg/dL Albumin 3.5 L (3.8-4.9) g/dL Albumin/Globulin Ratio 1.25 L (1.60-3.17) Ratio - Imaging and Cardiology MRI lumbar spine reviewed Assessment and Plan (1) Chronic back pain Current Visit: Yes Status: Acute Priority: Medium Code(s): M54.9 - DORSALGIA, UNSPECIFIED; G89.29 - OTHER CHRONIC PAIN SNOMED Code(s): 651030645 (2) Chronic hip pain Current Visit: Yes Status: Acute Priority: Medium Code(s): M25.559 - PAIN IN UNSPECIFIED HIP; G89.29 - OTHER CHRONIC PAIN SNOMED Code(s): 63654542 (3) Chronic pain Current Visit: Yes Status: Acute Priority: Medium Code(s): G89.29 - OTHER CHRONIC PAIN SNOMED Code(s): 82023036 (4) Fall Current Visit: Yes Status: Acute Priority: Medium Code(s): W19.XXXA - UNSPECIFIED FALL, INITIAL ENCOUNTER SNOMED Code(s): 5870898 (5) Lung cancer Current Visit: No Status: Chronic Priority: Medium Code(s): C34.90 - MALIGNANT NEOPLASM OF UNSP PART OF UNSP BRONCHUS OR LUNG SNOMED Code(s): 726455079 Plan: Bilateral hip and low back pain, intractable -Patient has a history of chronic low back pain. He is complaining of hip pain worse on the right than left. MRI of the left hip, 09/22/2023 showing a 3.3 cm osseous lesion with cortical breakthrough -Nuclear medicine bone scan 09/23/2023 report reads abnormal intense uptake involving proximal left femur concordant with the x-ray and MRI abnormality. Moderate intensity uptake at L4. MRI lumbar spine revealed multiple areas of suspected metastatic disease within the lumbar spine largest through the L4 level. Also noted at L2, L3 and L5 as well as some abnormal signal within the inferior T12 vertebral body. Multilevel disc bulges greatest at L5-S1. Small subligamentous disc herniation and central protrusion present at L1-2 without spinal canal stenosis. Severe right foraminal stenosis at L5-S1 -Spoke with radiation oncology, consult has been placed. Plan to obtain right hip MRI and for simulation tentatively for - Per discussion with rad/onc, will consult Orthopedic spine surgeon to evaluate for surgical intervention. Spoke with nursing, and Dr. Retana has recommended left femur intramedullary rodding. Recommending holding plavix and ASA for 5 days prior to surgery. The same will be held and will continue with subQ heparin -Pain management has been consulted for complicated case-component of chronic pain and malignancy pain. 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 No evidence of disease until Sep 2023. Fortunately, patient had increased musculoskeletal complaints, low back, bilateral hips. On further workup found to have metastatic bone lesions. -Restaging PET/CT is scheduled 10/29/2023-patient rescheduled this appointment, he was previously scheduled for 10/15/2023. Follow-up with Dr. Morales scheduled for 11/17/2023. -Due to recommended orthopedic surgery as well as likely need for rehabilitation upon discharge, will obtain CT CAP inpt to evaluate for other sites of metastasis -Will request pathology from left hip lesion -Case management assisting pt with resources for medical transportation and home health services. PT also consulted, will await their recommendations regarding rehabilitation.
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
[2023-10-28] MEDS: PIPERACILLIN-TAZOBACTAM 3.375 GM in SODIUM CHLORIDE 0.9% 100 ML IVPB SCH (18:59)
[2023-10-28] MEDS: methocarbamoL 750 MG TAB PO PRN (23:26)
[2023-10-29 03:47] LABS: Basophils % (A) 0 %; Eosinophils % (A) 0 %; HCT 32.7 % (39.0-53.0); HGB 10.8 gm/dL (13.0-17.5); Lymphocytes # (A) 0.5 k/uL (1.0-4.8); Lymphocytes % (A) 2 %; MCH 33.8 pg (25.0-35.0); MCHC 33.1 g/dL (31.0-37.0); MCV 102.1 fL (80.0-100.0); Macrocytosis Slight; Mean Platelet Volume 7.9; Monocytes # (A) 1.2 k/uL (0-1.0); Monocytes % (A) 5 %; Neutrophils # (A) 20.5 k/uL (1.3-7.7); Neutrophils % (A) 92 %; Platelet Count 206 k/uL (150-450); RDW 13.8 % (11.5-15.5); WBC 22.3 k/uL (3.8-10.6)
[2023-10-29 03:51] LABS: ALT 43 U/L (4-49); AST 43 U/L (17-59); African American GFR (CKD) >90 (>60 ml/min/1.73 sqM); Albumin 3.1 g/dL (3.5-5.0); Alkaline Phosphatase 88 U/L (38-126); Anion Gap 7 mmol/L; Blood Urea Nitrogen 19 mg/dL (9-20); Calcium 8.8 mg/dL (8.4-10.2); Carbon Dioxide 29 mmol/L (22-30); Chloride 100 mmol/L (98-107); Glucose 126 mg/dL (74-99); Non-African American GFR(CKD) >90 (>60 ml/min/1.73 sqM); Potassium 3.8 mmol/L (3.5-5.1); Sodium 136 mmol/L (137-145); Total Bilirubin 0.5 mg/dL (0.2-1.3); Total Protein 6.1 g/dL (6.3-8.2)
--- NOTE | 2023-10-29 07:41 | P.CNPUL ---
History of Present Illness Consult date: 10/29/23 Requesting physician: Eliseo Srinivasan Reason for consult: pneumonia Chief complaint: Fall, weakness, severe hip pain History of present illness: I am seeing this patient in consultation today 10/29/2023 for suspected left lower lobe pneumonia. Patient is a 63-year-old white male with past medical h istory significant for COPD, adenocarcinoma of the lung diagnosed originally back in October 2019 status post chemotherapy radiation. Followed by immunotherapy. Does not appear the patient has followed up in the pulmonary office since 2021. He does follow with his oncologist Dr. Morales. Since then, he has experienced a fall and he has been complaining of severe hip pain. It is affecting his ambulation. He can no longer take care of himself at home. He had a ER visit earlier this month for this. He did have a follow-up nuc med bone scan which showed abnormal intense uptake involving the proximal left femur suggestive of malignancy. There was moderate intensity uptake L4 also suspicious for metastatic disease. He was scheduled for a follow-up outpatient PET scan today, which will obviously have to be rescheduled. Patient also has past medical history significant for COPD, chronic hypoxemic respiratory failure and maintained on 3 L/min nasal cannula as needed, hyperlipidemia, hypertension, hypothyroidism, coronary artery disease with previous PCI/stent, anxiety/depression/PTSD polysubstance abuse, among many other medical comorbidities. Patient returned to the emergency room on 10/24/2023 in complaining of increased lower extremity pain bilaterally. He can no longer ambulate appropriately. MRI of the lumbar spine demonstrates multiple areas of suspected metastatic disease within the lumbar spine with the largest through the L4 level. No vertebral body height loss is evident. There is multilevel disc bulges greatest at L5-S1. There is small subligamentous disc herniation and central protrusion present at L1-2 without spinal canal stenosis. There is severe right for minimal stenosis at L5-S1 with milder formoterol narrowing. 8 x-ray of the pelvis does not show any acute fractures. Patient did have a chest x-ray yesterday which showed a new patchy left lower lobe infiltrate as well as the patient's known right upper lobe mass with associated right upper lobe volume loss/absorptive atelectasis. 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 Patient does have history of SVC stenosis posttreatment. There is redemonstration of the patient's right upper lobe consolidation, which extends toward the pulmonary hilum, and consistent with the patient's known lung cancer. There is a new left lower lung airspace consolidation with air bronchograms consistent with pneumonia. There is redemonstration of the patient's suspected metastatic disease involving the lumbar spine left proximal femur. For this reason, we were consulted yesterday. Patient is currently sitting up in bed, 3 L/min nasal cannula, in no acute distress. He does endorse chronic shortness of breath. He has had a minimally productive cough with occasional yellow sputum production. Denies any fevers. Denies any chest pain. His main complaint is his bilateral hip pain. Patient has been evaluated by orthopedic surgery, there is a possible plan for prophylactic insertion of a intramedullary sarita to support the left femur. Most recent CBC from this morning: WBC count 22.3, hemoglobin 10.8, hematocrit 32.7, platelets 206. BMP from this morning: Sodium 136, potassium 3.8, chloride 100, serum bicarb 29, BUN 19, creatinine 0.77, glucose 126. Patient has been started on empiric Zosyn. Procalcitonin level pending. Sputum culture was ordered. He is afebrile. Vital signs are stable. Review of Systems REVIEW OF SYSTEMS: CONSTITUTIONAL: Denies any recent significant weight loss or weight gain. Admits lower extremity weakness and fatigue. Admits significant bilateral hip pain, especially worse on the left. EYES: Patient is newly blind in the left eye, reports eye trauma with aerosol can in August of this year EARS, NOSE, MOUTH, THROAT: Denies headaches, denies sore throat. CARDIOVASCULAR: Denies chest pain, palpitations or syncopal episodes. RESPIRATORY: Admits chronic shortness of breath with associated minimally productive cough over the last month. Denies any hemoptysis. Denies any chest pain. Denies any fevers. GASTROINTESTINAL: Denies change in appetite, abdominal pain, nausea and vomiting, or diarrhea GENITOURINARY: Denies hematuria, denies infections. MUSKULOSKELETAL: Admits severe left hip pain, right hip pain, lower back pain, and limited mobility of his lower extremities. INTEGUMENTARY: Denies rash, denies eczema. NEUROLOGICAL: Denies recent memory loss, no recent seizure activity. PSYCHIATRIC: Denies anxiety, denies depression. HEMATOLOGIC/LYMPHATIC: Denies anemia, denies enlarged lymph node Past Medical History Past Medical History: Cancer, COPD, Fibromyalgia, Hyperlipidemia, Hypertension, Osteoarthritis (OA), Pneumonia, Prostate Disorder, Respiratory Disorder, Thyroid Disorder Additional Past Medical History / Comment(s): 10/2019 R side lung cancer with tumor compression SVC causing syncopal episodes/invasion of mediastinum/bilateral upper extremity lymphedema with numbness and tingling/ 29 radiation treatments, 10 chemo tx in past immunotherapy for a year, home oxygen at 3L/NC prn, vertigo, chronic cervical and back pain, history of prior anterior cervical spine surgery which was done well, past lower extremity lymphedema, BPH, anemia, bronchitis, hypothyroid History of Any Multi-Drug Resistant Organisms: None Reported Past Surgical History: Heart Catheterization With Stent, Orthopedic Surgery Additional Past Surgical History / Comment(s): 10/2019 bronchoscopy with biopsy, cervical surgery x2 with plate and bone graft from R hip, back injections, cystic acne lesions removed, colonoscopy, hemorrhoidectomy, picc lines. Past Anesthesia/Blood Transfusion Reactions: Motion Sickness Additional Past Anesthesia/Blood Transfusion Reaction / Comment(s): Stated Dr. Retana said the "had to bag me" Date of Last Stent Placement:: UNK Past Psychological History: Anxiety, Bipolar, Depression, PTSD Additional Psychological History / Comment(s): Pt resides alone. He has a home care worker that assists with house work. He is disabled. He served in the [employer]. He has home oxygen and nebulizer. Smoking Status: Current every day smoker Past Alcohol Use History: None Reported, Occasional Additional Past Alcohol Use History / Comment(s): Pt states he started smoking at the age of 11 and smokes approx 1/2 ppd Past Drug Use History: Marijuana Additional Drug Use History / Comment(s): Admits to marijuana. Initial UDS positive for opiates (rx'd), meth and amphetamines on 09/03/23. On 09/10/23 positive for opiates and marijuana. - Past Family History Father Family Medical History: Cancer Additional Family Medical History / Comment(s): Father is from renal cell carcinoma with mets. Mother Additional Family Medical History / Comment(s): Mother went into hospital for knee surgery/ended up from CDiff infection. Medications and Allergies Home Medications Medication Instructions Recorded Confirmed Type methocarbamoL [Robaxin-750] 750 mg PO TID PRN 09/08/22 10/25/23 History Clopidogrel [Plavix] 75 mg PO DAILY #90 tablet 04/05/23 10/25/23 Rx Atorvastatin Calcium [Lipitor] 40 mg PO DAILY 09/03/23 10/25/23 History Metoprolol Succinate (ER) [Toprol 50 mg PO DAILY 09/03/23 10/25/23 History XL] ARIPiprazole [Abilify] 20 mg PO DAILY 30 Days #30 tab 09/17/23 10/25/23 Rx Acetaminophen Tab [Tylenol] 500 mg PO Q4HR PRN tab 09/17/23 10/25/23 Rx Aspirin 81 mg PO DAILY 30 Days #30 tab 09/17/23 10/25/23 Rx QUEtiapine [SEROquel] 100 mg PO HS 30 Days #30 tab 09/17/23 10/25/23 Rx Sertraline [Zoloft] 200 mg PO DAILY 30 Days #60 tab 09/17/23 10/25/23 Rx HYDROcodone/APAP 10-325MG [[place] 1 tab PO Q6HR PRN 5 Days #15 tab 10/15/23 10/25/23 Rx 10-325] HYDROcodone/APAP 10-325MG [[place] 1 tab PO Q6HR PRN 3 Days #12 tab 10/24/23 Rx 10-325] Atropine Sulfate/Pf [Atropine 1% 1 drop LEFT EYE BID 10/25/23 10/25/23 History Eye Drops] Levothyroxine Sodium [Synthroid] 50 mcg PO DAILY 10/25/23 10/25/23 History Moxifloxacin HCl [Moxifloxacin 1 drop LEFT EYE TID 10/25/23 10/25/23 History 0.5%] Multivitamins, Thera [Multivitamin 1 tab PO DAILY 10/25/23 10/25/23 History (formulary)] Naproxen Sodium [Aleve] 440 mg PO BID PRN 10/25/23 10/25/23 History prednisoLONE ACETATE 1% OPHTH 1 drop LEFT EYE TID 10/25/23 10/25/23 History [Pred Forte 1%] Allergies Allergy/AdvReac Type Severity Reaction Status Date / Time amitriptyline [From Elavil] Allergy Rash/Hives Verified 10/25/23 12:01 diazepam [From Valium] Allergy Unknown Verified 10/25/23 12:01 niacin Allergy Rash/Hives Verified 10/25/23 12:01 alprazolam [From Xanax] AdvReac Hallucinati Verified 10/25/23 12:01 ons Physical Exam Vitals: Vital Signs Temp Pulse Pulse Pulse Resp BP BP 10/29/23 02:00 98.2 F 86 20 116/68 10/28/23 20:53 76 10/28/23 20:39 80 10/28/23 19:42 80 113/64 10/28/23 19:00 98.1 F 75 16 89/62 10/28/23 12:35 97.9 F 77 20 98/63 10/28/23 08:00 98.1 F 89 18 104/62 10/28/23 07:56 96 10/28/23 07:40 96 Pulse Ox 10/29/23 02:00 94 L 10/28/23 20:53 10/28/23 20:39 10/28/23 19:42 10/28/23 19:00 94 L 10/28/23 12:35 92 L 10/28/23 08:00 10/28/23 07:56 10/28/23 07:40 Intake and Output 10/28/23 10/28/23 10/29/23 14:59 22:59 06:59 Intake Total 590 Output Total 300 Balance 290 Intake: Oral 590 Output: Urine 300 Other: Voiding Method Toilet Urinal # Voids 1 1 GENERAL EXAM: Alert, 63-year-old white male, cachectic, appearing older than stated age, comfortable in no apparent distress. HEAD: Normocephalic and atraumatic EYES: Left eye blindness. NOSE: Clear with pink turbinates. THROAT: No erythema or exudates. NECK: No masses, no JVD. CHEST: No chest wall deformity. LUNGS: Equal air entry with inspiratory and expiratory wheezes heard throughout. Right-sided dullness. On 3 L/min nasal cannula. No conversational dyspnea or accessory muscle use CVS: S1 and S2 normal with no audible murmur, regular rhythm. No extra heart sounds ABDOMEN: No hepatosplenomegaly, active bowel sounds, no guarding or rigidity. SPINE: No scoliosis or deformity SKIN: No rashes CENTRAL NERVOUS SYSTEM: No focal deficits, tone is normal in all 4 extremities. EXTREMITIES: There is no peripheral edema, clubbing, or cyanosis. Peripheral pulses are intact. Results - Laboratory Findings CBC and BMP: 10/29/23 03:06 10/29/23 03:06 Abnormal lab findings: Abnormal Labs 10/24/23 10/24/23 10/25/23 21:49 21:49 16:00 WBC RBC Hgb Hct MCV 101.7 H MCH MCHC Immature Gran # Neutrophils # Neutrophils # (Manual) Lymphocytes # 0.7 L Monocytes # Monocytes # (Manual) Eosinophils # Metamyelocytes # (Man) Sodium Anion Gap BUN 8 L Creatinine BUN/Creatinine Ratio Glucose 108 H POC Glucose (mg/dL) Total Bilirubin Total Protein 8.4 H Albumin Albumin/Globulin Ratio Urine Protein Trace H Urine Opiates Screen Urine Methadone Screen Ur Amphetamines Screen U Methamphetamines Scrn U Marijuana (THC) Screen 10/25/23 10/26/23 10/26/23 16:00 00:26 07:25 WBC 17.7 H RBC 4.07 L Hgb Hct MCV 105.9 H MCH MCHC Immature Gran # Neutrophils # Neutrophils # (Manual) 15.70 H Lymphocytes # Monocytes # Monocytes # (Manual) 1.06 H Eosinophils # Metamyelocytes # (Man) 0.18 H Sodium Anion Gap BUN Creatinine BUN/Creatinine Ratio Glucose POC Glucose (mg/dL) 126 H Total Bilirubin Total Protein Albumin Albumin/Globulin Ratio Urine Protein Urine Opiates Screen Detected H Urine Methadone Screen Detected H Ur Amphetamines Screen Detected H U Methamphetamines Scrn Detected H U Marijuana (THC) Screen Detected H 10/26/23 10/27/23 10/27/23 07:25 06:19 06:19 WBC 19.48 H RBC 3.49 L Hgb 11.4 L Hct 36.1 L MCV 103.4 H MCH 32.7 H MCHC 31.6 L Immature Gran # 0.11 H Neutrophils # 17.82 H Neutrophils # (Manual) Lymphocytes # 0.41 L Monocytes # 1.10 H Monocytes # (Manual) Eosinophils # 0 L Metamyelocytes # (Man) Sodium Anion Gap BUN 23 H Creatinine 1.30 H BUN/Creatinine Ratio 27.33 H Glucose 171 H 126 H POC Glucose (mg/dL) Total Bilirubin Total Protein Albumin 3.7 L Albumin/Globulin Ratio 1.32 L Urine Protein Urine Opiates Screen Urine Methadone Screen Ur Amphetamines Screen U Methamphetamines Scrn U Marijuana (THC) Screen 10/28/23 10/28/23 10/29/23 05:46 05:46 03:06 WBC 17.93 H 22.3 H RBC 3.21 L 3.20 L Hgb 10.5 L 10.8 L Hct 32.8 L 32.7 L MCV 102.2 H 102.1 H MCH 32.7 H MCHC Immature Gran # 0.07 H Neutrophils # 15.82 H 20.5 H Neutrophils # (Manual) Lymphocytes # 0.52 L 0.5 L Monocytes # 1.37 H 1.2 H Monocytes # (Manual) Eosinophils # Metamyelocytes # (Man) Sodium Anion Gap 12.80 H BUN Creatinine BUN/Creatinine Ratio 23.38 H Glucose POC Glucose (mg/dL) Total Bilirubin 0.2 L Total Protein Albumin 3.5 L Albumin/Globulin Ratio 1.25 L Urine Protein Urine Opiates Screen Urine Methadone Screen Ur Amphetamines Screen U Methamphetamines Scrn U Marijuana (THC) Screen 10/29/23 03:06 WBC RBC Hgb Hct MCV MCH MCHC Immature Gran # Neutrophils # Neutrophils # (Manual) Lymphocytes # Monocytes # Monocytes # (Manual) Eosinophils # Metamyelocytes # (Man) Sodium 136 L Anion Gap BUN Creatinine BUN/Creatinine Ratio Glucose 126 H POC Glucose (mg/dL) Total Bilirubin Total Protein 6.1 L Albumin 3.1 L Albumin/Globulin Ratio Urine Protein Urine Opiates Screen Urine Methadone Screen Ur Amphetamines Screen U Methamphetamines Scrn U Marijuana (THC) Screen - Diagnostic Findings Chest x-ray: image reviewed CT scan - chest: image reviewed Assessment and Plan Assessment: Metastatic adenocarcinoma of the lung, originally diagnosed was back in 2020 status post chemo/radiation followed by immunotherapy. Patient has been following up outpatient with his oncologist. It appears he has disease rec urrence. He was scheduled for a PET scan today, however, this will have to be rescheduled. CT of the chest, abdomen, pelvis demonstrates suspected obstruction of the right brachiocephalic vein with the majority of the injected contrast extending up along the collaterals along the anterior chest wall down into the abdomen into the common femoral vein and other collateral pathways. Patient does have history of SVC stenosis posttreatment. There is redemonstration of the patient's right upper lobe consolidation/mass and absorptive volume loss, which extends toward the pulmonary hilum, and consistent with the patient's known lung cancer. There is a new left lower lung airspace consolidation with air bronchograms consistent with pneumonia. There is redemonstration of the patient's suspected metastatic disease involving the lumbar spine left proximal femur. Suspected left lower lobe hospital aquired pneumonia Leukocytosis, secondary to above Left hip pain, with suspected left hip proximal femur metastasis, eventual plan for prophylactic insertion of an intramedullary sarita to support left femur. Unstable gait and fall, secondary to above Chronic obstructive pulmonary disease Chronic hypoxemic respiratory failure, normally made on 3 L/min nasal cannula Chronic anemia History of hyperlipidemia History of hypertension History of hypothyroidism Coronary artery disease with previous PCI/stent History of anxiety/depression/PTSD History of polysubstance abuse Plan: Patient's medications, labs, imaging reviewed Continue supplemental oxygen Continue empiric antibiotics Check procalcitonin level Obtain sputum sample if possible Continue DuoNebs [id number] and budesonide inhalation and prednisone taper Pain management was added Being evaluated by orthopedic surgery We will continue to follow I have personally seen and examined the patient, performed the documentation and the assessment and plan as written. Number of minutes spent on the visit:20 Time with Patient: Greater than 30
[2023-10-29] MEDS: ASPIRIN 81 MG PO SCH (12:34)
--- NOTE | 2023-10-29 12:46 | P.CRDCN ---
History of Present Illness History of present illness: HISTORY OF PRESENT ILLNESS: This is a 63-year-old male with a past medical history significant for coronary artery disease with previous stenting, ischemic cardiomyopathy, hypertension, h yperlipidemia, and metastatic non-small cell lung cancer.. Patient follows in the office with Dr. Babin. We have been asked to see the patient in consultation for recommendations regarding antiplatelet therapy. Patient examined at the bedside. Patient presented to the hospital with a chief complaint of generalized weakness. He also reports that he fell at home. The patient currently denies any chest pain or pressure. He currently denies shortness of breath. He has been evaluated by orthopedics with plans for prophylactic intramedullary rodding. DIAGNOSTICS: - EKG reveals sinus tachycardia with heart rate of 101. No signs of acute ischemia.. - Chest xray chronic changes without no acute process. - Laboratory data: WBC 22.3. Hemoglobin 10.8. Platelet count 206. Sodium 136. Potassium 3.8. BUN 19. Creatinine 0.77. - Current home cardiac medications include metoprolol succinate 50 mg daily, Plavix 75 mg daily, Lipitor 40 mg daily, aspirin 81 mg daily. - Most recent echocardiogram obtained in November 2021 revealed ejection fraction 25% - Cardiac catheterization history: Patient underwent PCI of the mid LAD in April 2023. He underwent an additional cardiac catheterization in May 2023 with PCI of the OM1 REVIEW OF SYSTEMS: At the time of my exam: CONSTITUTIONAL: Denies fever or chills. HEENT: Denies blurred vision, vision changes, or eye pain. Denies hemoptysis CARDIOVASCULAR: Denies chest pain. Denies orthopnea. Denies PND. Denies palpitations RESPIRATORY: Denies shortness of breath. GASTROINTESTINAL: Denies abdominal pain. Denies nausea or vomiting. HEMATOLOGIC: Denies bleeding disorders. GENITOURINARY: Denies any blood in urine. SKIN: Denies pruitis. Denies rash. PHYSICAL EXAM: VITAL SIGNS: Reviewed. GENERAL: Well-developed in no acute distress. HEENT: Head is normocephalic. Pupils are equal, round. Sclerae anicteric. Mucous membranes of the mouth are moist. Neck supple. No JVD or thyromegaly LUNGS: Respirations even and unlabored. Lungs with diffuse rhonchi HEART: Regular rate and rhythm. S1 and S2 heard. Distant heart sounds ABDOMEN: Soft. Nondistended. Nontender. EXTREMITIES: Normal range of motion. No clubbing or cyanosis. Peripheral pulses intact. No lower extremity edema NEUROLOGIC: Awake and alert. Oriented x 3. ASSESSMENT: Metastatic lung cancer Leukocytosis Suspected left hip proximal femur metastasis, plan for prophylactic intramedullary rodding Coronary artery disease with previous stenting, mid LAD and 04/2023 and OM1 in May 2023 Ischemic cardiomyopathy, ejection fraction 25% Chronic hypoxic respiratory failure on home oxygen Hypertension Hyperlipidemia Nicotine dependence PLAN: Continue current cardiac medications Plavix may be held for 5 days for orthopedic procedure. However patient needs to continue with daily aspirin 81 mg due to recent stenting Further recommendations pending patient course Nurse practitioner note has been reviewed by physician. Signing provider agrees with the documented findings, assessment, and plan of care documented by PHARMACY ANALYST as a scribe. Past Medical History Past Medical History: Cancer, COPD, Fibromyalgia, Hyperlipidemia, Hypertension, Osteoarthritis (OA), Pneumonia, Prostate Disorder, Respiratory Disorder, Thyroid Disorder Additional Past Medical History / Comment(s): 10/2019 R side lung cancer with tumor compression SVC causing syncopal episodes/invasion of mediastinum/bilateral upper extremity lymphedema with numbness and tingling/ 29 radiation treatments, 10 chemo tx in past immunotherapy for a year, home oxygen at 3L/[place] prn, vertigo, chronic cervical and back pain, history of prior anterior cervical spine surgery which was done well, past lower extremity lymphedema, BPH, anemia, bronchitis, hypothyroid History of Any Multi-Drug Resistant Organisms: None Reported Past Surgical History: Heart Catheterization With Stent, Orthopedic Surgery Additional Past Surgical History / Comment(s): 10/2019 bronchoscopy with biopsy, cervical surgery x2 with plate and bone graft from R hip, back injections, cystic acne lesions removed, colonoscopy, hemorrhoidectomy, picc lines. Past Anesthesia/Blood Transfusion Reactions: Motion Sickness Additional Past Anesthesia/Blood Transfusion Reaction / Comment(s): Stated Dr. Retana said the "had to bag me" Date of Last Stent Placement:: UNK Past Psychological History: Anxiety, Bipolar, Depression, PTSD Additional Psychological History / Comment(s): Pt resides alone. He has a home care worker that assists with house work. He is disabled. He served in the [employer]. He has home oxygen and nebulizer. Smoking Status: Current every day smoker Past Alcohol Use History: None Reported, Occasional Additional Past Alcohol Use History / Comment(s): Pt states he started smoking at the age of 11 and smokes approx 1/2 ppd Past Drug Use History: Marijuana Additional Drug Use History / Comment(s): Admits to marijuana. Initial UDS positive for opiates (rx'd), meth and amphetamines on 09/03/23. On 09/10/23 positive for opiates and marijuana. - Past Family History Father Family Medical History: Cancer Additional Family Medical History / Comment(s): Father is from renal cell carcinoma with mets. Mother Additional Family Medical History / Comment(s): Mother went into hospital for knee surgery/ended up from CDiff infection. Medications and Allergies Home Medications Medication Instructions Recorded Confirmed Type methocarbamoL [Robaxin-750] 750 mg PO TID PRN 09/08/22 10/25/23 History Clopidogrel [Plavix] 75 mg PO DAILY #90 tablet 04/05/23 10/25/23 Rx Atorvastatin Calcium [Lipitor] 40 mg PO DAILY 09/03/23 10/25/23 History Metoprolol Succinate (ER) [Toprol 50 mg PO DAILY 09/03/23 10/25/23 History XL] ARIPiprazole [Abilify] 20 mg PO DAILY 30 Days #30 tab 09/17/23 10/25/23 Rx Acetaminophen Tab [Tylenol] 500 mg PO Q4HR PRN tab 09/17/23 10/25/23 Rx Aspirin 81 mg PO DAILY 30 Days #30 tab 09/17/23 10/25/23 Rx QUEtiapine [SEROquel] 100 mg PO HS 30 Days #30 tab 09/17/23 10/25/23 Rx Sertraline [Zoloft] 200 mg PO DAILY 30 Days #60 tab 09/17/23 10/25/23 Rx HYDROcodone/APAP 10-325MG [[place] 1 tab PO Q6HR PRN 5 Days #15 tab 10/15/23 10/25/23 Rx 10-325] HYDROcodone/APAP 10-325MG [[place] 1 tab PO Q6HR PRN 3 Days #12 tab 10/24/23 Rx 10-325] Atropine Sulfate/Pf [Atropine 1% 1 drop LEFT EYE BID 10/25/23 10/25/23 History Eye Drops] Levothyroxine Sodium [Synthroid] 50 mcg PO DAILY 10/25/23 10/25/23 History Moxifloxacin HCl [Moxifloxacin 1 drop LEFT EYE TID 10/25/23 10/25/23 History 0.5%] Multivitamins, Thera [Multivitamin 1 tab PO DAILY 10/25/23 10/25/23 History (formulary)] Naproxen Sodium [Aleve] 440 mg PO BID PRN 10/25/23 10/25/23 History prednisoLONE ACETATE 1% OPHTH 1 drop LEFT EYE TID 10/25/23 10/25/23 History [Pred Forte 1%] Allergies Allergy/AdvReac Type Severity Reaction Status Date / Time amitriptyline [From Elavil] Allergy Rash/Hives Verified 10/25/23 12:01 diazepam [From Valium] Allergy Unknown Verified 10/25/23 12:01 niacin Allergy Rash/Hives Verified 10/25/23 12:01 alprazolam [From Xanax] AdvReac Hallucinati Verified 10/25/23 12:01 ons Physical Exam Vitals: Vital Signs Temp Pulse Pulse Resp BP BP Pulse Ox 10/29/23 09:09 72 10/29/23 08:59 75 97 10/29/23 08:00 98.3 F 77 20 110/58 95 10/29/23 02:00 98.2 F 86 20 116/68 94 L 10/28/23 20:53 76 10/28/23 20:39 80 10/28/23 19:42 80 113/64 10/28/23 19:00 98.1 F 75 16 89/62 94 L 10/28/23 12:35 97.9 F 77 20 98/63 92 L Intake and Output 10/28/23 10/29/23 10/29/23 22:59 06:59 14:59 Intake Total 590 Output Total 300 Balance 290 Intake: Oral 590 Output: Urine 300 Other: Voiding Method Urinal Urinal # Voids 1 1 Results 10/29/23 03:06 10/29/23 03:06 Cardiac Enzymes 10/28/23 10/29/23 Range/Units 05:46 03:06 AST 35 43 (14-35) U/L CBC 10/28/23 10/29/23 Range/Units 05:46 03:06 WBC 17.93 H 22.3 H (4.50-10.00) X 10*3/uL RBC 3.21 L 3.20 L (4.40-5.60) X 10*6/uL Hgb 10.5 L 10.8 L (13.0-17.0) g/dL Hct 32.8 L 32.7 L (39.6-50.0) % Plt Count 202 206 (140-440) X 10*3/uL Comprehensive Metabolic Panel 10/28/23 10/29/23 Range/Units 05:46 03:06 Sodium 138 136 L (135-145) mmol/L Potassium 4.6 3.8 (3.5-5.5) mmol/L Chloride 99 100 (96-109) mmol/L Carbon Dioxide 26.2 29 (21.6-31.8) mmol/L BUN 18.7 19 (9.0-27.0) mg/dL Creatinine 0.8 0.77 (0.6-1.5) mg/dL Glucose 95 126 H (70-110) mg/dL Calcium 8.9 8.8 (8.7-10.3) mg/dL AST 35 43 (14-35) U/L ALT 26 43 (10-49) U/L Alkaline Phosphatase 77 88 (41-126) U/L Total Protein 6.3 6.1 L (6.2-8.2) g/dL Albumin 3.5 L 3.1 L (3.8-4.9) g/dL Current Medications Generic Name Dose Route Start Last Admin Trade Name Freq PRN Reason Stop Dose Admin Acetaminophen 650 mg 10/24/23 23:07 Acetaminophen Tab 325 Mg Tab PO Q6HR PRN Mild Pain or Fever > 100.5 Hydrocodone Bitart/Acetaminophen 1 each 10/25/23 11:38 10/29/23 06:43 Hydrocodone/Apap 10-325mg 1 Each Tab PO 1 each Q6HR PRN Administration Pain Albuterol/Ipratropium 3 ml 10/25/23 12:00 10/29/23 08:58 Ipratropium-Albuterol 3 Ml Neb INHALATION 3 ml RT-QID OZZIE Administration Aripiprazole 20 mg 10/25/23 11:45 10/29/23 08:48 Aripiprazole 20 Mg Tab PO 20 mg DAILY OZZIE Administration Atorvastatin Calcium 40 mg 10/26/23 09:00 10/29/23 08:48 Atorvastatin 40 Mg Tab PO 40 mg DAILY OZZIE Administration Atropine Sulfate 1 drops 10/25/23 21:00 10/29/23 08:51 Atropine Ophth Soln 1% 5ml Btl LEFT EYE 1 drops BID OZZIE Administration Budesonide 1 mg 10/25/23 20:00 10/29/23 08:59 Budesonide 1 Mg/2 Ml Nebu INHALATION 1 mg RT-BID OZZIE Administration Docusate Sodium 100 mg 10/25/23 21:00 10/29/23 08:49 Docusate 100 Mg Cap PO 100 mg BID OZZIE Administration Heparin Sodium (Porcine) 5,000 unit 10/25/23 00:00 10/29/23 08:59 Heparin Sodium,Porcine 5,000 Unit/Ml 1 Ml Vial SQ 5,000 unit Q8HR OZZIE Administration Hydromorphone HCl 0.5 mg 10/24/23 23:07 10/29/23 08:59 Hydromorphone 0.5 Mg/0.5 Ml Syringe IVP 0.5 mg Q3HR PRN Administration Moderate Pain (Scale 4 to 6) Piperacillin Sod/Tazobactam 100 mls @ 25 mls/hr 10/28/23 18:45 10/29/23 09:07 Sod 3.375 gm/ Sodium Chloride IVPB 25 mls/hr Q8HR OZZIE Administration Protocol Levothyroxine Sodium 50 mcg 10/26/23 06:30 10/29/23 06:43 Levothyroxine 50 Mcg Tab PO 50 mcg 0630 OZZIE Administration Melatonin 5 mg 10/25/23 11:38 Melatonin 5 Mg Tablet PO HS PRN Insomnia Methocarbamol 750 mg 10/25/23 11:38 10/28/23 23:26 Methocarbamol 750 Mg Tab PO 750 mg TID PRN Administration Muscle Spasm Metoprolol Succinate 50 mg 10/25/23 11:45 10/29/23 08:48 Metoprolol Succinate (Er) 50 Mg Tab.Er.24h PO 50 mg DAILY OZZIE Administration Moxifloxacin HCl 1 drops 10/25/23 16:00 10/29/23 08:52 Moxifloxacin Hcl 0.5% Drops 3 Ml Btl LEFT EYE 1 drops TID OZZIE Administration Multivitamins 1 each 10/26/23 09:00 10/29/23 08:49 Multivitamins, Thera 1 Each Tab PO 1 each DAILY OZZIE Administration Naloxone HCl 0.2 mg 10/24/23 23:07 Naloxone 0.4 Mg/Ml 1 Ml Vial IV Q2M PRN Opioid Reversal Ondansetron HCl 4 mg 10/26/23 08:29 10/26/23 08:51 Ondansetron 4 Mg/2 Ml Vial IVP 4 mg Q6HR PRN Administration Nausea And Vomiting Pantoprazole Sodium 40 mg 10/26/23 07:30 10/29/23 08:48 Pantoprazole 40 Mg Tablet PO 40 mg [id number] OZZIE Administration Prednisolone Acetate 1 drops 10/25/23 16:00 10/29/23 08:50 Prednisolone Acetate 1% Ophth Drops 5 Ml Btl LEFT EYE 1 drops TID OZZIE Administration Prednisone 40 mg 10/28/23 09:00 10/29/23 08:49 Prednisone 20 Mg Tab PO 40 mg DAILY OZZIE Administration Sertraline HCl 200 mg 10/25/23 11:45 10/29/23 08:49 Sertraline 100 Mg Tab PO 200 mg DAILY OZZIE Administration Intake and Output 10/28/23 10/29/23 10/29/23 22:59 06:59 14:59 Intake Total 590 Output Total 300 Balance 290 Intake: Oral 590 Output: Urine 300 Other: Voiding Method Urinal Urinal # Voids 1 1 10/29/23 03:06 10/29/23 03:06
--- NOTE | 2023-10-29 13:57 | P.CONS ---
History of Present Illness - Reason for Consult Consult date: 10/28/23 Symptomatic osseous metastases Requesting physician: Alcon Morales - Chief Complaint "I have pain" - History of Present Illness Mr. Beltran is a 63-year-old male with a history of a stage IIIB [place] tumor of the right upper lung, status post definitive chemoradiation in 2019 at [facility] with 1 year of adjuvant immunotherapy. He now presents with osseous lesions concerning for metastatic disease in the left femur and L4. As above, he presented with locally advanced lung cancer in 2019 and underwent nonoperative management with chemoradiation under the care of Dr. Landis at [facility]. He then underwent immunotherapy. He has done well since. Last month, he presented with hip pain. MRI left hip demonstrated a 3.3 cm osseous lesion in the lesser trochanter on the left. He had been scheduled for follow-up with Dr. Morales but then presented to this facility again with lower back pain and inability to ambulate. MRI lumbar spine on 10/27/2023 demonstrated metastatic disease throughout the lumbar spine, most notably in L4, without canal compromise. CT chest/abdomen/pelvis yesterday confirmed a lytic lesion in the left femur as well as a left lung consolidation and right lung post-treatment changes. On today's evaluation, he notes significant pain in his right hip and at the SI joint. He also notes left groin pain as well as lower back pain. He had been taking [place] as an outpatient but this was refractory to oral medications. He denies focal weakness or loss of sensation. He denies saddle anesthesia or difficulty voiding. He is on oxygen. He has not had recent biopsy. He has been seen by Dr. Retana with plans for left femur IM stabilization in 5 days, pending cardiac clearance. Review of Systems negative except as per HPI Past Medical History Past Medical History: Cancer, COPD, Fibromyalgia, Hyperlipidemia, Hypertension, Osteoarthritis (OA), Pneumonia, Prostate Disorder, Respiratory Disorder, Thyroid Disorder Additional Past Medical History / Comment(s): 10/2019 R side lung cancer with tumor compression SVC causing syncopal episodes/invasion of mediastinum/bilateral upper extremity lymphedema with numbness and tingling/ 29 radiation treatments, 10 chemo tx in past immunotherapy for a year, home oxygen at 3L/[place] prn, vertigo, chronic cervical and back pain, history of prior anterior cervical spine surgery which was done well, past lower extremity lymphedema, BPH, anemia, bronchitis, hypothyroid History of Any Multi-Drug Resistant Organisms: None Reported Past Surgical History: Heart Catheterization With Stent, Orthopedic Surgery Additional Past Surgical History / Comment(s): 10/2019 bronchoscopy with biopsy, cervical surgery x2 with plate and bone graft from R hip, back injections, cysti c acne lesions removed, colonoscopy, hemorrhoidectomy, picc lines. Past Anesthesia/Blood Transfusion Reactions: Motion Sickness Additional Past Anesthesia/Blood Transfusion Reaction / Comm: Stated Dr. Retana said the "had to bag me" Date of Last Stent Placement:: UNK Past Psychological History: Anxiety, Bipolar, Depression, PTSD Additional Psychological History / Comment(s): Pt resides alone. He has a home care worker that assists with house work. He is disabled. He served in the [employer]. He has home oxygen and nebulizer. Smoking Status: Current every day smoker Past Alcohol Use History: None Reported, Occasional Additional Past Alcohol Use History / Comment(s): Pt states he started smoking a t the age of 11 and smokes approx 1/2 ppd Past Drug Use History: Marijuana Additional Drug Use History / Comment(s): Admits to marijuana. Initial UDS positive for opiates (rx'd), meth and amphetamines on 09/03/23. On 09/10/23 positive for opiates and marijuana. - Past Family History Father Family Medical History: Cancer Additional Family Medical History / Comment(s): Father is from renal cell carcinoma with mets. Mother Additional Family Medical History / Comment(s): Mother went into hospital for knee surgery/ended up from CDiff infection. Medications and Allergies Home Medications Medication Instructions Recorded Confirmed Type methocarbamoL [Robaxin-750] 750 mg PO TID PRN 09/08/22 10/25/23 History Clopidogrel [Plavix] 75 mg PO DAILY #90 tablet 04/05/23 10/25/23 Rx Atorvastatin Calcium [Lipitor] 40 mg PO DAILY 09/03/23 10/25/23 History Metoprolol Succinate (ER) [Toprol 50 mg PO DAILY 09/03/23 10/25/23 History XL] ARIPiprazole [Abilify] 20 mg PO DAILY 30 Days #30 tab 09/17/23 10/25/23 Rx Acetaminophen Tab [Tylenol] 500 mg PO Q4HR PRN tab 09/17/23 10/25/23 Rx Aspirin 81 mg PO DAILY 30 Days #30 tab 09/17/23 10/25/23 Rx QUEtiapine [SEROquel] 100 mg PO HS 30 Days #30 tab 09/17/23 10/25/23 Rx Sertraline [Zoloft] 200 mg PO DAILY 30 Days #60 tab 09/17/23 10/25/23 Rx HYDROcodone/APAP 10-325MG [[place] 1 tab PO Q6HR PRN 5 Days #15 tab 10/15/23 10/25/23 Rx 10-325] HYDROcodone/APAP 10-325MG [[place] 1 tab PO Q6HR PRN 3 Days #12 tab 10/24/23 Rx 10-325] Atropine Sulfate/Pf [Atropine 1% 1 drop LEFT EYE BID 10/25/23 10/25/23 History Eye Drops] Levothyroxine Sodium [Synthroid] 50 mcg PO DAILY 10/25/23 10/25/23 History Moxifloxacin HCl [Moxifloxacin 1 drop LEFT EYE TID 10/25/23 10/25/23 History 0.5%] Multivitamins, Thera [Multivitamin 1 tab PO DAILY 10/25/23 10/25/23 History (formulary)] Naproxen Sodium [Aleve] 440 mg PO BID PRN 10/25/23 10/25/23 History prednisoLONE ACETATE 1% OPHTH 1 drop LEFT EYE TID 10/25/23 10/25/23 History [Pred Forte 1%] Allergies Allergy/AdvReac Type Severity Reaction Status Date / Time amitriptyline [From Elavil] Allergy Rash/Hives Verified 10/25/23 12:01 diazepam [From Valium] Allergy Unknown Verified 10/25/23 12:01 niacin Allergy Rash/Hives Verified 10/25/23 12:01 alprazolam [From Xanax] AdvReac Hallucinati Verified 10/25/23 12:01 ons Physical Exam Vitals: Vital Signs Temp Pulse Pulse Resp BP BP Pulse Ox 10/29/23 12:15 79 10/29/23 12:06 72 10/29/23 09:09 72 10/29/23 08:59 75 97 10/29/23 08:00 98.3 F 77 20 110/58 95 10/29/23 02:00 98.2 F 86 20 116/68 94 L 10/28/23 20:53 76 10/28/23 20:39 80 10/28/23 19:42 80 113/64 10/28/23 19:00 98.1 F 75 16 89/62 94 L Intake and Output 10/28/23 10/29/23 10/29/23 22:59 06:59 14:59 Intake Total 590 Output Total 300 Balance 290 Intake: Oral 590 Output: Urine 300 Other: Voiding Method Urinal Urinal # Voids 1 1 - Constitutional General appearance: disheveled, mild distress - Respiratory on NC - Musculoskeletal pain localizes to lumbar spine, left groin, and right hip posteriorly, not reproducible Results CBC & Chem 7: 10/29/23 03:06 10/29/23 03:06 Labs: Abnormal Lab Results - Last 24 Hours (Table) 10/28/23 10/29/23 10/29/23 Range/Units 05:46 03:06 03:06 WBC 22.3 H (3.8-10.6) k/uL RBC 3.20 L (4.30-5.90) m/uL Hgb 10.8 L (13.0-17.5) gm/dL Hct 32.7 L (39.0-53.0) % MCV 102.1 H (80.0-100.0) fL Immature Gran # 0.07 H (0.00-0.04) X 10*3/uL Neutrophils # 15.82 H 20.5 H (1.80-7.70) X 10*3/uL Lymphocytes # 0.52 L 0.5 L (0.90-5.00) X 10*3/uL Monocytes # 1.37 H 1.2 H (0.20-1.00) X 10*3/uL Sodium 136 L (137-145) mmol/L Glucose 126 H (74-99) mg/dL Total Protein 6.1 L (6.3-8.2) g/dL Albumin 3.1 L (3.5-5.0) g/dL Procalcitonin (0.02-0.09) ng/mL 10/29/23 Range/Units 03:06 WBC (3.8-10.6) k/uL RBC (4.30-5.90) m/uL Hgb (13.0-17.5) gm/dL Hct (39.0-53.0) % MCV (80.0-100.0) fL Immature Gran # (0.00-0.04) X 10*3/uL Neutrophils # (1.80-7.70) X 10*3/uL Lymphocytes # (0.90-5.00) X 10*3/uL Monocytes # (0.20-1.00) X 10*3/uL Sodium (137-145) mmol/L Glucose (74-99) mg/dL Total Protein (6.3-8.2) g/dL Albumin (3.5-5.0) g/dL Procalcitonin 53.40 H (0.02-0.09) ng/mL Assessment and Plan Assessment: Mr. Beltran is a 63-year-old male with a history of a stage IIIB [place] tumor of the right upper lung, status post definitive chemoradiation in 2019 at [facility] with 1 year of adjuvant immunotherapy. He now presents with osseous lesions concerning for metastatic disease in the left femur and L4. Plan: The patient is planned for operative management of the left femur lesion. I am in agreement as this will be both therapeutic and diagnostic. I would tentatively recommend a course of palliative radiation therapy thereafter ( approximately 2 weeks postoperatively) to both the surgical hardware and other lesions within the pelvis. Given his principal concern today is right hip pain, I will also order an MRI of the right hip. I will continue to follow and update recommendations as indicated. Juan Ty MD Radiation Oncology Time with Patient: Greater than 30
--- NOTE | 2023-10-29 15:37 | P.PAINPG ---
Objective - Vital Signs Vital signs: Vital Signs Temp 98.0 F 10/29/23 14:23 Pulse 75 10/29/23 14:23 Resp 19 10/29/23 14:23 BP 120/67 10/29/23 14:23 Pulse Ox 94 L 10/29/23 14:23 FiO2 Intake & Output 10/28/23 10/29/23 10/29/23 18:59 06:59 18:59 Intake Total 590 Output Total 300 Balance 290 Intake: Oral 590 Output: Urine 300 Other: Voiding Method Toilet Urinal Urinal # Voids 1 1 - Labs CBC & Chem 7: 10/29/23 03:06 10/29/23 03:06 Labs: Abnormal Lab Results - Last 24 Hours (Table) 10/29/23 10/29/23 10/29/23 Range/Units 03:06 03:06 03:06 WBC 22.3 H (3.8-10.6) k/uL RBC 3.20 L (4.30-5.90) m/uL Hgb 10.8 L (13.0-17.5) gm/dL Hct 32.7 L (39.0-53.0) % MCV 102.1 H (80.0-100.0) fL Neutrophils # 20.5 H (1.3-7.7) k/uL Lymphocytes # 0.5 L (1.0-4.8) k/uL Monocytes # 1.2 H (0-1.0) k/uL Sodium 136 L (137-145) mmol/L Glucose 126 H (74-99) mg/dL Total Protein 6.1 L (6.3-8.2) g/dL Albumin 3.1 L (3.5-5.0) g/dL Procalcitonin 53.40 H (0.02-0.09) ng/mL PQRS Measure Charge Sheet Comment: HISTORY OF PRESENT ILLNESS: A 63 yr old inpatient male as a referral from Dr Retana presents today w severe and chronic LBP and BL hip pain > 1 yr secondary to DDD, spondylosis and facet arthropathy without myelopathy for evaluation. Pt states pain level is provoked at 9 /10 in intensity, constant, localized in the lumbar spine and BL hips, predominantly axial, dull in character w occasional shooting pain towards the hips and BLEs. Pain is provoked by any movement. Pain is alleviated by medications ([place] 10/325mg q4-6h at home), repositioning and rest. Pt is currently on Heparin and ASA which are contraindicated for any interventional pain management. PMH: CAD, HTN, Hyperlipidemia, BPH, COPD, OA, Fibromyalgia, Hypothyroidism, MDD/ Anxiety/ PTSD PSH: R Metastatic Lung CA, Heart Cath w Stents (Apr 2023, May 2023), L Eye Yannick janessa (Aug 2023), Bronchoscopy w Biopsy (2019), Cervical Surgery x2 w Hardware and Graft, LESIs, Colonscopy w Hemorrhoidectomy SH: Resides alone, Daily tobacco use, Occasional ETOH use, Cannabis use FH: Fa- Renal Cell CA. Mo- from C Diff infection/ Surgical Complication All: See list Meds: See list REVIEW OF ORGAN SYSTEMS: CONSTITUTIONAL: No fevers or chills. No recent weight loss. NEUROLOGICAL: + numbness and tingling along the distal extremities. No seizure disorders or headaches. MUSCULOSKELETAL: + pain PSYCHIATRIC: Denies current depression or suicidal thoughts. Physical Examinations : Constitutional : Cooperative , not in acute distress . Neurologic : Cranial nerve II to XII intact. No focal neurological deficits. Psychiatric : alert & oriented x 3. Matching mood & appropriate affect. Judgment & insight intact. Musculoskeletal : Cervical Spine Motor strength in the deltoid and biceps: Normal right side. Normal Left side Motor strength biceps and the wrist extensors: Normal right side . Normal left side Motor strength in the triceps muscle: Normal right side. Normal left side Deep tendon reflexes: Normal at the biceps. Normal at Brachioradialis. Normal at triceps Vertebral body tenderness to deep palpation over Cervical facet loading test: positive bilaterally Spurling test: positive bilaterally Neck distraction test: positive bilaterally Candace sign: positive bilaterally Lumbar spine Motor strength lower extremities ,thigh and legs 3/5 Right side , 3/5 Left side Deep tendon reflexes : Normal Knee Jerk. Normal Ankle Jerk Vertebral body tenderness over L3, L4, L5 Vega Test positive Lumbar facet Loading Test: positive Right / positive Left Range of motion of the lumbar spine Flexion 30 degrees, extension 10 degrees Straight Leg Raise test: Left/ Right positive at degree Guera test: positive right / positive left. Severe tenderness over the Sacroiliac joint on the Right / Left sides Gaenslen test: positive bilaterally Seated flexion test: positive bilaterally. Sacral spine : Severe tenderness over the Sacroiliac joint: right side / left side Range of motion: Flexion of the lumbar spine <60 degrees Range of motion: Extension of the lumbar spine <20 degrees Gaenslen's Test positive Guera test: positive right side / left side Thigh Thrust Test Sacral Thrust Test Imaging: Hip MRI: report reviewed, image reviewed (Imaging of his left hip shows 3 x 3 cm likely metastasis with bony erosion extending to the soft tissue. There is approximately 50% cortical involvement. The femoral head appears to be intact.) Lumbar MRI with/without contrast: report reviewed (There is no significant central stenosis. There is no cord changes. I do not see any evidence of abscess or epidural tumor.), image reviewed (Imaging of his lumbar spine is reviewed which shows degenerative disc changes throughout his lumbar spine. He has some right foraminal stenosis L5-S1. There are some signal changes within number the vertebral bodies without obvious cord compression or significant epidural mass effect. There is no) Assessment/ Plan : Lumbar DDD, BL Hip DJD Recommendation of medication management [place] 10/325mg q4-6hr prn pain. Continue current pain medications on file. All questions answered. I have spent greater than 30 minutes on patient care today. Dr Angulo was available by phone for the evaluation of this patient. The time was used to review the medical records including relevant urine studies and Prescription history (MAPs), review of the available imaging, evaluation and examination of the patient, coordination of care with the medical staff and if applicable referring physicians, as well as creation of the medical record - Pain Location Right Hip Non-Pharmacological Interventions: Darkened Room, Environmental Control, Position/Reposition, Reduce Environmental Stimuli, Sitting Pharmacological Interventions: PRN Medication Pain Comment: and generalized pain. PQRS Narrative: Smoking Status Current every day smoker Blood Pressure [Right Arm] 120/67 Blood Pressure [Left Arm] 110/58 Blood Pressure 110/79 Pain Intensity [Right Hip] 10 Pain Intensity 10 Pain Scale Used Non Verbal Pain Indicator Scale Used Numeric (1 - 10) Home Medications: Ambulatory Orders methocarbamoL [Robaxin-750] 750 mg PO TID PRN 09/08/22 Clopidogrel [Plavix] 75 mg PO DAILY #90 tablet 04/05/23 Atorvastatin Calcium [Lipitor] 40 mg PO DAILY 09/03/23 Metoprolol Succinate (ER) [Toprol XL] 50 mg PO DAILY 09/03/23 ARIPiprazole [Abilify] 20 mg PO DAILY 30 Days #30 tab 09/17/23 Acetaminophen Tab [Tylenol] 500 mg PO Q4HR PRN tab 09/17/23 Aspirin 81 mg PO DAILY 30 Days #30 tab 09/17/23 QUEtiapine [SEROquel] 100 mg PO HS 30 Days #30 tab 09/17/23 Sertraline [Zoloft] 200 mg PO DAILY 30 Days #60 tab 09/17/23 HYDROcodone/APAP 10-325MG [[place] 10-325] 1 tab PO Q6HR PRN 5 Days #15 tab 10/15/23 HYDROcodone/APAP 10-325MG [[place] 10-325] 1 tab PO Q6HR PRN 3 Days #12 tab 10/24/23 Atropine Sulfate/Pf [Atropine 1% Eye Drops] 1 drop LEFT EYE BID 10/25/23 Levothyroxine Sodium [Synthroid] 50 mcg PO DAILY 10/25/23 Moxifloxacin HCl [Moxifloxacin 0.5%] 1 drop LEFT EYE TID 10/25/23 Multivitamins, Thera [Multivitamin (formulary)] 1 tab PO DAILY 10/25/23 Naproxen Sodium [Aleve] 440 mg PO BID PRN 10/25/23 prednisoLONE ACETATE 1% OPHTH [Pred Forte 1%] 1 drop LEFT EYE TID 10/25/23 Controlled Substance Measures - Controlled Substance Measures Is patient prescribed a controlled substance at discharge?: Yes When asked, does pt state using other controlled substances?: Yes If prescribed controlled substance>3 days was MAPS reviewed?: Prescribed <3 Days
[2023-10-29] MEDS: HYDROcodone/APAP 10-325MG 1 EACH TAB PO PRN (16:55)
--- NOTE | 2023-10-30 13:11 | P.PN ---
Subjective HISTORY OF PRESENT ILLNESS: This is a 63-year-old male with a past medical history significant for coronary artery disease with previous stenting, ischemic cardiomyopathy, hypertension, hyperlipidemia, and metastatic non-small cell lung cancer.. Patient follows in the office with Dr. Babin. We have been asked to see the patient in consultation for recommendations regarding antiplatelet therapy. Patient examined at the bedside. Patient presented to the hospital with a chief complaint of generalized weakness. He also reports that he fell at home. The patient currently denies any chest pain or pressure. He currently denies shortness of b reath. He has been evaluated by orthopedics with plans for prophylactic intramedullary rodding. DIAGNOSTICS: - EKG reveals sinus tachycardia with heart rate of 101. No signs of acute ischemia.. - Chest xray chronic changes without no acute process. - Laboratory data: WBC 22.3. Hemoglobin 10.8. Platelet count 206. Sodium 136. Potassium 3.8. BUN 19. Creatinine 0.77. - Current home cardiac medications include metoprolol succinate 50 mg daily, Plavix 75 mg daily, Lipitor 40 mg daily, aspirin 81 mg daily. - Most recent echocardiogram obtained in November 2021 revealed ejection fraction 25% - Cardiac catheterization history: Patient underwent PCI of the mid LAD in April 2023. He underwent an additional cardiac catheterization in May 2023 with PCI of the OM1 10/30/2023 Patient examined this morning at the bedside. Patient currently denies chest pain or pressure. He denies shortness of breath. He reports generalized pain but states the pain is worse in his left leg. Vital signs are stable. Blood pressure 105/52. He remains on aspirin. Plavix remains on hold for possible orthopedic intervention. PHYSICAL EXAM: VITAL SIGNS: Reviewed. GENERAL: Well-developed in no acute distress. HEENT: Head is normocephalic. Pupils are equal, round. Sclerae anicteric. Mucous membranes of the mouth are moist. Neck supple. No JVD or thyromegaly LUNGS: Respirations even and unlabored. Lungs with diffuse rhonchi HEART: Regular rate and rhythm. S1 and S2 heard. Distant heart sounds ABDOMEN: Soft. Nondistended. Nontender. EXTREMITIES: Normal range of motion. No clubbing or cyanosis. Peripheral pulses intact. No lower extremity edema NEUROLOGIC: Awake and alert. Oriented x 3. ASSESSMENT: Metastatic lung cancer Leukocytosis Suspected left hip proximal femur metastasis, plan for prophylactic intramedullary rodding Coronary artery disease with previous stenting, mid LAD and 04/2023 and OM1 in May 2023 Ischemic cardiomyopathy, ejection fraction 25% Chronic hypoxic respiratory failure on home oxygen Hypertension Hyperlipidemia Nicotine dependence PLAN: Continue current cardiac medications Plavix may be held for 5 days for orthopedic procedure. However patient needs to continue with daily aspirin 81 mg due to recent stenting Further recommendations pending patient course Nurse practitioner note has been reviewed by physician. Signing provider agrees with the documented findings, assessment, and plan of care documented by T[employer] MACHINE STITCHER as a scribe. Objective - Vital Signs Vital signs: Vital Signs Temp 97.9 F 10/30/23 07:26 Pulse 80 10/30/23 09:33 Resp 20 10/30/23 07:26 BP 105/52 10/30/23 07:26 Pulse Ox 97 10/30/23 09:11 FiO2 Intake & Output 10/29/23 10/30/23 10/30/23 18:59 06:59 18:59 Intake Total 590 Output Total 200 550 Balance 390 -550 Intake: Oral 590 Output: Urine 200 550 Other: Voiding Method Urinal Urinal # Voids 2 - Labs CBC & Chem 7: 10/29/23 03:06 10/29/23 03:06 Labs: Microbiology - Last 24 Hours (Table) 10/29/23 09:03 Gram Stain - Preliminary Sputum
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
--- NOTE | 2023-10-30 14:23 | P.PN ---
Subjective Progress Note Date: 10/30/23 I am seeing this patient in consultation today 10/29/2023 for suspected left lower lobe pneumonia. Patient is a 63-year-old white male with past medical history significant for COPD, adenocarcinoma of the lung diagnosed originally back in October 2019 status post chemotherapy radiation. Followed by immuno therapy. Does not appear the patient has followed up in the pulmonary office since 2021. He does follow with his oncologist Dr. Morales. Since then, he has experienced a fall and he has been complaining of severe hip pain. It is affecting his ambulation. He can no longer take care of himself at home. He had a ER visit earlier this month for this. He did have a follow-up nuc med bone scan which showed abnormal intense uptake involving the proximal left femur suggestive of malignancy. There was moderate intensity uptake L4 also suspicious for metastatic disease. He was scheduled for a follow-up outpatient PET scan today, which will obviously have to be rescheduled. Patient also has past medical history significant for COPD, chronic hypoxemic respiratory failure and maintained on 3 L/min nasal cannula as needed, hyperlipidemia, hypertension, hypothyroidism, coronary artery disease with previous PCI/stent, anxiety/depression/PTSD polysubstance abuse, among many other medical comorbidit ies. Patient returned to the emergency room on 10/24/2023 in complaining of increased lower extremity pain bilaterally. He can no longer ambulate appropriately. MRI of the lumbar spine demonstrates multiple areas of suspected metastatic disease within the lumbar spine with the largest through the L4 level. No vertebral body height loss is evident. There is multilevel disc bulges greatest at L5-S1. There is small subligamentous disc herniation and central protrusion present at L1-2 without spinal canal stenosis. There is severe right for minimal stenosis at L5-S1 with milder formoterol narrowing. 8 x-ray of the pelvis does not show any acute fractures. Patient did have a chest x-ray yesterday which showed a new patchy left lower lobe infiltrate as well as the patient's known right upper lobe mass with associated right upper lobe volume loss/absorptive atelectasis. This was followed by a CT of the chest, abdomen, pelvis which demonstrated suspected obstruction of the right brac hiocephalic vein with the majority of the injected contrast extending up along the collaterals along the anterior chest wall down into the abdomen into the common femoral vein and other collateral pathways. Patient does have history of SVC stenosis posttreatment. There is redemonstration of the patient's right upper lobe consolidation, which extends toward the pulmonary hilum, and consistent with the patient's known lung cancer. There is a new left lower lung airspace consolidation with air bronchograms consistent with pneumonia. There is redemonstration of the patient's suspected metastatic disease involving the lumbar spine left proximal femur. For this reason, we were consulted yesterday. Patient is currently sitting up in bed, 3 L/min nasal cannula, in no acute distress. He does endorse chronic shortness of breath. He has had a minimally productive cough with occasional yellow sputum production. Denies any fevers. Denies any chest pain. His main complaint is his bilateral hip pain. Patient has been evaluated by orthopedic surgery, there is a possible plan for prophyla ctic insertion of a intramedullary sarita to support the left femur. Most recent CBC from this morning: WBC count 22.3, hemoglobin 10.8, hematocrit 32.7, platelets 206. BMP from this morning: Sodium 136, potassium 3.8, chloride 100, serum bicarb 29, BUN 19, creatinine 0.77, glucose 126. Patient has been started on empiric Zosyn. Procalcitonin level pending. Sputum culture was ordered. He is afebrile. Vital signs are stable. The patient is seen today October 30, 2023 in follow-up on the regular medical floor. He is currently awake and alert. He is quite uncomfortable with both right and left hip pain. He denies any worsening shortness of breath, cough or congestion. He is maintaining good O2 saturation in the mid 90s on 3 L/min per nasal cannula. He is afebrile. Hemodynamically stable. MRI of the right hip results are pending. Sputum culture pending. No new labs today. He remains on DuoNeb ventilations, Pulmicort inhalations and a prednisone taper. Heparin for DVT prophylaxis. Antibiotics in the form of Zosyn. Objective - Vital Signs Vital signs: Vital Signs Temp 97.8 F 10/30/23 13:28 Pulse 88 10/30/23 13:28 Resp 24 10/30/23 13:28 BP 128/80 10/30/23 13:28 Pulse Ox 95 10/30/23 13:28 FiO2 Intake & Output 10/29/23 10/30/23 10/30/23 18:59 06:59 18:59 Intake Total 590 Output Total 200 550 Balance 390 -550 Intake: Oral 590 Output: Urine 200 550 Other: Voiding Method Urinal Urinal # Voids 2 - Exam GENERAL EXAM: Alert, 63-year-old male, cachectic, appearing older than stated age, with bilateral hip pain. HEAD: Normocephalic and atraumatic. EYES: Left eye blindness. NOSE: Clear with pink turbinates. THROAT: No erythema or exudates. NECK: No masses, no JVD. CHEST: No chest wall deformity. LUNGS: Equal air entry with inspiratory and expiratory wheezes heard throughout. Left-sided dullness. On 3 L/min nasal cannula. CVS: S1 and S2 normal with an audible murmur, regular rhythm. No extra heart sounds ABDOMEN: No hepatosplenomegaly, active bowel sounds, no guarding or rigidity. SPINE: No scoliosis or deformity SKIN: No rashes CENTRAL NERVOUS SYSTEM: No focal deficits, tone is normal in all 4 extremities. EXTREMITIES: There is no peripheral edema, clubbing, or cyanosis. Peripheral pulses are intact. - Labs CBC & Chem 7: 10/29/23 03:06 10/29/23 03:06 Labs: Microbiology - Last 24 Hours (Table) 10/29/23 09:03 Gram Stain - Preliminary Sputum Assessment and Plan Assessment: Metastatic adenocarcinoma of the lung, originally diagnosed was back in 2020 status post chemo/radiation followed by immunotherapy. Patient has been following up outpatient with his oncologist. It appears he has disease recurrence. He was scheduled for a PET scan today, however, this will have to be rescheduled. CT of the chest, abdomen, pelvis demonstrates suspected obst ruction of the right brachiocephalic vein with the majority of the injected contrast extending up along the collaterals along the anterior chest wall down into the abdomen into the common femoral vein and other collateral pathways. Patient does have history of SVC stenosis posttreatment. There is redemonstration of the patient's right upper lobe consolidation/mass and absorptive volume loss, which extends toward the pulmonary hilum, and consistent with the patient's known lung cancer. There is a new left lower lung airspace consolidation with air bronchograms consistent with pneumonia. There is redemonstration of the patient's suspected metastatic disease involving the lumbar spine left proximal femur. MRI of the right hip is pending Suspected left lower lobe hospital aquired pneumonia procalcitonin 53.4. Continued on Zosyn Leukocytosis, secondary to above Left hip pain, with left hip proximal femur metastasis, eventual plan for prophylactic insertion of an intramedullary sarita to support left femur Right hip pain, MRI pending Unstable gait and fall, secondary to above Chronic obstructive pulmonary disease Chronic hypoxemic respiratory failure, normally on 3 L/min nasal cannula Chronic anemia History of hyperlipidemia History of hypertension History of hypothyroidism Coronary artery disease with previous PCI/stent History of anxiety/depression/PTSD History of polysubstance abuse Poor overall functional performance based on the above-mentioned multiple comor bidities Plan: The patient was seen and evaluated Labs and medications reviewed MRI of the right hip pending Awaiting prophylactic insertion of sarita to the left femur May require radiation therapy 2 weeks postoperatively Continued on Zosyn Continue bronchodilators, prednisone Heparin for DVT prophylaxis Overall prognosis is guarded DNR/DNI CODE STATUS We will continue to follow I have personally seen and examined the patient, performed the documentation and the assessment and plan as written. Number of minutes spent on the visit: 10.
--- NOTE | 2023-10-30 18:30 | P.PN ---
Subjective Progress Note Date: 10/30/23 Principal diagnosis: osseous lesions, intractable pain No acute events. Patient reporting persisting BLE hip pain. States pain medications are not helping with pain. Upon review of MAR pt has not taken norco as recommended by pain management since 129. Encouraged patient to let nursing staff know if he needs medications for pain control as these are orderd prn. Pt has been evaluated by by pain management who recommends current regimen of norco 10mg q4hrs prn and dilaudid for breakthrough pain. Orthopedics and rad onc also following. Plan for left femur rodding early next week Objective - Vital Signs Vital signs: Vital Signs Temp 97.9 F 10/30/23 07:26 Pulse 80 10/30/23 09:33 Resp 20 10/30/23 07:26 BP 105/52 10/30/23 07:26 Pulse Ox 97 10/30/23 09:11 FiO2 Intake & Output 10/29/23 10/30/23 10/30/23 18:59 06:59 18:59 Intake Total 590 Output Total 200 550 Balance 390 -550 Intake: Oral 590 Output: Urine 200 550 Other: Voiding Method Urinal Urinal # Voids 2 - Constitutional General appearance: Present: average body habitus, mild distress - EENT Eyes: Present: anicteric sclerae, EOMI ENT: Present: hearing grossly normal - Respiratory Details: breathing is even and unlabored - Cardiovascular Details: skin warm and dry - Gastrointestinal General gastrointestinal: Present: soft. Absent: tenderness - Integumentary Integumentary: Absent: cyanotic - Musculoskeletal Musculoskeletal Comment(s): decreased ROM of bilateral hips Musculoskeletal: Present: generalized weakness - Psychiatric Psychiatric: Present: A&O x's 3 - Labs CBC & Chem 7: 10/29/23 03:06 10/29/23 03:06 Labs: Microbiology - Last 24 Hours (Table) 10/29/23 09:03 Gram Stain - Preliminary Sputum Assessment and Plan (1) Chronic back pain Current Visit: Yes Status: Acute Priority: Medium Code(s): M54.9 - DORSALGIA, UNSPECIFIED; G89.29 - OTHER CHRONIC PAIN SNOMED Code(s): 869412969 (2) Chronic hip pain Current Visit: Yes Status: Acute Priority: Medium Code(s): M25.559 - PAIN IN UNSPECIFIED HIP; G89.29 - OTHER CHRONIC PAIN SNOMED Code(s): 67476388 (3) Chronic pain Current Visit: Yes Status: Acute Priority: Medium Code(s): G89.29 - OTHER CHRONIC PAIN SNOMED Code(s): 17579278 (4) Fall Current Visit: Yes Status: Acute Priority: Medium Code(s): W19.XXXA - UNSPECIFIED FALL, INITIAL ENCOUNTER SNOMED Code(s): 1492462 (5) Lung cancer Current Visit: No Status: Chronic Priority: Medium Code(s): C34.90 - MALIGNANT NEOPLASM OF UNSP PART OF UNSP BRONCHUS OR LUNG SNOMED Code(s): 195377330 Plan: Bilateral hip and low back pain, intractable -Patient has a history of chronic low back pain. He is complaining of hip pain worse on the right than left. MRI of the left hip, 09/22/2023 showing a 3.3 cm osseous lesion with cortical breakthrough -Nuclear medicine bone scan 09/23/2023 report reads abnormal intense uptake involving proximal left femur concordant with the x-ray and MRI abnormality. Moderate intensity uptake at L4. MRI lumbar spine revealed multiple areas of suspected metastatic disease within the lumbar spine largest through the L4 level. Also noted at L2, L3 and L5 as well as some abnormal signal within the inferior T12 vertebral body. Multilevel disc bulges greatest at L5-S1. Small subligamentous disc herniation and central protrusion present at L1-2 without spinal canal stenosis. Severe right foraminal stenosis at L5-S1 -Spoke with radiation oncology, consult has been placed. Plan to obtain right hip MRI and for simulation tentatively for - Per discussion with rad/onc, will consult Orthopedic spine surgeon to evaluate for surgical intervention. - Dr. Retana has recommended left femur intramedullary rodding. Recommending holding plavix and ASA for 5 days prior to surgery. Cardiology has evaluated pt and has restarted aspirin, ok with holding plavix fow now. Spoke with orthopedics, requested pathology on left femur lesion -Pain management has been consulted for complicated case-component of chronic pain and malignancy pain. Patient states pain medications are not helping with pain. Upon review of OCT pt has not taken norco as recommended by pain management since 129. Encouraged patient to let nursing staff know if he needs medications for pain control as these are ordered prn. Pain management has evaluated patient and are recommending current regimen of norco 10mg q4hrs prn and dilaudid for breakthrough pain. 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 No evidence of disease until Sep 2023. Fortunately, patient had increased musculoskeletal complaints, low back, bilateral hips. On further workup found to have metastatic bone lesions. -Restaging PET/CT is scheduled 10/29/2023-patient rescheduled this appointment, he was previously scheduled for 10/15/2023. Follow-up with Dr. Morales scheduled for 11/17/2023. 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 Findings of injection collateral pathways in the right upper extremity were also noted on exam from 05/09/2021. Left lower lung airspace consolidation. Lytic lesion of the left proximal femur with cortical breakthrough and soft tissue. Right upper lung consolidation tobin ges which extends down towards the pulmonary hilum, limiting evaluation. Suspected metastatic disease, which is seen on prior MRI in lumbar spine and L4, L5, and L2. Due to limited evaluation of right upper lung from reported consolidative changes, will plan to obtain to obtain PET CT oupt for further evaluation of metastatic disease. -Spoke with orthopedic surgery, pathology from left hip lesion requested during planned surgical intervention -Case management assisting pt with resources for medical transportation and home health services. PT also consulted, will await their recommendations regarding inpt rehabilitation.
--- NOTE | 2023-10-31 10:03 | P.PN ---
Subjective HISTORY OF PRESENT ILLNESS: This is a 63-year-old male with a past medical history significant for coronary artery disease with previous stenting, ischemic cardiomyopathy, hypertension, hyperlipidemia, and metastatic non-small cell lung cancer.. Patient follows in the office with Dr. Babin. We have been asked to see the patient in consultation for recommendations regarding antiplatelet therapy. Patient examined at the bedside. Patient presented to the hospital with a chief complaint of generalized weakness. He also reports that he fell at home. The patient currently denies any chest pain or pressure. He currently denies shortness of b reath. He has been evaluated by orthopedics with plans for prophylactic intramedullary rodding. DIAGNOSTICS: - EKG reveals sinus tachycardia with heart rate of 101. No signs of acute ischemia.. - Chest xray chronic changes without no acute process. - Laboratory data: WBC 22.3. Hemoglobin 10.8. Platelet count 206. Sodium 136. Potassium 3.8. BUN 19. Creatinine 0.77. - Current home cardiac medications include metoprolol succinate 50 mg daily, Plavix 75 mg daily, Lipitor 40 mg daily, aspirin 81 mg daily. - Most recent echocardiogram obtained in November 2021 revealed ejection fraction 25% - Cardiac catheterization history: Patient underwent PCI of the mid LAD in April 2023. He underwent an additional cardiac catheterization in May 2023 with PCI of the OM1 10/30/2023 Patient examined this morning at the bedside. Patient currently denies chest pain or pressure. He denies shortness of breath. He reports generalized pain but states the pain is worse in his left leg. Vital signs are stable. Blood pressure 105/52. He remains on aspirin. Plavix remains on hold for possible orthopedic intervention. 10/31/2023 Patient examined this morning the bedside. Patient currently denies chest pain or pressure. He denies shortness of breath. Patient remains on aspirin. His Plavix remains on hold for possible orthopedic intervention. Vital signs are stable. PHYSICAL EXAM: VITAL SIGNS: Reviewed. GENERAL: Well-developed in no acute distress. HEENT: Head is normocephalic. Pupils are equal, round. Sclerae anicteric. Mucous membranes of the mouth are moist. Neck supple. No JVD or thyromegaly LUNGS: Respirations even and unlabored. Lungs with diffuse rhonchi HEART: Regular rate and rhythm. S1 and S2 heard. Distant heart sounds ABDOMEN: Soft. Nondistended. Nontender. EXTREMITIES: Normal range of motion. No clubbing or cyanosis. Peripheral pulses intact. No lower extremity edema NEUROLOGIC: Awake and alert. Oriented x 3. ASSESSMENT: Metastatic lung cancer Leukocytosis Suspected left hip proximal femur metastasis, plan for prophylactic intramedullary rodding Coronary artery disease with previous stenting, mid LAD and 04/2023 and OM1 in May 2023 Ischemic cardiomyopathy, ejection fraction 25% Chronic hypoxic respiratory failure on home oxygen Hypertension Hyperlipidemia Nicotine dependence PLAN: Continue current cardiac medications Plavix may be held for 5 days for orthopedic procedure. However patient needs to continue with daily aspirin 81 mg due to recent stenting No further inpatient recommendations from a cardiac standpoint We will sign off. Please reconsult if needed. Nurse practitioner note has been reviewed by physician. Signing provider agrees with the documented findings, assessment, and plan of care documented by ART HISTORIAN as a scribe. Objective - Vital Signs Vital signs: Vital Signs Temp 98 F 10/31/23 07:30 Pulse 88 10/31/23 08:33 Resp 18 10/31/23 07:30 BP 117/74 10/31/23 07:30 Pulse Ox 97 10/31/23 07:30 FiO2 Intake & Output 10/30/23 10/31/23 10/31/23 18:59 06:59 18:59 Intake Total 590 Output Total 550 200 Balance -550 390 Intake: Oral 590 Output: Urine 550 200 Other: Voiding Method Urinal Urinal - Labs CBC & Chem 7: 10/29/23 03:06 10/29/23 03:06 Labs: Microbiology - Last 24 Hours (Table) 10/29/23 09:03 Gram Stain - Final Sputum Sputum Culture - Final
--- NOTE | 2023-10-31 10:50 | MR ---
EXAMINATION TYPE: MR hip RT wo con DATE OF EXAM: 10/29/2023 COMPARISON: CT scan 10/28/2023 HISTORY: Metastatic lung cancer, right hip pain. Standard multiplanar, multisequence MRI departmental protocol Multiplanar, multisequence images of the left hip were acquired without contrast. . FINDINGS: Exam limited due to motion artifact. There is diffuse abnormal signal alteration of the proximal diaphysis of the left femur with destruct roland change along the medial margin of the proximal femur. There appears to be a soft tissue component extending medially. Abnormal signal is seen within the L4\L5 vertebral segment. Underlying metastatic disease in the diff erential diagnosis. Abnormal signal is seen within the anterior column of the right acetabulum compatible with metastatic disease. Faint increased signal involving the left iliac bone adjacent to the left SI joint is nonspecific cou ld also represent early metastatic disease. Lucent lesion involving the posterior right iliac bone CAT scan does not appear to demonstrate suspic ious signal likely represents a benign lesion. There is a sclerotic lesion seen in the right femur on recent CT scan which is low in signal on all s equences and likely represents benign bone island rather than sclerotic metastases. No sizable joint effusion. Bladder is distended. Trace amount of fluid in the pelvis. IMPRESSION: 1. Destructive proximal left femoral lesion concordant with CT findings and compatible with metastase s. 2. Findings are suspicious for metastatic involvement L4 and L5. 3. There is abnormal signal involving the anterior column of the right acetabulum compatible with met astases. 4. Abnormal uptake left iliac bone suspicious for early metastases. Recommend bone scan.
[2023-10-31 11:07] LABS: Basophils # (A) 0.04 X 10*3/uL (0.00-0.10); Basophils % (A) 0.3 %; Eosinophils # (A) 0.01 X 10*3/uL (0.04-0.35); Eosinophils % (A) 0.1 %; HCT 35.2 % (39.6-50.0); HGB 11.2 g/dL (13.0-17.0); Lymphocytes # (A) 0.87 X 10*3/uL (0.90-5.00); Lymphocytes % (A) 6.1 %; MCH 32.7 pg (27.0-32.0); MCHC 31.8 g/dL (32.0-37.0); MCV 102.6 FL (80.0-97.0); Mean Platelet Volume 10.3 FL (9.5-12.2); Monocytes # (A) 1.28 X 10*3/uL (0.20-1.00); NRBC Per 100 WBC 0 X 10*3/uL (0.00-0.01); Neutrophils # (A) 11.93 X 10*3/uL (1.80-7.70); Neutrophils % (A) 83.3 %; Platelet Count 236 X 10*3/uL (140-440); RBC 3.43 X 10*6/uL (4.40-5.60); RDW 14.2 % (11.5-14.5)
[2023-10-31 11:49] LABS: ALT 100 U/L (10-49); AST 84 U/L (14-35); Albumin 3.5 g/dL (3.8-4.9); Albumin/Globulin Ratio 1.17 Ratio (1.60-3.17); Alkaline Phosphatase 93 U/L (41-126); Blood Urea Nitrogen 16.4 mg/dL (9.0-27.0); Calcium 8.9 mg/dL (8.7-10.3); Carbon Dioxide 30.2 mmol/L (21.6-31.8); Chloride 97 mmol/L (96-109); Glucose 101 mg/dL (70-110); Potassium 3.9 mmol/L (3.5-5.5); Sodium 140 mmol/L (135-145); Total Bilirubin 0.3 mg/dL (0.3-1.2); Total Protein 6.5 g/dL (6.2-8.2)
[2023-10-31 12:16] VITALS: BMI 21.1
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
--- NOTE | 2023-10-31 14:00 | P.PN ---
Subjective Progress Note Date: 10/31/23 This is a 63-year-old male with a past medical history significant for non-small cell lung cancer with metastases. Orthopedics is following due to a metastatic lesion of the left proximal femur. Patient is seen and evaluated at bedside today. Patient states that he continues to have significant pain in his left hip and lower back. Patient's Plavix is currently on hold in preparation for intramedullary rodding of the left femur on 11/03/2023. Patient is currently being treated for left lower lobe pneumonia with Zosyn. Patient's main concern today is hip left hip pain and pain management is on consult. Objective - Vital Signs Vital signs: Vital Signs Temp 98.2 F 10/31/23 12:22 Pulse 88 10/31/23 12:22 Resp 18 10/31/23 12:22 BP 123/71 10/31/23 12:22 Pulse Ox 92 L 10/31/23 12:22 FiO2 Intake & Output 10/30/23 10/31/23 10/31/23 18:59 06:59 18:59 Intake Total 590 Output Total 550 200 400 Balance -550 390 -400 Weight 61.235 kg Intake: Oral 590 Output: Urine 550 200 400 Other: Voiding Method Urinal Urinal - Exam On exam patient is sitting comfortably in bed in no acute distress. Patient is alert and oriented 3. Patient's exam is limited due to pain. Skin is intact. There is no significant swelling or erythema. Calf is soft and nontender to palpation. Sensation intact. Neurovascular status and circulatory status are intact. - Labs CBC & Chem 7: 10/31/23 07:25 10/31/23 07:25 Labs: Abnormal Lab Results - Last 24 Hours (Table) 10/31/23 10/31/23 Range/Units 07:25 07:25 WBC 14.30 H (4.50-10.00) X 10*3/uL RBC 3.43 L (4.40-5.60) X 10*6/uL Hgb 11.2 L (13.0-17.0) g/dL Hct 35.2 L (39.6-50.0) % MCV 102.6 H (80.0-97.0) FL MCH 32.7 H (27.0-32.0) pg MCHC 31.8 L (32.0-37.0) g/dL Immature Gran # 0.17 H (0.00-0.04) X 10*3/uL Neutrophils # 11.93 H (1.80-7.70) X 10*3/uL Lymphocytes # 0.87 L (0.90-5.00) X 10*3/uL Monocytes # 1.28 H (0.20-1.00) X 10*3/uL Eosinophils # 0.01 L (0.04-0.35) X 10*3/uL Anion Gap 12.80 H (4.00-12.00) mmol/L BUN/Creatinine Ratio 20.50 H (12.00-20.00) Ratio AST 84 H (14-35) U/L ALT 100 H (10-49) U/L Albumin 3.5 L (3.8-4.9) g/dL Albumin/Globulin Ratio 1.17 L (1.60-3.17) Ratio Microbiology - Last 24 Hours (Table) 10/29/23 09:03 Gram Stain - Final Sputum Sputum Culture - Final Assessment and Plan Assessment: Metastatic lung cancer Left hip proximal femur metastasis Plan: 1. Planning for prophylactic intramedullary rodding of the left femur on 11/03/2023 pending medical clearance and patient consent. Patient's Plavix is currently being held. Patient will likely have a spinal anesthesia due to his current pulmonary issues and the risks involved with general anesthesia. This was discussed with anesthesia today. 2. Appreciate input from internal medicine, cardiology and pulmonology. 3. Patient is to remain nonweightbearing to left lower extremity. 4. Appreciate input from pain management. 5. We will continue to follow.
--- NOTE | 2023-10-31 14:19 | P.PN ---
Subjective Progress Note Date: 10/31/23 I am seeing this patient in consultation today 10/29/2023 for suspected left lower lobe pneumonia. Patient is a 63-year-old white male with past medical history significant for COPD, adenocarcinoma of the lung diagnosed originally back in October 2019 status post chemotherapy radiation. Followed by immuno therapy. Does not appear the patient has followed up in the pulmonary office since 2021. He does follow with his oncologist Dr. Morales. Since then, he has experienced a fall and he has been complaining of severe hip pain. It is affecting his ambulation. He can no longer take care of himself at home. He had a ER visit earlier this month for this. He did have a follow-up nuc med bone scan which showed abnormal intense uptake involving the proximal left femur suggestive of malignancy. There was moderate intensity uptake L4 also suspicious for metastatic disease. He was scheduled for a follow-up outpatient PET scan today, which will obviously have to be rescheduled. Patient also has past medical history significant for COPD, chronic hypoxemic respiratory failure and maintained on 3 L/min nasal cannula as needed, hyperlipidemia, hypertension, hypothyroidism, coronary artery disease with previous PCI/stent, anxiety/depression/PTSD polysubstance abuse, among many other medical comorbidit ies. Patient returned to the emergency room on 10/24/2023 in complaining of increased lower extremity pain bilaterally. He can no longer ambulate appropriately. MRI of the lumbar spine demonstrates multiple areas of suspected metastatic disease within the lumbar spine with the largest through the L4 level. No vertebral body height loss is evident. There is multilevel disc bulges greatest at L5-S1. There is small subligamentous disc herniation and central protrusion present at L1-2 without spinal canal stenosis. There is severe right for minimal stenosis at L5-S1 with milder formoterol narrowing. 8 x-ray of the pelvis does not show any acute fractures. Patient did have a chest x-ray yesterday which showed a new patchy left lower lobe infiltrate as well as the patient's known right upper lobe mass with associated right upper lobe volume loss/absorptive atelectasis. This was followed by a CT of the chest, abdomen, pelvis which demonstrated suspected obstruction of the right brac hiocephalic vein with the majority of the injected contrast extending up along the collaterals along the anterior chest wall down into the abdomen into the common femoral vein and other collateral pathways. Patient does have history of SVC stenosis posttreatment. There is redemonstration of the patient's right upper lobe consolidation, which extends toward the pulmonary hilum, and consistent with the patient's known lung cancer. There is a new left lower lung airspace consolidation with air bronchograms consistent with pneumonia. There is redemonstration of the patient's suspected metastatic disease involving the lumbar spine left proximal femur. For this reason, we were consulted yesterday. Patient is currently sitting up in bed, 3 L/min nasal cannula, in no acute distress. He does endorse chronic shortness of breath. He has had a minimally productive cough with occasional yellow sputum production. Denies any fevers. Denies any chest pain. His main complaint is his bilateral hip pain. Patient has been evaluated by orthopedic surgery, there is a possible plan for prophyla ctic insertion of a intramedullary sarita to support the left femur. Most recent CBC from this morning: WBC count 22.3, hemoglobin 10.8, hematocrit 32.7, platelets 206. BMP from this morning: Sodium 136, potassium 3.8, chloride 100, serum bicarb 29, BUN 19, creatinine 0.77, glucose 126. Patient has been started on empiric Zosyn. Procalcitonin level pending. Sputum culture was ordered. He is afebrile. Vital signs are stable. The patient is seen today October 30, 2023 in follow-up on the regular medical floor. He is currently awake and alert. He is quite uncomfortable with both right and left hip pain. He denies any worsening shortness of breath, cough or congestion. He is maintaining good O2 saturation in the mid 90s on 3 L/min per nasal cannula. He is afebrile. Hemodynamically stable. MRI of the right hip results are pending. Sputum culture pending. No new labs today. He remains on DuoNeb ventilations, Pulmicort inhalations and a prednisone taper. Heparin for DVT prophylaxis. Antibiotics in the form of Zosyn. Patient is seen today October 31, 2023 in follow-up on the regular medical floor. He is awake and alert in no acute distress. Appearing more comfortable today compared to yesterday. He is maintaining good O2 saturation in the 90s on 3 L nasal cannula. He is afebrile. Hemodynamically stable. MRI of the hips reveal evidence of destructive proximal left femoral lesion concordant with CT findings and compatible with metastasis. Findings are suspicious for metastatic involvement of L4 and L5. There is abnormal signal involving the anterior column of the right acetabulum compatible with metastasis. Abnormal uptake in the left iliac bone suspicious for early metastasis. Sputum culture revealed no growth. White count 14.3. Hemoglobin 11.2. Platelets 236. Sodium 140. Potassium 3.9. Bicarb 30. BUN 16. Creatinine 0.8. AST 84. ALT 100. He r emains on Zosyn. Continued on bronchodilators and a prednisone taper. Heparin for DVT prophylaxis. Objective - Vital Signs Vital signs: Vital Signs Temp 98.2 F 10/31/23 12:22 Pulse 88 10/31/23 12:22 Resp 18 10/31/23 12:22 BP 123/71 10/31/23 12:22 Pulse Ox 92 L 10/31/23 12:22 FiO2 Intake & Output 10/30/23 10/31/23 10/31/23 18:59 06:59 18:59 Intake Total 590 Output Total 550 200 775 Balance -550 390 -775 Weight 61.235 kg Intake: Oral 590 Output: Urine 550 200 775 Other: Voiding Method Urinal Urinal Urinal - Exam GENERAL EXAM: Alert, pleasant 63-year-old male, cachectic, 3 L nasal cannula. HEAD: Normocephalic and atraumatic. EYES: Left eye blindness. NOSE: Clear with pink turbinates. THROAT: No erythema or exudates. NECK: No masses, no JVD. CHEST: No chest wall deformity. LUNGS: Equal air entry with inspiratory and expiratory wheezes heard throughout. Left-sided dullness. CVS: S1 and S2 normal with an audible murmur, regular rhythm. No extra heart sounds ABDOMEN: No hepatosplenomegaly, active bowel sounds, no guarding or rigidity. SPINE: No scoliosis or deformity SKIN: No rashes CENTRAL NERVOUS SYSTEM: No focal deficits, tone is normal in all 4 extremities. EXTREMITIES: Bilateral hip and low back pain. There is no peripheral edema, clubbing, or cyanosis. Peripheral pulses are intact. - Labs CBC & Chem 7: 10/31/23 07:25 10/31/23 07:25 Labs: Abnormal Lab Results - Last 24 Hours (Table) 10/31/23 10/31/23 Range/Units 07:25 07:25 WBC 14.30 H (4.50-10.00) X 10*3/uL RBC 3.43 L (4.40-5.60) X 10*6/uL Hgb 11.2 L (13.0-17.0) g/dL Hct 35.2 L (39.6-50.0) % MCV 102.6 H (80.0-97.0) FL MCH 32.7 H (27.0-32.0) pg MCHC 31.8 L (32.0-37.0) g/dL Immature Gran # 0.17 H (0.00-0.04) X 10*3/uL Neutrophils # 11.93 H (1.80-7.70) X 10*3/uL Lymphocytes # 0.87 L (0.90-5.00) X 10*3/uL Monocytes # 1.28 H (0.20-1.00) X 10*3/uL Eosinophils # 0.01 L (0.04-0.35) X 10*3/uL Anion Gap 12.80 H (4.00-12.00) mmol/L BUN/Creatinine Ratio 20.50 H (12.00-20.00) Ratio AST 84 H (14-35) U/L ALT 100 H (10-49) U/L Albumin 3.5 L (3.8-4.9) g/dL Albumin/Globulin Ratio 1.17 L (1.60-3.17) Ratio Microbiology - Last 24 Hours (Table) 10/29/23 09:03 Gram Stain - Final Sputum Sputum Culture - Final Assessment and Plan Assessment: Metastatic adenocarcinoma of the lung, originally diagnosed was back in 2019 status post chemo/radiation followed by immunotherapy. CT of the chest, abdomen, pelvis demonstrates suspected obstruction of the right brachiocephalic vein with the majority of the injected contrast extending up along the collaterals along the anterior chest wall down into the abdomen into the common femoral vein and other collateral pathways. Patient does have history of SVC stenosis posttreatment. There is redemonstration of the patient's right upper lobe consolidation/mass and absorptive volume loss, which extends toward the pulmonary hilum, and consistent with the patient's known lung cancer. There is a new left lower lung airspace consolidation with air bronchograms consistent with pneumonia. There is redemonstration of the patient's suspected metastatic disease involving the lumbar spine left proximal femur. MRI of the hips reveal evidence of destructive proximal left femoral lesion concordant with CT findings and compatible with metastasis. Findings are suspicious for metastatic involvement of L4 and L5. There is abnormal signal involving the anterior column of the right acetabulum compatible with metastasis. Abnormal uptake in the left iliac bone suspicious for early metastasis. Bilateral hip and lower back pain secondary to above Suspected left lower lobe hospital acquired pneumonia procalcitonin 53.4. Continued on Zosyn, sputum culture revealed no growth Leukocytosis, secondary to above Unstable gait and fall, secondary to above Chronic obstructive pulmonary disease Chronic hypoxemic respiratory failure, normally on 3 L/min nasal cannula Chronic anemia History of hyperlipidemia History of hypertension History of hypothyroidism Coronary artery disease with previous PCI/stent History of anxiety/depression/PTSD History of polysubstance abuse Poor overall functional performance based on the above-mentioned multiple comorbidities Plan: The patient was seen and evaluated Labs and medications reviewed MRI of the hips reviewed Awaiting prophylactic insertion of sarita to the left femur Continue the current treatment plan Overall prognosis is guarded DNR/DNI CODE STATUS We will continue to follow I have personally seen and examined the patient, performed the documentation and the assessment and plan as written. Number of minutes spent on the visit: 10.
--- NOTE | 2023-11-01 08:29 | P.PN ---
Subjective Progress Note Date: 11/01/23 This is a 63-year-old male with a past medical history significant for non-small cell lung cancer with metastases. Orthopedics is following due to a metastatic lesion of the left proximal femur. Patient is seen and evaluated at bedside today. Patient states that he continues to have significant pain in both hips and lower back. Patient's Plavix is currently on hold in preparation for intram edullary rodding of the left femur on 11/03/2023. Patien denies any new complaints today. Objective - Vital Signs Vital signs: Vital Signs Temp 97.9 F 11/01/23 07:45 Pulse 80 11/01/23 07:45 Resp 18 11/01/23 07:45 BP 112/63 11/01/23 07:45 Pulse Ox 94 L 11/01/23 07:45 FiO2 Intake & Output 10/31/23 11/01/23 11/01/23 18:59 06:59 18:59 Output Total 1075 600 Balance -1075 -600 Weight 61.235 kg Output: Urine 1075 600 Other: Voiding Method Urinal Urinal - Exam On exam patient is sitting comfortably in bed in no acute distress. Patient is alert and oriented 3. Patient's exam is limited due to pain. Skin is intact. There is no significant swelling or erythema. Calf is soft and nontender to palpation. Sensation intact. Neurovascular status and circulatory status are intact. - Labs CBC & Chem 7: 10/31/23 07:25 10/31/23 07:25 Labs: Abnormal Lab Results - Last 24 Hours (Table) 10/31/23 10/31/23 Range/Units 07:25 07:25 WBC 14.30 H (4.50-10.00) X 10*3/uL RBC 3.43 L (4.40-5.60) X 10*6/uL Hgb 11.2 L (13.0-17.0) g/dL Hct 35.2 L (39.6-50.0) % MCV 102.6 H (80.0-97.0) FL MCH 32.7 H (27.0-32.0) pg MCHC 31.8 L (32.0-37.0) g/dL Immature Gran # 0.17 H (0.00-0.04) X 10*3/uL Neutrophils # 11.93 H (1.80-7.70) X 10*3/uL Lymphocytes # 0.87 L (0.90-5.00) X 10*3/uL Monocytes # 1.28 H (0.20-1.00) X 10*3/uL Eosinophils # 0.01 L (0.04-0.35) X 10*3/uL Anion Gap 12.80 H (4.00-12.00) mmol/L BUN/Creatinine Ratio 20.50 H (12.00-20.00) Ratio AST 84 H (14-35) U/L ALT 100 H (10-49) U/L Albumin 3.5 L (3.8-4.9) g/dL Albumin/Globulin Ratio 1.17 L (1.60-3.17) Ratio Microbiology - Last 24 Hours (Table) 10/29/23 09:03 Gram Stain - Final Sputum Sputum Culture - Final Assessment and Plan Assessment: Metastatic lung cancer Left hip proximal femur metastasis Plan: 1. Planning for prophylactic intramedullary rodding of the left femur on 11/02 pending medical clearance and patient consent. Patient's Plavix is currently being held. 2. Appreciate input from internal medicine, cardiology and pulmonology. 3. Patient is to remain nonweightbearing to left lower extremity. 4. Appreciate input from pain management. 5. We will continue to follow.
--- NOTE | 2023-11-01 12:36 | P.PAINPG ---
Subjective Progress Note Date: 11/01/23 This is 63 years old male, with a chronic low back pain and neck pain and bilateral hip pain, patient diagnosed with lung cancer with mets to the bone,, and he has been on chronic opioid use for several years, currently he is on [place] 10/325 every 4 hours , and Dilaudid 0.5 mg IV every 3 hours, and he repo rted that the current medication is not helping to control his pain, the pain mostly localized in the low back area and the bilateral hip area, patient scheduled to have hip surgery in the next few days, patient reported that the current medication is not helping to control his pain, density of the pain preventing him from being able to ambulate, patient currently reports that his pain level 8/10 with occasional exacerbation to 10/10 Objective - Vital Signs Vital signs: Vital Signs Temp 97.9 F 11/01/23 07:45 Pulse 87 11/01/23 08:52 Resp 18 11/01/23 07:45 BP 112/63 11/01/23 07:45 Pulse Ox 94 L 11/01/23 07:45 FiO2 Intake & Output 10/31/23 11/01/23 11/01/23 18:59 06:59 18:59 Output Total 1075 600 Balance -1075 -600 Weight 61.235 kg Output: Urine 1075 600 Other: Voiding Method Urinal Urinal - Exam Physical Examinations : -Constitutiona : Cooperative , not in acute distress . -HEENT : nech : supple , no Lymphadenopathy , normal thyroid size . : eyes : no ptosis , no icterus, no photophobia . - neurologic : Cranial nerve II to XII intact . -psychatric : alert , oriented X 3 , - musculoskeltal : Patient complaining of generalized tenderness over the lumbar and hip area - Labs CBC & Chem 7: 10/31/23 07:25 10/31/23 07:25 Labs: Microbiology - Last 24 Hours (Table) 10/29/23 09:03 Gram Stain - Final Sputum Sputum Culture - Final Assessment and Plan Plan: Assessment and plan 1-Metastatic lung cancer 2-Left hip proximal femur metastasis .3-chronic low back pain. 4-opioid tolerance 5-pain secondary to malignancy. Patient currently on [place] 10/325 every 4 hours, Dilaudid IV every 3 hours 0.5 mg and he reported that the current medication is not controlling his pain. Recommend to start patient on fentanyl patch 25 mcg every 72 hours, will keep [place] as prescribed. Patient scheduled to have left hip intramedullary rodding (prophylactic ) Time with Patient: Less than 30 PQRS Measure Charge Sheet - Pain Location Right Hip Non-Pharmacological Interventions: Darkened Room, Environmental Control, Position/Reposition, Reduce Environmental Stimuli, Sitting Pharmacological Interventions: Discuss Pain Med Options Pain Comment: see MAR PQRS Narrative: Smoking Status Current every day smoker Blood Pressure [Right Arm] 112/63 Blood Pressure [Left Arm] 128/80 Blood Pressure 110/79 Pain Intensity [Right Hip] 12 Pain Intensity 8 Pain Scale Used Numeric (1 - 10) Scale Used Numeric (1 - 10) Home Medications: Ambulatory Orders methocarbamoL [Robaxin-750] 750 mg PO TID PRN 09/08/22 Clopidogrel [Plavix] 75 mg PO DAILY #90 tablet 04/05/23 Atorvastatin Calcium [Lipitor] 40 mg PO DAILY 09/03/23 Metoprolol Succinate (ER) [Toprol XL] 50 mg PO DAILY 09/03/23 ARIPiprazole [Abilify] 20 mg PO DAILY 30 Days #30 tab 09/17/23 Acetaminophen Tab [Tylenol] 500 mg PO Q4HR PRN tab 09/17/23 Aspirin 81 mg PO DAILY 30 Days #30 tab 09/17/23 QUEtiapine [SEROquel] 100 mg PO HS 30 Days #30 tab 09/17/23 Sertraline [Zoloft] 200 mg PO DAILY 30 Days #60 tab 09/17/23 HYDROcodone/APAP 10-325MG [[place] 10-325] 1 tab PO Q6HR PRN 5 Days #15 tab 10/15/23 HYDROcodone/APAP 10-325MG [[place] 10-325] 1 tab PO Q6HR PRN 3 Days #12 tab 10/24/23 Atropine Sulfate/Pf [Atropine 1% Eye Drops] 1 drop LEFT EYE BID 10/25/23 Levothyroxine Sodium [Synthroid] 50 mcg PO DAILY 10/25/23 Moxifloxacin HCl [Moxifloxacin 0.5%] 1 drop LEFT EYE TID 10/25/23 Multivitamins, Thera [Multivitamin (formulary)] 1 tab PO DAILY 10/25/23 Naproxen Sodium [Aleve] 440 mg PO BID PRN 10/25/23 prednisoLONE ACETATE 1% OPHTH [Pred Forte 1%] 1 drop LEFT EYE TID 10/25/23 Controlled Substance Measures - Controlled Substance Measures Is patient prescribed a controlled substance at discharge?: No
--- NOTE | 2023-11-01 13:06 | P.PN ---
Subjective Progress Note Date: 11/01/23 I am seeing this patient in consultation today 10/29/2023 for suspected left lower lobe pneumonia. Patient is a 63-year-old white male with past medical history significant for COPD, adenocarcinoma of the lung diagnosed originally back in October 2019 status post chemotherapy radiation. Followed by immuno therapy. Does not appear the patient has followed up in the pulmonary office since 2021. He does follow with his oncologist Dr. Morales. Since then, he has experienced a fall and he has been complaining of severe hip pain. It is affecting his ambulation. He can no longer take care of himself at home. He had a ER visit earlier this month for this. He did have a follow-up nuc med bone scan which showed abnormal intense uptake involving the proximal left femur suggestive of malignancy. There was moderate intensity uptake L4 also suspicious for metastatic disease. He was scheduled for a follow-up outpatient PET scan today, which will obviously have to be rescheduled. Patient also has past medical history significant for COPD, chronic hypoxemic respiratory failure and maintained on 3 L/min nasal cannula as needed, hyperlipidemia, hypertension, hypothyroidism, coronary artery disease with previous PCI/stent, anxiety/depression/PTSD polysubstance abuse, among many other medical comorbidit ies. Patient returned to the emergency room on 10/24/2023 in complaining of increased lower extremity pain bilaterally. He can no longer ambulate appropriately. MRI of the lumbar spine demonstrates multiple areas of suspected metastatic disease within the lumbar spine with the largest through the L4 level. No vertebral body height loss is evident. There is multilevel disc bulges greatest at L5-S1. There is small subligamentous disc herniation and central protrusion present at L1-2 without spinal canal stenosis. There is severe right for minimal stenosis at L5-S1 with milder formoterol narrowing. 8 x-ray of the pelvis does not show any acute fractures. Patient did have a chest x-ray yesterday which showed a new patchy left lower lobe infiltrate as well as the patient's known right upper lobe mass with associated right upper lobe volume loss/absorptive atelectasis. This was followed by a CT of the chest, abdomen, pelvis which demonstrated suspected obstruction of the right brac hiocephalic vein with the majority of the injected contrast extending up along the collaterals along the anterior chest wall down into the abdomen into the common femoral vein and other collateral pathways. Patient does have history of SVC stenosis posttreatment. There is redemonstration of the patient's right upper lobe consolidation, which extends toward the pulmonary hilum, and consistent with the patient's known lung cancer. There is a new left lower lung airspace consolidation with air bronchograms consistent with pneumonia. There is redemonstration of the patient's suspected metastatic disease involving the lumbar spine left proximal femur. For this reason, we were consulted yesterday. Patient is currently sitting up in bed, 3 L/min nasal cannula, in no acute distress. He does endorse chronic shortness of breath. He has had a minimally productive cough with occasional yellow sputum production. Denies any fevers. Denies any chest pain. His main complaint is his bilateral hip pain. Patient has been evaluated by orthopedic surgery, there is a possible plan for prophyla ctic insertion of a intramedullary sarita to support the left femur. Most recent CBC from this morning: WBC count 22.3, hemoglobin 10.8, hematocrit 32.7, platelets 206. BMP from this morning: Sodium 136, potassium 3.8, chloride 100, serum bicarb 29, BUN 19, creatinine 0.77, glucose 126. Patient has been started on empiric Zosyn. Procalcitonin level pending. Sputum culture was ordered. He is afebrile. Vital signs are stable. The patient is seen today October 30, 2023 in follow-up on the regular medical floor. He is currently awake and alert. He is quite uncomfortable with both right and left hip pain. He denies any worsening shortness of breath, cough or congestion. He is maintaining good O2 saturation in the mid 90s on 3 L/min per nasal cannula. He is afebrile. Hemodynamically stable. MRI of the right hip results are pending. Sputum culture pending. No new labs today. He remains on DuoNeb ventilations, Pulmicort inhalations and a prednisone taper. Heparin for DVT prophylaxis. Antibiotics in the form of Zosyn. Patient is seen today October 31, 2023 in follow-up on the regular medical floor. He is awake and alert in no acute distress. Appearing more comfortable today compared to yesterday. He is maintaining good O2 saturation in the 90s on 3 L nasal cannula. He is afebrile. Hemodynamically stable. MRI of the hips reveal evidence of destructive proximal left femoral lesion concordant with CT findings and compatible with metastasis. Findings are suspicious for metastatic involvement of L4 and L5. There is abnormal signal involving the anterior column of the right acetabulum compatible with metastasis. Abnormal uptake in the left iliac bone suspicious for early metastasis. Sputum culture revealed no growth. White count 14.3. Hemoglobin 11.2. Platelets 236. Sodium 140. Potassium 3.9. Bicarb 30. BUN 16. Creatinine 0.8. AST 84. ALT 100. He r emains on Zosyn. Continued on bronchodilators and a prednisone taper. Heparin for DVT prophylaxis. The patient is seen today November 01, 2023 in follow-up on the regular medical floor. He is currently sitting up in bed. Awake and alert in no acute distress. Still having ongoing issues with low back and bilateral hip pain. He has been seen by pain management and fentanyl patch is to be added. He denies any worsening shortness of breath, cough or congestion. He is maintained on O2 saturations in the 90s on 3 L/min per nasal cannula. He is afebrile. Hemodynamically stable. Chest x-ray continues to show the right upper lung opacity with right-sided volume loss. Left lung remains clear. No acute process. No new labs today. Remains on Zosyn. Continued on bronchodilators, prednisone, and heparin for DVT prophylaxis Objective - Vital Signs Vital signs: Vital Signs Temp 97.9 F 11/01/23 07:45 Pulse 90 11/01/23 12:49 Resp 18 11/01/23 07:45 BP 112/63 11/01/23 07:45 Pulse Ox 94 L 11/01/23 07:45 FiO2 Intake & Output 10/31/23 11/01/23 11/01/23 18:59 06:59 18:59 Output Total 1075 600 Balance -1075 -600 Weight 61.235 kg Output: Urine 1075 600 Other: Voiding Method Urinal Urinal - Exam GENERAL EXAM: Alert, pleasant, cachectic 63-year-old male, sitting up in bed, on 3 L nasal cannula. HEAD: Normocephalic and atraumatic. EYES: Left eye blindness. NOSE: Clear with pink turbinates. THROAT: No erythema or exudates. NECK: No masses, no JVD. CHEST: No chest wall deformity. LUNGS: Equal air entry with inspiratory and expiratory wheezes heard throughout. Left-sided dullness. CVS: S1 and S2 normal with an audible murmur, regular rhythm. No extra heart sounds ABDOMEN: No hepatosplenomegaly, active bowel sounds, no guarding or rigidity. SPINE: No scoliosis or deformity SKIN: No rashes CENTRAL NERVOUS SYSTEM: No focal deficits, tone is normal in all 4 extremities. EXTREMITIES: Bilateral hip and low back pain. There is no peripheral edema, clubbing, or cyanosis. Peripheral pulses are intact. - Labs CBC & Chem 7: 10/31/23 07:25 10/31/23 07:25 Labs: Microbiology - Last 24 Hours (Table) 10/29/23 09:03 Gram Stain - Final Sputum Sputum Culture - Final Assessment and Plan Assessment: Metastatic adenocarcinoma of the lung, originally diagnosed was back in 2019 status post chemo/radiation followed by immunotherapy. CT of the chest, abdomen, pelvis demonstrates suspected obstruction of the right brachiocephalic vein with the majority of the injected contrast extending up along the collaterals along the anterior chest wall down into the abdomen into the common femoral vein and other collateral pathways. Patient does have history of SVC stenosis posttreatment. There is redemonstration of the patient's right upper lobe consolidation/mass and absorptive volume loss, which extends toward the pulmonary hilum, and consistent with the patient's known lung cancer. There is a new left lower lung airspace consolidation with air bronchograms consistent with pneumonia. There is redemonstration of the patient's suspected metastatic disease involving the lumbar spine left proximal femur. MRI of the hips reveal evidence of destructive proximal left femoral lesion concordant with CT findings and compatible with metastasis. Findings are suspicious for metastatic involvement of L4 and L5. There is abnormal signal involving the anterior column of the right acetabulum compatible with metastasis. Abnormal uptake in the left iliac bone suspicious for early metastasis. Bilateral hip and lower back pain secondary to above Suspected left lower lobe hospital acquired pneumonia procalcitonin 53.4. Continued on Zosyn, sputum culture revealed no growth Leukocytosis, secondary to above Unstable gait and fall, secondary to above Chronic obstructive pulmonary disease Chronic hypoxemic respiratory failure, normally on 3 L/min nasal cannula Chronic anemia History of hyperlipidemia History of hypertension History of hypothyroidism Coronary artery disease with previous PCI/stent History of anxiety/depression/PTSD History of polysubstance abuse Poor overall functional performance based on the above-mentioned multiple comorbidities Plan: The patient was seen and evaluated Labs and medications reviewed Continue the current treatment plan Seen and evaluated by pain management Fentanyl patch has been ordered Awaiting prophylactic insertion of sarita to the left femur We will continue to follow I have personally seen and examined the patient, performed the documentation and the assessment and plan as written. Number of minutes spent on the visit: 10.
--- NOTE | 2023-11-01 13:53 | XR ---
EXAMINATION TYPE: XR chest 1V portable DATE OF EXAM: 11/01/2023 COMPARISON: 10/28/2023 INDICATION: Pneumonia TECHNIQUE: Single frontal view of the chest is obtained. FINDINGS: The heart size is normal. The pulmonary vasculature is normal. There is persistent opacification of the right apex. Correlate for pneumonia. Underlying mass is not excluded. Continued follow-up is recommended There is some improvement of some minimal infiltrate at the left base. There is elevation of the righ t diaphragm. IMPRESSION: 1. Continued opacification right apex. Pneumonia is within the differential. Other etiologies includi ng underlying mass should be considered. Continued follow-up is recommended. 2. Improving left lower lobe infiltrate.
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
--- NOTE | 2023-11-02 12:25 | P.PN ---
Subjective Progress Note Date: 11/02/23 I am seeing this patient in consultation today 10/29/2023 for suspected left lower lobe pneumonia. Patient is a 63-year-old white male with past medical history significant for COPD, adenocarcinoma of the lung diagnosed originally back in October 2019 status post chemotherapy radiation. Followed by immuno therapy. Does not appear the patient has followed up in the pulmonary office since 2021. He does follow with his oncologist Dr. Morales. Since then, he has experienced a fall and he has been complaining of severe hip pain. It is affecting his ambulation. He can no longer take care of himself at home. He had a ER visit earlier this month for this. He did have a follow-up nuc med bone scan which showed abnormal intense uptake involving the proximal left femur suggestive of malignancy. There was moderate intensity uptake L4 also suspicious for metastatic disease. He was scheduled for a follow-up outpatient PET scan today, which will obviously have to be rescheduled. Patient also has past medical history significant for COPD, chronic hypoxemic respiratory failure and maintained on 3 L/min nasal cannula as needed, hyperlipidemia, hypertension, hypothyroidism, coronary artery disease with previous PCI/stent, anxiety/depression/PTSD polysubstance abuse, among many other medical comorbidit ies. Patient returned to the emergency room on 10/24/2023 in complaining of increased lower extremity pain bilaterally. He can no longer ambulate appropriately. MRI of the lumbar spine demonstrates multiple areas of suspected metastatic disease within the lumbar spine with the largest through the L4 level. No vertebral body height loss is evident. There is multilevel disc bulges greatest at L5-S1. There is small subligamentous disc herniation and central protrusion present at L1-2 without spinal canal stenosis. There is severe right for minimal stenosis at L5-S1 with milder formoterol narrowing. 8 x-ray of the pelvis does not show any acute fractures. Patient did have a chest x-ray yesterday which showed a new patchy left lower lobe infiltrate as well as the patient's known right upper lobe mass with associated right upper lobe volume loss/absorptive atelectasis. This was followed by a CT of the chest, abdomen, pelvis which demonstrated suspected obstruction of the right brac hiocephalic vein with the majority of the injected contrast extending up along the collaterals along the anterior chest wall down into the abdomen into the common femoral vein and other collateral pathways. Patient does have history of SVC stenosis posttreatment. There is redemonstration of the patient's right upper lobe consolidation, which extends toward the pulmonary hilum, and consistent with the patient's known lung cancer. There is a new left lower lung airspace consolidation with air bronchograms consistent with pneumonia. There is redemonstration of the patient's suspected metastatic disease involving the lumbar spine left proximal femur. For this reason, we were consulted yesterday. Patient is currently sitting up in bed, 3 L/min nasal cannula, in no acute distress. He does endorse chronic shortness of breath. He has had a minimally productive cough with occasional yellow sputum production. Denies any fevers. Denies any chest pain. His main complaint is his bilateral hip pain. Patient has been evaluated by orthopedic surgery, there is a possible plan for prophyla ctic insertion of a intramedullary sarita to support the left femur. Most recent CBC from this morning: WBC count 22.3, hemoglobin 10.8, hematocrit 32.7, platelets 206. BMP from this morning: Sodium 136, potassium 3.8, chloride 100, serum bicarb 29, BUN 19, creatinine 0.77, glucose 126. Patient has been started on empiric Zosyn. Procalcitonin level pending. Sputum culture was ordered. He is afebrile. Vital signs are stable. The patient is seen today October 30, 2023 in follow-up on the regular medical floor. He is currently awake and alert. He is quite uncomfortable with both right and left hip pain. He denies any worsening shortness of breath, cough or congestion. He is maintaining good O2 saturation in the mid 90s on 3 L/min per nasal cannula. He is afebrile. Hemodynamically stable. MRI of the right hip results are pending. Sputum culture pending. No new labs today. He remains on DuoNeb ventilations, Pulmicort inhalations and a prednisone taper. Heparin for DVT prophylaxis. Antibiotics in the form of Zosyn. Patient is seen today October 31, 2023 in follow-up on the regular medical floor. He is awake and alert in no acute distress. Appearing more comfortable today compared to yesterday. He is maintaining good O2 saturation in the 90s on 3 L nasal cannula. He is afebrile. Hemodynamically stable. MRI of the hips reveal evidence of destructive proximal left femoral lesion concordant with CT findings and compatible with metastasis. Findings are suspicious for metastatic involvement of L4 and L5. There is abnormal signal involving the anterior column of the right acetabulum compatible with metastasis. Abnormal uptake in the left iliac bone suspicious for early metastasis. Sputum culture revealed no growth. White count 14.3. Hemoglobin 11.2. Platelets 236. Sodium 140. Potassium 3.9. Bicarb 30. BUN 16. Creatinine 0.8. AST 84. ALT 100. He r emains on Zosyn. Continued on bronchodilators and a prednisone taper. Heparin for DVT prophylaxis. The patient is seen today November 01, 2023 in follow-up on the regular medical floor. He is currently sitting up in bed. Awake and alert in no acute distress. Still having ongoing issues with low back and bilateral hip pain. He has been seen by pain management and fentanyl patch is to be added. He denies any worsening shortness of breath, cough or congestion. He is maintained on O2 saturations in the 90s on 3 L/min per nasal cannula. He is afebrile. Hemodynamically stable. Chest x-ray continues to show the right upper lung opacity with right-sided volume loss. Left lung remains clear. No acute process. No new labs today. Remains on Zosyn. Continued on bronchodilators, prednisone, and heparin for DVT prophylaxis The patient is seen today November 02, 2023 in follow-up on the regular medical floor. He is currently awake and alert. A bit more comfortable today compared to yesterday. He had been started on a fentanyl patch per pain management. He denies any worsening shortness of breath, cough or congestion. Follow-up chest x-ray continues to show opacification of the right apex. Improved left lower lobe infiltrate. No new labs today. He remains on Zosyn, bronchodilators, prednisone, and heparin for DVT prophylaxis. He is maintaining good O2 saturations in the 90s on 3 L/min per nasal cannula. He is afebrile. Hemodynamically stable. Objective - Vital Signs Vital signs: Vital Signs Temp 97.7 F 11/02/23 07:16 Pulse 94 11/02/23 09:23 Resp 18 11/02/23 09:23 BP 113/68 11/02/23 07:16 Pulse Ox 95 11/02/23 09:14 FiO2 Intake & Output 11/01/23 11/02/2311/01/24 18:59 06:59 18:59 Output Total 600 200 Balance -600 -200 Output: Urine 600 200 Other: Voiding Method Urinal Urinal - Exam GENERAL EXAM: Alert, cachectic 63-year-old male, resting in bed, on 3 L nasal cannula. HEAD: Normocephalic and atraumatic. EYES: Left eye blindness. NOSE: Clear with pink turbinates. THROAT: No erythema or exudates. NECK: No masses, no JVD. CHEST: No chest wall deformity. LUNGS: Equal air entry with inspiratory and expiratory wheezes heard throughout. Left-sided dullness. CVS: S1 and S2 normal with an audible murmur, regular rhythm. No extra heart sounds ABDOMEN: No hepatosplenomegaly, active bowel sounds, no guarding or rigidity. SPINE: No scoliosis or deformity SKIN: No rashes CENTRAL NERVOUS SYSTEM: No focal deficits, tone is normal in all 4 extremities. EXTREMITIES: Bilateral hip and low back pain. There is no peripheral edema, clubbing, or cyanosis. Peripheral pulses are intact. - Labs CBC & Chem 7: 10/31/23 07:25 10/31/23 07:25 Assessment and Plan Assessment: Metastatic adenocarcinoma of the lung, originally diagnosed was back in 2020 status post chemo/radiation followed by immunotherapy. CT of the chest, abdomen, pelvis demonstrates suspected obstruction of the right brachiocephalic vein with the majority of the injected contrast extending up along the collaterals along the anterior chest wall down into the abdomen into the common femoral vein and other collateral pathways. Patient does have history of SVC stenosis posttreatment. There is redemonstration of the patient's right upper lobe co nsolidation/mass and absorptive volume loss, which extends toward the pulmonary hilum, and consistent with the patient's known lung cancer. There is a new left lower lung airspace consolidation with air bronchograms consistent with pneumonia. There is redemonstration of the patient's suspected metastatic disease involving the lumbar spine left proximal femur. MRI of the hips reveal evidence of destructive proximal left femoral lesion concordant with CT findings and compatible with metastasis. Findings are suspicious for metastatic involvement of L4 and L5. There is abnormal signal involving the anterior column of the right acetabulum compatible with metastasis. Abnormal uptake in the left iliac bone suspicious for early metastasis Bilateral hip and lower back pain secondary to above Suspected left lower lobe hospital acquired pneumonia procalcitonin 53.4. Continued on Zosyn, sputum culture revealed no growth Leukocytosis, secondary to above Unstable gait and fall, secondary to above Chronic obstructive pulmonary disease Chronic hypoxemic respiratory failure, normally on 3 L/min nasal cannula Chronic anemia History of hyperlipidemia History of hypertension History of hypothyroidism Coronary artery disease with previous PCI/stent History of anxiety/depression/PTSD History of polysubstance abuse Poor overall functional performance based on the above-mentioned multiple comorbidities Plan: The patient was seen and evaluated X-ray and medications reviewed Showing improvement in the left lower lobe infiltrate Continue the current treatment plan We will continue to follow I have personally seen and examined the patient, performed the documentation and the assessment and plan as written. Number of minutes spent on the visit: 10.
[2023-11-02 13:01] LABS: Basophils % (A) 0 %; Eosinophils % (A) 0 %; HCT 35.9 % (39.0-53.0); HGB 11.4 gm/dL (13.0-17.5); Lymphocytes # (A) 0.4 k/uL (1.0-4.8); Lymphocytes % (A) 3 %; MCH 32.6 pg (25.0-35.0); MCHC 31.8 g/dL (31.0-37.0); MCV 102.4 fL (80.0-100.0); Macrocytosis Slight; Mean Platelet Volume 7.5; Monocytes # (A) 0.3 k/uL (0-1.0); Monocytes % (A) 2 %; Neutrophils # (A) 15.1 k/uL (1.3-7.7); Neutrophils % (A) 95 %; Platelet Count 296 k/uL (150-450); RBC 3.51 m/uL (4.30-5.90); RDW 13.9 % (11.5-15.5); WBC 15.9 k/uL (3.8-10.6)
[2023-11-02 13:10] LABS: ALT 65 U/L (4-49); AST 38 U/L (17-59); African American GFR (CKD) >90 (>60 ml/min/1.73 sqM); Albumin/Globulin Ratio 0.9; Alkaline Phosphatase 91 U/L (38-126); Anion Gap 3 mmol/L; Blood Urea Nitrogen 17 mg/dL (9-20); Calcium 8.5 mg/dL (8.4-10.2); Carbon Dioxide 33 mmol/L (22-30); Chloride 101 mmol/L (98-107); Globulin 3.2 g/dL; Glucose 112 mg/dL (74-99); Non-African American GFR(CKD) >90 (>60 ml/min/1.73 sqM); Potassium 3.6 mmol/L (3.5-5.1); Sodium 137 mmol/L (137-145); Total Bilirubin 0.6 mg/dL (0.2-1.3); Total Protein 6.2 g/dL (6.3-8.2)
--- NOTE | 2023-11-03 11:49 | P.PAINPG ---
Objective - Vital Signs Vital signs: Vital Signs Temp 97.9 F 11/03/23 07:14 Pulse 88 11/03/23 07:50 Resp 16 11/03/23 07:14 BP 122/68 11/03/23 07:14 Pulse Ox 96 11/03/23 02:00 FiO2 Intake & Output 11/02/23 11/03/23 11/03/23 18:59 06:59 18:59 Intake Total 600 Output Total 400 Balance 200 Intake: Oral 600 Output: Urine 400 Other: Voiding Method Urinal Urinal # Voids 3 - Labs CBC & Chem 7: 11/02/23 12:43 11/02/23 12:43 Labs: Abnormal Lab Results - Last 24 Hours (Table) 11/02/23 11/02/23 Range/Units 12:43 12:43 WBC 15.9 H (3.8-10.6) k/uL RBC 3.51 L (4.30-5.90) m/uL Hgb 11.4 L (13.0-17.5) gm/dL Hct 35.9 L (39.0-53.0) % MCV 102.4 H (80.0-100.0) fL Neutrophils # 15.1 H (1.3-7.7) k/uL Lymphocytes # 0.4 L (1.0-4.8) k/uL Carbon Dioxide 33 H (22-30) mmol/L Glucose 112 H (74-99) mg/dL ALT 65 H (4-49) U/L Total Protein 6.2 L (6.3-8.2) g/dL Albumin 3.0 L (3.5-5.0) g/dL PQRS Measure Charge Sheet Comment: HISTORY OF PRESENT ILLNESS: A 63 yr old inpatient male w severe and chronic LBP and BL hip pain > 1 yr secondary to DDD, spondylosis and facet arthropathy without myelopathy for evaluation of intractable pain. Dilaudid 25mcg/hr q72h was ineffective in reducing pain while in conjunction w Dilaudid q3h and Arbuckle 10/325mg q4h. Per nurse, pt was screaming in pain throughout the night which could be heard down the huitron. In addition to his fentanyl patch, he was given Dilaudid at 9 am and Arbuckle at 11 am. Currently at 11:30am he is groggy. Pt states pain level is provoked at 6 /10 in intensity, constant, localized in the lumbar spine and BL hips, predominantly axial, dull in character w occasional shooting pain towards the hips and BLEs. Pain is provoked by any movement. Pain is alleviated by medications (Arbuckle 10/325mg q4-6h at home), repositioning and rest. ROS : Denies ALMEIDA, rashes, vision changes, F/C, D/C, CP, RAHUL, spasms or tingling/ numbness in the extremities. REVIEW OF ORGAN SYSTEMS: CONSTITUTIONAL: No fevers or chills. No recent weight loss. NEUROLOGICAL: + numbness and tingling along the distal extremities. No seizure disorders or headaches. MUSCULOSKELETAL: + pain PSYCHIATRIC: Denies current depression or suicidal thoughts. Physical Examinations : Constitutional : Cooperative , not in acute distress . Neurologic : Cranial nerve II to XII intact. No focal neurological deficits. Psychiatric : alert & oriented x 3. Matching mood & appropriate affect. Judgment & insight intact. Musculoskeletal : Cervical Spine Motor strength in the deltoid and biceps: Normal right side. Normal Left side Motor strength biceps and the wrist extensors: Normal right side . Normal left side Motor strength in the triceps muscle: Normal right side. Normal left side Deep tendon reflexes: Normal at the biceps. Normal at Brachioradialis. Normal at triceps Vertebral body tenderness to deep palpation over Cervical facet loading test: positive bilaterally Spurling test: positive bilaterally Neck distraction test: positive bilaterally Candace sign: positive bilaterally Lumbar spine Motor strength lower extremities ,thigh and legs 3/5 Right side , 3/5 Left side Deep tendon reflexes : Normal Knee Jerk. Normal Ankle Jerk Vertebral body tenderness over L3, L4, L5 Vega Test positive Lumbar facet Loading Test: positive Right / positive Left Range of motion of the lumbar spine Flexion 30 degrees, extension 10 degrees Straight Leg Raise test: Left/ Right positive at degree Guera test: positive right / positive left. Severe tenderness over the Sacroiliac joint on the Right / Left sides Gaenslen test: positive bilaterally Seated flexion test: positive bilaterally. Sacral spine : Severe tenderness over the Sacroiliac joint: right side / left side Range of motion: Flexion of the lumbar spine <60 degrees Range of motion: Extension of the lumbar spine <20 degrees Gaenslen's Test positive Guera test: positive right side / left side Thigh Thrust Test Sacral Thrust Test Imaging: Hip MRI: report reviewed, image reviewed (Imaging of his left hip shows 3 x 3 cm likely metastasis with bony erosion extending to the soft tissue. There is approximately 50% cortical involvement. The femoral head appears to be intact.) Lumbar MRI with/without contrast: report reviewed (There is no significant centr al stenosis. There is no cord changes. I do not see any evidence of abscess or epidural tumor.), image reviewed (Imaging of his lumbar spine is reviewed which shows degenerative disc changes throughout his lumbar spine. He has some right foraminal stenosis L5-S1. There are some signal changes within number the vertebral bodies without obvious cord compression or significant epidural mass effect. There is no) Assessment/ Plan : Lumbar DDD, BL Hip DJD Recommendation of medication management. Will adjust Fentanyl to 50mcg/hr q72 hr, then reduce the frequency of Arbuckle 10/325mg q6hr prn pain and Dilaudid to q4h prn pain. All questions answered. I have spent greater than 30 minutes on patient care today. Dr Angulo was available by phone for the evaluation of this patient. The time was used to review the medical records including relevant urine studies and Prescription history (MAPs), review of the available imaging, evaluation and examination of the patient, coordination of care with the medical staff and if applicable referring physicians, as well as creation of the medical record - Pain Location Right Hip Non-Pharmacological Interventions: Darkened Room, Environmental Control, Position/Reposition, Reduce Environmental Stimuli, Sitting Pharmacological Interventions: Discuss Pain Med Options Pain Comment: see MAR pain assessment. PQRS Narrative: Smoking Status Current every day smoker Blood Pressure [Right Arm] 122/68 Blood Pressure [Left Arm] 123/67 Blood Pressure 110/79 Pain Intensity [Right Hip] 12 Pain Intensity 10 Pain Scale Used Numeric (1 - 10) Scale Used Numeric (1 - 10) Home Medications: Ambulatory Orders methocarbamoL [Robaxin-750] 750 mg PO TID PRN 09/08/22 Clopidogrel [Plavix] 75 mg PO DAILY #90 tablet 04/05/23 Atorvastatin Calcium [Lipitor] 40 mg PO DAILY 09/03/23 Metoprolol Succinate (ER) [Toprol XL] 50 mg PO DAILY 09/03/23 ARIPiprazole [Abilify] 20 mg PO DAILY 30 Days #30 tab 09/17/23 Acetaminophen Tab [Tylenol] 500 mg PO Q4HR PRN tab 09/17/23 Aspirin 81 mg PO DAILY 30 Days #30 tab 09/17/23 QUEtiapine [SEROquel] 100 mg PO HS 30 Days #30 tab 09/17/23 Sertraline [Zoloft] 200 mg PO DAILY 30 Days #60 tab 09/17/23 HYDROcodone/APAP 10-325MG [Arbuckle 10-325] 1 tab PO Q6HR PRN 5 Days #15 tab 10/15/23 HYDROcodone/APAP 10-325MG [Arbuckle 10-325] 1 tab PO Q6HR PRN 3 Days #12 tab 10/24/23 Atropine Sulfate/Pf [Atropine 1% Eye Drops] 1 drop LEFT EYE BID 10/25/23 Levothyroxine Sodium [Synthroid] 50 mcg PO DAILY 10/25/23 Moxifloxacin HCl [Moxifloxacin 0.5%] 1 drop LEFT EYE TID 10/25/23 Multivitamins, Thera [Multivitamin (formulary)] 1 tab PO DAILY 10/25/23 Naproxen Sodium [Aleve] 440 mg PO BID PRN 10/25/23 prednisoLONE ACETATE 1% OPHTH [Pred Forte 1%] 1 drop LEFT EYE TID 10/25/23 Controlled Substance Measures - Controlled Substance Measures Is patient prescribed a controlled substance at discharge?: No
[2023-11-03 11:55] LABS: HCT 33.8 % (39.6-50.0); HGB 10.8 g/dL (13.0-17.0); MCH 32.6 pg (27.0-32.0); MCV 102.1 FL (80.0-97.0); Mean Platelet Volume 10.3 FL (9.5-12.2); NRBC Per 100 WBC 0 X 10*3/uL (0.00-0.01); Platelet Count 332 X 10*3/uL (140-440); RBC 3.31 X 10*6/uL (4.40-5.60); RDW 14.2 % (11.5-14.5); WBC 12.45 X 10*3/uL (4.50-10.00)
[2023-11-03 11:56] LABS: Basophils # (A) 0.04 X 10*3/uL (0.00-0.10); Basophils % (A) 0.3 %; Eosinophils # (A) 0.04 X 10*3/uL (0.04-0.35); Eosinophils % (A) 0.3 %; Lymphocytes # (A) 1.17 X 10*3/uL (0.90-5.00); Lymphocytes % (A) 9.4 %; Monocytes # (A) 0.81 X 10*3/uL (0.20-1.00); Monocytes % (A) 6.5 %; Neutrophils # (A) 10.14 X 10*3/uL (1.80-7.70); Neutrophils % (A) 81.5 %
[2023-11-03 12:08] LABS: ALT 62 U/L (10-49); AST 33 U/L (14-35); Albumin 3.2 g/dL (3.8-4.9); Albumin/Globulin Ratio 1.14 Ratio (1.60-3.17); Alkaline Phosphatase 82 U/L (41-126); BUN/Creat Ratio 19.33 Ratio (12.00-20.00); Blood Urea Nitrogen 17.4 mg/dL (9.0-27.0); Calcium 8.9 mg/dL (8.7-10.3); Carbon Dioxide 28.6 mmol/L (21.6-31.8); Chloride 101 mmol/L (96-109); Globulin 2.8 g/dL (1.6-3.3); Glucose 97 mg/dL (70-110); Potassium 3.8 mmol/L (3.5-5.5); Sodium 140 mmol/L (135-145); Total Bilirubin 0.3 mg/dL (0.3-1.2)
--- NOTE | 2023-11-03 12:34 | P.PN ---
Subjective Progress Note Date: 11/03/23 I am seeing this patient in consultation today 10/29/2023 for suspected left lower lobe pneumonia. Patient is a 63-year-old white male with past medical history significant for COPD, adenocarcinoma of the lung diagnosed originally back in October 2019 status post chemotherapy radiation. Followed by immuno therapy. Does not appear the patient has followed up in the pulmonary office since 2021. He does follow with his oncologist Dr. Morales. Since then, he has experienced a fall and he has been complaining of severe hip pain. It is affecting his ambulation. He can no longer take care of himself at home. He had a ER visit earlier this month for this. He did have a follow-up nuc med bone scan which showed abnormal intense uptake involving the proximal left femur suggestive of malignancy. There was moderate intensity uptake L4 also suspicious for metastatic disease. He was scheduled for a follow-up outpatient PET scan today, which will obviously have to be rescheduled. Patient also has past medical history significant for COPD, chronic hypoxemic respiratory failure and maintained on 3 L/min nasal cannula as needed, hyperlipidemia, hypertension, hypothyroidism, coronary artery disease with previous PCI/stent, anxiety/depression/PTSD polysubstance abuse, among many other medical comorbidit ies. Patient returned to the emergency room on 10/24/2023 in complaining of increased lower extremity pain bilaterally. He can no longer ambulate appropriately. MRI of the lumbar spine demonstrates multiple areas of suspected metastatic disease within the lumbar spine with the largest through the L4 level. No vertebral body height loss is evident. There is multilevel disc bulges greatest at L5-S1. There is small subligamentous disc herniation and central protrusion present at L1-2 without spinal canal stenosis. There is severe right for minimal stenosis at L5-S1 with milder formoterol narrowing. 8 x-ray of the pelvis does not show any acute fractures. Patient did have a chest x-ray yesterday which showed a new patchy left lower lobe infiltrate as well as the patient's known right upper lobe mass with associated right upper lobe volume loss/absorptive atelectasis. This was followed by a CT of the chest, abdomen, pelvis which demonstrated suspected obstruction of the right brac hiocephalic vein with the majority of the injected contrast extending up along the collaterals along the anterior chest wall down into the abdomen into the common femoral vein and other collateral pathways. Patient does have history of SVC stenosis posttreatment. There is redemonstration of the patient's right upper lobe consolidation, which extends toward the pulmonary hilum, and consistent with the patient's known lung cancer. There is a new left lower lung airspace consolidation with air bronchograms consistent with pneumonia. There is redemonstration of the patient's suspected metastatic disease involving the lumbar spine left proximal femur. For this reason, we were consulted yesterday. Patient is currently sitting up in bed, 3 L/min nasal cannula, in no acute distress. He does endorse chronic shortness of breath. He has had a minimally productive cough with occasional yellow sputum production. Denies any fevers. Denies any chest pain. His main complaint is his bilateral hip pain. Patient has been evaluated by orthopedic surgery, there is a possible plan for prophyla ctic insertion of a intramedullary sarita to support the left femur. Most recent CBC from this morning: WBC count 22.3, hemoglobin 10.8, hematocrit 32.7, platelets 206. BMP from this morning: Sodium 136, potassium 3.8, chloride 100, serum bicarb 29, BUN 19, creatinine 0.77, glucose 126. Patient has been started on empiric Zosyn. Procalcitonin level pending. Sputum culture was ordered. He is afebrile. Vital signs are stable. The patient is seen today October 30, 2023 in follow-up on the regular medical floor. He is currently awake and alert. He is quite uncomfortable with both right and left hip pain. He denies any worsening shortness of breath, cough or congestion. He is maintaining good O2 saturation in the mid 90s on 3 L/min per nasal cannula. He is afebrile. Hemodynamically stable. MRI of the right hip results are pending. Sputum culture pending. No new labs today. He remains on DuoNeb ventilations, Pulmicort inhalations and a prednisone taper. Heparin for DVT prophylaxis. Antibiotics in the form of Zosyn. Patient is seen today October 31, 2023 in follow-up on the regular medical floor. He is awake and alert in no acute distress. Appearing more comfortable today compared to yesterday. He is maintaining good O2 saturation in the 90s on 3 L nasal cannula. He is afebrile. Hemodynamically stable. MRI of the hips reveal evidence of destructive proximal left femoral lesion concordant with CT findings and compatible with metastasis. Findings are suspicious for metastatic involvement of L4 and L5. There is abnormal signal involving the anterior column of the right acetabulum compatible with metastasis. Abnormal uptake in the left iliac bone suspicious for early metastasis. Sputum culture revealed no growth. White count 14.3. Hemoglobin 11.2. Platelets 236. Sodium 140. Potassium 3.9. Bicarb 30. BUN 16. Creatinine 0.8. AST 84. ALT 100. He r emains on Zosyn. Continued on bronchodilators and a prednisone taper. Heparin for DVT prophylaxis. The patient is seen today November 01, 2023 in follow-up on the regular medical floor. He is currently sitting up in bed. Awake and alert in no acute distress. Still having ongoing issues with low back and bilateral hip pain. He has been seen by pain management and fentanyl patch is to be added. He denies any worsening shortness of breath, cough or congestion. He is maintained on O2 saturations in the 90s on 3 L/min per nasal cannula. He is afebrile. Hemodynamically stable. Chest x-ray continues to show the right upper lung opacity with right-sided volume loss. Left lung remains clear. No acute process. No new labs today. Remains on Zosyn. Continued on bronchodilators, prednisone, and heparin for DVT prophylaxis The patient is seen today November 02, 2023 in follow-up on the regular medical floor. He is currently awake and alert. A bit more comfortable today compared to yesterday. He had been started on a fentanyl patch per pain management. He denies any worsening shortness of breath, cough or congestion. Follow-up chest x-ray continues to show opacification of the right apex. Improved left lower lobe infiltrate. No new labs today. He remains on Zosyn, bronchodilators, prednisone, and heparin for DVT prophylaxis. He is maintaining good O2 saturations in the 90s on 3 L/min per nasal cannula. He is afebrile. Hemodynamically stable. The patient is seen today November 03, 2023 in follow-up on the regular medical floor. He is resting fairly comfortably in bed. Still having quite a bit of bilateral hip pain. He denies any worsening shortness of breath, cough or congestion. He is maintaining O2 saturations in the 90s on 3 L/min per nasal cannula. He has been afebrile. Hemodynamically stable. Sputum culture revealed no growth. White count 12.4. Hemoglobin 10.8. Sodium 140. Potassium 3.8. Bicarb 28. BUN 17. Creatinine 0.9. Glucose 97. He is continued on Zosyn. Heparin for DVT prophylaxis. Continued on bronchodilators. Pain management is following. Objective - Vital Signs Vital signs: Vital Signs Temp 97.6 F 11/03/23 11:07 Pulse 71 11/03/23 11:07 Resp 16 11/03/23 11:07 BP 139/74 11/03/23 11:07 Pulse Ox 90 L 11/03/23 11:07 FiO2 Intake & Output 11/02/23 11/03/23 11/03/23 18:59 06:59 18:59 Intake Total 600 Output Total 400 Balance 200 Intake: Oral 600 Output: Urine 400 Other: Voiding Method Urinal Urinal # Voids 3 - Exam GENERAL EXAM: Alert, cachectic 63-year-old male, on 3 L nasal cannula, resting in bed, in no acute distress. HEAD: Normocephalic and atraumatic. EYES: Left eye blindness. NOSE: Clear with pink turbinates. THROAT: No erythema or exudates. NECK: No masses, no JVD. CHEST: No chest wall deformity. LUNGS: Equal air entry with inspiratory and expiratory wheezes heard throughout. Left-sided dullness. CVS: S1 and S2 normal with an audible murmur, regular rhythm. No extra heart sounds ABDOMEN: No hepatosplenomegaly, active bowel sounds, no guarding or rigidity. SPINE: No scoliosis or deformity SKIN: No rashes CENTRAL NERVOUS SYSTEM: No focal deficits, tone is normal in all 4 extremities. EXTREMITIES: Bilateral hip and low back pain. There is no peripheral edema, clubbing, or cyanosis. Peripheral pulses are intact. - Labs CBC & Chem 7: 11/03/23 06:25 11/03/23 06:25 Labs: Abnormal Lab Results - Last 24 Hours (Table) 11/02/23 11/02/23 11/03/23 Range/Units 12:43 12:43 06:25 WBC 15.9 H 12.45 H (3.8-10.6) k/uL RBC 3.51 L 3.31 L (4.30-5.90) m/uL Hgb 11.4 L 10.8 L (13.0-17.5) gm/dL Hct 35.9 L 33.8 L (39.0-53.0) % MCV 102.4 H 102.1 H (80.0-100.0) fL MCH 32.6 H (27.0-32.0) pg Immature Gran # 0.25 H (0.00-0.04) X 10*3/uL Neutrophils # 15.1 H 10.14 H (1.3-7.7) k/uL Lymphocytes # 0.4 L (1.0-4.8) k/uL Carbon Dioxide 33 H (22-30) mmol/L Glucose 112 H (74-99) mg/dL ALT 65 H (4-49) U/L Total Protein 6.2 L (6.3-8.2) g/dL Albumin 3.0 L (3.5-5.0) g/dL Albumin/Globulin Ratio (1.60-3.17) Ratio 11/03/23 Range/Units 06:25 WBC (3.8-10.6) k/uL RBC (4.30-5.90) m/uL Hgb (13.0-17.5) gm/dL Hct (39.0-53.0) % MCV (80.0-100.0) fL MCH (27.0-32.0) pg Immature Gran # (0.00-0.04) X 10*3/uL Neutrophils # (1.3-7.7) k/uL Lymphocytes # (1.0-4.8) k/uL Carbon Dioxide (22-30) mmol/L Glucose (74-99) mg/dL ALT 62 H (4-49) U/L Total Protein 6.0 L (6.3-8.2) g/dL Albumin 3.2 L (3.5-5.0) g/dL Albumin/Globulin Ratio 1.14 L (1.60-3.17) Ratio Assessment and Plan Assessment: Metastatic adenocarcinoma of the lung, originally diagnosed was back in 2019 status post chemo/radiation followed by immunotherapy. CT of the chest, abdomen, pelvis demonstrates suspected obstruction of the right brachiocephalic vein with the majority of the injected contrast extending up along the collaterals along the anterior chest wall down into the abdomen into the common femoral vein and other collateral pathways. Patient does have history of SVC stenosis posttreatment. There is redemonstration of the patient's right upper lobe consolidation/mass and absorptive volume loss, which extends toward the pulmonary hilum, and consistent with the patient's known lung cancer. There is a new left lower lung airspace consolidation with air bronchograms consistent with pneumonia. There is redemonstration of the patient's suspected metastatic disease involving the lumbar spine left proximal femur. MRI of the hips reveal evidence of destructive proximal left femoral lesion concordant with CT findings and compatible with metastasis. Findings are suspicious for metastatic involvement of L4 and L5. There is abnormal signal involving the anterior column of the right acetabulum compatible with metastasis. Abnormal uptake in the left iliac bone suspicious for early metastasis Bilateral hip and lower back pain secondary to above Suspected left lower lobe hospital acquired pneumonia procalcitonin 53.4. Continued on Zosyn, sputum culture revealed no growth Leukocytosis, secondary to above Unstable gait and fall, secondary to above Chronic obstructive pulmonary disease Chronic hypoxemic respiratory failure, normally on 3 L/min nasal cannula Chronic anemia History of hyperlipidemia History of hypertension History of hypothyroidism Coronary artery disease with previous PCI/stent History of anxiety/depression/PTSD History of polysubstance abuse Poor overall functional performance based on the above-mentioned multiple comorbidities Plan: The patient was seen and evaluated Labs and medications reviewed Continue the current treatment plan Pain management is following Plan is for surgery involving his left femur today We will continue to follow I have personally seen and examined the patient, performed the documentation and the assessment and plan as written. Number of minutes spent on the visit: 10.
[2023-11-03] MEDS: SODIUM CHLORIDE 0.9% 1,000 ML IV ONE ×2 (13:02→17:55)
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
[2023-11-03] MEDS ORDERED: HYDROmorphone 0.5 MG/0.5 ML SYRINGE ONE (13:22)
[2023-11-03] MEDS: HYDROmorphone 0.5 MG/0.5 ML SYRINGE IVP ONE (13:23)
[2023-11-03] MEDS: SODIUM CHLORIDE 0.9% 100 ML with ceFAZolin 2,000 MG IV ONE (14:00)
[2023-11-03] MEDS ORDERED: MAGNESIUM HYDROXIDE 2,400 MG/30 ML CUP PO PRN (14:16)
--- NOTE | 2023-11-03 16:28 | XR ---
EXAMINATION TYPE: XR femur LT Intraoperative/procedural fluoroscopic services were provided. Total fl uoroscopy time images to PACS. Please see the operative/procedural note for further details. DAP: nail left femur. 1.3964 dap, 1 min 24 sec.
--- NOTE | 2023-11-03 17:57 | XR ---
EXAMINATION TYPE: XR Hip Limited LT DATE OF EXAM: 11/03/2023 5:32 PM CLINICAL INDICATION:Male, 63 years old with history of Status post hip surgery, assess surgical align ment; [facility] COMPARISON: None. TECHNIQUE: XR Hip Limited LT; hip was examined in the frontal projection FINDINGS: Post intramedullary sarita placement of the left femur. Fixation screw in the femoral head. Serrano rdware appears intact. Lucent lesion involving the medial cortex remains present of the proximal left femur. IMPRESSION: 1. Left femur intramedullary sarita placement with hardware intact. 2. Lucent destructive lesion remains present.
[2023-11-03] MEDS: HYDROcodone/APAP 10-325MG 1 EACH TAB PO PRN (19:00)
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
--- NOTE | 2023-11-03 19:18 | P.OP ---
Date of Procedure: 11/03/23 Preoperative Diagnosis: Left hip impending fracture. Left hip subtrochanteric lytic lesion Postoperative Diagnosis: same Procedure(s) Performed: Left hip prophylactic IM nail Implants: [place] gamma nail 380mm x 10mm, 100mm lag screw, 2 distal locking screws Anesthesia: MAC, spinal Surgeon: Samia Arteaga Estimated Blood Loss (ml): 100 Pathology: other (Left hip reamings) Condition: stable Disposition: PACU Indications for Procedure: Patient has a subtrochanteric lytic lesion that is quite painful. He has known history of lung cancer. We will proceed with prophylactic nailing and will send the reamings to pathology for review. Description of Procedure: The patient, operative extremity, and procedure were identified in the pre-op holding area. After informed consent was obtained. The patient was brought back to the OR. The patient was then positioned on the [place] table. Both feet were placed in well padded boots and the well leg was scissored with traction unlocked. All bony prominences were well padded. Fluoroscopy was used to visualize the full length of the femur. There was no bowing of the femur or obvious lytic lesions. There was some periosteal reaction noted about the distal femur. The operative site was then prepped and draped in normal sterile fashion. A 5cm incision was made posterior and proximal to the greater trochanter. The awl was introduced and used to hold the start point for the guide wire. The guide wire was then inserted. The position of the guide wire was confirmed on orthogonal views. The awl was substituted for the opening reamer. The ball tip guide wire was then introduced and inserted to the level of the superior pole of the patella. Measuring device showed that a 380mm nail would be appropriate. Serial reamers were introduced. There was good chatter at 10mm and the canal was reamed to 12mm. The nail was then placed over the wire and seated to the proper depth. The guide wire was removed. The triple cannula was then utilized to place the femoral neck guide pin. An incision was made to seat the triple cannula. Wire placement was checked on orthogonal views. The measuring guide showed that a 100mm screw would be appropriate for a tip to apex distance of less than 25mm. The reamer was set and utilized. The lag screw was then inserted. The superior locking screw was then tightened and loosened a quarter turn. Perfect [place] technique was then used to lock the distal end of the nail in the static position. Final views showed acceptable placement of the hardware. Wounds were irrigated and closed with 2.0 vycril and 4.0 monocryl and skin glue. Wounds were dressed with gauze and tegaderm. Patient was aroused by the anesthesia team and brought back to PACU in stable condition.
[2023-11-03] MEDS: HYDROmorphone 0.5 MG/0.5 ML SYRINGE IVP PRN (19:54)
[2023-11-03] MEDS: SENNOSIDES-DOCUSATE SODIUM 1 EACH TAB PO SCH (20:33)
[2023-11-04 11:04] LABS: HGB 11.1 g/dL (13.0-17.0); MCH 32.1 pg (27.0-32.0); MCHC 31.7 g/dL (32.0-37.0); MCV 101.2 FL (80.0-97.0); Mean Platelet Volume 9.7 FL (9.5-12.2); NRBC Per 100 WBC 0 X 10*3/uL (0.00-0.01); Platelet Count 372 X 10*3/uL (140-440); RBC 3.46 X 10*6/uL (4.40-5.60); RDW 14.3 % (11.5-14.5); WBC 17.81 X 10*3/uL (4.50-10.00)
[2023-11-04 11:05] LABS: Basophils # (A) 0.04 X 10*3/uL (0.00-0.10); Basophils % (A) 0.2 %; Eosinophils # (A) 0.05 X 10*3/uL (0.04-0.35); Eosinophils % (A) 0.3 %; Lymphocytes % (A) 6.2 %; Monocytes # (A) 0.87 X 10*3/uL (0.20-1.00); Monocytes % (A) 4.9 %; Neutrophils # (A) 15.43 X 10*3/uL (1.80-7.70); Neutrophils % (A) 86.6 %
--- NOTE | 2023-11-04 12:12 | P.PN ---
Subjective Progress Note Date: 11/04/23 I am seeing this patient in consultation today 10/29/2023 for suspected left lower lobe pneumonia. Patient is a 63-year-old white male with past medical history significant for COPD, adenocarcinoma of the lung diagnosed originally back in October 2019 status post chemotherapy radiation. Followed by immuno therapy. Does not appear the patient has followed up in the pulmonary office since 2021. He does follow with his oncologist Dr. Morales. Since then, he has experienced a fall and he has been complaining of severe hip pain. It is affecting his ambulation. He can no longer take care of himself at home. He had a ER visit earlier this month for this. He did have a follow-up nuc med bone scan which showed abnormal intense uptake involving the proximal left femur suggestive of malignancy. There was moderate intensity uptake L4 also suspicious for metastatic disease. He was scheduled for a follow-up outpatient PET scan today, which will obviously have to be rescheduled. Patient also has past medical history significant for COPD, chronic hypoxemic respiratory failure and maintained on 3 L/min nasal cannula as needed, hyperlipidemia, hypertension, hypothyroidism, coronary artery disease with previous PCI/stent, anxiety/depression/PTSD polysubstance abuse, among many other medical comorbidit ies. Patient returned to the emergency room on 10/24/2023 in complaining of increased lower extremity pain bilaterally. He can no longer ambulate appropriately. MRI of the lumbar spine demonstrates multiple areas of suspected metastatic disease within the lumbar spine with the largest through the L4 level. No vertebral body height loss is evident. There is multilevel disc bulges greatest at L5-S1. There is small subligamentous disc herniation and central protrusion present at L1-2 without spinal canal stenosis. There is severe right for minimal stenosis at L5-S1 with milder formoterol narrowing. 8 x-ray of the pelvis does not show any acute fractures. Patient did have a chest x-ray yesterday which showed a new patchy left lower lobe infiltrate as well as the patient's known right upper lobe mass with associated right upper lobe volume loss/absorptive atelectasis. This was followed by a CT of the chest, abdomen, pelvis which demonstrated suspected obstruction of the right brac hiocephalic vein with the majority of the injected contrast extending up along the collaterals along the anterior chest wall down into the abdomen into the common femoral vein and other collateral pathways. Patient does have history of SVC stenosis posttreatment. There is redemonstration of the patient's right upper lobe consolidation, which extends toward the pulmonary hilum, and consistent with the patient's known lung cancer. There is a new left lower lung airspace consolidation with air bronchograms consistent with pneumonia. There is redemonstration of the patient's suspected metastatic disease involving the lumbar spine left proximal femur. For this reason, we were consulted yesterday. Patient is currently sitting up in bed, 3 L/min nasal cannula, in no acute distress. He does endorse chronic shortness of breath. He has had a minimally productive cough with occasional yellow sputum production. Denies any fevers. Denies any chest pain. His main complaint is his bilateral hip pain. Patient has been evaluated by orthopedic surgery, there is a possible plan for prophyla ctic insertion of a intramedullary sarita to support the left femur. Most recent CBC from this morning: WBC count 22.3, hemoglobin 10.8, hematocrit 32.7, platelets 206. BMP from this morning: Sodium 136, potassium 3.8, chloride 100, serum bicarb 29, BUN 19, creatinine 0.77, glucose 126. Patient has been started on empiric Zosyn. Procalcitonin level pending. Sputum culture was ordered. He is afebrile. Vital signs are stable. The patient is seen today October 30, 2023 in follow-up on the regular medical floor. He is currently awake and alert. He is quite uncomfortable with both right and left hip pain. He denies any worsening shortness of breath, cough or congestion. He is maintaining good O2 saturation in the mid 90s on 3 L/min per nasal cannula. He is afebrile. Hemodynamically stable. MRI of the right hip results are pending. Sputum culture pending. No new labs today. He remains on DuoNeb ventilations, Pulmicort inhalations and a prednisone taper. Heparin for DVT prophylaxis. Antibiotics in the form of Zosyn. Patient is seen today October 31, 2023 in follow-up on the regular medical floor. He is awake and alert in no acute distress. Appearing more comfortable today compared to yesterday. He is maintaining good O2 saturation in the 90s on 3 L nasal cannula. He is afebrile. Hemodynamically stable. MRI of the hips reveal evidence of destructive proximal left femoral lesion concordant with CT findings and compatible with metastasis. Findings are suspicious for metastatic involvement of L4 and L5. There is abnormal signal involving the anterior column of the right acetabulum compatible with metastasis. Abnormal uptake in the left iliac bone suspicious for early metastasis. Sputum culture revealed no growth. White count 14.3. Hemoglobin 11.2. Platelets 236. Sodium 140. Potassium 3.9. Bicarb 30. BUN 16. Creatinine 0.8. AST 84. ALT 100. He r emains on Zosyn. Continued on bronchodilators and a prednisone taper. Heparin for DVT prophylaxis. The patient is seen today November 01, 2023 in follow-up on the regular medical floor. He is currently sitting up in bed. Awake and alert in no acute distress. Still having ongoing issues with low back and bilateral hip pain. He has been seen by pain management and fentanyl patch is to be added. He denies any worsening shortness of breath, cough or congestion. He is maintained on O2 saturations in the 90s on 3 L/min per nasal cannula. He is afebrile. Hemodynamically stable. Chest x-ray continues to show the right upper lung opacity with right-sided volume loss. Left lung remains clear. No acute process. No new labs today. Remains on Zosyn. Continued on bronchodilators, prednisone, and heparin for DVT prophylaxis The patient is seen today November 02, 2023 in follow-up on the regular medical floor. He is currently awake and alert. A bit more comfortable today compared to yesterday. He had been started on a fentanyl patch per pain management. He denies any worsening shortness of breath, cough or congestion. Follow-up chest x-ray continues to show opacification of the right apex. Improved left lower lobe infiltrate. No new labs today. He remains on Zosyn, bronchodilators, prednisone, and heparin for DVT prophylaxis. He is maintaining good O2 saturations in the 90s on 3 L/min per nasal cannula. He is afebrile. Hemodynamically stable. The patient is seen today November 03, 2023 in follow-up on the regular medical floor. He is resting fairly comfortably in bed. Still having quite a bit of bilateral hip pain. He denies any worsening shortness of breath, cough or congestion. He is maintaining O2 saturations in the 90s on 3 L/min per nasal cannula. He has been afebrile. Hemodynamically stable. Sputum culture revealed no growth. White count 12.4. Hemoglobin 10.8. Sodium 140. Potassium 3.8. Bicarb 28. BUN 17. Creatinine 0.9. Glucose 97. He is continued on Zosyn. Heparin for DVT prophylaxis. Continued on bronchodilators. Pain management is following. The patient is seen today November 04, 2023 in follow-up on the regular medical floor. He is currently resting comfortably in bed. Awake and alert. He is maintaining O2 saturations in the 90s on 3 L/min per nasal cannula. He is afebrile. Hemodynamically stable. He did undergo a left hip prophylactic intramedullary nail procedure yesterday by orthopedics. Postoperative day #1. White count 17.8. Hemoglobin 11.1. Platelets 372. He remains on bronchodilators, Zosyn. Heparin for DVT prophylaxis. Currently the pain is fairly well-controlled. Objective - Vital Signs Vital signs: Vital Signs Temp 97.7 F 11/04/23 07:25 Pulse 92 11/04/23 08:12 Resp 18 11/04/23 07:25 BP 125/72 11/04/23 07:25 Pulse Ox 90 L 11/04/23 07:25 FiO2 Intake & Output 11/03/23 11/04/23 11/04/23 18:59 06:59 18:59 Intake Total 1350 800 Output Total 100 400 Balance 1250 400 Intake: IV 1350 Oral 800 Output: Urine 400 Estimated Blood Loss 100 Other: Voiding Method Urinal - Exam GENERAL EXAM: Alert, cachectic, pleasant 63-year-old male, on 3 L nasal cannula, in no acute distress. HEAD: Normocephalic and atraumatic. EYES: Left eye blindness. NOSE: Clear with pink turbinates. THROAT: No erythema or exudates. NECK: No masses, no JVD. CHEST: No chest wall deformity. LUNGS: Equal air entry with inspiratory and expiratory wheezes heard throughout. Left-sided dullness. CVS: S1 and S2 normal with an audible murmur, regular rhythm. No extra heart sounds ABDOMEN: No hepatosplenomegaly, active bowel sounds, no guarding or rigidity. SPINE: No scoliosis or deformity SKIN: No rashes CENTRAL NERVOUS SYSTEM: No focal deficits, tone is normal in all 4 extremities. EXTREMITIES: Bilateral hip and low back pain. There is no peripheral edema, clubbing, or cyanosis. Peripheral pulses are intact. - Labs CBC & Chem 7: 11/04/23 08:04 11/03/23 06:25 Labs: Abnormal Lab Results - Last 24 Hours (Table) 11/03/23 11/04/23 Range/Units 06:25 08:04 WBC 17.81 H (4.50-10.00) X 10*3/uL RBC 3.46 L (4.40-5.60) X 10*6/uL Hgb 11.1 L (13.0-17.0) g/dL Hct 35.0 L (39.6-50.0) % MCV 101.2 H (80.0-97.0) FL MCH 32.1 H (27.0-32.0) pg MCHC 31.7 L (32.0-37.0) g/dL Immature Gran # 0.32 H (0.00-0.04) X 10*3/uL Neutrophils # 15.43 H (1.80-7.70) X 10*3/uL ALT 62 H (10-49) U/L Total Protein 6.0 L (6.2-8.2) g/dL Albumin 3.2 L (3.8-4.9) g/dL Albumin/Globulin Ratio 1.14 L (1.60-3.17) Ratio Assessment and Plan Assessment: Metastatic adenocarcinoma of the lung, originally diagnosed was back in 2019 status post chemo/radiation followed by immunotherapy. CT of the chest, abdomen, pelvis demonstrates suspected obstruction of the right brachiocephalic vein with the majority of the injected contrast extending up along the collaterals along the anterior chest wall down into the abdomen into the common femoral vein and other collateral pathways. Patient does have history of SVC stenosis posttreatment. There is redemonstration of the patient's right upper lobe consolidation/mass and absorptive volume loss, which extends toward the pu lmonary hilum, and consistent with the patient's known lung cancer. There is a new left lower lung airspace consolidation with air bronchograms consistent with pneumonia. There is redemonstration of the patient's suspected metastatic disease involving the lumbar spine left proximal femur. MRI of the hips reveal evidence of destructive proximal left femoral lesion concordant with CT findings and compatible with metastasis. Findings are suspicious for metastatic involvement of L4 and L5. There is abnormal signal involving the anterior column of the right acetabulum compatible with metastasis. Abnormal uptake in the left iliac bone suspicious for early metastasis Bilateral hip and lower back pain secondary to above. Status post prophylactic left hip intramedullary nailing on 11/03/2023 Suspected left lower lobe hospital acquired pneumonia procalcitonin 53.4. Continued on Zosyn, sputum culture revealed no growth Leukocytosis, secondary to above Unstable gait and fall, secondary to above Chronic obstructive pulmonary disease Chronic hypoxemic respiratory failure, normally on 3 L/min nasal cannula Chronic anemia History of hyperlipidemia History of hypertension History of hypothyroidism Coronary artery disease with previous PCI/stent History of anxiety/depression/PTSD History of polysubstance abuse Poor overall functional performance based on the above-mentioned multiple comorbidities Plan: The patient was seen and evaluated Labs and medications reviewed Remains stable and on 3 L nasal cannula Titrate the FiO2 as tolerated Continue bronchodilators The patient was seen independently by the pulmonary nurse practitioner addressing pulmonary issues I have personally seen and examined the patient, performed the documentation and the assessment and plan as written. Number of minutes spent on the visit: 25.
--- NOTE | 2023-11-04 12:28 | P.PN ---
Subjective Progress Note Date: 11/04/23 Principal diagnosis: Status post left hip prophylactic IT nail The patient is a 63 y/o male status post left hip prophylactic IT nail. This is post op day #1. He states the left leg is feeling ok but having some muscle spasms. He normally takes Robaxin at home and does have it ordered here. Pain is moderately controlled with [place] and a fentanyl patch per pain management. No new complaints today. Objective - Vital Signs Vital signs: Vital Signs Temp 97.7 F 11/04/23 07:25 Pulse 92 11/04/23 08:12 Resp 18 11/04/23 07:25 BP 125/72 11/04/23 07:25 Pulse Ox 90 L 11/04/23 07:25 FiO2 Intake & Output 11/03/23 11/04/23 11/04/23 18:59 06:59 18:59 Intake Total 1350 800 Output Total 100 400 Balance 1250 400 Intake: IV 1350 Oral 800 Output: Urine 400 Estimated Blood Loss 100 Other: Voiding Method Urinal Urinal - Exam The patient is a 63 y/o male who is in no acute distress. He is alert and oriented x3. Exam of the left hip reveals dry dressings, no drainage or redness. Minimal swelling present. Calf is soft and nontender. Good foot and ankle motion present. Neurological and circulatory status is intact. - Labs CBC & Chem 7: 11/04/23 08:04 11/03/23 06:25 Labs: Abnormal Lab Results - Last 24 Hours (Table) 11/04/23 Range/Units 08:04 WBC 17.81 H (4.50-10.00) X 10*3/uL RBC 3.46 L (4.40-5.60) X 10*6/uL Hgb 11.1 L (13.0-17.0) g/dL Hct 35.0 L (39.6-50.0) % MCV 101.2 H (80.0-97.0) FL MCH 32.1 H (27.0-32.0) pg MCHC 31.7 L (32.0-37.0) g/dL Immature Gran # 0.32 H (0.00-0.04) X 10*3/uL Neutrophils # 15.43 H (1.80-7.70) X 10*3/uL Assessment and Plan (1) Hip pain, bilateral Current Visit: Yes Status: Acute Priority: High Code(s): M25.551 - PAIN IN RIGHT HIP; M25.552 - PAIN IN LEFT HIP SNOMED Code(s): 31517900 (2) Non-small cell lung cancer (NSCLC) Current Visit: Yes Status: Acute Priority: High Code(s): C34.90 - MALIGNANT NEOPLASM OF UNSP PART OF UNSP BRONCHUS OR LUNG SNOMED Code(s): 399689432 Plan: 1. Continue pain control per pain management, may increase use of PRN Robaxin as needed for muscle spasms 2. DVT anticoagulation per internal medicine 3. Weightbearing as tolerated with a walker 4. Discharge to subacute rehab when medically stable. He is orthopedically stable for discharge. Agree with above assessment. Patient's pain is controlled albeit not much improved from his preop status as we had discussed. Exam shows that the dressings are CDI. No neuro changes. We'll leave DVT decisions up to the medical team given his complex picture. He is ok to WBAT now. We'll see him in the office in two weeks for a recheck.
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
--- NOTE | 2023-11-04 16:53 | P.PN ---
Subjective Progress Note Date: 11/04/23 Principal diagnosis: osseous lesions, intractable pain S/p intramedullary rodding of left femur. Pathology was obtained, results pending. Pt reporting improvement in pain. Has been started on fentanyl patch with prn meds for breakthrough pain. Objective - Vital Signs Vital signs: Vital Signs Temp 97.7 F 11/04/23 12:14 Pulse 77 11/04/23 12:14 Resp 18 11/04/23 12:14 BP 118/65 11/04/23 12:14 Pulse Ox 92 L 11/04/23 12:14 FiO2 Intake & Output 11/03/23 11/04/23 11/04/23 18:59 06:59 18:59 Intake Total 1350 800 Output Total 100 400 500 Balance 1250 400 -500 Intake: IV 1350 Oral 800 Output: Urine 400 500 Estimated Blood Loss 100 Other: Voiding Method Urinal Urinal - Constitutional General appearance: Present: average body habitus, no acute distress - EENT Eyes: Present: anicteric sclerae, EOMI ENT: Present: hearing grossly normal - Respiratory Details: Breathing is even and unlabored - Cardiovascular Details: Skin warm and - Gastrointestinal General gastrointestinal: Present: soft. Absent: tenderness - Integumentary Integumentary: Absent: cyanotic - Psychiatric Psychiatric: Present: A&O x's 3 - Labs CBC & Chem 7: 11/04/23 08:04 11/03/23 06:25 Labs: Abnormal Lab Results - Last 24 Hours (Table) 11/04/23 Range/Units 08:04 WBC 17.81 H (4.50-10.00) X 10*3/uL RBC 3.46 L (4.40-5.60) X 10*6/uL Hgb 11.1 L (13.0-17.0) g/dL Hct 35.0 L (39.6-50.0) % MCV 101.2 H (80.0-97.0) FL MCH 32.1 H (27.0-32.0) pg MCHC 31.7 L (32.0-37.0) g/dL Immature Gran # 0.32 H (0.00-0.04) X 10*3/uL Neutrophils # 15.43 H (1.80-7.70) X 10*3/uL Assessment and Plan (1) Chronic back pain Current Visit: Yes Status: Acute Priority: Medium Code(s): M54.9 - DORSALGIA, UNSPECIFIED; G89.29 - OTHER CHRONIC PAIN SNOMED Code(s): 008087737 (2) Chronic hip pain Current Visit: Yes Status: Acute Priority: Medium Code(s): M25.559 - PAIN IN UNSPECIFIED HIP; G89.29 - OTHER CHRONIC PAIN SNOMED Code(s): 79881363 (3) Chronic pain Current Visit: Yes Status: Acute Priority: Medium Code(s): G89.29 - OTHER CHRONIC PAIN SNOMED Code(s): 66597374 (4) Fall Current Visit: Yes Status: Acute Priority: Medium Code(s): W19.XXXA - UNSPECIFIED FALL, INITIAL ENCOUNTER SNOMED Code(s): 1510311 (5) Lung cancer Current Visit: No Status: Chronic Priority: Medium Code(s): C34.90 - MALIGNANT NEOPLASM OF UNSP PART OF UNSP BRONCHUS OR LUNG SNOMED Code(s): 317217292 Plan: Bilateral hip and low back pain, metastatic osseous lesions: -Patient has a history of chronic low back pain. Complaining of bilateral hip pain. MRI of the left hip on 09/22/2023 showing a 3.3 cm osseous lesion with cortical breakthrough -Nuclear medicine bone scan 09/23/2023 report reads abnormal intense uptake involving proximal left femur concordant with the x-ray and MRI abnormality. Moderate intensity uptake at L4. MRI lumbar spine revealed multiple areas of suspected metastatic disease within the lumbar spine largest through the L4 level. Also noted at L2, L3 and L5 as well as some abnormal signal within the inferior T12 vertebral body. Multilevel disc bulges greatest at L5-S1. Small subligamentous disc herniation and central protrusion present at L1-2 without spinal canal stenosis. Severe right foraminal stenosis at L5-S1 -Spoke with radiation oncology. Will obtain right hip MRI and tentatively plan for simulation/RT pending surgical evaluation -Right hip MRI revealed abnormal signal involving the anterior column of the right acetabulum, and abnormal uptake in the left iliac bone. -Orthopedic surgery consulted. S/P intramedullary rodding of left femur on 11/[address] Arteaga. Pathology has been obtained from left femur lesion, pathology pending -Pain management has been consulted for complicated case-component of chronic pain and malignancy pain. Patient has been started on fentanyl patch and continues on [place] and Dilaudid prn for breakthrough pain. 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 No evidence of disease until Sep 2023. Fortunately, patient had increased musculoskeletal complaints, low back, bilateral hips. On further workup found to have metastatic bone lesions. -Restaging PET/CT is scheduled 10/29/2023-patient rescheduled this appointment, he was previously scheduled for 10/15/2023. Follow-up with Dr. Morales scheduled for 11/17/2023. 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 Findings of injection collateral pathways in the right upper extremity were also noted on exam from 05/09/2021. Left lower lung airspace consolidation. Lytic lesion of the left proximal femur with cortical breakthrough and soft tissue. Right upper lung consolidation changes which extends down towards the pulmonary hilum, limiting evaluation. Suspected metastatic disease, which is seen on prior MRI in lumbar spine and L4, L5, and L2. Due to limited evaluation of right upper lung from reported consolidative changes, will plan to obtain to obtain PET CT outpt for further evaluation of metastatic disease. -S/P intramedullary rodding of left femur on 11/02. Pathology has been obtained from left femur lesion, pathology pending. Will request further biomarker testing once path resulted -Case management assisting pt with resources for medical transportation and home health services. PT also consulted, will await their recommendations regarding inpt rehabilitation. Discussed with patient today that if rehabilitation is needed, outpatient imaging and treatments would be on hold until discharge from rehab facility. Will continue to follow up on plan for discharge and schedule clinic follow-up and PET CT accordingly attests: I have performed H&P and developed impression and plan of care for patient, discussed with dictator. I agree with dictated note, documented as a scribe
[2023-11-05] MEDS: SYMBICORT 160-4.5 MCG INHALER INHALATION SCH (08:35)
[2023-11-05] MEDS: predniSONE 10 MG TAB PO SCH (09:51)
[2023-11-05 11:31] LABS: ALT 39 U/L (10-49); AST 38 U/L (14-35); Albumin 3.2 g/dL (3.8-4.9); Albumin/Globulin Ratio 1.19 Ratio (1.60-3.17); Alkaline Phosphatase 76 U/L (41-126); Calcium 8.5 mg/dL (8.7-10.3); Chloride 104 mmol/L (96-109); Globulin 2.7 g/dL (1.6-3.3); Glucose 135 mg/dL (70-110); Potassium 3.7 mmol/L (3.5-5.5); Sodium 141 mmol/L (135-145); Total Bilirubin 0.3 mg/dL (0.3-1.2); Total Protein 5.9 g/dL (6.2-8.2)
--- NOTE | 2023-11-05 11:35 | P.PN ---
Subjective Progress Note Date: 11/05/23 I am seeing this patient in consultation today 10/29/2023 for suspected left lower lobe pneumonia. Patient is a 63-year-old white male with past medical history significant for COPD, adenocarcinoma of the lung diagnosed originally back in October 2019 status post chemotherapy radiation. Followed by immuno therapy. Does not appear the patient has followed up in the pulmonary office since 2021. He does follow with his oncologist Dr. Morales. Since then, he has experienced a fall and he has been complaining of severe hip pain. It is affecting his ambulation. He can no longer take care of himself at home. He had a ER visit earlier this month for this. He did have a follow-up nuc med bone scan which showed abnormal intense uptake involving the proximal left femur suggestive of malignancy. There was moderate intensity uptake L4 also suspicious for metastatic disease. He was scheduled for a follow-up outpatient PET scan today, which will obviously have to be rescheduled. Patient also has past medical history significant for COPD, chronic hypoxemic respiratory failure and maintained on 3 L/min nasal cannula as needed, hyperlipidemia, hypertension, hypothyroidism, coronary artery disease with previous PCI/stent, anxiety/depression/PTSD polysubstance abuse, among many other medical comorbidit ies. Patient returned to the emergency room on 10/24/2023 in complaining of increased lower extremity pain bilaterally. He can no longer ambulate appropriately. MRI of the lumbar spine demonstrates multiple areas of suspected metastatic disease within the lumbar spine with the largest through the L4 level. No vertebral body height loss is evident. There is multilevel disc bulges greatest at L5-S1. There is small subligamentous disc herniation and central protrusion present at L1-2 without spinal canal stenosis. There is severe right for minimal stenosis at L5-S1 with milder formoterol narrowing. 8 x-ray of the pelvis does not show any acute fractures. Patient did have a chest x-ray yesterday which showed a new patchy left lower lobe infiltrate as well as the patient's known right upper lobe mass with associated right upper lobe volume loss/absorptive atelectasis. This was followed by a CT of the chest, abdomen, pelvis which demonstrated suspected obstruction of the right brac hiocephalic vein with the majority of the injected contrast extending up along the collaterals along the anterior chest wall down into the abdomen into the common femoral vein and other collateral pathways. Patient does have history of SVC stenosis posttreatment. There is redemonstration of the patient's right upper lobe consolidation, which extends toward the pulmonary hilum, and consistent with the patient's known lung cancer. There is a new left lower lung airspace consolidation with air bronchograms consistent with pneumonia. There is redemonstration of the patient's suspected metastatic disease involving the lumbar spine left proximal femur. For this reason, we were consulted yesterday. Patient is currently sitting up in bed, 3 L/min nasal cannula, in no acute distress. He does endorse chronic shortness of breath. He has had a minimally productive cough with occasional yellow sputum production. Denies any fevers. Denies any chest pain. His main complaint is his bilateral hip pain. Patient has been evaluated by orthopedic surgery, there is a possible plan for prophyla ctic insertion of a intramedullary sarita to support the left femur. Most recent CBC from this morning: WBC count 22.3, hemoglobin 10.8, hematocrit 32.7, platelets 206. BMP from this morning: Sodium 136, potassium 3.8, chloride 100, serum bicarb 29, BUN 19, creatinine 0.77, glucose 126. Patient has been started on empiric Zosyn. Procalcitonin level pending. Sputum culture was ordered. He is afebrile. Vital signs are stable. The patient is seen today October 30, 2023 in follow-up on the regular medical floor. He is currently awake and alert. He is quite uncomfortable with both right and left hip pain. He denies any worsening shortness of breath, cough or congestion. He is maintaining good O2 saturation in the mid 90s on 3 L/min per nasal cannula. He is afebrile. Hemodynamically stable. MRI of the right hip results are pending. Sputum culture pending. No new labs today. He remains on DuoNeb ventilations, Pulmicort inhalations and a prednisone taper. Heparin for DVT prophylaxis. Antibiotics in the form of Zosyn. Patient is seen today October 31, 2023 in follow-up on the regular medical floor. He is awake and alert in no acute distress. Appearing more comfortable today compared to yesterday. He is maintaining good O2 saturation in the 90s on 3 L nasal cannula. He is afebrile. Hemodynamically stable. MRI of the hips reveal evidence of destructive proximal left femoral lesion concordant with CT findings and compatible with metastasis. Findings are suspicious for metastatic involvement of L4 and L5. There is abnormal signal involving the anterior column of the right acetabulum compatible with metastasis. Abnormal uptake in the left iliac bone suspicious for early metastasis. Sputum culture revealed no growth. White count 14.3. Hemoglobin 11.2. Platelets 236. Sodium 140. Potassium 3.9. Bicarb 30. BUN 16. Creatinine 0.8. AST 84. ALT 100. He r emains on Zosyn. Continued on bronchodilators and a prednisone taper. Heparin for DVT prophylaxis. The patient is seen today November 01, 2023 in follow-up on the regular medical floor. He is currently sitting up in bed. Awake and alert in no acute distress. Still having ongoing issues with low back and bilateral hip pain. He has been seen by pain management and fentanyl patch is to be added. He denies any worsening shortness of breath, cough or congestion. He is maintained on O2 saturations in the 90s on 3 L/min per nasal cannula. He is afebrile. Hemodynamically stable. Chest x-ray continues to show the right upper lung opacity with right-sided volume loss. Left lung remains clear. No acute process. No new labs today. Remains on Zosyn. Continued on bronchodilators, prednisone, and heparin for DVT prophylaxis The patient is seen today November 02, 2023 in follow-up on the regular medical floor. He is currently awake and alert. A bit more comfortable today compared to yesterday. He had been started on a fentanyl patch per pain management. He denies any worsening shortness of breath, cough or congestion. Follow-up chest x-ray continues to show opacification of the right apex. Improved left lower lobe infiltrate. No new labs today. He remains on Zosyn, bronchodilators, prednisone, and heparin for DVT prophylaxis. He is maintaining good O2 saturations in the 90s on 3 L/min per nasal cannula. He is afebrile. Hemodynamically stable. The patient is seen today November 03, 2023 in follow-up on the regular medical floor. He is resting fairly comfortably in bed. Still having quite a bit of bilateral hip pain. He denies any worsening shortness of breath, cough or congestion. He is maintaining O2 saturations in the 90s on 3 L/min per nasal cannula. He has been afebrile. Hemodynamically stable. Sputum culture revealed no growth. White count 12.4. Hemoglobin 10.8. Sodium 140. Potassium 3.8. Bicarb 28. BUN 17. Creatinine 0.9. Glucose 97. He is continued on Zosyn. Heparin for DVT prophylaxis. Continued on bronchodilators. Pain management is following. The patient is seen today November 04, 2023 in follow-up on the regular medical floor. He is currently resting comfortably in bed. Awake and alert. He is maintaining O2 saturations in the 90s on 3 L/min per nasal cannula. He is afebrile. Hemodynamically stable. He did undergo a left hip prophylactic intramedullary nail procedure yesterday by orthopedics. Postoperative day #1. White count 17.8. Hemoglobin 11.1. Platelets 372. He remains on bronchodilators, Zosyn. Heparin for DVT prophylaxis. Currently the pain is fairly well-controlled. The patient is seen today November 05, 2023 in follow-up on the regular medical floor. He is awake and alert in no acute distress. This is postoperative day #2. He states his pain has improved since surgery. Still has low back and right hip pain. He denies any worsening shortness of breath, cough or congestion. He is maintaining O2 saturations in the 90s on 3 L/min per nasal cannula. He has normal saline at KVO. Sputum culture revealed no growth. Sodium 141. Potassium 3.7. Bicarb 26. BUN 14. Creatinine 1.0. Glucose 135. He remains on DuoNeb ventilations, Symbicort, prednisone taper. Antibiotics in the form of Zosyn. Heparin for DVT prophylaxis. Objective - Vital Signs Vital signs: Vital Signs Temp 97.3 F L 11/05/23 07:53 Pulse 85 11/05/23 07:53 Resp 20 11/05/23 07:53 BP 134/71 11/05/23 07:53 Pulse Ox 96 11/05/23 07:53 FiO2 Intake & Output 11/04/23 11/05/23 11/05/23 18:59 06:59 18:59 Intake Total 200 Output Total 500 650 Balance -300 -650 Weight 61.235 kg Intake: Intake, IV Titration 200 Amount Piperacillin-Tazobactam 3 200 .375 gm In Sodium Chloride 0.9% 100 ml @ 25 mls/hr IVPB Q8HR [facility] Rx# :[id number] Output: Urine 500 650 Other: Voiding Method Urinal Urinal - Exam GENERAL EXAM: Alert, cachectic, 63-year-old male, sitting fairly comfortably in bed, on 3 L nasal cannula, in no acute distress. HEAD: Normocephalic and atraumatic. EYES: Left eye blindness. NOSE: Clear with pink turbinates. THROAT: No erythema or exudates. NECK: No masses, no JVD. CHEST: No chest wall deformity. LUNGS: Equal air entry with inspiratory and expiratory wheezes heard throughout. Left-sided dullness. CVS: S1 and S2 normal with an audible murmur, regular rhythm. No extra heart sounds ABDOMEN: No hepatosplenomegaly, active bowel sounds, no guarding or rigidity. SPINE: No scoliosis or deformity SKIN: No rashes CENTRAL NERVOUS SYSTEM: No focal deficits, tone is normal in all 4 extremities. EXTREMITIES: Left surgical hip site well-approximated. There is no peripheral edema, clubbing, or cyanosis. Peripheral pulses are intact. - Labs CBC & Chem 7: 11/04/23 08:04 11/03/23 06:25 Assessment and Plan Assessment: Metastatic adenocarcinoma of the lung, originally diagnosed was back in 2020 status post chemo/radiation followed by immunotherapy. CT of the chest, abdomen, pelvis demonstrates suspected obstruction of the right brachiocephalic vein with the majority of the injected contrast extending up along the collaterals along the anterior chest wall down into the abdomen into the common femoral vein and other collateral pathways. Patient does have history of SVC stenosis posttreatment. There is redemonstration of the patient's right upper lobe consolidation/mass and absorptive volume loss, which extends toward the pulmonary hilum, and consistent with the patient's known lung cancer. There is a new left lower lung airspace consolidation with air bronchograms consistent with pneumonia. There is redemonstration of the patient's suspected metastatic disease involving the lumbar spine left proximal femur. MRI of the hips reveal evidence of destructive proximal left femoral lesion concordant with CT findings and compatible with metastasis. Findings are suspicious for metastatic inv olvement of L4 and L5. There is abnormal signal involving the anterior column of the right acetabulum compatible with metastasis. Abnormal uptake in the left iliac bone suspicious for early metastasis Bilateral hip and lower back pain secondary to above. Status post prophylactic left hip intramedullary nailing on 11/03/2023, postoperative day #2 Suspected left lower lobe hospital acquired pneumonia procalcitonin 53.4. Continued on Zosyn, sputum culture revealed no growth Leukocytosis, secondary to above Unstable gait and fall, secondary to above Chronic obstructive pulmonary disease Chronic hypoxemic respiratory failure, normally on 3 L/min nasal cannula Chronic anemia History of hyperlipidemia History of hypertension History of hypothyroidism Coronary artery disease with previous PCI/stent History of anxiety/depression/PTSD History of polysubstance abuse Poor overall functional performance based on the above-mentioned multiple comorbidities Plan: The patient was seen and evaluated Labs and medications reviewed Remains stable and on 3 L nasal cannula Titrate the FiO2 as tolerated Continue Symbicort, albuterol, prednisone taper Plan is for [facility] [place] at discharge The patient was seen independently by the pulmonary nurse practitioner addressing pulmonary issues I have personally seen and examined the patient, performed the documentation and the assessment and plan as written. Number of minutes spent on the visit: 23.
--- NOTE | 2023-11-05 13:34 | P.PN ---
Subjective Progress Note Date: 11/05/23 Principal diagnosis: Status post left hip prophylactic IT nail The patient is a 63 y/o male status post left hip prophylactic IT nail. This is post op day #2. He states the left leg is feeling ok but having severe pain. Pain is moderately controlled with [place] and a fentanyl patch per pain management. No new complaints today. Objective - Vital Signs Vital signs: Vital Signs Temp 97.3 F L 11/05/23 07:53 Pulse 85 11/05/23 07:53 Resp 20 11/05/23 07:53 BP 134/71 11/05/23 07:53 Pulse Ox 96 11/05/23 07:53 FiO2 Intake & Output 11/04/23 11/05/23 11/05/23 18:59 06:59 18:59 Intake Total 200 Output Total 500 650 Balance -300 -650 Weight 61.235 kg Intake: Intake, IV Titration 200 Amount Piperacillin-Tazobactam 3 200 .375 gm In Sodium Chloride 0.9% 100 ml @ 25 mls/hr IVPB Q8HR [facility] Rx# :[id number] Output: Urine 500 650 Other: Voiding Method Urinal Urinal - Exam The patient is a 63 y/o male who is in no acute distress. He is alert and oriented x3. Exam of the left hip reveals dry dressings, no drainage or redness. Minimal swelling present. Calf is soft and nontender. Good foot and ankle motion present. Neurological and circulatory status is intact. - Labs CBC & Chem 7: 11/04/23 08:04 11/05/23 07:00 Labs: Abnormal Lab Results - Last 24 Hours (Table) 11/05/23 Range/Units 07:00 Glucose 135 H (70-110) mg/dL Calcium 8.5 L (8.7-10.3) mg/dL AST 38 H (14-35) U/L Total Protein 5.9 L (6.2-8.2) g/dL Albumin 3.2 L (3.8-4.9) g/dL Albumin/Globulin Ratio 1.19 L (1.60-3.17) Ratio Assessment and Plan (1) Hip pain, bilateral Current Visit: Yes Status: Acute Priority: High Code(s): M25.551 - PAIN IN RIGHT HIP; M25.552 - PAIN IN LEFT HIP SNOMED Code(s): 30772621 (2) Non-small cell lung cancer (NSCLC) Current Visit: Yes Status: Acute Priority: High Code(s): C34.90 - MALIGNANT NEOPLASM OF UNSP PART OF UNSP BRONCHUS OR LUNG SNOMED Code(s): 590745847 Plan: 1. Continue pain control per pain management, may increase use of PRN Robaxin as needed for muscle spasms 2. DVT anticoagulation per internal medicine 3. Weightbearing as tolerated with a walker 4. Discharge to subacute rehab when medically stable. He is orthopedically stable for discharge.
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
[2023-11-05] MEDS: CLOPIDOGREL 75 MG TAB PO SCH (16:02)
[2023-11-05] MEDS: AMOXIC-POT CLAV 875-125MG 1 EACH TAB PO SCH (22:32)
[2023-11-05] MEDS: LACTULOSE 20 GM/30 ML CUP PO SCH (22:34)
[2023-11-06 03:56] LABS: Basophils % (A) 0 %; Eosinophils # (A) 0.1 k/uL (0-0.7); Eosinophils % (A) 1 %; HCT 32.1 % (39.0-53.0); HGB 10.2 gm/dL (13.0-17.5); Lymphocytes # (A) 0.9 k/uL (1.0-4.8); Lymphocytes % (A) 7 %; MCH 32.3 pg (25.0-35.0); MCHC 31.6 g/dL (31.0-37.0); MCV 102.1 fL (80.0-100.0); Macrocytosis Slight; Mean Platelet Volume 7.2; Monocytes # (A) 0.6 k/uL (0-1.0); Monocytes % (A) 4 %; Neutrophils # (A) 11.8 k/uL (1.3-7.7); Neutrophils % (A) 88 %; Platelet Count 351 k/uL (150-450); RBC 3.14 m/uL (4.30-5.90); RDW 14.3 % (11.5-15.5); WBC 13.5 k/uL (3.8-10.6)
[2023-11-06 04:32] LABS: ALT 32 U/L (4-49); AST 35 U/L (17-59); African American GFR (CKD) >90 (>60 ml/min/1.73 sqM); Albumin 2.8 g/dL (3.5-5.0); Albumin/Globulin Ratio 0.9; Alkaline Phosphatase 83 U/L (38-126); Anion Gap 6 mmol/L; Blood Urea Nitrogen 12 mg/dL (9-20); Calcium 8.3 mg/dL (8.4-10.2); Carbon Dioxide 27 mmol/L (22-30); Chloride 102 mmol/L (98-107); Glucose 102 mg/dL (74-99); Non-African American GFR(CKD) >90 (>60 ml/min/1.73 sqM); Potassium 3.6 mmol/L (3.5-5.1); Sodium 135 mmol/L (137-145); Total Bilirubin 0.5 mg/dL (0.2-1.3); Total Protein 5.8 g/dL (6.3-8.2)
--- NOTE | 2023-11-06 08:57 | XR ---
EXAMINATION TYPE: XR chest 1V portable DATE OF EXAM: 11/06/2023 6:47 AM CLINICAL INDICATION:Male, 63 years old with history of LLL infiltrate; COMPARISON: CT 10/28/2023. Plain film 11/01/2023. TECHNIQUE: XR chest 1V portable Frontal view of the chest. FINDINGS: Lungs/Pleura: Right upper lung consolidation changes similar to prior. Tenting of the diaphragm on th e right suggesting volume loss. Similar left lung base airspace disease. No pneumothorax. Pulmonary v ascularity: Unremarkable. Heart/mediastinum: Cardiomediastinal silhouette is unremarkable. Musculoskeletal: No acute osseous pathology. There is fixation hardware in the lower cervical spine. IMPRESSION: Similar left lower lung airspace disease. Right upper lung consolidation similar to 11/01/2023.
[2023-11-06] MEDS: predniSONE 20 MG TAB PO SCH (09:35)
--- NOTE | 2023-11-06 10:53 | P.PN ---
Subjective Progress Note Date: 11/06/23 I am seeing this patient in consultation today 10/29/2023 for suspected left lower lobe pneumonia. Patient is a 63-year-old white male with past medical history significant for COPD, adenocarcinoma of the lung diagnosed originally back in October 2019 status post chemotherapy radiation. Followed by immuno therapy. Does not appear the patient has followed up in the pulmonary office since 2021. He does follow with his oncologist Dr. Morales. Since then, he has experienced a fall and he has been complaining of severe hip pain. It is affecting his ambulation. He can no longer take care of himself at home. He had a ER visit earlier this month for this. He did have a follow-up nuc med bone scan which showed abnormal intense uptake involving the proximal left femur suggestive of malignancy. There was moderate intensity uptake L4 also suspicious for metastatic disease. He was scheduled for a follow-up outpatient PET scan today, which will obviously have to be rescheduled. Patient also has past medical history significant for COPD, chronic hypoxemic respiratory failure and maintained on 3 L/min nasal cannula as needed, hyperlipidemia, hypertension, hypothyroidism, coronary artery disease with previous PCI/stent, anxiety/depression/PTSD polysubstance abuse, among many other medical comorbidit ies. Patient returned to the emergency room on 10/24/2023 in complaining of increased lower extremity pain bilaterally. He can no longer ambulate appropriately. MRI of the lumbar spine demonstrates multiple areas of suspected metastatic disease within the lumbar spine with the largest through the L4 level. No vertebral body height loss is evident. There is multilevel disc bulges greatest at L5-S1. There is small subligamentous disc herniation and central protrusion present at L1-2 without spinal canal stenosis. There is severe right for minimal stenosis at L5-S1 with milder formoterol narrowing. 8 x-ray of the pelvis does not show any acute fractures. Patient did have a chest x-ray yesterday which showed a new patchy left lower lobe infiltrate as well as the patient's known right upper lobe mass with associated right upper lobe volume loss/absorptive atelectasis. This was followed by a CT of the chest, abdomen, pelvis which demonstrated suspected obstruction of the right brac hiocephalic vein with the majority of the injected contrast extending up along the collaterals along the anterior chest wall down into the abdomen into the common femoral vein and other collateral pathways. Patient does have history of SVC stenosis posttreatment. There is redemonstration of the patient's right upper lobe consolidation, which extends toward the pulmonary hilum, and consistent with the patient's known lung cancer. There is a new left lower lung airspace consolidation with air bronchograms consistent with pneumonia. There is redemonstration of the patient's suspected metastatic disease involving the lumbar spine left proximal femur. For this reason, we were consulted yesterday. Patient is currently sitting up in bed, 3 L/min nasal cannula, in no acute distress. He does endorse chronic shortness of breath. He has had a minimally productive cough with occasional yellow sputum production. Denies any fevers. Denies any chest pain. His main complaint is his bilateral hip pain. Patient has been evaluated by orthopedic surgery, there is a possible plan for prophyla ctic insertion of a intramedullary sarita to support the left femur. Most recent CBC from this morning: WBC count 22.3, hemoglobin 10.8, hematocrit 32.7, platelets 206. BMP from this morning: Sodium 136, potassium 3.8, chloride 100, serum bicarb 29, BUN 19, creatinine 0.77, glucose 126. Patient has been started on empiric Zosyn. Procalcitonin level pending. Sputum culture was ordered. He is afebrile. Vital signs are stable. The patient is seen today October 30, 2023 in follow-up on the regular medical floor. He is currently awake and alert. He is quite uncomfortable with both right and left hip pain. He denies any worsening shortness of breath, cough or congestion. He is maintaining good O2 saturation in the mid 90s on 3 L/min per nasal cannula. He is afebrile. Hemodynamically stable. MRI of the right hip results are pending. Sputum culture pending. No new labs today. He remains on DuoNeb ventilations, Pulmicort inhalations and a prednisone taper. Heparin for DVT prophylaxis. Antibiotics in the form of Zosyn. Patient is seen today October 31, 2023 in follow-up on the regular medical floor. He is awake and alert in no acute distress. Appearing more comfortable today compared to yesterday. He is maintaining good O2 saturation in the 90s on 3 L nasal cannula. He is afebrile. Hemodynamically stable. MRI of the hips reveal evidence of destructive proximal left femoral lesion concordant with CT findings and compatible with metastasis. Findings are suspicious for metastatic involvement of L4 and L5. There is abnormal signal involving the anterior column of the right acetabulum compatible with metastasis. Abnormal uptake in the left iliac bone suspicious for early metastasis. Sputum culture revealed no growth. White count 14.3. Hemoglobin 11.2. Platelets 236. Sodium 140. Potassium 3.9. Bicarb 30. BUN 16. Creatinine 0.8. AST 84. ALT 100. He r emains on Zosyn. Continued on bronchodilators and a prednisone taper. Heparin for DVT prophylaxis. The patient is seen today November 01, 2023 in follow-up on the regular medical floor. He is currently sitting up in bed. Awake and alert in no acute distress. Still having ongoing issues with low back and bilateral hip pain. He has been seen by pain management and fentanyl patch is to be added. He denies any worsening shortness of breath, cough or congestion. He is maintained on O2 saturations in the 90s on 3 L/min per nasal cannula. He is afebrile. Hemodynamically stable. Chest x-ray continues to show the right upper lung opacity with right-sided volume loss. Left lung remains clear. No acute process. No new labs today. Remains on Zosyn. Continued on bronchodilators, prednisone, and heparin for DVT prophylaxis The patient is seen today November 02, 2023 in follow-up on the regular medical floor. He is currently awake and alert. A bit more comfortable today compared to yesterday. He had been started on a fentanyl patch per pain management. He denies any worsening shortness of breath, cough or congestion. Follow-up chest x-ray continues to show opacification of the right apex. Improved left lower lobe infiltrate. No new labs today. He remains on Zosyn, bronchodilators, prednisone, and heparin for DVT prophylaxis. He is maintaining good O2 saturations in the 90s on 3 L/min per nasal cannula. He is afebrile. Hemodynamically stable. The patient is seen today November 03, 2023 in follow-up on the regular medical floor. He is resting fairly comfortably in bed. Still having quite a bit of bilateral hip pain. He denies any worsening shortness of breath, cough or congestion. He is maintaining O2 saturations in the 90s on 3 L/min per nasal cannula. He has been afebrile. Hemodynamically stable. Sputum culture revealed no growth. White count 12.4. Hemoglobin 10.8. Sodium 140. Potassium 3.8. Bicarb 28. BUN 17. Creatinine 0.9. Glucose 97. He is continued on Zosyn. Heparin for DVT prophylaxis. Continued on bronchodilators. Pain management is following. The patient is seen today November 04, 2023 in follow-up on the regular medical floor. He is currently resting comfortably in bed. Awake and alert. He is maintaining O2 saturations in the 90s on 3 L/min per nasal cannula. He is afebrile. Hemodynamically stable. He did undergo a left hip prophylactic intramedullary nail procedure yesterday by orthopedics. Postoperative day #1. White count 17.8. Hemoglobin 11.1. Platelets 372. He remains on bronchodilators, Zosyn. Heparin for DVT prophylaxis. Currently the pain is fairly well-controlled. The patient is seen today November 05, 2023 in follow-up on the regular medical floor. He is awake and alert in no acute distress. This is postoperative day #2. He states his pain has improved since surgery. Still has low back and right hip pain. He denies any worsening shortness of breath, cough or congestion. He is maintaining O2 saturations in the 90s on 3 L/min per nasal cannula. He has normal saline at KVO. Sputum culture revealed no growth. Sodium 141. Potassium 3.7. Bicarb 26. BUN 14. Creatinine 1.0. Glucose 135. He remains on DuoNeb ventilations, Symbicort, prednisone taper. Antibiotics in the form of Zosyn. Heparin for DVT prophylaxis. The patient is seen today November 06, 2023 in follow-up on the regular medical floor. He is currently resting in bed. Awake and alert in no acute distress. He is maintaining O2 saturations in the 90s on 2 L/min per nasal cannula. He has normal saying 20 mph. Continued on DuoNeb inhalations, Symbicort, prednisone taper. Heparin for DVT prophylaxis. Chest x-ray reveals similar left lower lung airspace disease. Similar right upper lobe consolidation. No new infiltrate or atelectasis. No pneumothorax. Sputum culture reveals no growth. White count 13.5. Hemoglobin 10.2. Platelets 351. Sodium 135. Potassium 3.6. Bicarb 27. BUN 12. Creatinine 0.78. Glucose 102. Objective - Vital Signs Vital signs: Vital Signs Temp 98 F 11/06/23 07:46 Pulse 87 11/06/23 08:42 Resp 18 11/06/23 07:46 BP 134/77 11/06/23 07:46 Pulse Ox 97 11/06/23 08:26 FiO2 Intake & Output 11/05/23 11/06/23 11/06/23 18:59 06:59 18:59 Intake Total 260 240 Output Total 700 Balance -440 240 Weight 61.235 kg Intake: Intake, IV Titration 260 Amount Piperacillin-Tazobactam 3 100 .375 gm In Sodium Chloride 0.9% 100 ml @ 25 mls/hr IVPB Q8HR [facility] Rx# :[id number] Sodium Chloride 0.9% 1, 160 000 ml @ 0 mls/hr IV .[facility] -[facility] Rx#:[id number] Oral 240 Output: Urine 700 Other: Voiding Method Urinal Urinal # Voids 3 - Exam GENERAL EXAM: Alert, cachectic, 63-year-old male, staying in bed, on room air, in no acute distress. HEAD: Normocephalic and atraumatic. EYES: Left eye blindness. NOSE: Clear with pink turbinates. THROAT: No erythema or exudates. NECK: No masses, no JVD. CHEST: No chest wall deformity. LUNGS: Equal air entry with inspiratory and expiratory wheezes heard throughout. Left-sided dullness. CVS: S1 and S2 normal with an audible murmur, regular rhythm. No extra heart sounds ABDOMEN: No hepatosplenomegaly, active bowel sounds, no guarding or rigidity. SPINE: No scoliosis or deformity SKIN: No rashes CENTRAL NERVOUS SYSTEM: No focal deficits, tone is normal in all 4 extremities. EXTREMITIES: Left surgical hip dressing dry and intact. There is no peripheral edema, clubbing, or cyanosis. Peripheral pulses are intact. - Labs CBC & Chem 7: 11/06/23 03:10 11/06/23 03:10 Labs: Abnormal Lab Results - Last 24 Hours (Table) 11/05/23 11/06/23 11/06/23 Range/Units 07:00 03:10 03:10 WBC 13.5 H (3.8-10.6) k/uL RBC 3.14 L (4.30-5.90) m/uL Hgb 10.2 L (13.0-17.5) gm/dL Hct 32.1 L (39.0-53.0) % MCV 102.1 H (80.0-100.0) fL Neutrophils # 11.8 H (1.3-7.7) k/uL Lymphocytes # 0.9 L (1.0-4.8) k/uL Sodium 135 L (137-145) mmol/L Glucose 135 H 102 H (70-110) mg/dL Calcium 8.5 L 8.3 L (8.7-10.3) mg/dL AST 38 H (14-35) U/L Total Protein 5.9 L 5.8 L (6.2-8.2) g/dL Albumin 3.2 L 2.8 L (3.8-4.9) g/dL Albumin/Globulin Ratio 1.19 L (1.60-3.17) Ratio Assessment and Plan Assessment: Metastatic adenocarcinoma of the lung, originally diagnosed was back in 2019 status post chemo/radiation followed by immunotherapy. CT of the chest, abdomen, pelvis demonstrates suspected obstruction of the right brachiocephalic vein with the majority of the injected contrast extending up along the collaterals along the anterior chest wall down into the abdomen into the common femoral vein and other collateral pathways. Patient does have history of SVC stenosis posttreatment. There is redemonstration of the patient's right upper lobe consolidation/mass and absorptive volume loss, which extends toward the pulmonary hilum, and consistent with the patient's known lung cancer. There is a new left lower lung airspace consolidation with air bronchograms consistent with pneumonia. There is redemonstration of the patient's suspected metastatic disease involving the lumbar spine left proximal femur. MRI of the hips reveal evidence of destructive proximal left femoral lesion concordant with CT findings and compatible with metastasis. Findings are suspicious for metastatic involvement of L4 and L5. There is abnormal signal involving the anterior column of the right acetabulum compatible with metastasis. Abnormal uptake in the left iliac bone suspicious for early metastasis Bilateral hip and lower back pain secondary to above. Status post prophylactic left hip intramedullary nailing on 11/03/2023, postoperative day #3 Suspected left lower lobe hospital acquired pneumonia procalcitonin 53.4. Continued on Zosyn, sputum culture revealed no growth Leukocytosis, secondary to above Unstable gait and fall, secondary to above Chronic obstructive pulmonary disease Chronic hypoxemic respiratory failure, normally on 3 L/min nasal cannula Chronic anemia History of hyperlipidemia History of hypertension History of hypothyroidism Coronary artery disease with previous PCI/stent History of anxiety/depression/PTSD History of polysubstance abuse Poor overall functional performance based on the above-mentioned multiple comorbidities Plan: The patient was seen and evaluated Chest x-ray, labs and medications reviewed Continue Symbicort, albuterol, prednisone taper Currently stable and on room air Plan is for [facility] on the [place] at discharge The patient was seen independently by the pulmonary nurse practitioner addressing pulmonary issues I have personally seen and examined the patient, performed the documentation and the assessment and plan as written. Number of minutes spent on the visit: 22.
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
--- NOTE | 2023-11-07 11:44 | P.PN ---
Subjective Progress Note Date: 11/07/23 I am seeing this patient in consultation today 10/29/2023 for suspected left lower lobe pneumonia. Patient is a 63-year-old white male with past medical history significant for COPD, adenocarcinoma of the lung diagnosed originally back in October 2019 status post chemotherapy radiation. Followed by immuno therapy. Does not appear the patient has followed up in the pulmonary office since 2021. He does follow with his oncologist Dr. Morales. Since then, he has experienced a fall and he has been complaining of severe hip pain. It is affecting his ambulation. He can no longer take care of himself at home. He had a ER visit earlier this month for this. He did have a follow-up nuc med bone scan which showed abnormal intense uptake involving the proximal left femur suggestive of malignancy. There was moderate intensity uptake L4 also suspicious for metastatic disease. He was scheduled for a follow-up outpatient PET scan today, which will obviously have to be rescheduled. Patient also has past medical history significant for COPD, chronic hypoxemic respiratory failure and maintained on 3 L/min nasal cannula as needed, hyperlipidemia, hypertension, hypothyroidism, coronary artery disease with previous PCI/stent, anxiety/depression/PTSD polysubstance abuse, among many other medical comorbidit ies. Patient returned to the emergency room on 10/24/2023 in complaining of increased lower extremity pain bilaterally. He can no longer ambulate appropriately. MRI of the lumbar spine demonstrates multiple areas of suspected metastatic disease within the lumbar spine with the largest through the L4 level. No vertebral body height loss is evident. There is multilevel disc bulges greatest at L5-S1. There is small subligamentous disc herniation and central protrusion present at L1-2 without spinal canal stenosis. There is severe right for minimal stenosis at L5-S1 with milder formoterol narrowing. 8 x-ray of the pelvis does not show any acute fractures. Patient did have a chest x-ray yesterday which showed a new patchy left lower lobe infiltrate as well as the patient's known right upper lobe mass with associated right upper lobe volume loss/absorptive atelectasis. This was followed by a CT of the chest, abdomen, pelvis which demonstrated suspected obstruction of the right brac hiocephalic vein with the majority of the injected contrast extending up along the collaterals along the anterior chest wall down into the abdomen into the common femoral vein and other collateral pathways. Patient does have history of SVC stenosis posttreatment. There is redemonstration of the patient's right upper lobe consolidation, which extends toward the pulmonary hilum, and consistent with the patient's known lung cancer. There is a new left lower lung airspace consolidation with air bronchograms consistent with pneumonia. There is redemonstration of the patient's suspected metastatic disease involving the lumbar spine left proximal femur. For this reason, we were consulted yesterday. Patient is currently sitting up in bed, 3 L/min nasal cannula, in no acute distress. He does endorse chronic shortness of breath. He has had a minimally productive cough with occasional yellow sputum production. Denies any fevers. Denies any chest pain. His main complaint is his bilateral hip pain. Patient has been evaluated by orthopedic surgery, there is a possible plan for prophyla ctic insertion of a intramedullary sarita to support the left femur. Most recent CBC from this morning: WBC count 22.3, hemoglobin 10.8, hematocrit 32.7, platelets 206. BMP from this morning: Sodium 136, potassium 3.8, chloride 100, serum bicarb 29, BUN 19, creatinine 0.77, glucose 126. Patient has been started on empiric Zosyn. Procalcitonin level pending. Sputum culture was ordered. He is afebrile. Vital signs are stable. The patient is seen today October 30, 2023 in follow-up on the regular medical floor. He is currently awake and alert. He is quite uncomfortable with both right and left hip pain. He denies any worsening shortness of breath, cough or congestion. He is maintaining good O2 saturation in the mid 90s on 3 L/min per nasal cannula. He is afebrile. Hemodynamically stable. MRI of the right hip results are pending. Sputum culture pending. No new labs today. He remains on DuoNeb ventilations, Pulmicort inhalations and a prednisone taper. Heparin for DVT prophylaxis. Antibiotics in the form of Zosyn. Patient is seen today October 31, 2023 in follow-up on the regular medical floor. He is awake and alert in no acute distress. Appearing more comfortable today compared to yesterday. He is maintaining good O2 saturation in the 90s on 3 L nasal cannula. He is afebrile. Hemodynamically stable. MRI of the hips reveal evidence of destructive proximal left femoral lesion concordant with CT findings and compatible with metastasis. Findings are suspicious for metastatic involvement of L4 and L5. There is abnormal signal involving the anterior column of the right acetabulum compatible with metastasis. Abnormal uptake in the left iliac bone suspicious for early metastasis. Sputum culture revealed no growth. White count 14.3. Hemoglobin 11.2. Platelets 236. Sodium 140. Potassium 3.9. Bicarb 30. BUN 16. Creatinine 0.8. AST 84. ALT 100. He r emains on Zosyn. Continued on bronchodilators and a prednisone taper. Heparin for DVT prophylaxis. The patient is seen today November 01, 2023 in follow-up on the regular medical floor. He is currently sitting up in bed. Awake and alert in no acute distress. Still having ongoing issues with low back and bilateral hip pain. He has been seen by pain management and fentanyl patch is to be added. He denies any worsening shortness of breath, cough or congestion. He is maintained on O2 saturations in the 90s on 3 L/min per nasal cannula. He is afebrile. Hemodynamically stable. Chest x-ray continues to show the right upper lung opacity with right-sided volume loss. Left lung remains clear. No acute process. No new labs today. Remains on Zosyn. Continued on bronchodilators, prednisone, and heparin for DVT prophylaxis The patient is seen today November 02, 2023 in follow-up on the regular medical floor. He is currently awake and alert. A bit more comfortable today compared to yesterday. He had been started on a fentanyl patch per pain management. He denies any worsening shortness of breath, cough or congestion. Follow-up chest x-ray continues to show opacification of the right apex. Improved left lower lobe infiltrate. No new labs today. He remains on Zosyn, bronchodilators, prednisone, and heparin for DVT prophylaxis. He is maintaining good O2 saturations in the 90s on 3 L/min per nasal cannula. He is afebrile. Hemodynamically stable. The patient is seen today November 03, 2023 in follow-up on the regular medical floor. He is resting fairly comfortably in bed. Still having quite a bit of bilateral hip pain. He denies any worsening shortness of breath, cough or congestion. He is maintaining O2 saturations in the 90s on 3 L/min per nasal cannula. He has been afebrile. Hemodynamically stable. Sputum culture revealed no growth. White count 12.4. Hemoglobin 10.8. Sodium 140. Potassium 3.8. Bicarb 28. BUN 17. Creatinine 0.9. Glucose 97. He is continued on Zosyn. Heparin for DVT prophylaxis. Continued on bronchodilators. Pain management is following. The patient is seen today November 04, 2023 in follow-up on the regular medical floor. He is currently resting comfortably in bed. Awake and alert. He is maintaining O2 saturations in the 90s on 3 L/min per nasal cannula. He is afebrile. Hemodynamically stable. He did undergo a left hip prophylactic intramedullary nail procedure yesterday by orthopedics. Postoperative day #1. White count 17.8. Hemoglobin 11.1. Platelets 372. He remains on bronchodilators, Zosyn. Heparin for DVT prophylaxis. Currently the pain is fairly well-controlled. The patient is seen today November 05, 2023 in follow-up on the regular medical floor. He is awake and alert in no acute distress. This is postoperative day #2. He states his pain has improved since surgery. Still has low back and right hip pain. He denies any worsening shortness of breath, cough or congestion. He is maintaining O2 saturations in the 90s on 3 L/min per nasal cannula. He has normal saline at KVO. Sputum culture revealed no growth. Sodium 141. Potassium 3.7. Bicarb 26. BUN 14. Creatinine 1.0. Glucose 135. He remains on DuoNeb ventilations, Symbicort, prednisone taper. Antibiotics in the form of Zosyn. Heparin for DVT prophylaxis. The patient is seen today November 06, 2023 in follow-up on the regular medical floor. He is currently resting in bed. Awake and alert in no acute distress. He is maintaining O2 saturations in the 90s on 2 L/min per nasal cannula. He has normal saying 20 mph. Continued on DuoNeb inhalations, Symbicort, prednisone taper. Heparin for DVT prophylaxis. Chest x-ray reveals similar left lower lung airspace disease. Similar right upper lobe consolidation. No new infiltrate or atelectasis. No pneumothorax. Sputum culture reveals no growth. White count 13.5. Hemoglobin 10.2. Platelets 351. Sodium 135. Potassium 3.6. Bicarb 27. BUN 12. Creatinine 0.78. Glucose 102. The patient is seen today November 07, 2023 in follow-up on the regular medical floor. He is awake and alert in no acute distress. He is resting fairly comfortably in bed. Denies any worsening shortness of breath, cough or congestion. He is maintaining good O2 saturations in the 90s on 3 L/min per nasal cannula. He has normal staying at KVO. He remains on antibiotics in the form of Augmentin. Continued on Symbicort DuoNeb inhalations. Heparin for DVT prophylaxis. His pain is fairly well-controlled. Sputum culture revealed no growth. No new labs today. Objective - Vital Signs Vital signs: Vital Signs Temp 97.6 F 11/07/23 07:22 Pulse 88 11/07/23 11:23 Resp 20 11/07/23 07:22 BP 127/79 11/07/23 07:22 Pulse Ox 94 L 11/07/23 07:22 FiO2 Intake & Output 11/06/23 11/07/23 11/07/23 18:59 06:59 18:59 Intake Total 780 600 Output Total 800 1050 Balance -20 -450 Intake: Oral 780 600 Output: Urine 800 1050 Other: Voiding Method Urinal Urinal Urinal - Exam GENERAL EXAM: Alert, cachectic, 63-year-old male, on 3 L/min per nasal canula, in no acute distress. HEAD: Normocephalic and atraumatic. EYES: Left eye blindness. NOSE: Clear with pink turbinates. THROAT: No erythema or exudates. NECK: No masses, no JVD. CHEST: No chest wall deformity. LUNGS: Equal air entry with end expiratory wheezes heard throughout. Left-sided dullness. CVS: S1 and S2 normal with an audible murmur, regular rhythm. No extra heart sounds ABDOMEN: No hepatosplenomegaly, active bowel sounds, no guarding or rigidity. SPINE: No scoliosis or deformity SKIN: No rashes CENTRAL NERVOUS SYSTEM: No focal deficits, tone is normal in all 4 extremities. EXTREMITIES: Left surgical hip dressing dry and intact. There is no peripheral edema, clubbing, or cyanosis. Peripheral pulses are intact. - Labs CBC & Chem 7: 11/06/23 03:10 11/06/23 03:10 Assessment and Plan Assessment: Metastatic adenocarcinoma of the lung, originally diagnosed was back in 2019 status post chemo/radiation followed by immunotherapy. CT of the chest, abdomen, pelvis demonstrates suspected obstruction of the right brachiocephalic vein with the majority of the injected contrast extending up along the collaterals along the anterior chest wall down into the abdomen into the common femoral vein and other collateral pathways. Patient does have history of SVC stenosis p osttreatment. There is redemonstration of the patient's right upper lobe consolidation/mass and absorptive volume loss, which extends toward the pulmonary hilum, and consistent with the patient's known lung cancer. There is a new left lower lung airspace consolidation with air bronchograms consistent with pneumonia. There is redemonstration of the patient's suspected metastatic disease involving the lumbar spine left proximal femur. MRI of the hips reveal evidence of destructive proximal left femoral lesion concordant with CT findings and compatible with metastasis. Findings are suspicious for metastatic involvement of L4 and L5. There is abnormal signal involving the anterior column of the right acetabulum compatible with metastasis. Abnormal uptake in the left iliac bone suspicious for early metastasis Bilateral hip and lower back pain secondary to above. Status post prophylactic left hip intramedullary nailing on 11/03/2023, postoperative day #4 Suspected left lower lobe hospital acquired pneumonia procalcitonin 53.4. Completed Zosyn, sputum culture revealed no growth Leukocytosis, secondary to above Unstable gait and fall, secondary to above Chronic obstructive pulmonary disease Chronic hypoxemic respiratory failure, normally on 3 L/min nasal cannula Chronic anemia History of hyperlipidemia History of hypertension History of hypothyroidism Coronary artery disease with previous PCI/stent History of anxiety/depression/PTSD History of polysubstance abuse Poor overall functional performance based on the above-mentioned multiple comorbidities Plan: The patient was seen and evaluated Medications reviewed Stable and on 3 L/min per nasal cannula Titrate down the FiO2 as tolerated Continue Symbicort, albuterol Cleared for discharge from the pulmonary standpoint Awaiting placement and accepting facility The patient was seen independently by the pulmonary nurse practitioner addressing pulmonary issues I have personally seen and examined the patient, performed the documentation and the assessment and plan as written. Number of minutes spent on the visit: 23.
--- NOTE | 2023-11-07 12:43 | P.PN ---
Progress Note - Text Progress Note Date: 11/07/23 The patient is orthopedically stable. We will continue to follow the patient peripherally. He will follow up in our office in 2 weeks.
--- NOTE | 2023-11-07 13:24 | P.PN ---
Subjective Progress Note Date: 11/07/23 Principal diagnosis: osseous lesions, intractable pain S/p intramedullary rodding of left femur. Pathology pending. Pt reporting improvement in pain. Has been started on fentanyl patch with prn meds for breakthrough pain. Plan for rehab upon discharge. Objective - Vital Signs Vital signs: Vital Signs Temp 97.6 F 11/07/23 07:22 Pulse 88 11/07/23 11:32 Resp 20 11/07/23 07:22 BP 127/79 11/07/23 07:22 Pulse Ox 94 L 11/07/23 07:22 FiO2 Intake & Output 11/06/23 11/07/23 11/07/23 18:59 06:59 18:59 Intake Total 780 600 Output Total 800 1050 425 Balance -20 -450 -425 Intake: Oral 780 600 Output: Urine 800 1050 425 Other: Voiding Method Urinal Urinal Urinal - Constitutional General appearance: Present: no acute distress - EENT Eyes: Present: anicteric sclerae, EOMI ENT: Present: hearing grossly normal - Respiratory Details: Breathing even and unlabored - Cardiovascular Details: Skin warm and dry - Integumentary Integumentary: Absent: cyanotic - Musculoskeletal Musculoskeletal: Present: generalized weakness - Psychiatric Psychiatric: Present: A&O x's 3 - Labs CBC & Chem 7: 11/06/23 03:10 11/06/23 03:10 Assessment and Plan (1) Chronic back pain Current Visit: Yes Status: Acute Priority: Medium Code(s): M54.9 - DORSALGIA, UNSPECIFIED; G89.29 - OTHER CHRONIC PAIN SNOMED Code(s): 034002669 (2) Chronic hip pain Current Visit: Yes Status: Acute Priority: Medium Code(s): M25.559 - PAIN IN UNSPECIFIED HIP; G89.29 - OTHER CHRONIC PAIN SNOMED Code(s): 22054529 (3) Chronic pain Current Visit: Yes Status: Acute Priority: Medium Code(s): G89.29 - OTHER CHRONIC PAIN SNOMED Code(s): 41439568 (4) Fall Current Visit: Yes Status: Acute Priority: Medium Code(s): W19.XXXA - UNSPECIFIED FALL, INITIAL ENCOUNTER SNOMED Code(s): 5063763 (5) Lung cancer Current Visit: No Status: Chronic Priority: Medium Code(s): C34.90 - MALIGNANT NEOPLASM OF UNSP PART OF UNSP BRONCHUS OR LUNG SNOMED Code(s): 819500930 Plan: Bilateral hip and low back pain, metastatic osseous lesions: -Patient has a history of chronic low back pain. Complaining of bilateral hip pain. MRI of the left hip on 09/22/2023 showing a 3.3 cm osseous lesion with cortical breakthrough -Nuclear medicine bone scan 09/23/2023 report reads abnormal intense uptake involving proximal left femur concordant with the x-ray and MRI abnormality. Moderate intensity uptake at L4. MRI lumbar spine revealed multiple areas of suspected metastatic disease within the lumbar spine largest through the L4 level. Also noted at L2, L3 and L5 as well as some abnormal signal within the inferior T12 vertebral body. Multilevel disc bulges greatest at L5-S1. Small subligamentous disc herniation and central protrusion present at L1-2 without spinal canal stenosis. Severe right foraminal stenosis at L5-S1 -Spoke with radiation oncology. Will obtain right hip MRI and tentatively plan for simulation/RT pending surgical evaluation -Right hip MRI revealed abnormal signal involving the anterior column of the right acetabulum, and abnormal uptake in the left iliac bone. -Orthopedic surgery consulted. S/P intramedullary rodding of left femur on 11/[address] Arteaga. Pathology has been obtained from left femur lesion, pathology pending -Pain management has been consulted for complicated case-component of chronic pain and malignancy pain. Patient has been started on fentanyl patch and guevara nues on Hayden and Dilaudid prn for breakthrough pain. 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 No evidence of disease until Sep 2023. Fortunately, patient had increased musculoskeletal complaints, low back, bilateral hips. On further workup found to have metastatic bone lesions. -Restaging PET/CT is scheduled 10/29/2023-patient rescheduled this appointment, he was previously scheduled for 10/15/2023. Follow-up with Dr. Morales scheduled for 11/17/2023. -Due to recommended orthopedic surgery as well as likely need for rehabilitation upon discharge, will obtain CT CAP inpt to evaluate for other sites of metastasis - CT chest abdomen pelvis revealed left lower lung airspace consolidation. Lytic lesion of the left proximal femur with cortical breakthrough and soft tissue. Right upper lung consolidation changes which extends down towards the pulmonary hilum, limiting evaluation. Suspected metastatic disease, which is seen on prior MRI in lumbar spine and L4, L5, and L2. Due to limited evaluation of right upper lung from reported consolidative changes, will plan to obtain to obtain PET CT outpt for further evaluation of metastatic disease. -S/P intramedullary rodding of left femur on 11/02. Pathology has been obtained from left femur lesion, pathology pending. Will request further biomarker testing once path resulted -Plan for rehabilitation upon discharge. Discussed with patient that outpatient imaging and treatments would be on hold until discharge from rehab facility. -Spoke with rad onc today, will plan for outpt palliative RT upon discharge from rehab. Will schedule clinic follow-up and PET CT pending discharge from rehab Pt updated on POC and verbalized understanding
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
--- NOTE | 2023-11-07 16:25 | CT ---
EXAMINATION TYPE: CT brain wo con DATE OF EXAM: 11/07/2023 COMPARISON: 09/03/2023 HISTORY: AMS. CT DLP: 1230 mGycm Automated exposure control for dose reduction was used. FINDINGS: The ventricles, basal cisterns and sulci over the convexities are within normal limits consistent wit h mild generalized atrophy but appropriate for the patient's age. There is no mass effect or shift of midline structures. There is a tiny remote lacunar infarct in the left basal ganglia. There is no acute intra or extra-axial hemorrhage. The posterior fossa including the brainstem, fourth ventricle and cerebellopontine angles appear norm al. Intraorbital contents appear normal and symmetric. Visualized paranasal sinuses and mastoid air cells are well aerated. IMPRESSION: 1. No change in the mild age-appropriate atrophy. 2. Tiny remote lacunar infarct in the left basal ganglia. 3. No acute bleed or mass effect. IMPRESSION:
[2023-11-07] MEDS: LACTULOSE 20 GM/30 ML CUP PO SCH (16:28)
--- NOTE | 2023-11-08 08:33 | P.PN ---
Subjective Progress Note Date: 11/08/23 I am seeing this patient in consultation today 10/29/2023 for suspected left lower lobe pneumonia. Patient is a 63-year-old white male with past medical history significant for COPD, adenocarcinoma of the lung diagnosed originally back in October 2019 status post chemotherapy radiation. Followed by immuno therapy. Does not appear the patient has followed up in the pulmonary office since 2021. He does follow with his oncologist Dr. Morales. Since then, he has experienced a fall and he has been complaining of severe hip pain. It is affecting his ambulation. He can no longer take care of himself at home. He had a ER visit earlier this month for this. He did have a follow-up nuc med bone scan which showed abnormal intense uptake involving the proximal left femur suggestive of malignancy. There was moderate intensity uptake L4 also suspicious for metastatic disease. He was scheduled for a follow-up outpatient PET scan today, which will obviously have to be rescheduled. Patient also has past medical history significant for COPD, chronic hypoxemic respiratory failure and maintained on 3 L/min nasal cannula as needed, hyperlipidemia, hypertension, hypothyroidism, coronary artery disease with previous PCI/stent, anxiety/depression/PTSD polysubstance abuse, among many other medical comorbidit ies. Patient returned to the emergency room on 10/24/2023 in complaining of increased lower extremity pain bilaterally. He can no longer ambulate appropriately. MRI of the lumbar spine demonstrates multiple areas of suspected metastatic disease within the lumbar spine with the largest through the L4 level. No vertebral body height loss is evident. There is multilevel disc bulges greatest at L5-S1. There is small subligamentous disc herniation and central protrusion present at L1-2 without spinal canal stenosis. There is severe right for minimal stenosis at L5-S1 with milder formoterol narrowing. 8 x-ray of the pelvis does not show any acute fractures. Patient did have a chest x-ray yesterday which showed a new patchy left lower lobe infiltrate as well as the patient's known right upper lobe mass with associated right upper lobe volume loss/absorptive atelectasis. This was followed by a CT of the chest, abdomen, pelvis which demonstrated suspected obstruction of the right brac hiocephalic vein with the majority of the injected contrast extending up along the collaterals along the anterior chest wall down into the abdomen into the common femoral vein and other collateral pathways. Patient does have history of SVC stenosis posttreatment. There is redemonstration of the patient's right upper lobe consolidation, which extends toward the pulmonary hilum, and consistent with the patient's known lung cancer. There is a new left lower lung airspace consolidation with air bronchograms consistent with pneumonia. There is redemonstration of the patient's suspected metastatic disease involving the lumbar spine left proximal femur. For this reason, we were consulted yesterday. Patient is currently sitting up in bed, 3 L/min nasal cannula, in no acute distress. He does endorse chronic shortness of breath. He has had a minimally productive cough with occasional yellow sputum production. Denies any fevers. Denies any chest pain. His main complaint is his bilateral hip pain. Patient has been evaluated by orthopedic surgery, there is a possible plan for prophyla ctic insertion of a intramedullary sarita to support the left femur. Most recent CBC from this morning: WBC count 22.3, hemoglobin 10.8, hematocrit 32.7, platelets 206. BMP from this morning: Sodium 136, potassium 3.8, chloride 100, serum bicarb 29, BUN 19, creatinine 0.77, glucose 126. Patient has been started on empiric Zosyn. Procalcitonin level pending. Sputum culture was ordered. He is afebrile. Vital signs are stable. The patient is seen today October 30, 2023 in follow-up on the regular medical floor. He is currently awake and alert. He is quite uncomfortable with both right and left hip pain. He denies any worsening shortness of breath, cough or congestion. He is maintaining good O2 saturation in the mid 90s on 3 L/min per nasal cannula. He is afebrile. Hemodynamically stable. MRI of the right hip results are pending. Sputum culture pending. No new labs today. He remains on DuoNeb ventilations, Pulmicort inhalations and a prednisone taper. Heparin for DVT prophylaxis. Antibiotics in the form of Zosyn. Patient is seen today October 31, 2023 in follow-up on the regular medical floor. He is awake and alert in no acute distress. Appearing more comfortable today compared to yesterday. He is maintaining good O2 saturation in the 90s on 3 L nasal cannula. He is afebrile. Hemodynamically stable. MRI of the hips reveal evidence of destructive proximal left femoral lesion concordant with CT findings and compatible with metastasis. Findings are suspicious for metastatic involvement of L4 and L5. There is abnormal signal involving the anterior column of the right acetabulum compatible with metastasis. Abnormal uptake in the left iliac bone suspicious for early metastasis. Sputum culture revealed no growth. White count 14.3. Hemoglobin 11.2. Platelets 236. Sodium 140. Potassium 3.9. Bicarb 30. BUN 16. Creatinine 0.8. AST 84. ALT 100. He r emains on Zosyn. Continued on bronchodilators and a prednisone taper. Heparin for DVT prophylaxis. The patient is seen today November 01, 2023 in follow-up on the regular medical floor. He is currently sitting up in bed. Awake and alert in no acute distress. Still having ongoing issues with low back and bilateral hip pain. He has been seen by pain management and fentanyl patch is to be added. He denies any worsening shortness of breath, cough or congestion. He is maintained on O2 saturations in the 90s on 3 L/min per nasal cannula. He is afebrile. Hemodynamically stable. Chest x-ray continues to show the right upper lung opacity with right-sided volume loss. Left lung remains clear. No acute process. No new labs today. Remains on Zosyn. Continued on bronchodilators, prednisone, and heparin for DVT prophylaxis The patient is seen today November 02, 2023 in follow-up on the regular medical floor. He is currently awake and alert. A bit more comfortable today compared to yesterday. He had been started on a fentanyl patch per pain management. He denies any worsening shortness of breath, cough or congestion. Follow-up chest x-ray continues to show opacification of the right apex. Improved left lower lobe infiltrate. No new labs today. He remains on Zosyn, bronchodilators, prednisone, and heparin for DVT prophylaxis. He is maintaining good O2 saturations in the 90s on 3 L/min per nasal cannula. He is afebrile. Hemodynamically stable. The patient is seen today November 03, 2023 in follow-up on the regular medical floor. He is resting fairly comfortably in bed. Still having quite a bit of bilateral hip pain. He denies any worsening shortness of breath, cough or congestion. He is maintaining O2 saturations in the 90s on 3 L/min per nasal cannula. He has been afebrile. Hemodynamically stable. Sputum culture revealed no growth. White count 12.4. Hemoglobin 10.8. Sodium 140. Potassium 3.8. Bicarb 28. BUN 17. Creatinine 0.9. Glucose 97. He is continued on Zosyn. Heparin for DVT prophylaxis. Continued on bronchodilators. Pain management is following. The patient is seen today November 04, 2023 in follow-up on the regular medical floor. He is currently resting comfortably in bed. Awake and alert. He is maintaining O2 saturations in the 90s on 3 L/min per nasal cannula. He is afebrile. Hemodynamically stable. He did undergo a left hip prophylactic intramedullary nail procedure yesterday by orthopedics. Postoperative day #1. White count 17.8. Hemoglobin 11.1. Platelets 372. He remains on bronchodilators, Zosyn. Heparin for DVT prophylaxis. Currently the pain is fairly well-controlled. The patient is seen today November 05, 2023 in follow-up on the regular medical floor. He is awake and alert in no acute distress. This is postoperative day #2. He states his pain has improved since surgery. Still has low back and right hip pain. He denies any worsening shortness of breath, cough or congestion. He is maintaining O2 saturations in the 90s on 3 L/min per nasal cannula. He has normal saline at KVO. Sputum culture revealed no growth. Sodium 141. Potassium 3.7. Bicarb 26. BUN 14. Creatinine 1.0. Glucose 135. He remains on DuoNeb ventilations, Symbicort, prednisone taper. Antibiotics in the form of Zosyn. Heparin for DVT prophylaxis. The patient is seen today November 06, 2023 in follow-up on the regular medical floor. He is currently resting in bed. Awake and alert in no acute distress. He is maintaining O2 saturations in the 90s on 2 L/min per nasal cannula. He has normal saying 20 mph. Continued on DuoNeb inhalations, Symbicort, prednisone taper. Heparin for DVT prophylaxis. Chest x-ray reveals similar left lower lung airspace disease. Similar right upper lobe consolidation. No new infiltrate or atelectasis. No pneumothorax. Sputum culture reveals no growth. White count 13.5. Hemoglobin 10.2. Platelets 351. Sodium 135. Potassium 3.6. Bicarb 27. BUN 12. Creatinine 0.78. Glucose 102. The patient is seen today November 07, 2023 in follow-up on the regular medical floor. He is awake and alert in no acute distress. He is resting fairly comfortably in bed. Denies any worsening shortness of breath, cough or congestion. He is maintaining good O2 saturations in the 90s on 3 L/min per nasal cannula. He has normal staying at KVO. He remains on antibiotics in the form of Augmentin. Continued on Symbicort DuoNeb inhalations. Heparin for DVT prophylaxis. His pain is fairly well-controlled. Sputum culture revealed no growth. No new labs today. The patient is seen today November 08, 2023 in follow-up on the regular medical floor. He is currently resting comfortably in bed. Maintaining good O2 saturations in the 90s on 3 L nasal cannula. He is afebrile. Hemodynamically stable. CT scan of the brain revealed no change in the mid to mild age- appropriate atrophy. Tiny remote lacunar infarct in the left basal ganglia. No acute bleed or mass effect. He is alert and oriented today. Sputum culture reveals no growth. No new labs today. Remains on DuoNeb inhalations and Symbicort. Heparin for DVT prophylaxis. Objective - Vital Signs Vital signs: Vital Signs Temp 98 F 11/08/23 07:39 Pulse 89 11/08/23 07:39 Resp 19 11/08/23 07:39 BP 102/70 11/08/23 07:39 Pulse Ox 97 11/08/23 07:39 FiO2 Intake & Output 11/07/23 11/08/23 11/08/23 18:59 06:59 18:59 Intake Total 950 Output Total 425 Balance -425 950 Intake: Oral 950 Output: Urine 425 Other: Voiding Method Urinal Urinal Urinal # Voids 2 1 - Exam GENERAL EXAM: Alert, cachectic, 63-year-old male, resting in bed, on 3 L nasal canula, in no acute distress. HEAD: Normocephalic and atraumatic. EYES: Left eye blindness. Right eye intact. NOSE: Clear with pink turbinates. THROAT: No erythema or exudates. NECK: No masses, no JVD. CHEST: No chest wall deformity. LUNGS: Equal air entry with end expiratory wheezes heard throughout. Left-sided dullness. CVS: S1 and S2 normal with an audible murmur, regular rhythm. No extra heart sounds ABDOMEN: No hepatosplenomegaly, active bowel sounds, no guarding or rigidity. SPINE: No scoliosis or deformity SKIN: No rashes CENTRAL NERVOUS SYSTEM: No focal deficits, tone is normal in all 4 extremities. EXTREMITIES: Left surgical hip clean, dry and intact. There is no peripheral edema, clubbing, or cyanosis. Peripheral pulses are intact. - Labs CBC & Chem 7: 11/06/23 03:10 11/06/23 03:10 Assessment and Plan Assessment: Metastatic adenocarcinoma of the lung, originally diagnosed was back in 2019 status post chemo/radiation followed by immunotherapy. CT of the chest, abdomen, pelvis demonstrates suspected obstruction of the right brachiocephalic vein with the majority of the injected contrast extending up along the collaterals along the anterior chest wall down into the abdomen into the common femoral vein and other collateral pathways. Patient does have history of SVC stenosis po sttreatment. There is redemonstration of the patient's right upper lobe consolidation/mass and absorptive volume loss, which extends toward the pulmonary hilum, and consistent with the patient's known lung cancer. There is a new left lower lung airspace consolidation with air bronchograms consistent with pneumonia. There is redemonstration of the patient's suspected metastatic disease involving the lumbar spine left proximal femur. MRI of the hips reveal evidence of destructive proximal left femoral lesion concordant with CT findings and compatible with metastasis. Findings are suspicious for metastatic involvement of L4 and L5. There is abnormal signal involving the anterior column of the right acetabulum compatible with metastasis. Abnormal uptake in the left iliac bone suspicious for early metastasis Bilateral hip and lower back pain secondary to above. Status post prophylactic left hip intramedullary nailing on 11/03/2023, postoperative day #5 Suspected left lower lobe hospital acquired pneumonia procalcitonin 53.4. Completed Zosyn, sputum culture revealed no growth Leukocytosis, secondary to above Unstable gait and fall, secondary to above Chronic obstructive pulmonary disease Chronic hypoxemic respiratory failure, normally on 3 L/min nasal cannula Chronic anemia History of hyperlipidemia History of hypertension History of hypothyroidism Coronary artery disease with previous PCI/stent History of anxiety/depression/PTSD History of polysubstance abuse Poor overall functional performance based on the above-mentioned multiple comorbidities Plan: The patient was seen and evaluated CT scan of the brain, medications reviewed Stable and on 3 L/min per nasal cannula Continue Symbicort, albuterol Cleared for discharge Awaiting placement and accepting facility The patient was seen independently by the pulmonary nurse practitioner addressing pulmonary issues I have personally seen and examined the patient, performed the documentation and the assessment and plan as written. Number of minutes spent on the visit: 22.
[2023-11-08 09:26] LABS: Basophils % (A) 0 %; Eosinophils # (A) 0.2 k/uL (0-0.7); Eosinophils % (A) 2 %; HCT 31.8 % (39.0-53.0); HGB 9.8 gm/dL (13.0-17.5); Hypochromasia Slight; Lymphocytes # (A) 0.9 k/uL (1.0-4.8); Lymphocytes % (A) 8 %; MCH 31.7 pg (25.0-35.0); MCHC 30.6 g/dL (31.0-37.0); MCV 103.5 fL (80.0-100.0); Macrocytosis Slight; Mean Platelet Volume 7.8; Monocytes # (A) 0.5 k/uL (0-1.0); Monocytes % (A) 4 %; Neutrophils # (A) 10.3 k/uL (1.3-7.7); Neutrophils % (A) 86 %; Platelet Count 384 k/uL (150-450); RBC 3.08 m/uL (4.30-5.90); RDW 14.7 % (11.5-15.5); WBC 12.1 k/uL (3.8-10.6)
[2023-11-08 11:09] LABS: ALT 60 U/L (4-49); AST 53 U/L (17-59); African American GFR (CKD) >90 (>60 ml/min/1.73 sqM); Albumin 2.9 g/dL (3.5-5.0); Alkaline Phosphatase 83 U/L (38-126); Anion Gap 7 mmol/L; Blood Urea Nitrogen 12 mg/dL (9-20); Calcium 8.5 mg/dL (8.4-10.2); Carbon Dioxide 26 mmol/L (22-30); Chloride 103 mmol/L (98-107); Glucose 126 mg/dL (74-99); Non-African American GFR(CKD) >90 (>60 ml/min/1.73 sqM); Potassium 3.4 mmol/L (3.5-5.1); Sodium 136 mmol/L (137-145); Total Bilirubin 0.6 mg/dL (0.2-1.3); Total Protein 5.9 g/dL (6.3-8.2)
--- NOTE | 2023-11-08 15:25 | P.PN ---
Subjective Progress Note Date: 11/08/23 This is a pleasant 63-year-old male who is postoperative left hip nailing empirically due to concern for lytic lesion of the left femur. Patient has known history of metastatic non-small lung cancer. He is continue to report significant pain and discomfort to the left hip and lower back region. He was t aken off of his IV narcotic pain medication due to acute confusions. Currently maintained on a course of oral Tylenol oral Palisade 10 every 6 hours as well as a fentanyl patch. Orthopedics is following closely. Patient did have a brain CT completed showing no change in the mild age-appropriate atrophy there is a tiny remote lacunar infarct in the left basal ganglia there is no acute bleed or mass effect. Has blood work is improving white blood cell count is down to 12.1, hemoglobin 9.8, sodium 136, potassium 3.4, renal function is within normal limits. He is maintained on 3 L of oxygen via nasal cannula. Review of Systems Constitutional: Denied any fatigue denied any fever. Cardio vascular: denied any chest pain, palpitations Gastrointestinal: denied any nausea, vomiting, diarrhea Pulmonary: Denied any shortness of breath cough Neurologic denied any new focal deficits All inpatient medications were reviewed and appropriate changes in these medications as dictated in the interval history and assessment and plan. PHYSICAL EXAMINATION: General: 63-year-old male laying down in bed in minimal distress. 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 Neck: Supple, no JVP, decreased carotid upstroke bilaterally, no lymphadenopathy. Chest: Decreased breath sounds at the bases, few rhonchi, moderate expiratory wheezes, no chest wall tenderness, no intercostal retractions. Heart: First heart sound is normal, second heart sound is normal there is systolic ejection murmur 2/6 located in the left sternal border. Abdomen: Soft, nontender, nondistended, positive bowel sounds. Extremities: There is no edema no calf tenderness DP +2 bilaterally. Neurologic examination: Patient is awake alert and oriented x 3, cranial nerves II-12 appear grossly intact, muscle power were 3 out of 5 in upper extremities and 2 out of 5 in bilateral lower extremities, deep tendon reflexes with hype rreflexia bilaterally ASSESSMENT AND PLAN: -Postoperative day #3 status post left intramedullary nailing of the left femur lytic metastatic lesion of non-small cell lung cancer. Continue current pain management with fentanyl patch 50 mcg every 72 hours, hydrocodone 10/325 mg 1 tablet every 4 hours as needed. -Severe lumbar pain with weakness of the left lower extremity due to likely spondylosis of the lumbar spine between L4 and L5, and L5-S1 x-ray of the lumbar spine was reviewed, MRI of the lumbar spine with and without kim did show evidence of multiple spinal metastatic disease to all to L3-L4 and L5 along with T12 the largest 1 at L4 also there is evidence of L5-S1 foraminal stenosis as well as disc bulge between L1 and L2, continue current pain management -Non-small cell lung cancer/adenocarcinoma of the right upper lobe with Pancoast syndrome initially stage IIIb and now stage IV status post radiation therapy along with chemotherapy(carboplatin/Alimta) and immunotherapy this is metastatic with lesions to the bone. -History of coronary artery disease status post PCI of the LAD and RCA. -Dual antiplatelet therapy -Left lower lobe gram-negative pneumonia. Patient has completed course of antibiotic therapy -Hypertension and hypertensive cardiovascular disease. Continue patient on metoprolol ER 50 mg orally once every day. -Mixed hyperlipidemia. Continue patient on atorvastatin 40 mg once every day -Hypothyroidism. Continue patient on Synthroid 50 mcg orally once every day. -Chronic tobacco use and dependence with chronic obstructive pulmonary disease . Continue IV Solu-Medrol and updraft treatments - Left retinal detachment. Continue eyedrops including atropine as well as prednisolone forte and moxifloxacin. -Bipolar disorder. Continue on sertraline 200 mg once every day as well as Abilify 20 mg once every day. -Medical debility. PT and OT following the patient -Chronic pain syndrome. Continue current pain management with fentanyl patch 50 mcg every 72 hours, continue hydrocodone 10/325 mg 1 tablet every 4 hours as needed, discontinue Dilaudid. -Chronic THC use. Advised against its use - metabolic encephalopathy likely due to delirium due to medication including Dilaudid. Discontinue Dilaudid continue current pain management. Repeat labs tomorrow morning. -Medically stable to be transferred to extended care facility when the bed becomes available. ' DVT prophylaxis subcu heparin GI prophylaxis Protonix DO NOT RESUSCITATE DO NOT INTUBATE The impression and plan of care has been dictated by Nabila Shanks Nurse Practitioner as directed. Dr. Gilles MD I have performed a history and physical examination and medical decision making of this patient, discussed the same with the dictator, and agree with the dictators assessment and plan as written, documented as a scribe. Based on total visit time, I have performed more than 50% of this visit. Objective - Vital Signs Vital signs: Vital Signs Temp 98.3 F 11/08/23 14:00 Pulse 78 11/08/23 14:00 Resp 18 11/08/23 14:00 BP 107/67 11/08/23 14:00 Pulse Ox 94 L 11/08/23 14:00 FiO2 Intake & Output 11/07/23 11/08/23 11/08/23 18:59 06:59 18:59 Intake Total 950 Output Total 425 Balance -425 950 Intake: Oral 950 Output: Urine 425 Other: Voiding Method Urinal Urinal Urinal # Voids 2 1 # Bowel Movements 1 - Labs CBC & Chem 7: 11/08/23 08:22 11/08/23 08:22 Labs: Abnormal Lab Results - Last 24 Hours (Table) 11/08/23 11/08/23 Range/Units 08:22 08:22 WBC 12.1 H (3.8-10.6) k/uL RBC 3.08 L (4.30-5.90) m/uL Hgb 9.8 L (13.0-17.5) gm/dL Hct 31.8 L (39.0-53.0) % MCV 103.5 H (80.0-100.0) fL MCHC 30.6 L (31.0-37.0) g/dL Neutrophils # 10.3 H (1.3-7.7) k/uL Lymphocytes # 0.9 L (1.0-4.8) k/uL Sodium 136 L (137-145) mmol/L Potassium 3.4 L (3.5-5.1) mmol/L Glucose 126 H (74-99) mg/dL ALT 60 H (4-49) U/L Total Protein 5.9 L (6.3-8.2) g/dL Albumin 2.9 L (3.5-5.0) g/dL Assessment and Plan Time with Patient: Less than 30
[2023-11-08] MEDS: LIDOCAINE 4% PATCH TOPICAL SCH (16:48)
[2023-11-08] MEDS: POTASSIUM CHLORIDE ER 10 MEQ TAB.ER.PRT PO SCH (16:48)
[2023-11-09 05:30] LABS: Basophils % (A) 0 %; Eosinophils # (A) 0.1 k/uL (0-0.7); Eosinophils % (A) 2 %; HGB 9.8 gm/dL (13.0-17.5); Hypochromasia Slight; Lymphocytes # (A) 0.8 k/uL (1.0-4.8); Lymphocytes % (A) 10 %; MCH 32.1 pg (25.0-35.0); MCHC 30.8 g/dL (31.0-37.0); MCV 104.2 fL (80.0-100.0); Macrocytosis Slight; Mean Platelet Volume 7.2; Monocytes # (A) 0.4 k/uL (0-1.0); Monocytes % (A) 5 %; Neutrophils % (A) 83 %; Platelet Count 370 k/uL (150-450); RBC 3.07 m/uL (4.30-5.90); RDW 14.4 % (11.5-15.5); WBC 8.5 k/uL (3.8-10.6)
[2023-11-09 05:50] LABS: African American GFR (CKD) >90 (>60 ml/min/1.73 sqM); Anion Gap 5 mmol/L; Blood Urea Nitrogen 11 mg/dL (9-20); Calcium 8.4 mg/dL (8.4-10.2); Carbon Dioxide 28 mmol/L (22-30); Chloride 103 mmol/L (98-107); Glucose 96 mg/dL (74-99); Magnesium 1.6 mg/dL (1.6-2.3); Non-African American GFR(CKD) >90 (>60 ml/min/1.73 sqM); Potassium 4.2 mmol/L (3.5-5.1); Sodium 136 mmol/L (137-145)
--- NOTE | 2023-11-09 08:06 | P.PN ---
Subjective Progress Note Date: 11/09/23 I am seeing this patient in consultation today 10/29/2023 for suspected left lower lobe pneumonia. Patient is a 63-year-old white male with past medical history significant for COPD, adenocarcinoma of the lung diagnosed originally back in October 2019 status post chemotherapy radiation. Followed by immuno therapy. Does not appear the patient has followed up in the pulmonary office since 2021. He does follow with his oncologist Dr. Morales. Since then, he has experienced a fall and he has been complaining of severe hip pain. It is affecting his ambulation. He can no longer take care of himself at home. He had a ER visit earlier this month for this. He did have a follow-up nuc med bone scan which showed abnormal intense uptake involving the proximal left femur suggestive of malignancy. There was moderate intensity uptake L4 also suspicious for metastatic disease. He was scheduled for a follow-up outpatient PET scan today, which will obviously have to be rescheduled. Patient also has past medical history significant for COPD, chronic hypoxemic respiratory failure and maintained on 3 L/min nasal cannula as needed, hyperlipidemia, hypertension, hypothyroidism, coronary artery disease with previous PCI/stent, anxiety/depression/PTSD polysubstance abuse, among many other medical comorbidit ies. Patient returned to the emergency room on 10/24/2023 in complaining of increased lower extremity pain bilaterally. He can no longer ambulate appropriately. MRI of the lumbar spine demonstrates multiple areas of suspected metastatic disease within the lumbar spine with the largest through the L4 level. No vertebral body height loss is evident. There is multilevel disc bulges greatest at L5-S1. There is small subligamentous disc herniation and central protrusion present at L1-2 without spinal canal stenosis. There is severe right for minimal stenosis at L5-S1 with milder formoterol narrowing. 8 x-ray of the pelvis does not show any acute fractures. Patient did have a chest x-ray yesterday which showed a new patchy left lower lobe infiltrate as well as the patient's known right upper lobe mass with associated right upper lobe volume loss/absorptive atelectasis. This was followed by a CT of the chest, abdomen, pelvis which demonstrated suspected obstruction of the right brac hiocephalic vein with the majority of the injected contrast extending up along the collaterals along the anterior chest wall down into the abdomen into the common femoral vein and other collateral pathways. Patient does have history of SVC stenosis posttreatment. There is redemonstration of the patient's right upper lobe consolidation, which extends toward the pulmonary hilum, and consistent with the patient's known lung cancer. There is a new left lower lung airspace consolidation with air bronchograms consistent with pneumonia. There is redemonstration of the patient's suspected metastatic disease involving the lumbar spine left proximal femur. For this reason, we were consulted yesterday. Patient is currently sitting up in bed, 3 L/min nasal cannula, in no acute distress. He does endorse chronic shortness of breath. He has had a minimally productive cough with occasional yellow sputum production. Denies any fevers. Denies any chest pain. His main complaint is his bilateral hip pain. Patient has been evaluated by orthopedic surgery, there is a possible plan for prophyla ctic insertion of a intramedullary sairta to support the left femur. Most recent CBC from this morning: WBC count 22.3, hemoglobin 10.8, hematocrit 32.7, platelets 206. BMP from this morning: Sodium 136, potassium 3.8, chloride 100, serum bicarb 29, BUN 19, creatinine 0.77, glucose 126. Patient has been started on empiric Zosyn. Procalcitonin level pending. Sputum culture was ordered. He is afebrile. Vital signs are stable. The patient is seen today October 30, 2023 in follow-up on the regular medical floor. He is currently awake and alert. He is quite uncomfortable with both right and left hip pain. He denies any worsening shortness of breath, cough or congestion. He is maintaining good O2 saturation in the mid 90s on 3 L/min per nasal cannula. He is afebrile. Hemodynamically stable. MRI of the right hip results are pending. Sputum culture pending. No new labs today. He remains on DuoNeb ventilations, Pulmicort inhalations and a prednisone taper. Heparin for DVT prophylaxis. Antibiotics in the form of Zosyn. Patient is seen today October 31, 2023 in follow-up on the regular medical floor. He is awake and alert in no acute distress. Appearing more comfortable today compared to yesterday. He is maintaining good O2 saturation in the 90s on 3 L nasal cannula. He is afebrile. Hemodynamically stable. MRI of the hips reveal evidence of destructive proximal left femoral lesion concordant with CT findings and compatible with metastasis. Findings are suspicious for metastatic involvement of L4 and L5. There is abnormal signal involving the anterior column of the right acetabulum compatible with metastasis. Abnormal uptake in the left iliac bone suspicious for early metastasis. Sputum culture revealed no growth. White count 14.3. Hemoglobin 11.2. Platelets 236. Sodium 140. Potassium 3.9. Bicarb 30. BUN 16. Creatinine 0.8. AST 84. ALT 100. He r emains on Zosyn. Continued on bronchodilators and a prednisone taper. Heparin for DVT prophylaxis. The patient is seen today November 01, 2023 in follow-up on the regular medical floor. He is currently sitting up in bed. Awake and alert in no acute distress. Still having ongoing issues with low back and bilateral hip pain. He has been seen by pain management and fentanyl patch is to be added. He denies any worsening shortness of breath, cough or congestion. He is maintained on O2 saturations in the 90s on 3 L/min per nasal cannula. He is afebrile. Hemodynamically stable. Chest x-ray continues to show the right upper lung opacity with right-sided volume loss. Left lung remains clear. No acute process. No new labs today. Remains on Zosyn. Continued on bronchodilators, prednisone, and heparin for DVT prophylaxis The patient is seen today November 02, 2023 in follow-up on the regular medical floor. He is currently awake and alert. A bit more comfortable today compared to yesterday. He had been started on a fentanyl patch per pain management. He denies any worsening shortness of breath, cough or congestion. Follow-up chest x-ray continues to show opacification of the right apex. Improved left lower lobe infiltrate. No new labs today. He remains on Zosyn, bronchodilators, prednisone, and heparin for DVT prophylaxis. He is maintaining good O2 saturations in the 90s on 3 L/min per nasal cannula. He is afebrile. Hemodynamically stable. The patient is seen today November 03, 2023 in follow-up on the regular medical floor. He is resting fairly comfortably in bed. Still having quite a bit of bilateral hip pain. He denies any worsening shortness of breath, cough or congestion. He is maintaining O2 saturations in the 90s on 3 L/min per nasal cannula. He has been afebrile. Hemodynamically stable. Sputum culture revealed no growth. White count 12.4. Hemoglobin 10.8. Sodium 140. Potassium 3.8. Bicarb 28. BUN 17. Creatinine 0.9. Glucose 97. He is continued on Zosyn. Heparin for DVT prophylaxis. Continued on bronchodilators. Pain management is following. The patient is seen today November 04, 2023 in follow-up on the regular medical floor. He is currently resting comfortably in bed. Awake and alert. He is maintaining O2 saturations in the 90s on 3 L/min per nasal cannula. He is afebrile. Hemodynamically stable. He did undergo a left hip prophylactic intramedullary nail procedure yesterday by orthopedics. Postoperative day #1. White count 17.8. Hemoglobin 11.1. Platelets 372. He remains on bronchodilators, Zosyn. Heparin for DVT prophylaxis. Currently the pain is fairly well-controlled. The patient is seen today November 05, 2023 in follow-up on the regular medical floor. He is awake and alert in no acute distress. This is postoperative day #2. He states his pain has improved since surgery. Still has low back and right hip pain. He denies any worsening shortness of breath, cough or congestion. He is maintaining O2 saturations in the 90s on 3 L/min per nasal cannula. He has normal saline at KVO. Sputum culture revealed no growth. Sodium 141. Potassium 3.7. Bicarb 26. BUN 14. Creatinine 1.0. Glucose 135. He remains on DuoNeb ventilations, Symbicort, prednisone taper. Antibiotics in the form of Zosyn. Heparin for DVT prophylaxis. The patient is seen today November 06, 2023 in follow-up on the regular medical floor. He is currently resting in bed. Awake and alert in no acute distress. He is maintaining O2 saturations in the 90s on 2 L/min per nasal cannula. He has normal saying 20 mph. Continued on DuoNeb inhalations, Symbicort, prednisone taper. Heparin for DVT prophylaxis. Chest x-ray reveals similar left lower lung airspace disease. Similar right upper lobe consolidation. No new infiltrate or atelectasis. No pneumothorax. Sputum culture reveals no growth. White count 13.5. Hemoglobin 10.2. Platelets 351. Sodium 135. Potassium 3.6. Bicarb 27. BUN 12. Creatinine 0.78. Glucose 102. The patient is seen today November 07, 2023 in follow-up on the regular medical floor. He is awake and alert in no acute distress. He is resting fairly comfortably in bed. Denies any worsening shortness of breath, cough or congestion. He is maintaining good O2 saturations in the 90s on 3 L/min per nasal cannula. He has normal staying at KVO. He remains on antibiotics in the form of Augmentin. Continued on Symbicort DuoNeb inhalations. Heparin for DVT prophylaxis. His pain is fairly well-controlled. Sputum culture revealed no growth. No new labs today. The patient is seen today November 08, 2023 in follow-up on the regular medical floor. He is currently resting comfortably in bed. Maintaining good O2 saturations in the 90s on 3 L nasal cannula. He is afebrile. Hemodynamically stable. CT scan of the brain revealed no change in the mid to mild age- appropriate atrophy. Tiny remote lacunar infarct in the left basal ganglia. No acute bleed or mass effect. He is alert and oriented today. Sputum culture reveals no growth. No new labs today. Remains on DuoNeb inhalations and Symbicort. Heparin for DVT prophylaxis. The patient is seen today November 09, 2023 in follow-up on the regular medical floor. He is currently resting in bed. Awake and alert in no acute distress. His pain is fairly well-managed. He is maintaining good O2 saturations in the 90s on 3 L nasal cannula. Continue on DuoNeb inhalations, Symbicort. Heparin for DVT prophylaxis. Sputum culture had revealed no growth. White count 8.5. Hemoglobin 9.8. Platelets 370. Sodium 136. Potassium 4.3. Bicarb 28. BUN 11. Creatinine 0.69. Objective - Vital Signs Vital signs: Vital Signs Temp 98.2 F 11/09/23 07:38 Pulse 84 11/09/23 07:56 Resp 18 11/09/23 07:38 BP 113/68 11/09/23 07:38 Pulse Ox 96 11/09/23 07:38 FiO2 Intake & Output 11/08/23 11/09/23 11/09/23 18:59 06:59 18:59 Intake Total 540 1180 Output Total 600 800 Balance -60 380 Intake: Oral 540 1180 Output: Urine 600 800 Other: Voiding Method Urinal Urinal # Bowel Movements 1 - Exam GENERAL EXAM: Alert, cachectic, pleasant 63-year-old male, on 3 L nasal canula, in no acute distress. HEAD: Normocephalic and atraumatic. EYES: Left eye blindness. Right eye intact. NOSE: Clear with pink turbinates. THROAT: No erythema or exudates. NECK: No masses, no JVD. CHEST: No chest wall deformity. LUNGS: Equal air entry with end expiratory wheezes heard throughout. Left-sided dullness. CVS: S1 and S2 normal with an audible murmur, regular rhythm. No extra heart sounds ABDOMEN: No hepatosplenomegaly, active bowel sounds, no guarding or rigidity. SPINE: No scoliosis or deformity SKIN: No rashes CENTRAL NERVOUS SYSTEM: No focal deficits, tone is normal in all 4 extremities. EXTREMITIES: Left surgical hip clean, dry and intact. There is no peripheral edema, clubbing, or cyanosis. Peripheral pulses are intact. - Labs CBC & Chem 7: 11/09/23 04:48 11/09/23 04:48 Labs: Abnormal Lab Results - Last 24 Hours (Table) 11/08/23 11/08/23 11/09/23 Range/Units 08:22 08:22 04:48 WBC 12.1 H (3.8-10.6) k/uL RBC 3.08 L 3.07 L (4.30-5.90) m/uL Hgb 9.8 L 9.8 L (13.0-17.5) gm/dL Hct 31.8 L 32.0 L (39.0-53.0) % MCV 103.5 H 104.2 H (80.0-100.0) fL MCHC 30.6 L 30.8 L (31.0-37.0) g/dL Neutrophils # 10.3 H (1.3-7.7) k/uL Lymphocytes # 0.9 L 0.8 L (1.0-4.8) k/uL Sodium 136 L (137-145) mmol/L Potassium 3.4 L (3.5-5.1) mmol/L Glucose 126 H (74-99) mg/dL ALT 60 H (4-49) U/L Total Protein 5.9 L (6.3-8.2) g/dL Albumin 2.9 L (3.5-5.0) g/dL 11/09/23 Range/Units 04:48 WBC (3.8-10.6) k/uL RBC (4.30-5.90) m/uL Hgb (13.0-17.5) gm/dL Hct (39.0-53.0) % MCV (80.0-100.0) fL MCHC (31.0-37.0) g/dL Neutrophils # (1.3-7.7) k/uL Lymphocytes # (1.0-4.8) k/uL Sodium 136 L (137-145) mmol/L Potassium (3.5-5.1) mmol/L Glucose (74-99) mg/dL ALT (4-49) U/L Total Protein (6.3-8.2) g/dL Albumin (3.5-5.0) g/dL Assessment and Plan Assessment: Metastatic adenocarcinoma of the lung, originally diagnosed was back in 2019 status post chemo/radiation followed by immunotherapy. CT of the chest, abdomen, pelvis demonstrates suspected obstruction of the right brachiocephalic vein with the majority of the injected contrast extending up along the collaterals along the anterior chest wall down into the abdomen into the common femoral vein and other collateral pathways. Patient does have history of SVC stenosis posttreatment. There is redemonstration of the patient's right upper lobe consolidation/mass and absorptive volume loss, which extends toward the pulmonary hilum, and consistent with the patient's known lung cancer. There is a new left lower lung airspace consolidation with air bronchograms consistent with pneumonia. There is redemonstration of the patient's suspected metastatic disease involving the lumbar spine left proximal femur. MRI of the hips reveal evidence of destructive proximal left femoral lesion concordant with CT findings and compatible with metastasis. Findings are suspicious for metastatic involvement of L4 and L5. There is abnormal signal involving the anterior column of the right acetabulum compatible with metastasis. Abnormal uptake in the left iliac bone suspicious for early metastasis Bilateral hip and lower back pain secondary to above. Status post prophylactic left hip intramedullary nailing on 11/03/2023, postoperative day #6 Suspected left lower lobe hospital acquired pneumonia procalcitonin 53.4. Completed Zosyn, sputum culture revealed no growth Leukocytosis, secondary to above Unstable gait and fall, secondary to above Chronic obstructive pulmonary disease Chronic hypoxemic respiratory failure, normally on 3 L/min nasal cannula Chronic anemia History of hyperlipidemia History of hypertension History of hypothyroidism Coronary artery disease with previous PCI/stent History of anxiety/depression/PTSD History of polysubstance abuse Poor overall functional performance based on the above-mentioned multiple comorbidities Plan: The patient was seen and evaluated Labs and medications reviewed Stable and on 3 L/min per nasal cannula Continue bronchodilators Pain is fairly well-controlled Awaiting placement and accepting facility The patient was seen independently by the pulmonary nurse practitioner addressing pulmonary issues I have personally seen and examined the patient, performed the documentation and the assessment and plan as written. Number of minutes spent on the visit: 23.
[2023-11-09] MEDS ORDERED: Magnesium Replacement Protocol 1 EACH MISC MISCELLANE PRN (09:24)
[2023-11-09] MEDS: MAGNESIUM SULFATE-D5W PMX 1 GM in DEXTROSE/WATER 1 100ML.BAG IVPB SCH (10:32)
--- NOTE | 2023-11-09 14:07 | P.PN ---
Subjective Progress Note Date: 11/09/23 Principal diagnosis: NSCLC -No acute events overnight -Noted significant pain in the knees bilaterally, which has been present prior to admission, but is now significantly worse -Noted pain in the left hip -Denies any other new signs or symptoms Objective - Vital Signs Vital signs: Vital Signs Temp 97.5 F L 11/09/23 12:46 Pulse 76 11/09/23 12:46 Resp 17 11/09/23 12:46 BP 115/66 11/09/23 12:46 Pulse Ox 98 11/09/23 12:46 FiO2 Intake & Output 11/08/23 11/09/23 11/09/23 18:59 06:59 18:59 Intake Total 540 1180 Output Total 600 800 Balance -60 380 Intake: Oral 540 1180 Output: Urine 600 800 Other: Voiding Method Urinal Urinal # Bowel Movements 1 - Constitutional General appearance: Present: cooperative, mild distress - EENT Eyes: Present: EOMI - Respiratory Respiratory: bilateral: rhonchi (More prominent in the left lung base) - Cardiovascular Rhythm: regular - Gastrointestinal General gastrointestinal: Present: soft. Absent: distended - Integumentary Integumentary Comment(s): Ecchymosis in the left lateral thigh - Neurologic Neurologic: Present: CNII-XII intact. Absent: focal deficits - Psychiatric Psychiatric: Present: A&O x's 3 - Labs CBC & Chem 7: 11/09/23 04:48 11/09/23 04:48 Labs: Abnormal Lab Results - Last 24 Hours (Table) 11/09/23 11/09/23 Range/Units 04:48 04:48 RBC 3.07 L (4.30-5.90) m/uL Hgb 9.8 L (13.0-17.5) gm/dL Hct 32.0 L (39.0-53.0) % MCV 104.2 H (80.0-100.0) fL MCHC 30.8 L (31.0-37.0) g/dL Lymphocytes # 0.8 L (1.0-4.8) k/uL Sodium 136 L (137-145) mmol/L Assessment and Plan (1) NSCLC metastatic to bone Current Visit: Yes Status: Acute Code(s): C34.90 - MALIGNANT NEOPLASM OF UNSP PART OF UNSP BRONCHUS OR LUNG; C79.51 - SECONDARY MALIGNANT NEOPLASM OF BONE SNOMED Code(s): 687818478 (2) Chronic pain Current Visit: Yes Status: Acute Priority: Medium Code(s): G89.29 - OTHER CHRONIC PAIN SNOMED Code(s): 50461166 (3) Hip pain, bilateral Current Visit: Yes Status: Acute Priority: High Code(s): M25.551 - PAIN IN RIGHT HIP; M25.552 - PAIN IN LEFT HIP SNOMED Code(s): 25866586 Plan: Bilateral hip and low back pain, metastatic osseous lesions: -Patient has a history of chronic low back pain. Complaining of bilateral hip pain. MRI of the left hip on 09/22/2023 showing a 3.3 cm osseous lesion with cortical breakthrough -Nuclear medicine bone scan 09/23/2023 report reads abnormal intense uptake involving proximal left femur concordant with the x-ray and MRI abnormality. Moderate intensity uptake at L4. MRI lumbar spine revealed multiple areas of suspected metastatic disease within the lumbar spine largest through the L4 level. Also noted at L2, L3 and L5 as well as some abnormal signal within the inferior T12 vertebral body. Multilevel disc bulges greatest at L5-S1. Small subligamentous disc herniation and central protrusion present at L1-2 without spinal canal stenosis. Severe right foraminal stenosis at L5-S1 -Spoke with radiation oncology. Will obtain right hip MRI and tentatively plan for simulation/RT pending surgical evaluation -Right hip MRI revealed abnormal signal involving the anterior column of the right acetabulum, and abnormal uptake in the left iliac bone. -Orthopedic surgery consulted. S/P intramedullary rodding of left femur on 11/[address] Arteaga. Pathology consistent with metastatic adenocarcinoma of the lung -Pain management has been consulted for complicated case-component of chronic pain and malignancy pain. Patient has been started on fentanyl patch and continues on Mcbain and Dilaudid prn for breakthrough pain -Noted significant discomfort on today's encounter -Mcbain frequency increased to every 4 hours as needed from every 6 hours with continued fentanyl patch at 50 mcg Metastatic non-small cell lung adenocarcinoma: -Stage IIIB adenocarcinoma of the right upper lung, s/p chemo/XRT then IO x 1 year, completed in October 2020. No evidence of disease until Sep 2023. Fortunately, patient had increased musculoskeletal complaints, low back, bilateral hips. On further workup found to have metastatic bone lesions. -Restaging PET/CT is scheduled 10/29/2023-patient rescheduled this appointment, he was previously scheduled for 10/15/2023. Follow-up with Dr. Morales scheduled for 11/17/2023. -Due to recommended orthopedic surgery as well as likely need for rehabilitation upon discharge, will obtain CT CAP inpt to evaluate for other sites of metastasis - CT chest abdomen pelvis revealed left lower lung airspace consolidation. Lytic lesion of the left proximal femur with cortical breakthrough and soft tissue. Right upper lung consolidation changes which extends down towards the pulmonary hilum, limiting evaluation. Suspected metastatic disease, which is seen on prior MRI in lumbar spine and L4, L5, and L2. Due to limited evaluation of right upper lung from reported consolidative changes, will plan to obtain to obtain PET CT outpt for further evaluation of metastatic disease. -S/P intramedullary rodding of left femur on 11/02. Pathology consistent with metastatic adenocarcinoma of the lung -Discussed the pathology results with Axel along with his brother and sister at bedside on today's visit -We discussed the need for NGS/PD-L1 from the surgical pathology as well as guardant 360 to assess circulating tumor DNA to assess circulating tumor DNA treatment options systemically moving forward -We discussed that based on the results of the additional testing, he would be a candidate for either targeted oral agents, immunotherapy alone, or immunotherapy combined with chemotherapy -PET/CT will be obtained outpatient -He will need follow-up with radiation oncology for radiation therapy to the left hip and any additional palliative radiation therapy Mary Lazcano MD Time with Patient: Greater than 30
[2023-11-09] MEDS ORDERED: MAGNESIUM SULFATE-D5W PMX 1 GM in DEXTROSE/WATER 1 100ML.BAG IVPB SCH (15:30)
--- NOTE | 2023-11-09 15:33 | P.PN ---
Subjective Progress Note Date: 11/09/23 This is a pleasant 63-year-old male who is postoperative left hip nailing empirically due to concern for lytic lesion of the left femur. Patient has known history of metastatic non-small lung cancer. He is continue to report significant pain and discomfort to the left hip and lower back region. He was t aken off of his IV narcotic pain medication due to acute confusions. Currently maintained on a course of oral Tylenol oral [place] 10 every 6 hours as well as a fentanyl patch. Orthopedics is following closely. Patient did have a brain CT completed showing no change in the mild age-appropriate atrophy there is a tiny remote lacunar infarct in the left basal ganglia there is no acute bleed or mass effect. Has blood work is improving white blood cell count is down to 12.1, hemoglobin 9.8, sodium 136, potassium 3.4, renal function is within normal limits. He is maintained on 3 L of oxygen via nasal cannula. 11/09/2023 Patient is evaluated today on the medical floor in follow up. He is posto perative left hip nailing and continues to report significant pain in the lower back and left hip. He is on combination of fentanyl and norco. He was taken off the dilaudid due to acute confusion which has improved at this time. He had a bowel movement. His main complaint is that he is having increased pain anytime he tries to move around in the bed even. Oncology recommending outpatient PET scan in follow up as well as possible radiation to the left hip. Review of Systems Constitutional: Denied any fatigue denied any fever. Cardio vascular: denied any chest pain, palpitations Gastrointestinal: denied any nausea, vomiting, diarrhea Pulmonary: Denied any shortness of breath cough Neurologic denied any new focal deficits All inpatient medications were reviewed and appropriate changes in these medications as dictated in the interval history and assessment and plan. PHYSICAL EXAMINATION: General: 63-year-old male laying down in bed in minimal distress. 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 Neck: Supple, no JVP, decreased carotid upstroke bilaterally, no lymphadenopathy. Chest: Decreased breath sounds at the bases, few rhonchi, moderate expiratory wheezes, no chest wall tenderness, no intercostal retractions. Heart: First heart sound is normal, second heart sound is normal there is systolic ejection murmur 2/6 located in the left sternal border. Abdomen: Soft, nontender, nondistended, positive bowel sounds. Extremities: There is no edema no calf tenderness DP +2 bilaterally. Neurologic examination: Patient is awake alert and oriented x 3, cranial nerves II-12 appear grossly intact, muscle power were 3 out of 5 in upper extremities and 2 out of 5 in bilateral lower extremities, deep tendon reflexes with hyperreflexia bilaterally ASSESSMENT AND PLAN: -Postoperative day #4 status post left intramedullary nailing of the left femur lytic metastatic lesion of non-small cell lung cancer. Continue current pain management with fentanyl patch 50 mcg every 72 hours, hydrocodone 10/325 mg 1 tablet every 4 hours as needed. -Severe lumbar pain with weakness of the left lower extremity due to likely spondylosis of the lumbar spine between L4 and L5, and L5-S1 x-ray of the lumbar spine was reviewed, MRI of the lumbar spine with and without kim did show evidence of multiple spinal metastatic disease to all to L3-L4 and L5 along with T12 the largest 1 at L4 also there is evidence of L5-S1 foraminal stenosis as well as disc bulge between L1 and L2, continue current pain management -Non-small cell lung cancer/adenocarcinoma of the right upper lobe with Pancoast syndrome initially stage IIIb and now stage IV status post radiation therapy along with chemotherapy(carboplatin/Alimta) and immunotherapy this is metastatic with lesions to the bone. -Brain CT revealing tiny remot lacunar stroke in the left basal ganglia, prior brain CT demonstrates small microvascular ischemia and patient is continued on aspirin/plavix and statin therapy. -History of coronary artery disease status post PCI of the LAD and RCA. -Dual antiplatelet therapy -Left lower lobe gram-negative pneumonia. Patient has completed course of antibiotic therapy -Hypertension and hypertensive cardiovascular disease. Continue patient on metoprolol ER 50 mg orally once every day. -Mixed hyperlipidemia. Continue patient on atorvastatin 40 mg once every day -Hypothyroidism. Continue patient on Synthroid 50 mcg orally once every day. -Chronic tobacco use and dependence with chronic obstructive pulmonary disease . Continue IV Solu-Medrol and updraft treatments - Left retinal detachment. Continue eyedrops including atropine as well as prednisolone forte and moxifloxacin. -Bipolar disorder. Continue on sertraline 200 mg once every day as well as Abilify 20 mg once every day. -Medical debility. PT and OT following the patient -Chronic pain syndrome. Continue current pain management with fentanyl patch 50 mcg every 72 hours, continue hydrocodone 10/325 mg 1 tablet every 4 hours as needed, discontinue Dilaudid. -Chronic THC use. Advised against its use - metabolic encephalopathy likely due to delirium due to medication including Dilaudid. Discontinue Dilaudid continue current pain management. Repeat labs tomorrow morning. -Medically stable to be transferred to extended care facility when the bed becomes available. ' DVT prophylaxis subcu heparin GI prophylaxis Protonix DO NOT RESUSCITATE DO NOT INTUBATE The impression and plan of care has been dictated by Nabila Shanks Nurse Practitioner as directed. Dr. Gilles MD I have performed a history and physical examination and medical decision making of this patient, discussed the same with the dictator, and agree with the dictators assessment and plan as written, documented as a scribe. Based on total visit time, I have performed more than 50% of this visit. Objective - Vital Signs Vital signs: Vital Signs Temp 97.5 F L 11/09/23 12:46 Pulse 76 11/09/23 12:46 Resp 17 11/09/23 12:46 BP 115/66 11/09/23 12:46 Pulse Ox 98 11/09/23 12:46 FiO2 Intake & Output 11/08/23 11/09/23 11/09/23 18:59 06:59 18:59 Intake Total 540 1180 Output Total 600 800 Balance -60 380 Intake: Oral 540 1180 Output: Urine 600 800 Other: Voiding Method Urinal Urinal # Bowel Movements 1 - Labs CBC & Chem 7: 11/09/23 04:48 11/09/23 04:48 Labs: Abnormal Lab Results - Last 24 Hours (Table) 11/09/23 11/09/23 Range/Units 04:48 04:48 RBC 3.07 L (4.30-5.90) m/uL Hgb 9.8 L (13.0-17.5) gm/dL Hct 32.0 L (39.0-53.0) % MCV 104.2 H (80.0-100.0) fL MCHC 30.8 L (31.0-37.0) g/dL Lymphocytes # 0.8 L (1.0-4.8) k/uL Sodium 136 L (137-145) mmol/L Assessment and Plan Time with Patient: Less than 30
[2023-11-09] MEDS: HYDROcodone/APAP 10-325MG 1 EACH TAB PO PRN (17:25)
[2023-11-10] MEDS: MORPHINE SULFATE 4 MG/ML SYRINGE IVP PRN (13:26)
--- NOTE | 2023-11-10 19:28 | P.PN ---
Subjective Progress Note Date: 11/10/23 On today's evaluation of 11/10/2023, the patient is stable on oxygen at 3 L nasal cannula with a pulse ox of 96%. Remains on DuoNeb updrafts. Remains on Symbicort. Adequate pain control for now. The patient is seeing morphine 4 mg IV on a nightly basis every 4 hours. The patient is also on a lidocaine patch and receiving [place] 10 1 tablet every 4 hours on a as needed basis. The patient is also seen by medical oncology and radiation oncology. He is noted to have diffuse metastatic disease as mentioned related to underlying non-small cell lung cancer. He did have bilateral hip and low back pain due to metastatic osseous lesions. MRI of the left hip showed a osseous lesion with cortical breakdown. MRI of the lumbar spine reveals multiple areas of metastatic disease within the lumbar spine largest at the level of L4 and also at the level of L2- L3 and L5 with abnormal signal also at the level of T12. Right hip MRI revealed abnormal signal involving the anterior column of the right acetabulum and there was also abnormal uptake at the left iliac bone. The patient is status post intramedullary rodding of the left femur that was done on 11/03/2023 and the pathology is consistent with adenocarcinoma of the lung. As far as his lung cancer, the patient currently has metastatic disease. His initial disease was stage IIIb and the patient was treated with chemoradiation therapy which she completed in October 2020 and the patient also received immunotherapy. Noted the patient also has a left lower lobe consolidation consistent with pneumonia and the patient remains on IV Zosyn. Objective - Vital Signs Vital signs: Vital Signs Temp 97.9 F 11/10/23 11:53 Pulse 74 11/10/23 16:07 Resp 16 11/10/23 11:53 BP 119/75 11/10/23 11:53 Pulse Ox 96 11/10/23 11:53 FiO2 Intake & Output 11/10/23 11/10/23 11/11/23 06:59 18:59 06:59 Intake Total 590 Output Total 400 Balance 190 Weight 61.235 kg Intake: Oral 590 Output: Urine 400 Other: Voiding Method Urinal Urinal # Voids 3 - Exam GENERAL EXAM: Alert, cachectic, pleasant 63-year-old male, on 3 L nasal canula, in no acute distress. HEAD: Normocephalic and atraumatic. EYES: Left eye blindness. Right eye intact. NOSE: Clear with pink turbinates. THROAT: No erythema or exudates. NECK: No masses, no JVD. CHEST: No chest wall deformity. LUNGS: Equal air entry with end expiratory wheezes heard throughout. Left-sided dullness. CVS: S1 and S2 normal with an audible murmur, regular rhythm. No extra heart sounds ABDOMEN: No hepatosplenomegaly, active bowel sounds, no guarding or rigidity. SPINE: No scoliosis or deformity SKIN: No rashes CENTRAL NERVOUS SYSTEM: No focal deficits, tone is normal in all 4 extremities. EXTREMITIES: Left surgical hip clean, dry and intact. There is no peripheral edema, clubbing, or cyanosis. Peripheral pulses are intact. - Labs CBC & Chem 7: 11/09/23 04:48 11/09/23 04:48 Assessment and Plan Plan: Metastatic adenocarcinoma of the lung, originally diagnosed was back in 2019 status post chemo/radiation followed by immunotherapy. CT of the chest, abdomen, pelvis demonstrates suspected obstruction of the right brachiocephalic vein with the majority of the injected contrast extending up along the collaterals along the anterior chest wall down into the abdomen into the common femoral vein and other collateral pathways. Patient does have history of SVC stenosis posttreatment. There is redemonstration of the patient's right upper lobe consolidation/mass and absorptive volume loss, which extends toward the pulmonary hilum, and consistent with the patient's known lung cancer. There is a new left lower lung airspace consolidation with air bronchograms consistent with pneumonia. There is redemonstration of the patient's suspected metastatic disease involving the lumbar spine left proximal femur. MRI of the hips reveal evidence of destructive proximal left femoral lesion concordant with CT findings and compatible with metastasis. Findings are suspicious for metastatic involvement of L4 and L5. There is abnormal signal involving the anterior column of the right acetabulum compatible with metastasis. Abnormal uptake in the left iliac bone suspicious for early metastasis Left lower lobe pneumonia, currently on IV Zosyn. Noted the procalcitonin level was quite elevated at time of admission and the patient sputum sample showed no growth. Acute on chronic hypoxic respiratory failure currently on 3 L of oxygen by nasal cannula which is back to his baseline. Bilateral hip and lower back pain secondary to above. Status post prophylactic left hip intramedullary nailing on 11/03/2023, postoperative day # 7 Leukocytosis, secondary to above Unstable gait and fall, secondary to above Chronic obstructive pulmonary disease Chronic anemia History of hyperlipidemia History of hypertension History of hypothyroidism Coronary artery disease with previous PCI/stent History of anxiety/depression/PTSD History of polysubstance abuse Poor overall functional performance based on the above-mentioned multiple comorbidities Plan: Repeat chest x-ray in the morning in regards to left lower lobe cons olidation/pneumonia Stable and on 3 L/min per nasal cannula Continue bronchodilators Continue IV Zosyn Pain is fairly well-controlled Radiation therapy to the left hip at a later stage Will need [facility] ration genetic sequencing and PD-L1 analysis for possible immunotherapy/targeted therapy at a later stage regarding his metastatic disease. Prognosis is poor based on above-mentioned comorbidities.
--- NOTE | 2023-11-10 19:29 | P.PN ---
Subjective Progress Note Date: 11/10/23 Principal diagnosis: Intractable pain of malignancy. Metastatic NSCLC In f/u today pt is reporting low back pain, bilateral hip pain. Pain meds are not helping at all per his report. Objective - Vital Signs Vital signs: Vital Signs Temp 97.8 F 11/10/23 07:12 Pulse 82 11/10/23 07:12 Resp 16 11/10/23 07:12 BP 134/80 11/10/23 07:12 Pulse Ox 96 11/10/23 08:14 FiO2 Intake & Output 11/09/23 11/10/23 11/10/23 18:59 06:59 18:59 Intake Total 1320 590 Output Total 1500 400 Balance -180 190 Intake: Oral 1320 590 Output: Urine 1500 400 Other: Voiding Method Urinal Urinal # Voids 3 - Constitutional General appearance: Present: average body habitus, cooperative, no acute distress - EENT Eyes: Present: anicteric sclerae ENT: Present: hearing grossly normal - Respiratory Respiratory: bilateral: diminished - Cardiovascular Rhythm: regular - Peripheral edema leg Peripheral Edema: right: None, left: Trace - Gastrointestinal General gastrointestinal: Present: soft - Neurologic Neurologic: Present: CNII-XII intact (grossly) - Musculoskeletal Musculoskeletal Comment(s): Recent lt hip orthopedic procedure Musculoskeletal: Present: generalized weakness - Psychiatric Psychiatric: Present: A&O x's 3, appropriate affect, intact judgment & insight - Labs CBC & Chem 7: 11/09/23 04:48 11/09/23 04:48 Assessment and Plan (1) Hip pain, bilateral Current Visit: Yes Status: Acute Priority: High Code(s): M25.551 - PAIN IN RIGHT HIP; M25.552 - PAIN IN LEFT HIP SNOMED Code(s): 78417288 (2) Intractable low back pain Current Visit: Yes Status: Acute Priority: High Code(s): M54.5 - LOW BACK PAIN * DO NOT USE * SNOMED Code(s): 17289379095691363 (3) Non-small cell lung cancer (NSCLC) Current Visit: Yes Status: Acute Priority: High Code(s): C34.90 - MALIGNANT NEOPLASM OF UNSP PART OF UNSP BRONCHUS OR LUNG SNOMED Code(s): 835004600 Plan: Bilateral hip and low back pain, intractable -Nuclear medicine bone scan 09/23/2023 abnormal intense uptake involving proximal left femur concordant with the x-ray and MRI abnormality. Moderate intensity uptake at L4, represents lesion by recent MRI and suspicious for metastatic disease. -Right hip MRI revealed abnormal signal involving the anterior column of the right acetabulum, and abnormal uptake in the left iliac bone. -Orthopedic surgery follwoing pt, s/p intramedullary rodding of left femur on 11/[address] Arteaga. Pathology consistent with metastatic adenocarcinoma of the lung -Rad Onc consulted for pallitaive XRT post op -Pain management complicated because of chronic pain and malignancy pain. Patient has been started on fentanyl patch, he has been on [place] and Dilaudid prn for breakthrough pain, still complaining of pain. Morphine IVP 4mg Q 4 ordered. Will likely have to transition of MSIR for pain control. Will see how pt does. -Orthopedic spine surgeon has seen the patient, no surgical intervention for spine planned. Non small cell lung adenocarcinoma -Stage IIIB adenocarcinoma of the right upper lung, s/p chemo/XRT then IO x 1 year, completed in October 2020. No evidence of disease until Sep 2023. Unfortunately, patient had increased musculoskeletal complaints, low back, bilateral hips. On further workup found to have metastatic bone lesions. -Restaging PET/CT pending based on hospital course and rehabilitation -Follow up to discuss treatment option once pt is released from rehab.
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
--- NOTE | 2023-11-11 09:11 | P.PN ---
Subjective Progress Note Date: 11/11/23 Principal diagnosis: Status post left hip prophylactic IT nail The patient is a 63 y/o male status post left hip prophylactic IT nail. This is post op day #8. He states the left leg is feeling ok but still having severe pain. Pain is moderately controlled with [place], fentanyl patch, and IV morphine. No new complaints today. Objective - Vital Signs Vital signs: Vital Signs Temp 97.8 F 11/11/23 07:40 Pulse 80 11/11/23 08:43 Resp 16 11/11/23 07:40 BP 119/70 11/11/23 07:40 Pulse Ox 96 11/11/23 08:29 FiO2 Intake & Output 11/10/23 11/11/23 11/11/23 18:59 06:59 18:59 Output Total 400 Balance -400 Weight 61.235 kg Output: Urine 400 Other: Voiding Method Urinal Urinal - Exam The patient is a 63 y/o male who is in no acute distress. He is alert and oriented x3. Exam of the left hip reveals dry dressings, no drainage or redness. Dressings removed today. There is localized swelling to the middle inc ision. Minimal swelling present otherwise. Calf is soft and nontender. Good foot and ankle motion present. Neurological and circulatory status is intact. - Labs CBC & Chem 7: 11/16/23 06:12 11/16/23 06:12 Assessment and Plan (1) Non-small cell lung cancer (NSCLC) Current Visit: Yes Status: Acute Priority: High Code(s): C34.90 - MALIGNANT NEOPLASM OF UNSP PART OF UNSP BRONCHUS OR LUNG SNOMED Code(s): 530223066 Plan: 1. Continue pain control per pain management 2. DVT anticoagulation per internal medicine 3. Weightbearing as tolerated with a walker 4. Discharge to subacute rehab when medically stable. He is orthopedically stable for discharge. New X-rays of the femur will be ordered later in the week or early next week if he remains in the hospital. Unfortunately, the patient continues to have pain. He is safe to start weight bearing on the femur as much as he can tolerate. He is complex in regards his hypercoagulability and we'll defer to the medicine team for their recommendations. There is some swelling about the hip screw incision but the dressing is dry and it does not seem to be enlarging. This may be a stable hematoma.
--- NOTE | 2023-11-11 09:52 | XR ---
EXAMINATION TYPE: XR chest 1V DATE OF EXAM: 11/11/2023 COMPARISON: 11/06/2023 HISTORY: Pneumonia TECHNIQUE: Single frontal view of the chest is obtained. FINDINGS: Large area of consolidation right upper lobe. Persistent left lower lobe consolidation. No sizable pneumothorax. Suspect soft tissue artifact overlying the left hemithorax. Volume loss on the right. Heart size stable. Postsurgical change cervical spine. IMPRESSION: 1. Left lower lobe infiltrate correlate for pneumonia. 2. Stable right upper lobe consolidation with volume loss similar to prior may been the basis of post treatment changes correlate for history of malignancy.
[2023-11-11 10:49] LABS: Basophils # (A) 0.04 X 10*3/uL (0.00-0.10); Basophils % (A) 0.5 %; Eosinophils # (A) 0.11 X 10*3/uL (0.04-0.35); Eosinophils % (A) 1.3 %; HCT 34.3 % (39.6-50.0); HGB 10.9 g/dL (13.0-17.0); Lymphocytes # (A) 0.84 X 10*3/uL (0.90-5.00); Lymphocytes % (A) 10.1 %; MCH 32.2 pg (27.0-32.0); MCHC 31.8 g/dL (32.0-37.0); MCV 101.2 FL (80.0-97.0); Mean Platelet Volume 9.3 FL (9.5-12.2); Monocytes # (A) 0.69 X 10*3/uL (0.20-1.00); Monocytes % (A) 8.3 %; NRBC Per 100 WBC 0 X 10*3/uL (0.00-0.01); Neutrophils # (A) 6.62 X 10*3/uL (1.80-7.70); Neutrophils % (A) 79.3 %; Platelet Count 396 X 10*3/uL (140-440); RBC 3.39 X 10*6/uL (4.40-5.60); RDW 14.5 % (11.5-14.5); WBC 8.34 X 10*3/uL (4.50-10.00)
[2023-11-11 11:05] LABS: ALT 55 U/L (10-49); AST 43 U/L (14-35); Albumin 3.5 g/dL (3.8-4.9); Albumin/Globulin Ratio 1.06 Ratio (1.60-3.17); Alkaline Phosphatase 99 U/L (41-126); BUN/Creat Ratio 18.86 Ratio (12.00-20.00); Blood Urea Nitrogen 13.2 mg/dL (9.0-27.0); Calcium 9.2 mg/dL (8.7-10.3); Carbon Dioxide 28.9 mmol/L (21.6-31.8); Chloride 97 mmol/L (96-109); Globulin 3.3 g/dL (1.6-3.3); Glucose 111 mg/dL (70-110); Potassium 4.3 mmol/L (3.5-5.5); Sodium 135 mmol/L (135-145); Total Bilirubin 0.3 mg/dL (0.3-1.2); Total Protein 6.8 g/dL (6.2-8.2)
--- NOTE | 2023-11-11 12:15 | P.PN ---
Subjective Progress Note Date: 11/11/23 On today's evaluation of 11/10/2023, the patient is stable on oxygen at 3 L nasal cannula with a pulse ox of 96%. Remains on DuoNeb updrafts. Remains on Symbicort. Adequate pain control for now. The patient is seeing morphine 4 mg IV on a nightly basis every 4 hours. The patient is also on a lidocaine patch and receiving [place] 10 1 tablet every 4 hours on a as needed basis. The patient is also seen by medical oncology and radiation oncology. He is noted to have diffuse metastatic disease as mentioned related to underlying non-small cell lung cancer. He did have bilateral hip and low back pain due to metastatic osseous lesions. MRI of the left hip showed a osseous lesion with cortical breakdown. MRI of the lumbar spine reveals multiple areas of metastatic disease within the lumbar spine largest at the level of L4 and also at the level of L2- L3 and L5 with abnormal signal also at the level of T12. Right hip MRI revealed abnormal signal involving the anterior column of the right acetabulum and there was also abnormal uptake at the left iliac bone. The patient is status post intramedullary rodding of the left femur that was done on 11/03/2023 and the pathology is consistent with adenocarcinoma of the lung. As far as his lung cancer, the patient currently has metastatic disease. His initial disease was stage IIIb and the patient was treated with chemoradiation therapy which she completed in October 2020 and the patient also received immunotherapy. Noted the patient also has a left lower lobe consolidation consistent with pneumonia and the patient remains on IV Zosyn. On today's evaluation of 11/11/2023, the patient is stable. No significant respiratory difficulties and he maintains on 3 L of oxygen by nasal cannula. Repeat chest x-ray shows some limited infiltration of the left lung base. There is also stable right upper lobe volume loss/consolidation. The patient remains on DuoNeb nebulized treatments [id number], Symbicort as maintenance and is on narcotic medication for pain control in addition to a fentanyl patch, oral [place] and morphine for breakthrough pain. No significant cough or sputum production. No chest tightness. No wheezing. Ongoing pain in his left hip area. The surgical wound site is dry clean and intact. No other significant events overnight. The blood work from today shows a white cell count of 8 with a hemoglobin 10.9 and a platelet count of 396. Electrolytes are unremarkable. LFTs are stable. Objective - Vital Signs Vital signs: Vital Signs Temp 97.8 F 11/11/23 07:40 Pulse 81 11/11/23 11:59 Resp 16 11/11/23 07:40 BP 119/70 11/11/23 07:40 Pulse Ox 96 11/11/23 08:29 FiO2 Intake & Output 11/10/23 11/11/23 11/11/23 18:59 06:59 18:59 Output Total 400 Balance -400 Weight 61.235 kg Output: Urine 400 Other: Voiding Method Urinal Urinal Urinal - Exam GENERAL EXAM: Alert, cachectic, pleasant 63-year-old male, on 3 L nasal canula, in no acute distress. HEAD: Normocephalic and atraumatic. EYES: Left eye blindness. Right eye intact. NOSE: Clear with pink turbinates. THROAT: No erythema or exudates. NECK: No masses, no JVD. CHEST: No chest wall deformity. LUNGS: Equal air entry with end expiratory wheezes heard throughout. Left-sided dullness. CVS: S1 and S2 normal with an audible murmur, regular rhythm. No extra heart sounds ABDOMEN: No hepatosplenomegaly, active bowel sounds, no guarding or rigidity. SPINE: No scoliosis or deformity SKIN: No rashes CENTRAL NERVOUS SYSTEM: No focal deficits, tone is normal in all 4 extremities. EXTREMITIES: Left surgical hip clean, dry and intact. There is no peripheral edema, clubbing, or cyanosis. Peripheral pulses are intact. - Labs CBC & Chem 7: 11/11/23 07:15 11/11/23 07:15 Labs: Abnormal Lab Results - Last 24 Hours (Table) 11/11/23 11/11/23 Range/Units 07:15 07:15 RBC 3.39 L (4.40-5.60) X 10*6/uL Hgb 10.9 L (13.0-17.0) g/dL Hct 34.3 L (39.6-50.0) % MCV 101.2 H (80.0-97.0) FL MCH 32.2 H (27.0-32.0) pg MCHC 31.8 L (32.0-37.0) g/dL MPV 9.3 L (9.5-12.2) FL Lymphocytes # 0.84 L (0.90-5.00) X 10*3/uL Glucose 111 H (70-110) mg/dL AST 43 H (14-35) U/L ALT 55 H (10-49) U/L Albumin 3.5 L (3.8-4.9) g/dL Albumin/Globulin Ratio 1.06 L (1.60-3.17) Ratio Assessment and Plan Plan: Metastatic adenocarcinoma of the lung, originally diagnosed was back in 2019 status post chemo/radiation followed by immunotherapy. CT of the chest, abdomen, pelvis demonstrates suspected obstruction of the right brachiocephalic vein with the majority of the injected contrast extending up along the collaterals along the anterior chest wall down into the abdomen into the common femoral vein and other collateral pathways. Patient does have history of SVC stenosis posttreatment. There is redemonstration of the patient's right upper lobe consolidation/mass and absorptive volume loss, which extends toward the pulmonary hilum, and consistent with the patient's known lung cancer. There is a new left lower lung airspace consolidation with air bronchograms consistent with pneumonia. There is redemonstration of the patient's suspected metastatic disease involving the lumbar spine left proximal femur. MRI of the hips reveal evidence of destructive proximal left femoral lesion concordant with CT findings and compatible with metastasis. Findings are suspicious for metastatic involvement of L4 and L5. There is abnormal signal involving the anterior column of the right acetabulum compatible with metastasis. Abnormal uptake in the left iliac bone suspicious for early metastasis Left lower lobe pneumonia, completed a course of Zosyn.. Noted the procalcitonin level was quite elevated at time of admission and the patient sputum sample showed no growth. The chest x-ray shows limited infiltration of the left lung base. Otherwise findings are essentially stable. Acute on chronic hypoxic respiratory failure currently on 3 L of oxygen by nasal cannula which is back to his baseline. Bilateral hip and lower back pain secondary to above. Status post prophylactic left hip intramedullary nailing on 11/03/2023, postoperative day # 8 Leukocytosis, secondary to above Unstable gait and fall, secondary to above Chronic obstructive pulmonary disease Chronic anemia History of hyperlipidemia History of hypertension History of hypothyroidism Coronary artery disease with previous PCI/stent History of anxiety/depression/PTSD History of polysubstance abuse Poor overall functional performance based on the above-mentioned multiple comorbidities Plan: Repeat chest x-ray shows limited stable left basilar pulmonary infiltrate. Could be related to some residual atelectasis. Stable and on 3 L/min per nasal cannula Continue bronchodilators Completed the course of IV Zosyn. Pain is fairly well-controlled Radiation therapy to the left hip at a later stage Will need NexGen ration genetic sequencing and PD-L1 analysis for possible immunotherapy/targeted therapy at a later stage regarding his metastatic disease. Prognosis is poor based on above-mentioned comorbidities.
--- NOTE | 2023-11-11 16:48 | P.PN ---
Subjective Progress Note Date: 11/11/23 Principal diagnosis: Intractable pain of malignancy. Metastatic NSCLC In f/u today pt is reporting low back pain, bilateral hip pain are much improved, he still has some left groin pain but, certainly more manageable and feels he can participate in rehab. Objective - Vital Signs Vital signs: Vital Signs Temp 97.6 F 11/11/23 12:05 Pulse 101 H 11/11/23 12:05 Resp 16 11/11/23 12:05 BP 109/70 11/11/23 12:05 Pulse Ox 97 11/11/23 12:05 FiO2 Intake & Output 11/10/23 11/11/23 11/11/23 18:59 06:59 18:59 Output Total 400 Balance -400 Weight 61.235 kg Output: Urine 400 Other: Voiding Method Urinal Urinal Urinal - Constitutional General appearance: Present: average body habitus, cooperative, no acute distress - EENT ENT: Present: hearing grossly normal - Respiratory Details: resp even and unlabored - Neurologic Neurologic: Present: CNII-XII intact - Musculoskeletal Musculoskeletal: Present: generalized weakness - Psychiatric Psychiatric: Present: A&O x's 3, appropriate affect, intact judgment & insight - Labs CBC & Chem 7: 11/11/23 07:15 11/11/23 07:15 Labs: Abnormal Lab Results - Last 24 Hours (Table) 11/11/23 11/11/23 Range/Units 07:15 07:15 RBC 3.39 L (4.40-5.60) X 10*6/uL Hgb 10.9 L (13.0-17.0) g/dL Hct 34.3 L (39.6-50.0) % MCV 101.2 H (80.0-97.0) FL MCH 32.2 H (27.0-32.0) pg MCHC 31.8 L (32.0-37.0) g/dL MPV 9.3 L (9.5-12.2) FL Lymphocytes # 0.84 L (0.90-5.00) X 10*3/uL Glucose 111 H (70-110) mg/dL AST 43 H (14-35) U/L ALT 55 H (10-49) U/L Albumin 3.5 L (3.8-4.9) g/dL Albumin/Globulin Ratio 1.06 L (1.60-3.17) Ratio Assessment and Plan (1) Hip pain, bilateral Current Visit: Yes Status: Acute Priority: High Code(s): M25.551 - PAIN IN RIGHT HIP; M25.552 - PAIN IN LEFT HIP SNOMED Code(s): 76388754 (2) Intractable low back pain Current Visit: Yes Status: Acute Priority: High Code(s): M54.5 - LOW BACK PAIN * DO NOT USE * SNOMED Code(s): 53952866896481138 (3) Non-small cell lung cancer (NSCLC) Current Visit: Yes Status: Acute Priority: High Code(s): C34.90 - MALIGNANT NEOPLASM OF UNSP PART OF UNSP BRONCHUS OR LUNG SNOMED Code(s): 984616003 Plan: Bilateral hip and low back pain, intractable -Nuclear medicine bone scan 09/23/2023 abnormal intense uptake involving proximal left femur concordant with the x-ray and MRI abnormality. Moderate intensity uptake at L4, represents lesion by recent MRI and suspicious for metastatic disease. -Right hip MRI revealed abnormal signal involving the anterior column of the right acetabulum, and abnormal uptake in the left iliac bone. -Orthopedic surgery treated pt who is s/p intramedullary rodding of left femur on 11/[address] Arteaga. Pathology consistent with metastatic adenocarcinoma of the lung -Orthopedic spine surgeon has seen the patient, no surgical intervention for spine planned. -Rad Onc consulted for pallitaive XRT post op -Pain management complicated because of chronic pain and malignancy pain. Patient has been started on fentanyl patch. Breakthrough pain med was changed to Morphine IVP 4mg Q 4 hours and pt reports he is doing well on the same. Discussed with Pharmacist and transitioned to oral MSIR. Discussed with RN who will encourage pt to take oral morphine to control pain. 1 long acting and 1 short acting pain medication, [place] DC'd. Pt has robaxin, and he is on abilify and zoloft which can be used as adjuncts to pain control. 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 No evidence of disease until Sep 2023. Unfo rtunately, patient had increased musculoskeletal complaints, low back, bilateral hips. 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 -Restaging PET/CT pending scheduling, will sched based on hospital course and rehabilitation -Follow up to discuss treatment options once pt is released from rehab. Pt will not have treatment until discharged from rehab
[2023-11-11] MEDS: MORPHINE SULFATE IR 15 MG TABLET PO PRN (17:16)
[2023-11-11] MEDS: MELATONIN 5 MG TABLET PO PRN (21:41)
--- NOTE | 2023-11-12 12:18 | P.PN ---
Subjective Progress Note Date: 11/12/23 On today's evaluation of 11/10/2023, the patient is stable on oxygen at 3 L nasal cannula with a pulse ox of 96%. Remains on DuoNeb updrafts. Remains on Symbicort. Adequate pain control for now. The patient is seeing morphine 4 mg IV on a nightly basis every 4 hours. The patient is also on a lidocaine patch and receiving [place] 10 1 tablet every 4 hours on a as needed basis. The patient is also seen by medical oncology and radiation oncology. He is noted to have diffuse metastatic disease as mentioned related to underlying non-small cell lung cancer. He did have bilateral hip and low back pain due to metastatic osseous lesions. MRI of the left hip showed a osseous lesion with cortical breakdown. MRI of the lumbar spine reveals multiple areas of metastatic disease within the lumbar spine largest at the level of L4 and also at the level of L2- L3 and L5 with abnormal signal also at the level of T12. Right hip MRI revealed abnormal signal involving the anterior column of the right acetabulum and there was also abnormal uptake at the left iliac bone. The patient is status post intramedullary rodding of the left femur that was done on 11/03/2023 and the pathology is consistent with adenocarcinoma of the lung. As far as his lung cancer, the patient currently has metastatic disease. His initial disease was stage IIIb and the patient was treated with chemoradiation therapy which she completed in October 2020 and the patient also received immunotherapy. Noted the patient also has a left lower lobe consolidation consistent with pneumonia and the patient remains on IV Zosyn. On today's evaluation of 11/11/2023, the patient is stable. No significant respiratory difficulties and he maintains on 3 L of oxygen by nasal cannula. Repeat chest x-ray shows some limited infiltration of the left lung base. There is also stable right upper lobe volume loss/consolidation. The patient remains on DuoNeb nebulized treatments [id number], Symbicort as maintenance and is on narcotic medication for pain control in addition to a fentanyl patch, oral [place] and morphine for breakthrough pain. No significant cough or sputum production. No chest tightness. No wheezing. Ongoing pain in his left hip area. The surgical wound site is dry clean and intact. No other significant events overnight. The blood work from today shows a white cell count of 8 with a hemoglobin 10.9 and a platelet count of 396. Electrolytes are unremarkable. LFTs are stable. On today's evaluation appointment 2023, the patient is essentially unchanged. No new issues for now. He is still undergoing pain management. Pulse ox 98% on 3 L of oxygen by nasal cannula. Labs were reviewed from yesterday. Labs are pending from today. No changes in medication. Night was uneventful. Objective - Vital Signs Vital signs: Vital Signs Temp 97.7 F 11/12/23 07:35 Pulse 83 11/12/23 08:33 Resp 16 11/12/23 07:35 BP 122/76 11/12/23 07:35 Pulse Ox 98 11/12/23 08:21 FiO2 Intake & Output 11/11/23 11/12/23 11/12/23 18:59 06:59 18:59 Intake Total 442 Output Total 400 725 Balance -400 -283 Intake: Oral 442 Output: Urine 400 725 Other: Voiding Method Urinal Urinal - Exam GENERAL EXAM: Alert, cachectic, pleasant 63-year-old male, on 3 L nasal canula, in no acute distress. HEAD: Normocephalic and atraumatic. EYES: Left eye blindness. Right eye intact. NOSE: Clear with pink turbinates. THROAT: No erythema or exudates. NECK: No masses, no JVD. CHEST: No chest wall deformity. LUNGS: Equal air entry with end expiratory wheezes heard throughout. Left-sided dullness. CVS: S1 and S2 normal with an audible murmur, regular rhythm. No extra heart sounds ABDOMEN: No hepatosplenomegaly, active bowel sounds, no guarding or rigidity. SPINE: No scoliosis or deformity SKIN: No rashes CENTRAL NERVOUS SYSTEM: No focal deficits, tone is normal in all 4 extremities. EXTREMITIES: Left surgical hip clean, dry and intact. There is no peripheral edema, clubbing, or cyanosis. Peripheral pulses are intact. - Labs CBC & Chem 7: 11/11/23 07:15 11/11/23 07:15 Assessment and Plan Plan: Metastatic adenocarcinoma of the lung, originally diagnosed was back in 2020 status post chemo/radiation followed by immunotherapy. CT of the chest, abdomen, pelvis demonstrates suspected obstruction of the right brachiocephalic vein with the majority of the injected contrast extending up along the collaterals along the anterior chest wall down into the abdomen into the common femoral vein and other collateral pathways. Patient does have history of SVC stenosis posttreatment. There is redemonstration of the patient's right upper lobe consolidation/mass and absorptive volume loss, which extends toward the pulmonary hilum, and consistent with the patient's known lung cancer. There is a new left lower lung airspace consolidation with air bronchograms consistent with pneumonia. There is redemonstration of the patient's suspected metastatic disease involving the lumbar spine left proximal femur. MRI of the hips reveal evidence of destructive proximal left femoral lesion concordant with CT findings and compatible with metastasis. Findings are suspicious for metastatic involvement of L4 and L5. There is abnormal signal involving the anterior co lumn of the right acetabulum compatible with metastasis. Abnormal uptake in the left iliac bone suspicious for early metastasis Left lower lobe pneumonia, completed a course of Zosyn.. Noted the pr ocalcitonin level was quite elevated at time of admission and the patient sputum sample showed no growth. The chest x-ray shows limited infiltration of the left lung base. Otherwise findings are essentially stable. Acute on chronic hypoxic respiratory failure currently on 3 L of oxygen by nasal cannula which is back to his baseline. Bilateral hip and lower back pain secondary to above. Status post prophylactic left hip intramedullary nailing on 11/03/2023, postoperative day # 8 Leukocytosis, secondary to above Unstable gait and fall, secondary to above Chronic obstructive pulmonary disease Chronic anemia History of hyperlipidemia History of hypertension History of hypothyroidism Coronary artery disease with previous PCI/stent History of anxiety/depression/PTSD History of polysubstance abuse Poor overall functional performance based on the above-mentioned multiple comorbidities Plan: Overall condition is unchanged. Repeat chest x-ray shows limited stable left basilar pulmonary infiltrate. Could be related to some residual atelectasis. Stable and on 3 L/min per nasal cannula Continue bronchodilators Completed the course of IV Zosyn. Pain is fairly well-controlled Radiation therapy to the left hip at a later stage Will need NexGen ration genetic sequencing and PD-L1 analysis for possible immunotherapy/targeted therapy at a later stage regarding his metastatic dis ease. Prognosis is poor based on above-mentioned comorbidities.
--- NOTE | 2023-11-12 13:58 | P.PN ---
Subjective Progress Note Date: 11/12/23 Principal diagnosis: Intractable pain of malignancy. Metastatic NSCLC In f/u today pt is reporting low back pain, bilateral hip pain are much improved, he still has some left groin pain but, certainly more manageable and feels he can participate in rehab. Objective - Vital Signs Vital signs: Vital Signs Temp 97.7 F 11/12/23 07:35 Pulse 96 11/12/23 12:35 Resp 16 11/12/23 07:35 BP 122/76 11/12/23 07:35 Pulse Ox 98 11/12/23 08:21 FiO2 Intake & Output 11/11/23 11/12/23 11/12/23 18:59 06:59 18:59 Intake Total 442 Output Total 400 725 Balance -400 -283 Intake: Oral 442 Output: Urine 400 725 Other: Voiding Method Urinal Urinal - Constitutional General appearance: Present: average body habitus (FRAIL), cooperative - EENT ENT: Present: hearing grossly normal - Respiratory Details: Respirations even and unlabored at rest - Cardiovascular Details: Skin is pale, warm and dry to the touch - Peripheral edema leg Peripheral Edema: bilateral: None - Integumentary Integumentary: Present: pale - Neurologic Neurologic: Present: CNII-XII intact - Musculoskeletal Musculoskeletal: Present: generalized weakness - Psychiatric Psychiatric: Present: A&O x's 3, appropriate affect, intact judgment & insight - Labs CBC & Chem 7: 11/11/23 07:15 11/11/23 07:15 Assessment and Plan (1) Hip pain, bilateral Current Visit: Yes Status: Acute Priority: High Code(s): M25.551 - PAIN IN RIGHT HIP; M25.552 - PAIN IN LEFT HIP SNOMED Code(s): 68540073 (2) Intractable low back pain Current Visit: Yes Status: Acute Priority: High Code(s): M54.5 - LOW BACK PAIN * DO NOT USE * SNOMED Code(s): 19100413432463756 (3) Non-small cell lung cancer (NSCLC) Current Visit: Yes Status: Acute Priority: High Code(s): C34.90 - MALIGNANT NEOPLASM OF UNSP PART OF UNSP BRONCHUS OR LUNG SNOMED Code(s): 228451313 Plan: Bilateral hip and low back pain, intractable -Nuclear medicine bone scan 09/23/2023 abnormal intense uptake involving proximal left femur concordant with the x-ray and MRI abnormality. Moderate intensity up take at L4, represents lesion by recent MRI and suspicious for metastatic disease. Right hip MRI revealed abnormal signal involving the anterior column of the right acetabulum, and abnormal uptake in the left iliac bone. -Orthopedic surgery treated pt who is s/p intramedullary rodding of left femur on 11/[address] Arteaga. Pathology consistent with metastatic adenocarcinoma of the lung -Orthopedic spine surgeon has seen the patient, no surgical intervention for spine planned. -Rad Onc consulted for pallitaive XRT post op -Pain management complicated because of chronic pain and malignancy pain. Patient has been started on fentanyl patch. He was changed to MSIR 15mg every 3 hours if needed yesterday. He has taken 4 time since starting yesterday. He c/o pain again today. Pt encouraged to use breakthrough pain med as needed- maybe a little more often as it is available-and to utilize robaxin as it is available TID PRN. No medication adjustments today as pt is not at max 24 hour dosing of 2 medications available for pain. 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 No evidence of disease until Sep 2023. Unfortunately, patient had increased musculoskeletal complaints, low back, bilateral hips. 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 -Restaging PET/CT pending scheduling, will sched based on hospital course and rehabilitation -Dr. Morales discussed case with Attending. Dr. Morales today discussed with pt that his performance status is poor and he is not a candidate for chemo at this time based on that. Rehab is encouraged to see if pt can get to a PS that is satisfactory enough for him to go home and get back and forth to appointments. If pt is able to be discharged from rehab and go home he can be assessed by Med Oncology at that time to see if he is a candidate for treatment. Pt is aware that while in rehab he will not receive any cancer treatment. He also understands that if he has to remain in a facility because he is unable to care for himself, then he will not be a candidate for cancer treatment. Pt verbalized understanding -Follow up to discuss treatment options once pt is released from rehab. Pt will not have treatment until discharged from rehab Doctor attests: I performed a history and physical examination of this patient, developed impression and plan of care. Discussed with dictator. I agree with dictators note, documented as a scribe.
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
[2023-11-13] MEDS ORDERED: ZINC OXIDE PASTE (Z-GUARD) 1 APPLIC TOPICAL PRN (16:51)
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
[2023-11-13] MEDS: ACETAMINOPHEN TAB 325 MG TAB PO PRN (23:13)
[2023-11-14 08:53] LABS: Blood Urea Nitrogen 13.5 mg/dL (9.0-27.0); Chloride 97 mmol/L (96-109); Glucose 109 mg/dL (70-110); Potassium 4.1 mmol/L (3.5-5.5); Sodium 138 mmol/L (135-145)
[2023-11-14 08:54] LABS: ALT 49 U/L (10-49); AST 33 U/L (14-35); Albumin 3.6 g/dL (3.8-4.9); Albumin/Globulin Ratio 1.09 Ratio (1.60-3.17); Alkaline Phosphatase 99 U/L (41-126); Calcium 9.4 mg/dL (8.7-10.3); Carbon Dioxide 28.5 mmol/L (21.6-31.8); Globulin 3.3 g/dL (1.6-3.3); Total Bilirubin 0.3 mg/dL (0.3-1.2); Total Protein 6.9 g/dL (6.2-8.2)
[2023-11-14 08:56] LABS: Basophils # (A) 0.03 X 10*3/uL (0.00-0.10); Basophils % (A) 0.5 %; Eosinophils % (A) 1.7 %; HCT 31.4 % (39.6-50.0); HGB 10.1 g/dL (13.0-17.0); Lymphocytes # (A) 0.97 X 10*3/uL (0.90-5.00); Lymphocytes % (A) 16.5 %; MCH 32.4 pg (27.0-32.0); MCHC 32.2 g/dL (32.0-37.0); MCV 100.6 FL (80.0-97.0); Mean Platelet Volume 9.6 FL (9.5-12.2); Monocytes # (A) 0.58 X 10*3/uL (0.20-1.00); Monocytes % (A) 9.9 %; NRBC Per 100 WBC 0 X 10*3/uL (0.00-0.01); Neutrophils # (A) 4.17 X 10*3/uL (1.80-7.70); Neutrophils % (A) 71.1 %; Platelet Count 313 X 10*3/uL (140-440); RBC 3.12 X 10*6/uL (4.40-5.60); RDW 14.5 % (11.5-14.5); WBC 5.87 X 10*3/uL (4.50-10.00)
--- NOTE | 2023-11-14 09:09 | P.PN ---
Subjective Progress Note Date: 11/14/23 Principal diagnosis: Status post left hip prophylactic IT nail The patient is a 63 y/o male status post left hip prophylactic IT nail. This is post op day #11. He states the left leg is feeling ok but still having severe pain. Pain is moderately controlled with Chelsea, fentanyl patch, and oral MSIR. No new complaints today. Objective - Vital Signs Vital signs: Vital Signs Temp 98.4 F 11/14/23 07:46 Pulse 88 11/14/23 08:27 Resp 17 11/14/23 07:46 BP 118/73 11/14/23 07:46 Pulse Ox 92 L 11/14/23 07:46 FiO2 Intake & Output 11/13/23 11/14/23 11/14/23 18:59 06:59 18:59 Intake Total 1320 240 Output Total 1000 400 Balance 320 -160 Weight 61.235 kg Intake: Oral 1320 240 Output: Urine 1000 400 Other: Voiding Method Urinal - Exam The patient is a 63 y/o male who is in no acute distress. He is alert and oriented x3. Exam of the left hip reveal no drainage or redness. There is improved swelling to the middle incision. Minimal swelling present otherwise. Calf is soft and nontender. Good foot and ankle motion present. Neurological and circulatory status is intact. - Labs CBC & Chem 7: 11/14/23 05:37 11/14/23 05:37 Labs: Abnormal Lab Results - Last 24 Hours (Table) 11/14/23 11/14/23 Range/Units 05:37 05:37 RBC 3.12 L (4.40-5.60) X 10*6/uL Hgb 10.1 L (13.0-17.0) g/dL Hct 31.4 L (39.6-50.0) % MCV 100.6 H (80.0-97.0) FL MCH 32.4 H (27.0-32.0) pg Anion Gap 12.50 H (4.00-12.00) mmol/L Albumin 3.6 L (3.8-4.9) g/dL Albumin/Globulin Ratio 1.09 L (1.60-3.17) Ratio Assessment and Plan (1) Hip pain, bilateral Current Visit: Yes Status: Acute Priority: High Code(s): M25.551 - PAIN IN RIGHT HIP; M25.552 - PAIN IN LEFT HIP SNOMED Code(s): 65311459 (2) Non-small cell lung cancer (NSCLC) Current Visit: Yes Status: Acute Priority: High Code(s): C34.90 - MALIGNANT NEOPLASM OF UNSP PART OF UNSP BRONCHUS OR LUNG SNOMED Code(s): 211679946 Plan: 1. Continue pain control per pain management 2. DVT anticoagulation per internal medicine 3. Weightbearing as tolerated with a walker 4. X-rays of the left femur ordered today. 5. Discharge to subacute rehab when medically stable. He is orthopedically stable for discharge.
--- NOTE | 2023-11-14 14:11 | XR ---
EXAMINATION TYPE: XR femur LT DATE OF EXAM: 11/14/2023 COMPARISON: 11/03/2023 HISTORY: Pain TECHNIQUE: 5 views FINDINGS: Postsurgical changes compatible with intramedullary sarita is no acute fracture. There is lyti c change involving the proximal medial diaphysis. Mild arthropathy. SI joints patent. IMPRESSION: 1. Intramedullary sarita placement with persistent lytic lesion of the proximal femur. There is near com plete loss of the medial cortex. Similar to prior exam. Correlate for history of malignancy\metastase s.
--- NOTE | 2023-11-14 15:28 | P.PN ---
Subjective Progress Note Date: 11/14/23 Principal diagnosis: osseous lesions, intractable pain S/p intramedullary rodding of left femur, ambulating with walker, not bearing much weight on LLE. Patient more sleepy today. Pain persisting but is improved on pain medications Plan for rehab upon discharge, pending PA Objective - Vital Signs Vital signs: Vital Signs Temp 97.7 F 11/14/23 13:23 Pulse 89 11/14/23 13:23 Resp 19 11/14/23 13:23 BP 113/71 11/14/23 13:23 Pulse Ox 99 11/14/23 13:23 FiO2 Intake & Output 11/13/23 11/14/23 11/14/23 18:59 06:59 18:59 Intake Total 1320 240 Output Total 1000 400 Balance 320 -160 Weight 61.235 kg Intake: Oral 1320 240 Output: Urine 1000 400 Other: Voiding Method Urinal Urinal - Constitutional General appearance: Present: no acute distress - EENT Eyes: Present: anicteric sclerae, EOMI ENT: Present: hearing grossly normal - Respiratory Details: breathing is even and unlabored - Cardiovascular Details: skin warm and dry - Integumentary Integumentary: Absent: cyanotic - Psychiatric Psychiatric: Present: A&O x's 3 - Labs CBC & Chem 7: 11/14/23 05:37 11/14/23 05:37 Labs: Abnormal Lab Results - Last 24 Hours (Table) 11/14/23 11/14/23 Range/Units 05:37 05:37 RBC 3.12 L (4.40-5.60) X 10*6/uL Hgb 10.1 L (13.0-17.0) g/dL Hct 31.4 L (39.6-50.0) % MCV 100.6 H (80.0-97.0) FL MCH 32.4 H (27.0-32.0) pg Anion Gap 12.50 H (4.00-12.00) mmol/L Albumin 3.6 L (3.8-4.9) g/dL Albumin/Globulin Ratio 1.09 L (1.60-3.17) Ratio Assessment and Plan (1) Chronic back pain Current Visit: Yes Status: Acute Priority: Medium Code(s): M54.9 - DORSALGIA, UNSPECIFIED; G89.29 - OTHER CHRONIC PAIN SNOMED Code(s): 580870605 (2) Chronic hip pain Current Visit: Yes Status: Acute Priority: Medium Code(s): M25.559 - PAIN IN UNSPECIFIED HIP; G89.29 - OTHER CHRONIC PAIN SNOMED Code(s): 85245391 (3) Chronic pain Current Visit: Yes Status: Acute Priority: Medium Code(s): G89.29 - OTHER CHRONIC PAIN SNOMED Code(s): 06007447 (4) Fall Current Visit: Yes Status: Acute Priority: Medium Code(s): W19.XXXA - UNSPECIFIED FALL, INITIAL ENCOUNTER SNOMED Code(s): 6323824 (5) Lung cancer Current Visit: No Status: Chronic Priority: Medium Code(s): C34.90 - MALIGNANT NEOPLASM OF UNSP PART OF UNSP BRONCHUS OR LUNG SNOMED Code(s): 341860153 Plan: Bilateral hip and low back pain, intractable -Nuclear medicine bone scan 09/23/2023 abnormal intense uptake involving proximal left femur concordant with the x-ray and MRI abnormality. Moderate intensity uptake at L4, represents lesion by recent MRI and suspicious for metastatic disease. Right hip MRI revealed abnormal signal involving the anterior column of the right acetabulum, and abnormal uptake in the left iliac bone. -Orthopedic surgery treated pt who is s/p intramedullary rodding of left femur on 11/[address] Arteaga. Pathology consistent with metastatic adenocarcinoma of the lung -Orthopedic spine surgeon has seen the patient, no surgical intervention for spine planned. -Rad Onc consulted for pallitaive XRT post op -Pain management complicated because of chronic pain and malignancy pain. Patient has been started on fentanyl patch. He was changed to MSIR 15mg every 3 hours if needed. Pt encouraged to use breakthrough pain med as needed-maybe a little more often as it is available-and to utilize robaxin as it is available TID PRN to improve pain control. 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 No evidence of disease until Sep 2023. Unfortunately, patient had increased musculoskeletal complaints, low back, bilateral hips. 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 -Restaging PET/CT pending scheduling, will sched based on hospital course and rehabilitation -Dr. Morales discussed case with Attending. Dr. Morales today discussed with pt that his performance status is poor and he is not a candidate for chemo at this time based on that. Rehab is encouraged to see if pt can get to a PS that is satisfactory enough for him to go home and get back and forth to appointments. If pt is able to be discharged from rehab and go home he can be assessed by Med Oncology at that time to see if he is a candidate for treatment. Pt is aware that while in rehab he will not receive any cancer treatment. He also understands that if he has to remain in a facility because he is unable to care for himself, then he will not be a candidate for cancer treatment. Pt verbalized understanding -Follow up to discuss treatment options once pt is released from rehab. Pt will not have treatment until discharged from rehab Doctor attests: I performed a history and physical examination of this patient, developed impression and plan of care. Discussed with dictator. I agree with dictators note, documented as a scribe.
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
[2023-11-16] MEDS ORDERED: methocarbamoL 500 MG TAB PO PRN (05:45)
[2023-11-16] MEDS: methocarbamoL 750 MG TAB PO PRN (06:44)
[2023-11-16 09:21] LABS: Basophils # (A) 0.03 X 10*3/uL (0.00-0.10); Basophils % (A) 0.6 %; Eosinophils # (A) 0.09 X 10*3/uL (0.04-0.35); Eosinophils % (A) 1.7 %; HCT 32.4 % (39.6-50.0); HGB 10.3 g/dL (13.0-17.0); Lymphocytes # (A) 0.83 X 10*3/uL (0.90-5.00); Lymphocytes % (A) 15.9 %; MCH 32.8 pg (27.0-32.0); MCHC 31.8 g/dL (32.0-37.0); MCV 103.2 FL (80.0-97.0); Mean Platelet Volume 9.6 FL (9.5-12.2); Monocytes # (A) 0.55 X 10*3/uL (0.20-1.00); Monocytes % (A) 10.5 %; NRBC Per 100 WBC 0 X 10*3/uL (0.00-0.01); Neutrophils # (A) 3.72 X 10*3/uL (1.80-7.70); Neutrophils % (A) 71.1 %; Platelet Count 286 X 10*3/uL (140-440); RBC 3.14 X 10*6/uL (4.40-5.60); RDW 14.2 % (11.5-14.5); WBC 5.23 X 10*3/uL (4.50-10.00)
[2023-11-16 09:28] LABS: ALT 41 U/L (10-49); AST 31 U/L (14-35); Albumin 3.7 g/dL (3.8-4.9); Albumin/Globulin Ratio 1.06 Ratio (1.60-3.17); Alkaline Phosphatase 112 U/L (41-126); BUN/Creat Ratio 17.56 Ratio (12.00-20.00); Blood Urea Nitrogen 15.8 mg/dL (9.0-27.0); Calcium 9.7 mg/dL (8.7-10.3); Carbon Dioxide 31.8 mmol/L (21.6-31.8); Chloride 96 mmol/L (96-109); Globulin 3.5 g/dL (1.6-3.3); Glucose 115 mg/dL (70-110); Potassium 4.2 mmol/L (3.5-5.5); Sodium 137 mmol/L (135-145); Total Bilirubin 0.2 mg/dL (0.3-1.2); Total Protein 7.2 g/dL (6.2-8.2)
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
--- NOTE | 2023-11-17 10:36 | P.PN ---
Subjective Progress Note Date: 11/17/23 I am seeing this patient in consultation today 10/29/2023 for suspected left lower lobe pneumonia. Patient is a 63-year-old white male with past medical history significant for COPD, adenocarcinoma of the lung diagnosed originally back in October 2019 status post chemotherapy radiation. Followed by immuno therapy. Does not appear the patient has followed up in the pulmonary office since 2021. He does follow with his oncologist Dr. Morales. Since then, he has experienced a fall and he has been complaining of severe hip pain. It is affecting his ambulation. He can no longer take care of himself at home. He had a ER visit earlier this month for this. He did have a follow-up nuc med bone scan which showed abnormal intense uptake involving the proximal left femur suggestive of malignancy. There was moderate intensity uptake L4 also suspicious for metastatic disease. He was scheduled for a follow-up outpatient PET scan today, which will obviously have to be rescheduled. Patient also has past medical history significant for COPD, chronic hypoxemic respiratory failure and maintained on 3 L/min nasal cannula as needed, hyperlipidemia, hypertension, hypothyroidism, coronary artery disease with previous PCI/stent, anxiety/depression/PTSD polysubstance abuse, among many other medical comorbidit ies. Patient returned to the emergency room on 10/24/2023 in complaining of increased lower extremity pain bilaterally. He can no longer ambulate appropriately. MRI of the lumbar spine demonstrates multiple areas of suspected metastatic disease within the lumbar spine with the largest through the L4 level. No vertebral body height loss is evident. There is multilevel disc bulges greatest at L5-S1. There is small subligamentous disc herniation and central protrusion present at L1-2 without spinal canal stenosis. There is severe right for minimal stenosis at L5-S1 with milder formoterol narrowing. 8 x-ray of the pelvis does not show any acute fractures. Patient did have a chest x-ray yesterday which showed a new patchy left lower lobe infiltrate as well as the patient's known right upper lobe mass with associated right upper lobe volume loss/absorptive atelectasis. This was followed by a CT of the chest, abdomen, pelvis which demonstrated suspected obstruction of the right brac hiocephalic vein with the majority of the injected contrast extending up along the collaterals along the anterior chest wall down into the abdomen into the common femoral vein and other collateral pathways. Patient does have history of SVC stenosis posttreatment. There is redemonstration of the patient's right upper lobe consolidation, which extends toward the pulmonary hilum, and consistent with the patient's known lung cancer. There is a new left lower lung airspace consolidation with air bronchograms consistent with pneumonia. There is redemonstration of the patient's suspected metastatic disease involving the lumbar spine left proximal femur. For this reason, we were consulted yesterday. Patient is currently sitting up in bed, 3 L/min nasal cannula, in no acute distress. He does endorse chronic shortness of breath. He has had a minimally productive cough with occasional yellow sputum production. Denies any fevers. Denies any chest pain. His main complaint is his bilateral hip pain. Patient has been evaluated by orthopedic surgery, there is a possible plan for prophyla ctic insertion of a intramedullary sarita to support the left femur. Most recent CBC from this morning: WBC count 22.3, hemoglobin 10.8, hematocrit 32.7, platelets 206. BMP from this morning: Sodium 136, potassium 3.8, chloride 100, serum bicarb 29, BUN 19, creatinine 0.77, glucose 126. Patient has been started on empiric Zosyn. Procalcitonin level pending. Sputum culture was ordered. He is afebrile. Vital signs are stable. The patient is seen today October 30, 2023 in follow-up on the regular medical floor. He is currently awake and alert. He is quite uncomfortable with both right and left hip pain. He denies any worsening shortness of breath, cough or congestion. He is maintaining good O2 saturation in the mid 90s on 3 L/min per nasal cannula. He is afebrile. Hemodynamically stable. MRI of the right hip results are pending. Sputum culture pending. No new labs today. He remains on DuoNeb ventilations, Pulmicort inhalations and a prednisone taper. Heparin for DVT prophylaxis. Antibiotics in the form of Zosyn. Patient is seen today October 31, 2023 in follow-up on the regular medical floor. He is awake and alert in no acute distress. Appearing more comfortable today compared to yesterday. He is maintaining good O2 saturation in the 90s on 3 L nasal cannula. He is afebrile. Hemodynamically stable. MRI of the hips reveal evidence of destructive proximal left femoral lesion concordant with CT findings and compatible with metastasis. Findings are suspicious for metastatic involvement of L4 and L5. There is abnormal signal involving the anterior column of the right acetabulum compatible with metastasis. Abnormal uptake in the left iliac bone suspicious for early metastasis. Sputum culture revealed no growth. White count 14.3. Hemoglobin 11.2. Platelets 236. Sodium 140. Potassium 3.9. Bicarb 30. BUN 16. Creatinine 0.8. AST 84. ALT 100. He r emains on Zosyn. Continued on bronchodilators and a prednisone taper. Heparin for DVT prophylaxis. The patient is seen today November 01, 2023 in follow-up on the regular medical floor. He is currently sitting up in bed. Awake and alert in no acute distress. Still having ongoing issues with low back and bilateral hip pain. He has been seen by pain management and fentanyl patch is to be added. He denies any worsening shortness of breath, cough or congestion. He is maintained on O2 saturations in the 90s on 3 L/min per nasal cannula. He is afebrile. Hemodynamically stable. Chest x-ray continues to show the right upper lung opacity with right-sided volume loss. Left lung remains clear. No acute process. No new labs today. Remains on Zosyn. Continued on bronchodilators, prednisone, and heparin for DVT prophylaxis The patient is seen today November 02, 2023 in follow-up on the regular medical floor. He is currently awake and alert. A bit more comfortable today compared to yesterday. He had been started on a fentanyl patch per pain management. He denies any worsening shortness of breath, cough or congestion. Follow-up chest x-ray continues to show opacification of the right apex. Improved left lower lobe infiltrate. No new labs today. He remains on Zosyn, bronchodilators, prednisone, and heparin for DVT prophylaxis. He is maintaining good O2 saturations in the 90s on 3 L/min per nasal cannula. He is afebrile. Hemodynamically stable. The patient is seen today November 03, 2023 in follow-up on the regular medical floor. He is resting fairly comfortably in bed. Still having quite a bit of bilateral hip pain. He denies any worsening shortness of breath, cough or congestion. He is maintaining O2 saturations in the 90s on 3 L/min per nasal cannula. He has been afebrile. Hemodynamically stable. Sputum culture revealed no growth. White count 12.4. Hemoglobin 10.8. Sodium 140. Potassium 3.8. Bicarb 28. BUN 17. Creatinine 0.9. Glucose 97. He is continued on Zosyn. Heparin for DVT prophylaxis. Continued on bronchodilators. Pain management is following. The patient is seen today November 04, 2023 in follow-up on the regular medical floor. He is currently resting comfortably in bed. Awake and alert. He is maintaining O2 saturations in the 90s on 3 L/min per nasal cannula. He is afebrile. Hemodynamically stable. He did undergo a left hip prophylactic intramedullary nail procedure yesterday by orthopedics. Postoperative day #1. White count 17.8. Hemoglobin 11.1. Platelets 372. He remains on bronchodilators, Zosyn. Heparin for DVT prophylaxis. Currently the pain is fairly well-controlled. The patient is seen today November 05, 2023 in follow-up on the regular medical floor. He is awake and alert in no acute distress. This is postoperative day #2. He states his pain has improved since surgery. Still has low back and right hip pain. He denies any worsening shortness of breath, cough or congestion. He is maintaining O2 saturations in the 90s on 3 L/min per nasal cannula. He has normal saline at KVO. Sputum culture revealed no growth. Sodium 141. Potassium 3.7. Bicarb 26. BUN 14. Creatinine 1.0. Glucose 135. He remains on DuoNeb ventilations, Symbicort, prednisone taper. Antibiotics in the form of Zosyn. Heparin for DVT prophylaxis. The patient is seen today November 06, 2023 in follow-up on the regular medical floor. He is currently resting in bed. Awake and alert in no acute distress. He is maintaining O2 saturations in the 90s on 2 L/min per nasal cannula. He has normal saying 20 mph. Continued on DuoNeb inhalations, Symbicort, prednisone taper. Heparin for DVT prophylaxis. Chest x-ray reveals similar left lower lung airspace disease. Similar right upper lobe consolidation. No new infiltrate or atelectasis. No pneumothorax. Sputum culture reveals no growth. White count 13.5. Hemoglobin 10.2. Platelets 351. Sodium 135. Potassium 3.6. Bicarb 27. BUN 12. Creatinine 0.78. Glucose 102. The patient is seen today November 07, 2023 in follow-up on the regular medical floor. He is awake and alert in no acute distress. He is resting fairly comfortably in bed. Denies any worsening shortness of breath, cough or congestion. He is maintaining good O2 saturations in the 90s on 3 L/min per nasal cannula. He has normal staying at KVO. He remains on antibiotics in the form of Augmentin. Continued on Symbicort DuoNeb inhalations. Heparin for DVT prophylaxis. His pain is fairly well-controlled. Sputum culture revealed no growth. No new labs today. The patient is seen today November 08, 2023 in follow-up on the regular medical floor. He is currently resting comfortably in bed. Maintaining good O2 saturations in the 90s on 3 L nasal cannula. He is afebrile. Hemodynamically stable. CT scan of the brain revealed no change in the mid to mild age- appropriate atrophy. Tiny remote lacunar infarct in the left basal ganglia. No acute bleed or mass effect. He is alert and oriented today. Sputum culture reveals no growth. No new labs today. Remains on DuoNeb inhalations and Symbicort. Heparin for DVT prophylaxis. The patient is seen today November 09, 2023 in follow-up on the regular medical floor. He is currently resting in bed. Awake and alert in no acute distress. His pain is fairly well-managed. He is maintaining good O2 saturations in the 90s on 3 L nasal cannula. Continue on DuoNeb inhalations, Symbicort. Heparin for DVT prophylaxis. Sputum culture had revealed no growth. White count 8.5. Hemoglobin 9.8. Platelets 370. Sodium 136. Potassium 4.3. Bicarb 28. BUN 11. Creatinine 0.69. The patient is seen today November 17, 2023 in follow-up on the regular medical floor. He is awake and alert in no acute distress. Sitting up in bed. Still having ongoing musculoskeletal pain. His most recent left femur x-ray revealed intramedullary sarita placement with persistent lytic lesion of the proximal femur. There is near complete loss of the medial cortex. Similar to previous exam. Consistent with his malignancy/metastasis. White count 5.2. Hemoglobin 10.3. Platelets 286. Sodium 137. Potassium 4.2. Bicarb 32. BUN 16. Creatinine 0.9. Glucose 115. He remains on Symbicort and DuoNeb ventilations. Heparin for DVT prophylaxis. Objective - Vital Signs Vital signs: Vital Signs Temp 97.8 F 11/17/23 07:06 Pulse 80 11/17/23 08:18 Resp 18 11/17/23 07:06 BP 105/73 11/17/23 07:06 Pulse Ox 99 11/17/23 07:06 FiO2 3 11/15/23 08:15 Intake & Output 11/16/23 11/17/23 11/17/23 18:59 06:59 18:59 Output Total 500 325 Balance -500 -325 Output: Urine 500 325 Other: Voiding Method Urinal Urinal - Exam GENERAL EXAM: Alert, cachectic, 63-year-old male, on 3 L nasal canula, in no acute distress. HEAD: Normocephalic and atraumatic. EYES: Left eye blindness. Right eye intact. NOSE: Clear with pink turbinates. THROAT: No erythema or exudates. NECK: No masses, no JVD. CHEST: No chest wall deformity. LUNGS: Equal air entry with end expiratory wheezes heard throughout. Left-sided dullness. CVS: S1 and S2 normal with an audible murmur, regular rhythm. No extra heart sounds ABDOMEN: No hepatosplenomegaly, active bowel sounds, no guarding or rigidity. SPINE: No scoliosis or deformity SKIN: No rashes CENTRAL NERVOUS SYSTEM: No focal deficits, tone is normal in all 4 extremities. EXTREMITIES: Left surgical hip clean, dry and intact. There is no peripheral edema, clubbing, or cyanosis. Peripheral pulses are intact. - Labs CBC & Chem 7: 11/16/23 06:12 11/16/23 06:12 Assessment and Plan Assessment: Metastatic adenocarcinoma of the lung, originally diagnosed was back in 2020 status post chemo/radiation followed by immunotherapy. CT of the chest, abdomen, pelvis demonstrates suspected obstruction of the right brachiocephalic vein with the majority of the injected contrast extending up along the collaterals along the anterior chest wall down into the abdomen into the common femoral vein and other collateral pathways. Patient does have history of SVC stenosis posttreatment. There is redemonstration of the patient's right upper lobe consolidation/mass and absorptive volume loss, which extends toward the pulmonary hilum, and consistent with the patient's known lung cancer. There is a new left lower lung airspace consolidation with air bronchograms consistent with pneumonia. There is redemonstration of the patient's suspected metastatic disease involving the lumbar spine left proximal femur. MRI of the hips reveal evidence of destructive proximal left femoral lesion concordant with CT findings and compatible with metastasis. Findings are suspicious for metastatic involvement of L4 and L5. There is abnormal signal involving the anterior column of the right acetabulum compatible with metastasis. Abnormal uptake in the left iliac bone suspicious for early metastasis Bilateral hip and lower back pain secondary to above. Status post prophylactic left hip intramedullary nailing on 11/03/2023 Left lower lobe hospital acquired pneumonia procalcitonin 53.4. Completed Zosyn, sputum culture revealed no growth Leukocytosis, secondary to above, resolved Unstable gait and fall, secondary to above Chronic obstructive pulmonary disease Chronic hypoxemic respiratory failure, normally on 3 L/min nasal cannula Chronic anemia History of hyperlipidemia History of hypertension History of hypothyroidism Coronary artery disease with previous PCI/stent History of anxiety/depression/PTSD History of polysubstance abuse Poor overall functional performance based on the above-mentioned multiple comorbidities Plan: The patient was seen and evaluated Labs and medications reviewed Stable and on 3 L/min per nasal cannula Continue bronchodilators Cleared for discharge to ECF once bed available The patient was seen independently by the pulmonary nurse practitioner addressing pulmonary issues I have personally seen and examined the patient, performed the documentation and the assessment and plan as written. Number of minutes spent on the visit: 23.
--- NOTE | 2023-11-18 11:55 | P.PN ---
Subjective Progress Note Date: 11/18/23 I am seeing this patient in consultation today 10/29/2023 for suspected left lower lobe pneumonia. Patient is a 63-year-old white male with past medical history significant for COPD, adenocarcinoma of the lung diagnosed originally back in October 2019 status post chemotherapy radiation. Followed by immuno therapy. Does not appear the patient has followed up in the pulmonary office since 2021. He does follow with his oncologist Dr. Morales. Since then, he has experienced a fall and he has been complaining of severe hip pain. It is affecting his ambulation. He can no longer take care of himself at home. He had a ER visit earlier this month for this. He did have a follow-up nuc med bone scan which showed abnormal intense uptake involving the proximal left femur suggestive of malignancy. There was moderate intensity uptake L4 also suspicious for metastatic disease. He was scheduled for a follow-up outpatient PET scan today, which will obviously have to be rescheduled. Patient also has past medical history significant for COPD, chronic hypoxemic respiratory failure and maintained on 3 L/min nasal cannula as needed, hyperlipidemia, hypertension, hypothyroidism, coronary artery disease with previous PCI/stent, anxiety/depression/PTSD polysubstance abuse, among many other medical comorbidit ies. Patient returned to the emergency room on 10/24/2023 in complaining of increased lower extremity pain bilaterally. He can no longer ambulate appropriately. MRI of the lumbar spine demonstrates multiple areas of suspected metastatic disease within the lumbar spine with the largest through the L4 level. No vertebral body height loss is evident. There is multilevel disc bulges greatest at L5-S1. There is small subligamentous disc herniation and central protrusion present at L1-2 without spinal canal stenosis. There is severe right for minimal stenosis at L5-S1 with milder formoterol narrowing. 8 x-ray of the pelvis does not show any acute fractures. Patient did have a chest x-ray yesterday which showed a new patchy left lower lobe infiltrate as well as the patient's known right upper lobe mass with associated right upper lobe volume loss/absorptive atelectasis. This was followed by a CT of the chest, abdomen, pelvis which demonstrated suspected obstruction of the right brac hiocephalic vein with the majority of the injected contrast extending up along the collaterals along the anterior chest wall down into the abdomen into the common femoral vein and other collateral pathways. Patient does have history of SVC stenosis posttreatment. There is redemonstration of the patient's right upper lobe consolidation, which extends toward the pulmonary hilum, and consistent with the patient's known lung cancer. There is a new left lower lung airspace consolidation with air bronchograms consistent with pneumonia. There is redemonstration of the patient's suspected metastatic disease involving the lumbar spine left proximal femur. For this reason, we were consulted yesterday. Patient is currently sitting up in bed, 3 L/min nasal cannula, in no acute distress. He does endorse chronic shortness of breath. He has had a minimally productive cough with occasional yellow sputum production. Denies any fevers. Denies any chest pain. His main complaint is his bilateral hip pain. Patient has been evaluated by orthopedic surgery, there is a possible plan for prophyla ctic insertion of a intramedullary sarita to support the left femur. Most recent CBC from this morning: WBC count 22.3, hemoglobin 10.8, hematocrit 32.7, platelets 206. BMP from this morning: Sodium 136, potassium 3.8, chloride 100, serum bicarb 29, BUN 19, creatinine 0.77, glucose 126. Patient has been started on empiric Zosyn. Procalcitonin level pending. Sputum culture was ordered. He is afebrile. Vital signs are stable. The patient is seen today October 30, 2023 in follow-up on the regular medical floor. He is currently awake and alert. He is quite uncomfortable with both right and left hip pain. He denies any worsening shortness of breath, cough or congestion. He is maintaining good O2 saturation in the mid 90s on 3 L/min per nasal cannula. He is afebrile. Hemodynamically stable. MRI of the right hip results are pending. Sputum culture pending. No new labs today. He remains on DuoNeb ventilations, Pulmicort inhalations and a prednisone taper. Heparin for DVT prophylaxis. Antibiotics in the form of Zosyn. Patient is seen today October 31, 2023 in follow-up on the regular medical floor. He is awake and alert in no acute distress. Appearing more comfortable today compared to yesterday. He is maintaining good O2 saturation in the 90s on 3 L nasal cannula. He is afebrile. Hemodynamically stable. MRI of the hips reveal evidence of destructive proximal left femoral lesion concordant with CT findings and compatible with metastasis. Findings are suspicious for metastatic involvement of L4 and L5. There is abnormal signal involving the anterior column of the right acetabulum compatible with metastasis. Abnormal uptake in the left iliac bone suspicious for early metastasis. Sputum culture revealed no growth. White count 14.3. Hemoglobin 11.2. Platelets 236. Sodium 140. Potassium 3.9. Bicarb 30. BUN 16. Creatinine 0.8. AST 84. ALT 100. He r emains on Zosyn. Continued on bronchodilators and a prednisone taper. Heparin for DVT prophylaxis. The patient is seen today November 01, 2023 in follow-up on the regular medical floor. He is currently sitting up in bed. Awake and alert in no acute distress. Still having ongoing issues with low back and bilateral hip pain. He has been seen by pain management and fentanyl patch is to be added. He denies any worsening shortness of breath, cough or congestion. He is maintained on O2 saturations in the 90s on 3 L/min per nasal cannula. He is afebrile. Hemodynamically stable. Chest x-ray continues to show the right upper lung opacity with right-sided volume loss. Left lung remains clear. No acute process. No new labs today. Remains on Zosyn. Continued on bronchodilators, prednisone, and heparin for DVT prophylaxis The patient is seen today November 02, 2023 in follow-up on the regular medical floor. He is currently awake and alert. A bit more comfortable today compared to yesterday. He had been started on a fentanyl patch per pain management. He denies any worsening shortness of breath, cough or congestion. Follow-up chest x-ray continues to show opacification of the right apex. Improved left lower lobe infiltrate. No new labs today. He remains on Zosyn, bronchodilators, prednisone, and heparin for DVT prophylaxis. He is maintaining good O2 saturations in the 90s on 3 L/min per nasal cannula. He is afebrile. Hemodynamically stable. The patient is seen today November 03, 2023 in follow-up on the regular medical floor. He is resting fairly comfortably in bed. Still having quite a bit of bilateral hip pain. He denies any worsening shortness of breath, cough or congestion. He is maintaining O2 saturations in the 90s on 3 L/min per nasal cannula. He has been afebrile. Hemodynamically stable. Sputum culture revealed no growth. White count 12.4. Hemoglobin 10.8. Sodium 140. Potassium 3.8. Bicarb 28. BUN 17. Creatinine 0.9. Glucose 97. He is continued on Zosyn. Heparin for DVT prophylaxis. Continued on bronchodilators. Pain management is following. The patient is seen today November 04, 2023 in follow-up on the regular medical floor. He is currently resting comfortably in bed. Awake and alert. He is maintaining O2 saturations in the 90s on 3 L/min per nasal cannula. He is afebrile. Hemodynamically stable. He did undergo a left hip prophylactic intramedullary nail procedure yesterday by orthopedics. Postoperative day #1. White count 17.8. Hemoglobin 11.1. Platelets 372. He remains on bronchodilators, Zosyn. Heparin for DVT prophylaxis. Currently the pain is fairly well-controlled. The patient is seen today November 05, 2023 in follow-up on the regular medical floor. He is awake and alert in no acute distress. This is postoperative day #2. He states his pain has improved since surgery. Still has low back and right hip pain. He denies any worsening shortness of breath, cough or congestion. He is maintaining O2 saturations in the 90s on 3 L/min per nasal cannula. He has normal saline at KVO. Sputum culture revealed no growth. Sodium 141. Potassium 3.7. Bicarb 26. BUN 14. Creatinine 1.0. Glucose 135. He remains on DuoNeb ventilations, Symbicort, prednisone taper. Antibiotics in the form of Zosyn. Heparin for DVT prophylaxis. The patient is seen today November 06, 2023 in follow-up on the regular medical floor. He is currently resting in bed. Awake and alert in no acute distress. He is maintaining O2 saturations in the 90s on 2 L/min per nasal cannula. He has normal saying 20 mph. Continued on DuoNeb inhalations, Symbicort, prednisone taper. Heparin for DVT prophylaxis. Chest x-ray reveals similar left lower lung airspace disease. Similar right upper lobe consolidation. No new infiltrate or atelectasis. No pneumothorax. Sputum culture reveals no growth. White count 13.5. Hemoglobin 10.2. Platelets 351. Sodium 135. Potassium 3.6. Bicarb 27. BUN 12. Creatinine 0.78. Glucose 102. The patient is seen today November 07, 2023 in follow-up on the regular medical floor. He is awake and alert in no acute distress. He is resting fairly comfortably in bed. Denies any worsening shortness of breath, cough or congestion. He is maintaining good O2 saturations in the 90s on 3 L/min per nasal cannula. He has normal staying at KVO. He remains on antibiotics in the form of Augmentin. Continued on Symbicort DuoNeb inhalations. Heparin for DVT prophylaxis. His pain is fairly well-controlled. Sputum culture revealed no growth. No new labs today. The patient is seen today November 08, 2023 in follow-up on the regular medical floor. He is currently resting comfortably in bed. Maintaining good O2 saturations in the 90s on 3 L nasal cannula. He is afebrile. Hemodynamically stable. CT scan of the brain revealed no change in the mid to mild age- appropriate atrophy. Tiny remote lacunar infarct in the left basal ganglia. No acute bleed or mass effect. He is alert and oriented today. Sputum culture reveals no growth. No new labs today. Remains on DuoNeb inhalations and Symbicort. Heparin for DVT prophylaxis. The patient is seen today November 09, 2023 in follow-up on the regular medical floor. He is currently resting in bed. Awake and alert in no acute distress. His pain is fairly well-managed. He is maintaining good O2 saturations in the 90s on 3 L nasal cannula. Continue on DuoNeb inhalations, Symbicort. Heparin for DVT prophylaxis. Sputum culture had revealed no growth. White count 8.5. Hemoglobin 9.8. Platelets 370. Sodium 136. Potassium 4.3. Bicarb 28. BUN 11. Creatinine 0.69. The patient is seen today November 17, 2023 in follow-up on the regular medical floor. He is awake and alert in no acute distress. Sitting up in bed. Still having ongoing musculoskeletal pain. His most recent left femur x-ray revealed intramedullary sarita placement with persistent lytic lesion of the proximal femur. There is near complete loss of the medial cortex. Similar to previous exam. Consistent with his malignancy/metastasis. White count 5.2. Hemoglobin 10.3. Platelets 286. Sodium 137. Potassium 4.2. Bicarb 32. BUN 16. Creatinine 0.9. Glucose 115. He remains on Symbicort and DuoNeb ventilations. Heparin for DVT prophylaxis. The patient is seen today November 18, 2023 in follow-up on the regular medical floor. He is sitting up in bed. Awake and alert in no acute distress. Continues to maintain good O2 saturations in the 90s on 3 L/min per nasal cannula. He is afebrile. Hemodynamically stable. He has still been having some breakthrough musculoskeletal pain. He has been offered radiation treatments by radiation oncology. No new labs today. He is continued on Symbicort and DuoNeb inhalations. Heparin for DVT prophylaxis. Continues on a fentanyl patch and morphine sulfate as needed. Objective - Vital Signs Vital signs: Vital Signs Temp 97.7 F 11/18/23 07:36 Pulse 84 11/18/23 11:27 Resp 12 11/18/23 09:33 BP 107/64 11/18/23 09:05 Pulse Ox 94 L 11/18/23 07:36 FiO2 3 11/15/23 08:15 Intake & Output 11/17/23 11/18/23 11/18/23 18:59 06:59 18:59 Intake Total 150 Output Total 500 400 400 Balance -500 -400 -250 Intake: Oral 150 Output: Urine 500 400 400 Other: Voiding Method Urinal Indwelling Catheter Indwelling Catheter # Voids 2 - Exam GENERAL EXAM: Alert, 63-year-old male, on 3 L nasal canula, sitting fairly comfortably in bed, in no acute distress. HEAD: Normocephalic and atraumatic. EYES: Left eye blindness. Right eye intact. NOSE: Clear with pink turbinates. THROAT: No erythema or exudates. NECK: No masses, no JVD. CHEST: No chest wall deformity. LUNGS: Equal air entry with end expiratory wheezes heard throughout. Left-sided dullness. CVS: S1 and S2 normal with an audible murmur, regular rhythm. No extra heart sounds ABDOMEN: No hepatosplenomegaly, active bowel sounds, no guarding or rigidity. SPINE: No scoliosis or deformity SKIN: No rashes CENTRAL NERVOUS SYSTEM: No focal deficits, tone is normal in all 4 extremities. EXTREMITIES: Left surgical hip clean, dry and intact. There is no peripheral edema, clubbing, or cyanosis. Peripheral pulses are intact. - Labs CBC & Chem 7: 11/16/23 06:12 11/16/23 06:12 Assessment and Plan Assessment: Metastatic adenocarcinoma of the lung, originally diagnosed was back in 2019 status post chemo/radiation followed by immunotherapy. CT of the chest, abdomen, pelvis demonstrates suspected obstruction of the right brachiocephalic vein with the majority of the injected contrast extending up along the collaterals along the anterior chest wall down into the abdomen into the common femoral vein and other collateral pathways. Patient does have history of SVC stenosis posttreat ment. There is redemonstration of the patient's right upper lobe consolidation/mass and absorptive volume loss, which extends toward the pulmonary hilum, and consistent with the patient's known lung cancer. There is a new left lower lung airspace consolidation with air bronchograms consistent with pneumonia. There is redemonstration of the patient's suspected metastatic disease involving the lumbar spine left proximal femur. MRI of the hips reveal evidence of destructive proximal left femoral lesion concordant with CT findings and compatible with metastasis. Findings are suspicious for metastatic involvement of L4 and L5. There is abnormal signal involving the anterior column of the right acetabulum compatible with metastasis. Abnormal uptake in the left iliac bone suspicious for early metastasis Bilateral hip and lower back pain secondary to above. Status post prophylactic left hip intramedullary nailing on 11/03/2023 Left lower lobe hospital acquired pneumonia procalcitonin 53.4. Completed Zosyn, sputum culture revealed no growth Leukocytosis, secondary to above, resolved Unstable gait and fall, secondary to above Chronic obstructive pulmonary disease Chronic hypoxemic respiratory failure, normally on 3 L/min nasal cannula Chronic anemia History of hyperlipidemia History of hypertension History of hypothyroidism Coronary artery disease with previous PCI/stent History of anxiety/depression/PTSD History of polysubstance abuse Poor overall functional performance based on the above-mentioned multiple comorbidities Plan: The patient was seen and evaluated Medications reviewed Stable and on 3 L/min per nasal cannula Continue bronchodilators Patient is being considered for palliative radiation therapy Social work working on placement Cleared for discharge to [facility] once bed available The patient was seen independently by the pulmonary nurse practitioner addressing pulmonary issues I have personally seen and examined the patient, performed the documentation and the assessment and plan as written. Number of minutes spent on the visit: 24.
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
[2023-11-18] MEDS: TAMSULOSIN 0.4 MG CAP.ER.24H PO SCH (20:43)
[2023-11-19 11:21] LABS: Basophils # (A) 0.03 X 10*3/uL (0.00-0.10); Basophils % (A) 0.6 %; Eosinophils # (A) 0.21 X 10*3/uL (0.04-0.35); HCT 32.8 % (39.6-50.0); HGB 10.3 g/dL (13.0-17.0); MCH 31.8 pg (27.0-32.0); MCHC 31.4 g/dL (32.0-37.0); MCV 101.2 FL (80.0-97.0); Mean Platelet Volume 9.7 FL (9.5-12.2); Monocytes # (A) 0.47 X 10*3/uL (0.20-1.00); Monocytes % (A) 8.9 %; NRBC Per 100 WBC 0 X 10*3/uL (0.00-0.01); Neutrophils # (A) 3.66 X 10*3/uL (1.80-7.70); Neutrophils % (A) 69.1 %; Platelet Count 237 X 10*3/uL (140-440); RBC 3.24 X 10*6/uL (4.40-5.60); RDW 14.1 % (11.5-14.5); WBC 5.29 X 10*3/uL (4.50-10.00)
[2023-11-19 11:31] LABS: ALT 29 U/L (10-49); AST 22 U/L (14-35); Albumin 3.7 g/dL (3.8-4.9); Albumin/Globulin Ratio 1.06 Ratio (1.60-3.17); Alkaline Phosphatase 115 U/L (41-126); BUN/Creat Ratio 20.75 Ratio (12.00-20.00); Blood Urea Nitrogen 16.6 mg/dL (9.0-27.0); Calcium 9.7 mg/dL (8.7-10.3); Chloride 97 mmol/L (96-109); Globulin 3.5 g/dL (1.6-3.3); Glucose 125 mg/dL (70-110); Magnesium 1.8 mg/dL (1.5-2.4); Potassium 4.2 mmol/L (3.5-5.5); Sodium 139 mmol/L (135-145); Total Bilirubin <0.2 mg/dL (0.3-1.2); Total Protein 7.2 g/dL (6.2-8.2)
--- NOTE | 2023-11-19 12:32 | P.PN ---
Subjective Progress Note Date: 11/19/23 I am seeing this patient in consultation today 10/29/2023 for suspected left lower lobe pneumonia. Patient is a 63-year-old white male with past medical history significant for COPD, adenocarcinoma of the lung diagnosed originally back in October 2019 status post chemotherapy radiation. Followed by immuno therapy. Does not appear the patient has followed up in the pulmonary office since 2021. He does follow with his oncologist Dr. Morales. Since then, he has experienced a fall and he has been complaining of severe hip pain. It is affecting his ambulation. He can no longer take care of himself at home. He had a ER visit earlier this month for this. He did have a follow-up nuc med bone scan which showed abnormal intense uptake involving the proximal left femur suggestive of malignancy. There was moderate intensity uptake L4 also suspicious for metastatic disease. He was scheduled for a follow-up outpatient PET scan today, which will obviously have to be rescheduled. Patient also has past medical history significant for COPD, chronic hypoxemic respiratory failure and maintained on 3 L/min nasal cannula as needed, hyperlipidemia, hypertension, hypothyroidism, coronary artery disease with previous PCI/stent, anxiety/depression/PTSD polysubstance abuse, among many other medical comorbidit ies. Patient returned to the emergency room on 10/24/2023 in complaining of increased lower extremity pain bilaterally. He can no longer ambulate appropriately. MRI of the lumbar spine demonstrates multiple areas of suspected metastatic disease within the lumbar spine with the largest through the L4 level. No vertebral body height loss is evident. There is multilevel disc bulges greatest at L5-S1. There is small subligamentous disc herniation and central protrusion present at L1-2 without spinal canal stenosis. There is severe right for minimal stenosis at L5-S1 with milder formoterol narrowing. 8 x-ray of the pelvis does not show any acute fractures. Patient did have a chest x-ray yesterday which showed a new patchy left lower lobe infiltrate as well as the patient's known right upper lobe mass with associated right upper lobe volume loss/absorptive atelectasis. This was followed by a CT of the chest, abdomen, pelvis which demonstrated suspected obstruction of the right brac hiocephalic vein with the majority of the injected contrast extending up along the collaterals along the anterior chest wall down into the abdomen into the common femoral vein and other collateral pathways. Patient does have history of SVC stenosis posttreatment. There is redemonstration of the patient's right upper lobe consolidation, which extends toward the pulmonary hilum, and consistent with the patient's known lung cancer. There is a new left lower lung airspace consolidation with air bronchograms consistent with pneumonia. There is redemonstration of the patient's suspected metastatic disease involving the lumbar spine left proximal femur. For this reason, we were consulted yesterday. Patient is currently sitting up in bed, 3 L/min nasal cannula, in no acute distress. He does endorse chronic shortness of breath. He has had a minimally productive cough with occasional yellow sputum production. Denies any fevers. Denies any chest pain. His main complaint is his bilateral hip pain. Patient has been evaluated by orthopedic surgery, there is a possible plan for prophyla ctic insertion of a intramedullary sarita to support the left femur. Most recent CBC from this morning: WBC count 22.3, hemoglobin 10.8, hematocrit 32.7, platelets 206. BMP from this morning: Sodium 136, potassium 3.8, chloride 100, serum bicarb 29, BUN 19, creatinine 0.77, glucose 126. Patient has been started on empiric Zosyn. Procalcitonin level pending. Sputum culture was ordered. He is afebrile. Vital signs are stable. The patient is seen today October 30, 2023 in follow-up on the regular medical floor. He is currently awake and alert. He is quite uncomfortable with both right and left hip pain. He denies any worsening shortness of breath, cough or congestion. He is maintaining good O2 saturation in the mid 90s on 3 L/min per nasal cannula. He is afebrile. Hemodynamically stable. MRI of the right hip results are pending. Sputum culture pending. No new labs today. He remains on DuoNeb ventilations, Pulmicort inhalations and a prednisone taper. Heparin for DVT prophylaxis. Antibiotics in the form of Zosyn. Patient is seen today October 31, 2023 in follow-up on the regular medical floor. He is awake and alert in no acute distress. Appearing more comfortable today compared to yesterday. He is maintaining good O2 saturation in the 90s on 3 L nasal cannula. He is afebrile. Hemodynamically stable. MRI of the hips reveal evidence of destructive proximal left femoral lesion concordant with CT findings and compatible with metastasis. Findings are suspicious for metastatic involvement of L4 and L5. There is abnormal signal involving the anterior column of the right acetabulum compatible with metastasis. Abnormal uptake in the left iliac bone suspicious for early metastasis. Sputum culture revealed no growth. White count 14.3. Hemoglobin 11.2. Platelets 236. Sodium 140. Potassium 3.9. Bicarb 30. BUN 16. Creatinine 0.8. AST 84. ALT 100. He r emains on Zosyn. Continued on bronchodilators and a prednisone taper. Heparin for DVT prophylaxis. The patient is seen today November 01, 2023 in follow-up on the regular medical floor. He is currently sitting up in bed. Awake and alert in no acute distress. Still having ongoing issues with low back and bilateral hip pain. He has been seen by pain management and fentanyl patch is to be added. He denies any worsening shortness of breath, cough or congestion. He is maintained on O2 saturations in the 90s on 3 L/min per nasal cannula. He is afebrile. Hemodynamically stable. Chest x-ray continues to show the right upper lung opacity with right-sided volume loss. Left lung remains clear. No acute process. No new labs today. Remains on Zosyn. Continued on bronchodilators, prednisone, and heparin for DVT prophylaxis The patient is seen today November 02, 2023 in follow-up on the regular medical floor. He is currently awake and alert. A bit more comfortable today compared to yesterday. He had been started on a fentanyl patch per pain management. He denies any worsening shortness of breath, cough or congestion. Follow-up chest x-ray continues to show opacification of the right apex. Improved left lower lobe infiltrate. No new labs today. He remains on Zosyn, bronchodilators, prednisone, and heparin for DVT prophylaxis. He is maintaining good O2 saturations in the 90s on 3 L/min per nasal cannula. He is afebrile. Hemodynamically stable. The patient is seen today November 03, 2023 in follow-up on the regular medical floor. He is resting fairly comfortably in bed. Still having quite a bit of bilateral hip pain. He denies any worsening shortness of breath, cough or congestion. He is maintaining O2 saturations in the 90s on 3 L/min per nasal cannula. He has been afebrile. Hemodynamically stable. Sputum culture revealed no growth. White count 12.4. Hemoglobin 10.8. Sodium 140. Potassium 3.8. Bicarb 28. BUN 17. Creatinine 0.9. Glucose 97. He is continued on Zosyn. Heparin for DVT prophylaxis. Continued on bronchodilators. Pain management is following. The patient is seen today November 04, 2023 in follow-up on the regular medical floor. He is currently resting comfortably in bed. Awake and alert. He is maintaining O2 saturations in the 90s on 3 L/min per nasal cannula. He is afebrile. Hemodynamically stable. He did undergo a left hip prophylactic intramedullary nail procedure yesterday by orthopedics. Postoperative day #1. White count 17.8. Hemoglobin 11.1. Platelets 372. He remains on bronchodilators, Zosyn. Heparin for DVT prophylaxis. Currently the pain is fairly well-controlled. The patient is seen today November 05, 2023 in follow-up on the regular medical floor. He is awake and alert in no acute distress. This is postoperative day #2. He states his pain has improved since surgery. Still has low back and right hip pain. He denies any worsening shortness of breath, cough or congestion. He is maintaining O2 saturations in the 90s on 3 L/min per nasal cannula. He has normal saline at KVO. Sputum culture revealed no growth. Sodium 141. Potassium 3.7. Bicarb 26. BUN 14. Creatinine 1.0. Glucose 135. He remains on DuoNeb ventilations, Symbicort, prednisone taper. Antibiotics in the form of Zosyn. Heparin for DVT prophylaxis. The patient is seen today November 06, 2023 in follow-up on the regular medical floor. He is currently resting in bed. Awake and alert in no acute distress. He is maintaining O2 saturations in the 90s on 2 L/min per nasal cannula. He has normal saying 20 mph. Continued on DuoNeb inhalations, Symbicort, prednisone taper. Heparin for DVT prophylaxis. Chest x-ray reveals similar left lower lung airspace disease. Similar right upper lobe consolidation. No new infiltrate or atelectasis. No pneumothorax. Sputum culture reveals no growth. White count 13.5. Hemoglobin 10.2. Platelets 351. Sodium 135. Potassium 3.6. Bicarb 27. BUN 12. Creatinine 0.78. Glucose 102. The patient is seen today November 07, 2023 in follow-up on the regular medical floor. He is awake and alert in no acute distress. He is resting fairly comfortably in bed. Denies any worsening shortness of breath, cough or congestion. He is maintaining good O2 saturations in the 90s on 3 L/min per nasal cannula. He has normal staying at KVO. He remains on antibiotics in the form of Augmentin. Continued on Symbicort DuoNeb inhalations. Heparin for DVT prophylaxis. His pain is fairly well-controlled. Sputum culture revealed no growth. No new labs today. The patient is seen today November 08, 2023 in follow-up on the regular medical floor. He is currently resting comfortably in bed. Maintaining good O2 saturations in the 90s on 3 L nasal cannula. He is afebrile. Hemodynamically stable. CT scan of the brain revealed no change in the mid to mild age- appropriate atrophy. Tiny remote lacunar infarct in the left basal ganglia. No acute bleed or mass effect. He is alert and oriented today. Sputum culture reveals no growth. No new labs today. Remains on DuoNeb inhalations and Symbicort. Heparin for DVT prophylaxis. The patient is seen today November 09, 2023 in follow-up on the regular medical floor. He is currently resting in bed. Awake and alert in no acute distress. His pain is fairly well-managed. He is maintaining good O2 saturations in the 90s on 3 L nasal cannula. Continue on DuoNeb inhalations, Symbicort. Heparin for DVT prophylaxis. Sputum culture had revealed no growth. White count 8.5. Hemoglobin 9.8. Platelets 370. Sodium 136. Potassium 4.3. Bicarb 28. BUN 11. Creatinine 0.69. The patient is seen today November 17, 2023 in follow-up on the regular medical floor. He is awake and alert in no acute distress. Sitting up in bed. Still having ongoing musculoskeletal pain. His most recent left femur x-ray revealed intramedullary sarita placement with persistent lytic lesion of the proximal femur. There is near complete loss of the medial cortex. Similar to previous exam. Consistent with his malignancy/metastasis. White count 5.2. Hemoglobin 10.3. Platelets 286. Sodium 137. Potassium 4.2. Bicarb 32. BUN 16. Creatinine 0.9. Glucose 115. He remains on Symbicort and DuoNeb ventilations. Heparin for DVT prophylaxis. The patient is seen today November 18, 2023 in follow-up on the regular medical floor. He is sitting up in bed. Awake and alert in no acute distress. Continues to maintain good O2 saturations in the 90s on 3 L/min per nasal cannula. He is afebrile. Hemodynamically stable. He has still been having some breakthrough musculoskeletal pain. He has been offered radiation treatments by radiation oncology. No new labs today. He is continued on Symbicort and DuoNeb inhalations. Heparin for DVT prophylaxis. Continues on a fentanyl patch and morphine sulfate as needed. The patient is seen today November 19, 2023 in follow-up on the regular medical floor. He is awake and alert in no acute distress. Continues to maintain good O2 saturations in the upper 90s on 3 L/min per nasal cannula. He is afebrile. Hemodynamically stable. Sputum culture revealed no growth. White count 5.2. Hemoglobin 10.3. Platelets 237. Sodium 139. Potassium 4.2. Bicarb 31. BUN 16. Creatinine 0.8. Glucose 125. He is continued on DuoNeb ventilations, Symbicort. Heparin for DVT prophylaxis. Objective - Vital Signs Vital signs: Vital Signs Temp 97.8 F 11/19/23 07:35 Pulse 87 11/19/23 11:25 Resp 16 11/19/23 07:35 BP 104/68 11/19/23 07:35 Pulse Ox 99 11/19/23 07:43 FiO2 3 11/15/23 08:15 Intake & Output 11/18/23 11/19/23 11/19/23 18:59 06:59 18:59 Intake Total 150 590 222 Output Total 900 400 Balance -750 190 222 Intake: Oral 150 590 222 Output: Urine 900 400 Other: Voiding Method Indwelling Catheter Indwelling Catheter Indwelling Catheter # Voids 2 - Exam GENERAL EXAM: Alert, weak 63-year-old male, on 3 L nasal canula, in no acute distress. HEAD: Normocephalic and atraumatic. EYES: Left eye blindness. Right eye intact. NOSE: Clear with pink turbinates. THROAT: No erythema or exudates. NECK: No masses, no JVD. CHEST: No chest wall deformity. LUNGS: Equal air entry with end expiratory wheezes heard throughout. Left-sided dullness. CVS: S1 and S2 normal with an audible murmur, regular rhythm. No extra heart sounds ABDOMEN: No hepatosplenomegaly, active bowel sounds, no guarding or rigidity. SPINE: No scoliosis or deformity SKIN: No rashes CENTRAL NERVOUS SYSTEM: No focal deficits, tone is normal in all 4 extremities. EXTREMITIES: Left surgical hip clean, dry and intact. There is no peripheral edema, clubbing, or cyanosis. Peripheral pulses are intact. - Labs CBC & Chem 7: 11/19/23 07:55 11/19/23 07:55 Labs: Abnormal Lab Results - Last 24 Hours (Table) 11/19/23 11/19/23 Range/Units 07:55 07:55 RBC 3.24 L (4.40-5.60) X 10*6/uL Hgb 10.3 L (13.0-17.0) g/dL Hct 32.8 L (39.6-50.0) % MCV 101.2 H (80.0-97.0) FL MCHC 31.4 L (32.0-37.0) g/dL BUN/Creatinine Ratio 20.75 H (12.00-20.00) Ratio Glucose 125 H (70-110) mg/dL Total Bilirubin <0.2 L (0.3-1.2) mg/dL Albumin 3.7 L (3.8-4.9) g/dL Globulin 3.5 H (1.6-3.3) g/dL Albumin/Globulin Ratio 1.06 L (1.60-3.17) Ratio Assessment and Plan Assessment: Metastatic adenocarcinoma of the lung, originally diagnosed was back in 2020 status post chemo/radiation followed by immunotherapy. CT of the chest, abdomen, pelvis demonstrates suspected obstruction of the right brachiocephalic vein with the majority of the injected contrast extending up along the collaterals along the anterior chest wall down into the abdomen into the common femoral vein and other collateral pathways. Patient does have history of SVC stenosis posttreatment. There is redemonstration of the patient's right upper lobe consolidation/mass and absorptive volume loss, which extends toward the pulmonary hilum, and consistent with the patient's known lung cancer. There is a new left lower lung airspace consolidation with air bronchograms consistent with pneumonia. There is redemonstration of the patient's suspected metastatic disease involving the lumbar spine left proximal femur. MRI of the hips reveal evidence of destructive proximal left femoral lesion concordant with CT findings and compatible with metastasis. Findings are suspicious for metastatic involvement of L4 and L5. There is abnormal signal involving the anterior column of the right acetabulum compatible with metastasis. Abnormal uptake in the left iliac bone suspicious for early metastasis Bilateral hip and lower back pain secondary to above. Status post prophylactic left hip intramedullary nailing on 11/03/2023 Left lower lobe hospital acquired pneumonia procalcitonin 53.4. Completed Zosyn, sputum culture revealed no growth Leukocytosis, secondary to above, resolved Unstable gait and fall, secondary to above Chronic obstructive pulmonary disease Chronic hypoxemic respiratory failure, normally on 3 L/min nasal cannula Chronic anemia History of hyperlipidemia History of hypertension History of hypothyroidism Coronary artery disease with previous PCI/stent History of anxiety/depression/PTSD History of polysubstance abuse Poor overall functional performance based on the above-mentioned multiple comorbidities Plan: The patient was seen and evaluated Medications and labs reviewed Stable and on 3 L/min per nasal cannula Cleared for discharge to [facility] once bed available The patient was seen independently by the pulmonary nurse practitioner addressing pulmonary issues I have personally seen and examined the patient, performed the documentation and the assessment and plan as written. Number of minutes spent on the visit: 23.
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
--- NOTE | 2023-11-20 12:23 | P.PN ---
Subjective Progress Note Date: 11/20/23 I am seeing this patient in consultation today 10/29/2023 for suspected left lower lobe pneumonia. Patient is a 63-year-old white male with past medical history significant for COPD, adenocarcinoma of the lung diagnosed originally back in October 2019 status post chemotherapy radiation. Followed by immuno therapy. Does not appear the patient has followed up in the pulmonary office since 2021. He does follow with his oncologist Dr. Morales. Since then, he has experienced a fall and he has been complaining of severe hip pain. It is affecting his ambulation. He can no longer take care of himself at home. He had a ER visit earlier this month for this. He did have a follow-up nuc med bone scan which showed abnormal intense uptake involving the proximal left femur suggestive of malignancy. There was moderate intensity uptake L4 also suspicious for metastatic disease. He was scheduled for a follow-up outpatient PET scan today, which will obviously have to be rescheduled. Patient also has past medical history significant for COPD, chronic hypoxemic respiratory failure and maintained on 3 L/min nasal cannula as needed, hyperlipidemia, hypertension, hypothyroidism, coronary artery disease with previous PCI/stent, anxiety/depression/PTSD polysubstance abuse, among many other medical comorbidit ies. Patient returned to the emergency room on 10/24/2023 in complaining of increased lower extremity pain bilaterally. He can no longer ambulate appropriately. MRI of the lumbar spine demonstrates multiple areas of suspected metastatic disease within the lumbar spine with the largest through the L4 level. No vertebral body height loss is evident. There is multilevel disc bulges greatest at L5-S1. There is small subligamentous disc herniation and central protrusion present at L1-2 without spinal canal stenosis. There is severe right for minimal stenosis at L5-S1 with milder formoterol narrowing. 8 x-ray of the pelvis does not show any acute fractures. Patient did have a chest x-ray yesterday which showed a new patchy left lower lobe infiltrate as well as the patient's known right upper lobe mass with associated right upper lobe volume loss/absorptive atelectasis. This was followed by a CT of the chest, abdomen, pelvis which demonstrated suspected obstruction of the right brac hiocephalic vein with the majority of the injected contrast extending up along the collaterals along the anterior chest wall down into the abdomen into the common femoral vein and other collateral pathways. Patient does have history of SVC stenosis posttreatment. There is redemonstration of the patient's right upper lobe consolidation, which extends toward the pulmonary hilum, and consistent with the patient's known lung cancer. There is a new left lower lung airspace consolidation with air bronchograms consistent with pneumonia. There is redemonstration of the patient's suspected metastatic disease involving the lumbar spine left proximal femur. For this reason, we were consulted yesterday. Patient is currently sitting up in bed, 3 L/min nasal cannula, in no acute distress. He does endorse chronic shortness of breath. He has had a minimally productive cough with occasional yellow sputum production. Denies any fevers. Denies any chest pain. His main complaint is his bilateral hip pain. Patient has been evaluated by orthopedic surgery, there is a possible plan for prophyla ctic insertion of a intramedullary sarita to support the left femur. Most recent CBC from this morning: WBC count 22.3, hemoglobin 10.8, hematocrit 32.7, platelets 206. BMP from this morning: Sodium 136, potassium 3.8, chloride 100, serum bicarb 29, BUN 19, creatinine 0.77, glucose 126. Patient has been started on empiric Zosyn. Procalcitonin level pending. Sputum culture was ordered. He is afebrile. Vital signs are stable. The patient is seen today October 30, 2023 in follow-up on the regular medical floor. He is currently awake and alert. He is quite uncomfortable with both right and left hip pain. He denies any worsening shortness of breath, cough or congestion. He is maintaining good O2 saturation in the mid 90s on 3 L/min per nasal cannula. He is afebrile. Hemodynamically stable. MRI of the right hip results are pending. Sputum culture pending. No new labs today. He remains on DuoNeb ventilations, Pulmicort inhalations and a prednisone taper. Heparin for DVT prophylaxis. Antibiotics in the form of Zosyn. Patient is seen today October 31, 2023 in follow-up on the regular medical floor. He is awake and alert in no acute distress. Appearing more comfortable today compared to yesterday. He is maintaining good O2 saturation in the 90s on 3 L nasal cannula. He is afebrile. Hemodynamically stable. MRI of the hips reveal evidence of destructive proximal left femoral lesion concordant with CT findings and compatible with metastasis. Findings are suspicious for metastatic involvement of L4 and L5. There is abnormal signal involving the anterior column of the right acetabulum compatible with metastasis. Abnormal uptake in the left iliac bone suspicious for early metastasis. Sputum culture revealed no growth. White count 14.3. Hemoglobin 11.2. Platelets 236. Sodium 140. Potassium 3.9. Bicarb 30. BUN 16. Creatinine 0.8. AST 84. ALT 100. He r emains on Zosyn. Continued on bronchodilators and a prednisone taper. Heparin for DVT prophylaxis. The patient is seen today November 01, 2023 in follow-up on the regular medical floor. He is currently sitting up in bed. Awake and alert in no acute distress. Still having ongoing issues with low back and bilateral hip pain. He has been seen by pain management and fentanyl patch is to be added. He denies any worsening shortness of breath, cough or congestion. He is maintained on O2 saturations in the 90s on 3 L/min per nasal cannula. He is afebrile. Hemodynamically stable. Chest x-ray continues to show the right upper lung opacity with right-sided volume loss. Left lung remains clear. No acute process. No new labs today. Remains on Zosyn. Continued on bronchodilators, prednisone, and heparin for DVT prophylaxis The patient is seen today November 02, 2023 in follow-up on the regular medical floor. He is currently awake and alert. A bit more comfortable today compared to yesterday. He had been started on a fentanyl patch per pain management. He denies any worsening shortness of breath, cough or congestion. Follow-up chest x-ray continues to show opacification of the right apex. Improved left lower lobe infiltrate. No new labs today. He remains on Zosyn, bronchodilators, prednisone, and heparin for DVT prophylaxis. He is maintaining good O2 saturations in the 90s on 3 L/min per nasal cannula. He is afebrile. Hemodynamically stable. The patient is seen today November 03, 2023 in follow-up on the regular medical floor. He is resting fairly comfortably in bed. Still having quite a bit of bilateral hip pain. He denies any worsening shortness of breath, cough or congestion. He is maintaining O2 saturations in the 90s on 3 L/min per nasal cannula. He has been afebrile. Hemodynamically stable. Sputum culture revealed no growth. White count 12.4. Hemoglobin 10.8. Sodium 140. Potassium 3.8. Bicarb 28. BUN 17. Creatinine 0.9. Glucose 97. He is continued on Zosyn. Heparin for DVT prophylaxis. Continued on bronchodilators. Pain management is following. The patient is seen today November 04, 2023 in follow-up on the regular medical floor. He is currently resting comfortably in bed. Awake and alert. He is maintaining O2 saturations in the 90s on 3 L/min per nasal cannula. He is afebrile. Hemodynamically stable. He did undergo a left hip prophylactic intramedullary nail procedure yesterday by orthopedics. Postoperative day #1. White count 17.8. Hemoglobin 11.1. Platelets 372. He remains on bronchodilators, Zosyn. Heparin for DVT prophylaxis. Currently the pain is fairly well-controlled. The patient is seen today November 05, 2023 in follow-up on the regular medical floor. He is awake and alert in no acute distress. This is postoperative day #2. He states his pain has improved since surgery. Still has low back and right hip pain. He denies any worsening shortness of breath, cough or congestion. He is maintaining O2 saturations in the 90s on 3 L/min per nasal cannula. He has normal saline at KVO. Sputum culture revealed no growth. Sodium 141. Potassium 3.7. Bicarb 26. BUN 14. Creatinine 1.0. Glucose 135. He remains on DuoNeb ventilations, Symbicort, prednisone taper. Antibiotics in the form of Zosyn. Heparin for DVT prophylaxis. The patient is seen today November 06, 2023 in follow-up on the regular medical floor. He is currently resting in bed. Awake and alert in no acute distress. He is maintaining O2 saturations in the 90s on 2 L/min per nasal cannula. He has normal saying 20 mph. Continued on DuoNeb inhalations, Symbicort, prednisone taper. Heparin for DVT prophylaxis. Chest x-ray reveals similar left lower lung airspace disease. Similar right upper lobe consolidation. No new infiltrate or atelectasis. No pneumothorax. Sputum culture reveals no growth. White count 13.5. Hemoglobin 10.2. Platelets 351. Sodium 135. Potassium 3.6. Bicarb 27. BUN 12. Creatinine 0.78. Glucose 102. The patient is seen today November 07, 2023 in follow-up on the regular medical floor. He is awake and alert in no acute distress. He is resting fairly comfortably in bed. Denies any worsening shortness of breath, cough or congestion. He is maintaining good O2 saturations in the 90s on 3 L/min per nasal cannula. He has normal staying at KVO. He remains on antibiotics in the form of Augmentin. Continued on Symbicort DuoNeb inhalations. Heparin for DVT prophylaxis. His pain is fairly well-controlled. Sputum culture revealed no growth. No new labs today. The patient is seen today November 08, 2023 in follow-up on the regular medical floor. He is currently resting comfortably in bed. Maintaining good O2 saturations in the 90s on 3 L nasal cannula. He is afebrile. Hemodynamically stable. CT scan of the brain revealed no change in the mid to mild age- appropriate atrophy. Tiny remote lacunar infarct in the left basal ganglia. No acute bleed or mass effect. He is alert and oriented today. Sputum culture reveals no growth. No new labs today. Remains on DuoNeb inhalations and Symbicort. Heparin for DVT prophylaxis. The patient is seen today November 09, 2023 in follow-up on the regular medical floor. He is currently resting in bed. Awake and alert in no acute distress. His pain is fairly well-managed. He is maintaining good O2 saturations in the 90s on 3 L nasal cannula. Continue on DuoNeb inhalations, Symbicort. Heparin for DVT prophylaxis. Sputum culture had revealed no growth. White count 8.5. Hemoglobin 9.8. Platelets 370. Sodium 136. Potassium 4.3. Bicarb 28. BUN 11. Creatinine 0.69. The patient is seen today November 17, 2023 in follow-up on the regular medical floor. He is awake and alert in no acute distress. Sitting up in bed. Still having ongoing musculoskeletal pain. His most recent left femur x-ray revealed intramedullary sarita placement with persistent lytic lesion of the proximal femur. There is near complete loss of the medial cortex. Similar to previous exam. Consistent with his malignancy/metastasis. White count 5.2. Hemoglobin 10.3. Platelets 286. Sodium 137. Potassium 4.2. Bicarb 32. BUN 16. Creatinine 0.9. Glucose 115. He remains on Symbicort and DuoNeb ventilations. Heparin for DVT prophylaxis. The patient is seen today November 18, 2023 in follow-up on the regular medical floor. He is sitting up in bed. Awake and alert in no acute distress. Continues to maintain good O2 saturations in the 90s on 3 L/min per nasal cannula. He is afebrile. Hemodynamically stable. He has still been having some breakthrough musculoskeletal pain. He has been offered radiation treatments by radiation oncology. No new labs today. He is continued on Symbicort and DuoNeb inhalations. Heparin for DVT prophylaxis. Continues on a fentanyl patch and morphine sulfate as needed. The patient is seen today November 19, 2023 in follow-up on the regular medical floor. He is awake and alert in no acute distress. Continues to maintain good O2 saturations in the upper 90s on 3 L/min per nasal cannula. He is afebrile. Hemodynamically stable. Sputum culture revealed no growth. White count 5.2. Hemoglobin 10.3. Platelets 237. Sodium 139. Potassium 4.2. Bicarb 31. BUN 16. Creatinine 0.8. Glucose 125. He is continued on DuoNeb ventilations, Symbicort. Heparin for DVT prophylaxis. The patient is seen today November 20, 2023 in follow-up on the regular medical floor. He is resting fairly comfortably in bed. Awake and alert in no acute distress. Maintaining O2 saturations high 90s on 3 L/min per nasal cannula. Sputum culture revealed no growth. No new labs today. Remains on DuoNeb in halations, Symbicort. Heparin for DVT prophylaxis. Pain is fairly well- controlled. He denies any worsening shortness of breath, cough or congestion. No hemoptysis. Objective - Vital Signs Vital signs: Vital Signs Temp 97.5 F L 11/20/23 08:00 Pulse 85 11/20/23 11:59 Resp 20 11/20/23 08:00 BP 112/69 11/20/23 08:00 Pulse Ox 99 11/20/23 08:23 FiO2 3 11/15/23 08:15 Intake & Output 11/19/23 11/20/23 11/20/23 18:59 06:59 18:59 Intake Total 444 590 240 Output Total 400 500 Balance 44 90 240 Intake: Oral 444 590 240 Output: Urine 400 500 Other: Voiding Method Indwelling Catheter Indwelling Catheter Indwelling Catheter # Voids 0 - Exam GENERAL EXAM: Alert, pleasant 63-year-old male, resting in bed, on 3 L nasal canula, in no acute distress. HEAD: Normocephalic and atraumatic. EYES: Left eye blindness. Right eye intact. NOSE: Clear with pink turbinates. THROAT: No erythema or exudates. NECK: No masses, no JVD. CHEST: No chest wall deformity. LUNGS: Equal air entry with end expiratory wheezes heard throughout. Left-sided dullness. CVS: S1 and S2 normal with an audible murmur, regular rhythm. No extra heart megan nds ABDOMEN: No hepatosplenomegaly, active bowel sounds, no guarding or rigidity. SPINE: No scoliosis or deformity SKIN: No rashes CENTRAL NERVOUS SYSTEM: No focal deficits, tone is normal in all 4 extremities. EXTREMITIES: Left surgical hip clean, dry and intact. There is no peripheral edema, clubbing, or cyanosis. Peripheral pulses are intact. - Labs CBC & Chem 7: 11/19/23 07:55 11/19/23 07:55 Assessment and Plan Assessment: Metastatic adenocarcinoma of the lung, originally diagnosed was back in 2020 status post chemo/radiation followed by immunotherapy. CT of the chest, abdomen, pelvis demonstrates suspected obstruction of the right brachiocephalic vein with the majority of the injected contrast extending up along the collaterals along the anterior chest wall down into the abdomen into the common femoral vein and other collateral pathways. Patient does have history of SVC stenosis posttreatment. There is redemonstration of the patient's right upper lobe consolidation/mass and absorptive volume loss, which extends toward the pulmonary hilum, and consistent with the patient's known lung cancer. There is a new left lower lung airspace consolidation with air bronchograms consistent with pneumonia. There is redemonstration of the patient's suspected metastatic disease involving the lumbar spine left proximal femur. MRI of the hips reveal evidence of destructive proximal left femoral lesion concordant with CT findings and compatible with metastasis. Findings are suspicious for metastatic involvement of L4 and L5. There is abnormal signal involving the anterior column of the right acetabulum compatible with metastasis. Abnormal uptake in the left iliac bone suspicious for early metastasis Bilateral hip and lower back pain secondary to above. Status post prophylactic left hip intramedullary nailing on 11/03/2023 Left lower lobe hospital acquired pneumonia procalcitonin 53.4. Completed Zosyn, sputum culture revealed no growth Leukocytosis, secondary to above, resolved Unstable gait and fall, secondary to above Chronic obstructive pulmonary disease Chronic hypoxemic respiratory failure, normally on 3 L/min nasal cannula Chronic anemia History of hyperlipidemia History of hypertension History of hypothyroidism Coronary artery disease with previous PCI/stent History of anxiety/depression/PTSD History of polysubstance abuse Poor overall functional performance based on the above-mentioned multiple comorbidities Plan: The patient was seen and evaluated Medications reviewed Stable and on 3 L/min per nasal cannula Titrate down the FiO2 as tolerated DNR/DNI CODE STATUS Cleared for discharge to [facility] once bed available The patient was seen independently by the pulmonary nurse practitioner addressing pulmonary issues I have personally seen and examined the patient, performed the documentation and the assessment and plan as written. Number of minutes spent on the visit: 22.
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
[2023-11-21 08:28] VITALS: RESP 16
--- NOTE | 2023-11-21 13:01 | P.PN ---
Subjective Progress Note Date: 11/21/23 I am seeing this patient in consultation today 10/29/2023 for suspected left lower lobe pneumonia. Patient is a 63-year-old white male with past medical history significant for COPD, adenocarcinoma of the lung diagnosed originally back in October 2019 status post chemotherapy radiation. Followed by immuno therapy. Does not appear the patient has followed up in the pulmonary office since 2021. He does follow with his oncologist Dr. Morales. Since then, he has experienced a fall and he has been complaining of severe hip pain. It is affecting his ambulation. He can no longer take care of himself at home. He had a ER visit earlier this month for this. He did have a follow-up nuc med bone scan which showed abnormal intense uptake involving the proximal left femur suggestive of malignancy. There was moderate intensity uptake L4 also suspicious for metastatic disease. He was scheduled for a follow-up outpatient PET scan today, which will obviously have to be rescheduled. Patient also has past medical history significant for COPD, chronic hypoxemic respiratory failure and maintained on 3 L/min nasal cannula as needed, hyperlipidemia, hypertension, hypothyroidism, coronary artery disease with previous PCI/stent, anxiety/depression/PTSD polysubstance abuse, among many other medical comorbidit ies. Patient returned to the emergency room on 10/24/2023 in complaining of increased lower extremity pain bilaterally. He can no longer ambulate appropriately. MRI of the lumbar spine demonstrates multiple areas of suspected metastatic disease within the lumbar spine with the largest through the L4 level. No vertebral body height loss is evident. There is multilevel disc bulges greatest at L5-S1. There is small subligamentous disc herniation and central protrusion present at L1-2 without spinal canal stenosis. There is severe right for minimal stenosis at L5-S1 with milder formoterol narrowing. 8 x-ray of the pelvis does not show any acute fractures. Patient did have a chest x-ray yesterday which showed a new patchy left lower lobe infiltrate as well as the patient's known right upper lobe mass with associated right upper lobe volume loss/absorptive atelectasis. This was followed by a CT of the chest, abdomen, pelvis which demonstrated suspected obstruction of the right brac hiocephalic vein with the majority of the injected contrast extending up along the collaterals along the anterior chest wall down into the abdomen into the common femoral vein and other collateral pathways. Patient does have history of SVC stenosis posttreatment. There is redemonstration of the patient's right upper lobe consolidation, which extends toward the pulmonary hilum, and consistent with the patient's known lung cancer. There is a new left lower lung airspace consolidation with air bronchograms consistent with pneumonia. There is redemonstration of the patient's suspected metastatic disease involving the lumbar spine left proximal femur. For this reason, we were consulted yesterday. Patient is currently sitting up in bed, 3 L/min nasal cannula, in no acute distress. He does endorse chronic shortness of breath. He has had a minimally productive cough with occasional yellow sputum production. Denies any fevers. Denies any chest pain. His main complaint is his bilateral hip pain. Patient has been evaluated by orthopedic surgery, there is a possible plan for prophyla ctic insertion of a intramedullary sarita to support the left femur. Most recent CBC from this morning: WBC count 22.3, hemoglobin 10.8, hematocrit 32.7, platelets 206. BMP from this morning: Sodium 136, potassium 3.8, chloride 100, serum bicarb 29, BUN 19, creatinine 0.77, glucose 126. Patient has been started on empiric Zosyn. Procalcitonin level pending. Sputum culture was ordered. He is afebrile. Vital signs are stable. The patient is seen today October 30, 2023 in follow-up on the regular medical floor. He is currently awake and alert. He is quite uncomfortable with both right and left hip pain. He denies any worsening shortness of breath, cough or congestion. He is maintaining good O2 saturation in the mid 90s on 3 L/min per nasal cannula. He is afebrile. Hemodynamically stable. MRI of the right hip results are pending. Sputum culture pending. No new labs today. He remains on DuoNeb ventilations, Pulmicort inhalations and a prednisone taper. Heparin for DVT prophylaxis. Antibiotics in the form of Zosyn. Patient is seen today October 31, 2023 in follow-up on the regular medical floor. He is awake and alert in no acute distress. Appearing more comfortable today compared to yesterday. He is maintaining good O2 saturation in the 90s on 3 L nasal cannula. He is afebrile. Hemodynamically stable. MRI of the hips reveal evidence of destructive proximal left femoral lesion concordant with CT findings and compatible with metastasis. Findings are suspicious for metastatic involvement of L4 and L5. There is abnormal signal involving the anterior column of the right acetabulum compatible with metastasis. Abnormal uptake in the left iliac bone suspicious for early metastasis. Sputum culture revealed no growth. White count 14.3. Hemoglobin 11.2. Platelets 236. Sodium 140. Potassium 3.9. Bicarb 30. BUN 16. Creatinine 0.8. AST 84. ALT 100. He r emains on Zosyn. Continued on bronchodilators and a prednisone taper. Heparin for DVT prophylaxis. The patient is seen today November 01, 2023 in follow-up on the regular medical floor. He is currently sitting up in bed. Awake and alert in no acute distress. Still having ongoing issues with low back and bilateral hip pain. He has been seen by pain management and fentanyl patch is to be added. He denies any worsening shortness of breath, cough or congestion. He is maintained on O2 saturations in the 90s on 3 L/min per nasal cannula. He is afebrile. Hemodynamically stable. Chest x-ray continues to show the right upper lung opacity with right-sided volume loss. Left lung remains clear. No acute process. No new labs today. Remains on Zosyn. Continued on bronchodilators, prednisone, and heparin for DVT prophylaxis The patient is seen today November 02, 2023 in follow-up on the regular medical floor. He is currently awake and alert. A bit more comfortable today compared to yesterday. He had been started on a fentanyl patch per pain management. He denies any worsening shortness of breath, cough or congestion. Follow-up chest x-ray continues to show opacification of the right apex. Improved left lower lobe infiltrate. No new labs today. He remains on Zosyn, bronchodilators, prednisone, and heparin for DVT prophylaxis. He is maintaining good O2 saturations in the 90s on 3 L/min per nasal cannula. He is afebrile. Hemodynamically stable. The patient is seen today November 03, 2023 in follow-up on the regular medical floor. He is resting fairly comfortably in bed. Still having quite a bit of bilateral hip pain. He denies any worsening shortness of breath, cough or congestion. He is maintaining O2 saturations in the 90s on 3 L/min per nasal cannula. He has been afebrile. Hemodynamically stable. Sputum culture revealed no growth. White count 12.4. Hemoglobin 10.8. Sodium 140. Potassium 3.8. Bicarb 28. BUN 17. Creatinine 0.9. Glucose 97. He is continued on Zosyn. Heparin for DVT prophylaxis. Continued on bronchodilators. Pain management is following. The patient is seen today November 04, 2023 in follow-up on the regular medical floor. He is currently resting comfortably in bed. Awake and alert. He is maintaining O2 saturations in the 90s on 3 L/min per nasal cannula. He is afebrile. Hemodynamically stable. He did undergo a left hip prophylactic intramedullary nail procedure yesterday by orthopedics. Postoperative day #1. White count 17.8. Hemoglobin 11.1. Platelets 372. He remains on bronchodilators, Zosyn. Heparin for DVT prophylaxis. Currently the pain is fairly well-controlled. The patient is seen today November 05, 2023 in follow-up on the regular medical floor. He is awake and alert in no acute distress. This is postoperative day #2. He states his pain has improved since surgery. Still has low back and right hip pain. He denies any worsening shortness of breath, cough or congestion. He is maintaining O2 saturations in the 90s on 3 L/min per nasal cannula. He has normal saline at KVO. Sputum culture revealed no growth. Sodium 141. Potassium 3.7. Bicarb 26. BUN 14. Creatinine 1.0. Glucose 135. He remains on DuoNeb ventilations, Symbicort, prednisone taper. Antibiotics in the form of Zosyn. Heparin for DVT prophylaxis. The patient is seen today November 06, 2023 in follow-up on the regular medical floor. He is currently resting in bed. Awake and alert in no acute distress. He is maintaining O2 saturations in the 90s on 2 L/min per nasal cannula. He has normal saying 20 mph. Continued on DuoNeb inhalations, Symbicort, prednisone taper. Heparin for DVT prophylaxis. Chest x-ray reveals similar left lower lung airspace disease. Similar right upper lobe consolidation. No new infiltrate or atelectasis. No pneumothorax. Sputum culture reveals no growth. White count 13.5. Hemoglobin 10.2. Platelets 351. Sodium 135. Potassium 3.6. Bicarb 27. BUN 12. Creatinine 0.78. Glucose 102. The patient is seen today November 07, 2023 in follow-up on the regular medical floor. He is awake and alert in no acute distress. He is resting fairly comfortably in bed. Denies any worsening shortness of breath, cough or congestion. He is maintaining good O2 saturations in the 90s on 3 L/min per nasal cannula. He has normal staying at KVO. He remains on antibiotics in the form of Augmentin. Continued on Symbicort DuoNeb inhalations. Heparin for DVT prophylaxis. His pain is fairly well-controlled. Sputum culture revealed no growth. No new labs today. The patient is seen today November 08, 2023 in follow-up on the regular medical floor. He is currently resting comfortably in bed. Maintaining good O2 saturations in the 90s on 3 L nasal cannula. He is afebrile. Hemodynamically stable. CT scan of the brain revealed no change in the mid to mild age- appropriate atrophy. Tiny remote lacunar infarct in the left basal ganglia. No acute bleed or mass effect. He is alert and oriented today. Sputum culture reveals no growth. No new labs today. Remains on DuoNeb inhalations and Symbicort. Heparin for DVT prophylaxis. The patient is seen today November 09, 2023 in follow-up on the regular medical floor. He is currently resting in bed. Awake and alert in no acute distress. His pain is fairly well-managed. He is maintaining good O2 saturations in the 90s on 3 L nasal cannula. Continue on DuoNeb inhalations, Symbicort. Heparin for DVT prophylaxis. Sputum culture had revealed no growth. White count 8.5. Hemoglobin 9.8. Platelets 370. Sodium 136. Potassium 4.3. Bicarb 28. BUN 11. Creatinine 0.69. The patient is seen today November 17, 2023 in follow-up on the regular medical floor. He is awake and alert in no acute distress. Sitting up in bed. Still having ongoing musculoskeletal pain. His most recent left femur x-ray revealed intramedullary sarita placement with persistent lytic lesion of the proximal femur. There is near complete loss of the medial cortex. Similar to previous exam. Consistent with his malignancy/metastasis. White count 5.2. Hemoglobin 10.3. Platelets 286. Sodium 137. Potassium 4.2. Bicarb 32. BUN 16. Creatinine 0.9. Glucose 115. He remains on Symbicort and DuoNeb ventilations. Heparin for DVT prophylaxis. The patient is seen today November 18, 2023 in follow-up on the regular medical floor. He is sitting up in bed. Awake and alert in no acute distress. Continues to maintain good O2 saturations in the 90s on 3 L/min per nasal cannula. He is afebrile. Hemodynamically stable. He has still been having some breakthrough musculoskeletal pain. He has been offered radiation treatments by radiation oncology. No new labs today. He is continued on Symbicort and DuoNeb inhalations. Heparin for DVT prophylaxis. Continues on a fentanyl patch and morphine sulfate as needed. The patient is seen today November 19, 2023 in follow-up on the regular medical floor. He is awake and alert in no acute distress. Continues to maintain good O2 saturations in the upper 90s on 3 L/min per nasal cannula. He is afebrile. Hemodynamically stable. Sputum culture revealed no growth. White count 5.2. Hemoglobin 10.3. Platelets 237. Sodium 139. Potassium 4.2. Bicarb 31. BUN 16. Creatinine 0.8. Glucose 125. He is continued on DuoNeb ventilations, Symbicort. Heparin for DVT prophylaxis. The patient is seen today November 20, 2023 in follow-up on the regular medical floor. He is resting fairly comfortably in bed. Awake and alert in no acute distress. Maintaining O2 saturations high 90s on 3 L/min per nasal cannula. Sputum culture revealed no growth. No new labs today. Remains on DuoNeb in halations, Symbicort. Heparin for DVT prophylaxis. Pain is fairly well- controlled. He denies any worsening shortness of breath, cough or congestion. No hemoptysis. The patient is seen today November 21, 2023 in follow-up on the regular medical floor. He is awake and alert in no acute distress. Maintaining good O2 saturations in the 90s on 3 L/min per nasal cannula. He denies any worsening shortness of breath, cough or congestion no chest pain. Hip and back pain are better controlled. He remains on DuoNeb inhalations, Symbicort. Heparin for DVT prophylaxis. Objective - Vital Signs Vital signs: Vital Signs Temp 97.9 F 11/21/23 07:15 Pulse 86 11/21/23 12:27 Resp 16 11/21/23 07:15 BP 106/65 11/21/23 07:15 Pulse Ox 94 L 11/21/23 09:19 FiO2 3 11/15/23 08:15 Intake & Output 11/20/23 11/21/23 11/21/23 18:59 06:59 18:59 Intake Total 1440 590 Output Total 300 525 Balance 1140 65 Weight 61.235 kg Intake: Oral 1440 590 Output: Urine 300 525 Other: Voiding Method Indwelling Catheter Indwelling Catheter Indwelling Catheter - Exam GENERAL EXAM: Alert, very weak 63-year-old male, on 3 L nasal canula, in no acute distress. HEAD: Normocephalic and atraumatic. EYES: Left eye blindness. Right eye intact. NOSE: Clear with pink turbinates. THROAT: No erythema or exudates. NECK: No masses, no JVD. CHEST: No chest wall deformity. LUNGS: Equal air entry with end expiratory wheezes heard throughout. Left-sided dullness. CVS: S1 and S2 normal with an audible murmur, regular rhythm. No extra heart sounds ABDOMEN: No hepatosplenomegaly, active bowel sounds, no guarding or rigidity. SPINE: No scoliosis or deformity SKIN: No rashes CENTRAL NERVOUS SYSTEM: No focal deficits, tone is normal in all 4 extremities. EXTREMITIES: Left surgical hip clean, dry and intact. There is no peripheral edema, clubbing, or cyanosis. Peripheral pulses are intact. - Labs CBC & Chem 7: 11/19/23 07:55 11/19/23 07:55 Assessment and Plan Assessment: Metastatic adenocarcinoma of the lung, originally diagnosed was back in 2020 status post chemo/radiation followed by immunotherapy. CT of the chest, abdomen, pelvis demonstrates suspected obstruction of the right brachiocephalic vein with the majority of the injected contrast extending up along the collaterals along the anterior chest wall down into the abdomen into the common femoral vein and other collateral pathways. Patient does have history of SVC stenosis posttreatment. There is redemonstration of the patient's right upper lobe consolidation/mass and absorptive volume loss, which extends toward the pulmonary hilum, and consistent with the patient's known lung cancer. There is a new left lower lung airspace consolidation with air bronchograms consistent with pneumonia. There is redemonstration of the patient's suspected metastatic disease involving the lumbar spine left proximal femur. MRI of the hips reveal evidence of destructive proximal left femoral lesion concordant with CT findings and compatible with metastasis. Findings are suspicious for metastatic involve ment of L4 and L5. There is abnormal signal involving the anterior column of the right acetabulum compatible with metastasis. Abnormal uptake in the left iliac bone suspicious for early metastasis Bilateral hip and lower back pain secondary to above. Status post prophylactic left hip intramedullary nailing on 11/03/2023 Left lower lobe hospital acquired pneumonia procalcitonin 53.4. Completed Zosyn, sputum culture revealed no growth Leukocytosis, secondary to above, resolved Unstable gait and fall, secondary to above Chronic obstructive pulmonary disease Chronic hypoxemic respiratory failure, normally on 3 L/min nasal cannula Chronic anemia History of hyperlipidemia History of hypertension History of hypothyroidism Coronary artery disease with previous PCI/stent History of anxiety/depression/PTSD History of polysubstance abuse Poor overall functional performance based on the above-mentioned multiple comorbidities Plan: The patient was seen and evaluated Medications reviewed Continued on DuoNeb inhalations, Symbicort Cleared for discharge to [facility] The patient was seen independently by the pulmonary nurse practitioner addressing pulmonary issues I have personally seen and examined the patient, performed the documentation and the assessment and plan as written. Number of minutes spent on the visit: 23.
[2023-11-21 13:37] VITALS: BP 112/70; PULSE 104; TEMP 97.7
== END 2023-11-21 14:45 | DRG 480 ==
LOC: SUPCPDRO 21:08 → EC 21:08 → 5NMEDONC 23:14 → OBSVTOIN 23:15 → 5NMEDONC 23:42
PROVIDERS: ADMIT Internal Medicine; ATTEND Internal Medicine
PROC: 0QSC04Z Reposition Left Lower Femur with Internal Fixation Device, Open Approach (ICD-10-PCS; principal; 2023-10-24)
PROC: 3E0T3BZ Introduction of Anesthetic Agent into Peripheral Nerves and Plexi, Percutaneous Approach (ICD-10-PCS; 2023-10-24)
PROC: 0SBB0ZX Excision of Left Hip Joint, Open Approach, Diagnostic (ICD-10-PCS; 2023-10-24)
DX: C79.51 Secondary malignant neoplasm of bone (principal); G93.41 Metabolic encephalopathy; J15.69 Pneumonia due to other Gram-negative bacteria; J18.9 Pneumonia, unspecified organism; C34.11 Malignant neoplasm of upper lobe, right bronchus or lung; H33.22 Serous retinal detachment, left eye; J44.0 Chronic obstructive pulmonary disease with (acute) lower respiratory infection; J96.11 Chronic respiratory failure with hypoxia; J98.11 Atelectasis; E03.9 Hypothyroidism, unspecified; Z79.890 Hormone replacement therapy; E78.2 Mixed hyperlipidemia; F31.9 Bipolar disorder, unspecified; F43.10 Post-traumatic stress disorder, unspecified; G89.4 Chronic pain syndrome; I25.10 Atherosclerotic heart disease of native coronary artery without angina pectoris; I25.5 Ischemic cardiomyopathy; M51.16 Intervertebral disc disorders with radiculopathy, lumbar region; G89.3 Neoplasm related pain (acute) (chronic); D64.9 Anemia, unspecified; H54.7 Unspecified visual loss; F17.210 Nicotine dependence, cigarettes, uncomplicated; K59.03 Drug induced constipation; M43.16 Spondylolisthesis, lumbar region; M48.07 Spinal stenosis, lumbosacral region; W18.30XA Fall on same level, unspecified, initial encounter; T40.2X5A Adverse effect of other opioids, initial encounter; N40.0 Benign prostatic hyperplasia without lower urinary tract symptoms; Y95 Nosocomial condition; Z79.02 Long term (current) use of antithrombotics/antiplatelets; Z79.82 Long term (current) use of aspirin; Z79.899 Other long term (current) drug therapy; Z85.118 Personal history of other malignant neoplasm of bronchus and lung; Z86.73 Personal history of transient ischemic attack (TIA), and cerebral infarction without residual deficits; Z87.19 Personal history of other diseases of the digestive system; Z92.21 Personal history of antineoplastic chemotherapy; Z92.3 Personal history of irradiation; Z95.5 Presence of coronary angioplasty implant and graft; Z99.81 Dependence on supplemental oxygen; Z88.1 Allergy status to other antibiotic agents
CPT/HCPCS: 36415; 70450; 71045; 71046; 71260; 72100; 72158; 72170; 73501; 74177; 80048; 80053; 80306; 80320; 81003; 83690; 83735; 84145; 84484; 85025; 86850; 86900; 86901; 87070; 87205; 88307; 88311; 88341; 88342; 93005; 94640; 94760; 96374; 96375; 99285